=== PATIENT | female | born 1935 | race Caucasian/White ===

== ENCOUNTER 2016-06-30 15:13 | Emergency (ER) | payer MEDICARE, BC ==
[~2016-06-30 15:13] MED LIST: ACET650T PO; ASPI81TA7 PO; BACT400T PO; FISH1000 PO; FOSA70TA PO; HYDROXUREA PO; ICAPCAP PO; IRON18TA2 PO; JAKA10TA PO; KLOR CON PO; KLOR1TAB65 PO; LASI20TA PO; MECL25CH PO; PERCOCET PO; POTA-77 PO; SYNT100T PO
--- NOTE | 2016-06-30 16:26 | REP ---
Clinical: Right facial numbness. Findings: Age-related atrophy and microvascular ischemic changes are appreciated. The ventricles and sulci are symmetric. Ovalle-white differentiation is maintained. There is no evidence for acute intracranial hemorrhage, mass/mass effect, pathology or infarction. No extra-axial fluid collection. Calvarium is intact. Paranasal sinuses and mastoid air cells are clear. Stable chronic right frontal calcified meningioma. Impression: Age related atrophy and microvascular ischemic changes. No acute intracranial hemorrhage, infarction, or mass/mass effect. Signed by Kody Mcrae MD 06/30/2016 04:17 P
--- NOTE | 2016-06-30 16:41 | REP ---
AP portable upright chest radiograph 06/30/2016 Indication: Right facial numbness Comparison: AP portable chest 10/23/2013, CT abdomen and pelvis 02/21/2015 which includes lung bases in the field of view. Findings: The cardiac silhouette is of normal size. Mediastinal contour within normal limits. Small amount of bibasilar fibro atelectatic changes are noted. Small calcification is seen adjacent to the greater tuberosity within the right humeral head, consistent with calcific tendonitis. Impression: Normal cardiomediastinal silhouette. Small amount of bibasilar fibroatelectatic changes. Signed by Bailee Llanos MD 06/30/2016 04:32 P
[2016-06-30 17:16] LABS: INR 0.97
[2016-06-30 17:25] LABS: ANION GAP 8 MEQ/L (8-16); BLOOD UREA NITROGEN 33 MG/DL (7-18); CALCIUM LEVEL 8.8 MG/DL (8.8-10.2); CARBON DIOXIDE LEVEL 31 MEQ/L (21-32); CHLORIDE LEVEL 103 MEQ/L (98-107); GLOMERULAR FILTRATION RATE > 60.0 (>32); GLUCOSE, FASTING 100 MG/DL (83-110); POTASSIUM SERUM 3.9 MEQ/L (3.5-5.1); SODIUM LEVEL 142 MEQ/L (136-145)
[2016-06-30 17:26] LABS: BASO # 0.3 K/mm3 (0.0-0.2); BASO % 1.2 % (0.0-1.0); EOS # 0.1 K/mm3 (0.0-0.50); EOS % 0.5 % (0.0-3.0); LARGE UNSTAINED CELL # 0.3 K/mm3 (0.0-0.4); LARGE UNSTAINED CELL % 0.9 % (0.0-4.0); LYMPH % 2.5 % (24.0-44.0); MEAN CORPUSCULAR HEMOGLOBIN 16.5 pg (27.0-33.0); MEAN CORPUSCULAR HGB CONC 27.2 g/dl (32.0-36.5); MEAN CORPUSCULAR VOLUME 60.7 fl (80.0-96.0); MONO # 0.4 K/mm3 (0.0-0.8); MONO % 1.5 % (0.0-5.0); NEUTROPHILS # 26.6 K/mm3 (1.8-7.7); NEUTROPHILS % 93.4 % (36.0-66.0); PLATELET COUNT, AUTOMATED 304 k/mm3 (150-450); RED CELL DISTRIBUTION WIDTH 19.5 % (11.5-14.5); WHITE BLOOD COUNT 28.5 K/mm3 (4.0-10.0)
[2016-06-30 17:39] LABS: ANISOCYTOSIS 2+; HYPOCHROMASIA 3+; MICROCYTOSIS 3+
[2016-06-30 17:41] LABS: OVALOCYTES 2+; POLYCHROMASIA 1+
--- NOTE | 2016-06-30 18:14 | ECGEPIP ---
Stationary ECG Study [facility] - ED Test Date: 2016-06-30 Pat Name: SR JARA Department: Room: - Gender: F Conference Assistant: rupinder : 1935 Requested By: Lorrie Shukla Order Number: [id number] Reading MD: Carrie Sharif Measurements Intervals [place] Rate: 84 P: 54 DE: 138 QRS: 9 QRSD: 72 T: 16 QT: 339 QTc: 402 Interpretive Statements SINUS RHYTHM POSSIBLE LEFT ATRIAL ENLARGEMENT DELAYED R PROGRESSION DECREASED RATE 10/23/13 Electronically Signed On 06-30-2016 18:14:02 EST by Carrie Sharif
--- NOTE | 2016-06-30 18:49 | EDDOCDS ---
Nurse's Notes [facility] Name: Sr Martinez Age: 80 yrs Sex: Female : 1935 Arrival Date: 06/30/2016 Time: 15:13 Bed 7 Private MD: Amanda Lawson Abdul; Aura Napoles P. Diagnosis: Paresthesia of skin-intermittent, right facial;Other transient cerebral ischemic attacks and related syndromes-rule out;Polycythemia vera Presentation: 06/30 15:21 Presenting complaint: Patient states: Intermittent episodic right side facial numbness mlb1 began four weeks ago reports approximately 3-4 episode per day. Adult Sepsis Screening: The patient does not have new or worsening altered mentation. Patient's respiratory rate is less than 22. Systolic blood pressure is greater than 100. Patient has a qSOFA score of 0- Negative Sepsis Screen. Suicide/Homicide risk assessment- the patient denies having any suicidal and/or homicidal ideations and does not present with any other emotional, behavioral or mental health complaints. Status: Patient is not a service sprinkler helper or dependent. Transition of care: patient was not received from another setting of care. 15:21 Acuity: SANDRA Level 3 mlb1 15:21 Method Of Arrival: Walkin/Carried/Asstd mlb1 Triage Assessment: 15:24 General: Appears distressed, Behavior is anxious, crying. Pain: Denies pain. mlb1 Neurological: Level of Consciousness is awake, alert, Oriented to person, place, time, Speech is normal, Facial symmetry appears normal, Facial symmetry: tongue is midline. Historical: - Home Meds: 1. Synthroid 75 mcg Oral tab 1 tab once daily 2. alendronate 70 mg/75 mL oral soln 75 mL once wkly 3. Lasix 20 mg Oral tab 1 tab once daily 4. potassium chloride 15 mEq Oral TbTQ 1 tab 2 times per day 5. ared 1 tab twice a day 6. aspirin 81 mg Oral TbEC 1 tab once daily 7. Fish Oil Oral cap 1200 mg daily 8. Vitamin D Oral 2000 units daily 9. Jakafi 10 mg oral tab 1 tab 2 times per day - PMHx: polycythemia; - PSHx: stent placement right ureter; - Social history: Smoking status: Patient states was never smoker of tobacco. No barriers to communication noted, The patient speaks fluent Swedish, Speaks appropriately for age. - Family history: Not pertinent. - : The pt / caregiver states he / she is not on anticoagulants. Home medication list is obtained from the patient. - Exposure Risk Screening:: None identified. Screenin:45 Screening information is obtained from the patient. Fall risk: No risks identified. [facility] Assistance ADL's: requires no assistance with activities of daily living. Abuse/DV Screen: The patient / caregiver reports he/she is:. Nutritional screening: No deficits noted. home support is adequate. Assessment: 15:32 General: Appears in no apparent distress, skin warm and dry color satisfactory Moist [facility] pink oral mucosa. alert and oriented x 3. BOBBY brisk. without facial droop or drift. strength equal bilaterally. ambulates with satisfactory gait. without pain ./ speech is unimpaired. states " feeling" to left temporal region when present. seconds duration, and pain is not accompanied by other symptoms when present. 15:32 Neurological: No deficits noted. Level of Consciousness is awake, alert, Oriented to [facility] person, place, time, Automation Specialist are equal bilaterally Moves all extremities. Gait is steady, Speech is normal, Facial symmetry appears normal, Pupils are PERRLA. 17:00 General: Appears without symptoms.. jmk 17:49 General: Appears without complaints. neuro intact. k 17:51 General: ambulated to bathroom with steady gait. k 18:45 General: Appears without symptoms. [facility] Vital Signs: 15:16 BP 182 / 92 RA Sitting (auto/reg); Pulse 92; Resp 18; Temp 98.4(O); Pulse Ox 97% on rs6 R/A; Weight 52.16 kg (R); Height 5 ft. 4 in. (162.56 cm) (R); Pain 0/10; 17:49 BP 136 / 75 (auto/); k 17:49 Pulse 84 MON; Pulse Ox 95% ; jmk 18:45 BP 130 / 70; Pulse 80; Resp 16; Temp 97.3; k 15:16 Body Mass Index 19.74 (52.16 kg, 162.56 cm) [facility] Vitals: 15:16 Log In Time: June 30, 2016 at 15:16. [facility] 15:17 RN notified that patient meets Red Flag criteria. rs6 ED Course: 04:30 Inserted saline lock: 20 gauge in left antecubital area. jmk 15:16 Patient visited by Brea Mahajan PCA. rs6 15:16 Aura Napoles is Private Physician. rs6 15:16 Amanda Lawson is Private Physician. rs6 15:16 Patient moved to Waiting rs6 15:21 Patient visited by Azeem Saucedo, RN. mlb1 15:21 Patient visited by Brea Mahajan PCA. rs6 15:21 Patient moved to Pre RCE rs6 15:22 Triage Initiated mlb1 15:25 Patient visited by Azeem Saucedo, RN. mlb1 15:32 Patient moved to 7 [facility] 15:32 The patient / caregiver is instructed regarding the plan of care and ED course. jmk 15:37 Patient visited by Beck Brito RN. jmk 15:43 Lorrie Shukla MD is Attending Physician. ml 15:43 Patient visited by Lorrie Shukla MD. ml 16:19 Patient visited by Gilda Batres PCA. jlf 16:19 Patient visited by Gilda Batres PCA. jlf 16:19 EKG done. (by ED staff). Reviewed by Lorrie Shukla MD. jlf 16:31 Patient visited by Gilda Batres PCA. jlf 16:37 Basic Metabolic Profile Sent. jmk 16:37 CBC with Diff Sent. jmk 16:37 Partial Thromboplastin Time Sent. jmk 16:37 Prothrombin Time Profile\\E\\INR Sent. jmk 16:37 Type & Screen Sent. jmk 17:00 Fingerstick Blood Sugar Sent. jmk 17:01 Patient visited by Beck Brito,JINNY. jmk 17:11 CT Head Without Contrast Returned. EDMS 17:11 Chest, 1 View Returned. EDMS 17:51 Patient visited by Beck Brito RN. jmk 17:54 [facility] Payment Agreement was scanned into [employer] and attached to record. zo 18:11 Amanda Lawson is Referral Physician. ml 18:11 Aura Napoles is Referral Physician. ml 18:12 Stephany Irene MD is Referral Physician. ml 18:47 Discontinued lock intact, bleeding controlled, pressure dressing applied, No jmk redness/swelling at site. No procedures done that require assistance. Point of Care Testing: Blood Glucose: 16:42 Blood Glucose: 98 mg/dL; k Ranges: Order Results: Lab Order: Basic Metabolic Profile; SPEC'M 06/30/16 16:35 Test: GLUCOSE, FASTING; Value: 100; Range: 83-110; Units: MG/DL; Status: F Test: BLOOD UREA NITROGEN; Value: 33; Range: 7-18; Abnormal: Above high normal; Units: MG/DL; Status: F Test: CREATININE FOR GFR; Value: 0.90; Range: 0.55-1.02; Units: MG/DL; Status: F Test: GLOMERULAR FILTRATION RATE; Value: > 60.0; Range: >32; Status: F Test: SODIUM LEVEL; Value: 142; Range: 136-145; Units: MEQ/L; Status: F Test: POTASSIUM SERUM; Value: 3.9; Range: 3.5-5.1; Units: MEQ/L; Status: F Test: CHLORIDE LEVEL; Value: 103; Range: 98-107; Units: MEQ/L; Status: F Test: CARBON DIOXIDE LEVEL; Value: 31; Range: 21-32; Units: MEQ/L; Status: F Test: ANION GAP; Value: 8; Range: 8-16; Units: MEQ/L; Status: F Test: CALCIUM LEVEL; Value: 8.8; Range: 8.8-10.2; Units: MG/DL; Status: F Test Note: ; Units are mL/min/1.73 m2 Chronic Kidney Disease Staging per NKF: Stage I & II GFR >=60 Normal to Mildly Decreased Stage III GFR 30-59 Moderately Decreased Stage IV GFR 15-29 Severely Decreased Stage V GFR <15 Very Little GFR Left ESRD GFR <15 on SEMI CONDUCTOR ASSEMBLER Lab Order: CBC with Diff; SPEC'M 06/30/16 16:35 Test: WHITE BLOOD COUNT; Value: 28.5; Range: 4.0-10.0; Abnormal: Above high normal; Units: K/mm3; Status: F Test: RED BLOOD COUNT; Value: 7.87; Range: 4.00-5.40; Abnormal: Above high normal; Units: M/mm3; Status: F Test: HEMOGLOBIN; Value: 13.0; Range: 12.0-16.0; Units: g/dl; Status: F Test: HEMATOCRIT; Value: 47.7; Range: 36.0-47.0; Abnormal: Above high normal; Units: %; Status: F Test: MEAN CORPUSCULAR VOLUME; Value: 60.7; Range: 80.0-96.0; Abnormal: Below low normal; Units: fl; Status: F Test: MEAN CORPUSCULAR HEMOGLOBIN; Value: 16.5; Range: 27.0-33.0; Abnormal: Below low normal; Units: pg; Status: F Test: MEAN CORPUSCULAR HGB CONC; Value: 27.2; Range: 32.0-36.5; Abnormal: Below low normal; Units: g/dl; Status: F Test: RED CELL DISTRIBUTION WIDTH; Value: 19.5; Range: 11.5-14.5; Abnormal: Above high normal; Units: %; Status: F Test: PLATELET COUNT, AUTOMATED; Value: 304; Range: 150-450; Units: k/mm3; Status: F Test: NEUTROPHILS %; Value: 93.4; Range: 36.0-66.0; Abnormal: Above high normal; Units: %; Status: F Test: LYMPH %; Value: 2.5; Range: 24.0-44.0; Abnormal: Below low normal; Units: %; Status: F Test: MONO %; Value: 1.5; Range: 0.0-5.0; Units: %; Status: F Test: EOS %; Value: 0.5; Range: 0.0-3.0; Units: %; Status: F Test: BASO %; Value: 1.2; Range: 0.0-1.0; Abnormal: Above high normal; Units: %; Status: F Test: LARGE UNSTAINED CELL %; Value: 0.9; Range: 0.0-4.0; Units: %; Status: F Test: NEUTROPHILS #; Value: 26.6; Range: 1.8-7.7; Abnormal: Above high normal; Units: K/mm3; Status: F Test: LYMPH #; Value: 1.0; Range: 1.5-4.5; Abnormal: Below low normal; Units: K/mm3; Status: F Test: MONO #; Value: 0.4; Range: 0.0-0.8; Units: K/mm3; Status: F Test: EOS #; Value: 0.1; Range: 0.0-0.50; Units: K/mm3; Status: F Test: BASO #; Value: 0.3; Range: 0.0-0.2; Abnormal: Above high normal; Units: K/mm3; Status: F Test: LARGE UNSTAINED CELL #; Value: 0.3; Range: 0.0-0.4; Units: K/mm3; Status: F Lab Order: Partial Thromboplastin Time; [facility] 06/30/16 16:35 Test: PARTIAL THROMBOPLASTIN TIME; Value: 34.9; Range: 26.6-37.1; Units: SECONDS; Status: F Lab Order: Prothrombin Time Profile\\E\\INR; 06/30/16 16:35 Test: PROTHROMBIN TIME; Value: 13.0; Range: 12.3-14.5; Units: SECONDS; Status: F Test: INR; Value: 0.97; Status: F Test Note: ; THERAPUTIC HUMAN INR VALUES INDICATIONS NORMAL RANGES PROPHYLAXIS/TREATMENT OF: VENOUS THROMBOSIS 2.0-3.0 PULMONARY EMBOLISM 2.0-3.0 PREVENTION OF SYSTEMIC EMBOLISM FROM: TISSUE HEART VALVES 2.0-3.0 ACUTE MYOCARDIAL INFARCTION 2.0-3.0 VALVULAR HEART DISEASE 2.0-3.0 ATRIAL FIBRILLATION 2.0-3.0 MECHANICAL VALVES(HIGH RISK) 2.5-3.5 RECURRENT MYOCARDIAL INFARCTION 2.5-3.5 Lab Order: Type & Screen; 06/30/16 16:35 Test: BLOOD TYPE; Value: AB POS; Status: F Test: AB SCREEN (INDIRECT YUMIKO)GEL; Value: NEGATIVE; Status: F Lab Order: RBC MORPH PROF NO CHARGE; 06/30/16 16:35 Test: PLATELET ESTIMATE; Range: NORMAL; Status: I Test: POLYCHROMASIA; Value: 1+; Status: F Test: HYPOCHROMASIA; Value: 3+; Status: F Test: ANISOCYTOSIS; Value: 2+; Status: F Test: MICROCYTOSIS; Value: 3+; Status: F Test: OVALOCYTES; Value: 2+; Status: F Test: PLATELET ESTIMATE; Value: NORMAL; Range: NORMAL; Status: F Radiology Order: CT Head Without Contrast Test: CT Head Without Contrast REASON FOR EXAMINATION: intermittent right facial numbness; Clinical: Right facial numbness.; ; Findings:; Age-related atrophy and microvascular ischemic changes are appreciated. The; ventricles and sulci are symmetric. Ovalle-white differentiation is maintained.; There is no evidence for acute intracranial hemorrhage, mass/mass effect,; pathology or infarction. No extra-axial fluid collection. Calvarium is intact.; Paranasal sinuses and mastoid air cells are clear. Stable chronic right frontal; calcified meningioma.; ; Impression:; Age related atrophy and microvascular ischemic changes.; No acute intracranial hemorrhage, infarction, or mass/mass effect.; ; ; Signed by; Kody Mcrae MD 06/30/2016 04:17 P; Radiology Order: Chest, 1 View Test: Chest, 1 View REASON FOR EXAMINATION: right facial numbness; AP portable upright chest radiograph 06/30/2016; ; Indication: Right facial numbness; ; Comparison: AP portable chest 10/23/2013, CT abdomen and pelvis 02/21/2015 which; includes lung bases in the field of view.; ; Findings: The cardiac silhouette is of normal size. Mediastinal contour within; normal limits. Small amount of bibasilar fibro atelectatic changes are noted.; ; Small calcification is seen adjacent to the greater tuberosity within the right; humeral head, consistent with calcific tendonitis.; ; Impression:; ; Normal cardiomediastinal silhouette.; ; Small amount of bibasilar fibroatelectatic changes.; ; ; Signed by; Bailee Llanos MD 06/30/2016 04:32 P; Outcome: 18:12 Discharge ordered by Provider. 18:47 Discharge Assessment: Patient awake, alert and oriented x 3. No cognitive and/or k functional deficits noted. Patient verbalized understanding of disposition instructions. patient administered narcotics - no. The following High Risk Discharge criteria are identified: None. Discharged to home ambulatory. Condition: good. Discharge instructions given to patient. CT Study completed. Property :Personal belongings accompany Pt. 18:48 Patient left the ED. kaylen Signatures: Dispatcher [employer] EDMT Lorrie Shukla MD MD ml Knapp, JeanRN Oma Sevilla RN RN mcp Barney, Michael B RN RN mlb1 Bela Felder Jordain, LABORER [employer]YRUP MACHINE LABORER [employer]YRUP MACHINE jlf Brea Mahajan, LABORER [employer]YRUP MACHINE LABORER SYRUP MACHINE rs6 Corrections: (The following items were deleted from the chart) 15:52 15:24 Home Meds: none; karri abdullahi 15:54 15:24 Allergies: no known allergies; karri abdullahi MTDD
--- NOTE | 2016-06-30 18:49 | EDDOCDS ---
Physician Documentation Name: Sr Martinez Age: 80 yrs Sex: Female : 1935 Arrival Date: 06/30/2016 Time: 15:13 Bed 7 Private MD: Amanda Lawson Abdul; Aura Napoles P. Disposition: 06/30/16 18:12 Discharged to Home/Self Care. Impression: Paresthesia of skin - intermittent, right facial, Other transient cerebral ischemic attacks and related syndromes - rule out, Polycythemia vera. - Condition is Stable. - Discharge Instructions: Polycythemia Vera, Paresthesia, Transient Ischemic Attack. - Medication Reconciliation, Local Pharmacy Hours form. - Follow up: Amanda Lawson; When: 1 - 2 days. Follow up: Aura Napoles; When: 1 - 2 days. Follow up: Stephany Irene MD; When: 1 week. - Problem is new. - Symptoms have improved. - Notes: I spoke to Dr Irene who is happy to see you in follow up. He did not want me to add any other medication at this point in time. Should the symptoms recur and associated with motor weakness, right arm/right leg symptoms, visual issues, balance issues, inability to speak- immediately return to ED. Historical: - Home Meds: 1. Synthroid 75 mcg Oral tab 1 tab once daily 2. alendronate 70 mg/75 mL oral soln 75 mL once wkly 3. Lasix 20 mg Oral tab 1 tab once daily 4. potassium chloride 15 mEq Oral TbTQ 1 tab 2 times per day 5. ared 1 tab twice a day 6. aspirin 81 mg Oral TbEC 1 tab once daily 7. Fish Oil Oral cap 1200 mg daily 8. Vitamin D Oral 2000 units daily 9. Jakafi 10 mg oral tab 1 tab 2 times per day - PMHx: polycythemia; - PSHx: stent placement right ureter; - Social history: Smoking status: Patient states was never smoker of tobacco. No barriers to communication noted, The patient speaks fluent Colombian, Speaks appropriately for age. - Family history: Not pertinent. - : The pt / caregiver states he / she is not on anticoagulants. Home medication list is obtained from the patient. - Exposure Risk Screening:: None identified. Vital Signs: 06/30 15:16 BP 182 / 92 RA Sitting (auto/reg); Pulse 92; Resp 18; Temp 98.4(O); Pulse Ox 97% on rs6 R/A; Weight 52.16 kg / 114.99 lbs (R); Height 5 ft. 4 in. (162.56 cm) (R); Pain 0/10; 17:49 BP 136 / 75 (auto/); jmk 17:49 Pulse 84 MON; Pulse Ox 95% ; jmk 18:45 BP 130 / 70; Pulse 80; Resp 16; Temp 97.3; jmk 15:16 Body Mass Index 19.74 (52.16 kg, 162.56 cm) rs6 MDM: 15:55 Stallion Manager/Pulse Ox/q 15 min VS ordered. ml 15:55 Accucheck ordered. ml 15:55 IV Saline Lock ordered. ml 15:55 Neuro VS q 15 Minutes ordered. ml 15:55 Patient must be on CC stretcher and weighed via bed scale ordered. ml 15:55 Rhythm Strip to chart ordered. ml 15:55 Stroke assessment pack to bedside ordered. ml 15:56 Type & Screen Ordered. EDMS 15:57 Basic Metabolic Profile Ordered. EDMS 15:57 CBC with Diff Ordered. EDMS 15:57 Partial Thromboplastin Time Ordered. EDMS 15:57 Prothrombin Time Profile\E\INR Ordered. EDMS 15:57 Chest, 1 View Ordered. EDMS 15:57 CT Head Without Contrast Ordered. EDMS 15:57 ECG WITH READING ER PHYS+CARDIAG ordered. EDMS 16:45 Fingerstick Blood Sugar Ordered. EDMS 17:23 Partial Thromboplastin Time Reviewed. ml 17:23 Prothrombin Time Profile\E\INR Reviewed. ml 17:23 CT Head Without Contrast Reviewed. ml 17:23 Chest, 1 View Reviewed. ml 17:28 RBC MORPH PROF NO CHARGE Ordered. EDMS 17:28 Basic Metabolic Profile Reviewed. ml 17:28 CBC with Diff Reviewed. ml 17:30 CBC with Diff Reviewed. ml 17:40 Financial registration complete. zo 17:54 [facility] Payment Agreement was scanned into [employer] and attached to record. zo 18:07 CBC with Diff Reviewed. ml 18:07 Type & Screen Reviewed. ml 18:07 RBC MORPH PROF NO CHARGE Reviewed. Point of Care Testing: Blood Glucose: 16:42 Blood Glucose: 98 mg/dL; jmk Ranges: Signatures: Dispatcher [employer] Lorrie Corona MD MD ml Knapp, JeanRN RN Azeem Pulliam RN RN Bela Dacosta The chart was reviewed and I authenticate all verbal orders and agree with the evaluation and treatment provided.Corrections: (The following items were deleted from the chart) 15:52 15:24 Home Meds: none; karri abdullahi 15:54 15:24 Allergies: no known allergies; karri abdullahi Attachments: 17:54 [facility] Payment Agreement zo MTDD
--- NOTE | 2016-07-02 19:49 | EDDOCDS ---
Nurse's Notes [facility] Name: Sr Martinez Age: 80 yrs Sex: Female : 1935 Arrival Date: 06/30/2016 Time: 15:13 Bed 7 Private MD: Amanda Lawson Abdul; Aura Napoles P. Diagnosis: Paresthesia of skin-intermittent, right facial;Other transient cerebral ischemic attacks and related syndromes-rule out;Polycythemia vera Presentation: 06/30 15:21 Presenting complaint: Patient states: Intermittent episodic right side facial numbness mlb1 began four weeks ago reports approximately 3-4 episode per day. Adult Sepsis Screening: The patient does not have new or worsening altered mentation. Patient's respiratory rate is less than 22. Systolic blood pressure is greater than 100. Patient has a qSOFA score of 0- Negative Sepsis Screen. Suicide/Homicide risk assessment- the patient denies having any suicidal and/or homicidal ideations and does not present with any other emotional, behavioral or mental health complaints. Status: Patient is not a supervisor volunteer services or dependent. Transition of care: patient was not received from another setting of care. 15:21 Acuity: SANDRA Level 3 mlb1 15:21 Method Of Arrival: Walkin/Carried/Asstd mlb1 Triage Assessment: 15:24 General: Appears distressed, Behavior is anxious, crying. Pain: Denies pain. mlb1 Neurological: Level of Consciousness is awake, alert, Oriented to person, place, time, Speech is normal, Facial symmetry appears normal, Facial symmetry: tongue is midline. Historical: - Home Meds: 1. Synthroid 75 mcg Oral tab 1 tab once daily 2. alendronate 70 mg/75 mL oral soln 75 mL once wkly 3. Lasix 20 mg Oral tab 1 tab once daily 4. potassium chloride 15 mEq Oral TbTQ 1 tab 2 times per day 5. ared 1 tab twice a day 6. aspirin 81 mg Oral TbEC 1 tab once daily 7. Fish Oil Oral cap 1200 mg daily 8. Vitamin D Oral 2000 units daily 9. Jakafi 10 mg oral tab 1 tab 2 times per day - PMHx: polycythemia; - PSHx: stent placement right ureter; - Social history: Smoking status: Patient states was never smoker of tobacco. No barriers to communication noted, The patient speaks fluent Ukrainian, Speaks appropriately for age. - Family history: Not pertinent. - : The pt / caregiver states he / she is not on anticoagulants. Home medication list is obtained from the patient. - Exposure Risk Screening:: None identified. Screenin:45 Screening information is obtained from the patient. Fall risk: No risks identified. [facility] Assistance ADL's: requires no assistance with activities of daily living. Abuse/DV Screen: The patient / caregiver reports he/she is:. Nutritional screening: No deficits noted. home support is adequate. Assessment: 15:32 General: Appears in no apparent distress, skin warm and dry color satisfactory Moist [facility] pink oral mucosa. alert and oriented x 3. BOBBY brisk. without facial droop or drift. strength equal bilaterally. ambulates with satisfactory gait. without pain ./ speech is unimpaired. states " feeling" to left temporal region when present. seconds duration, and pain is not accompanied by other symptoms when present. 15:32 Neurological: No deficits noted. Level of Consciousness is awake, alert, Oriented to [facility] person, place, time, Boring Machine Operator Production are equal bilaterally Moves all extremities. Gait is steady, Speech is normal, Facial symmetry appears normal, Pupils are PERRLA. 17:00 General: Appears without symptoms.. jmk 17:49 General: Appears without complaints. neuro intact. k 17:51 General: ambulated to bathroom with steady gait. k 18:45 General: Appears without symptoms. [facility] Vital Signs: 15:16 BP 182 / 92 RA Sitting (auto/reg); Pulse 92; Resp 18; Temp 98.4(O); Pulse Ox 97% on rs6 R/A; Weight 52.16 kg (R); Height 5 ft. 4 in. (162.56 cm) (R); Pain 0/10; 17:49 BP 136 / 75 (auto/); k 17:49 Pulse 84 MON; Pulse Ox 95% ; jmk 18:45 BP 130 / 70; Pulse 80; Resp 16; Temp 97.3; k 15:16 Body Mass Index 19.74 (52.16 kg, 162.56 cm) [facility] Vitals: 15:16 Log In Time: June 30, 2016 at 15:16. [facility] 15:17 RN notified that patient meets Red Flag criteria. rs6 ED Course: 04:30 Inserted saline lock: 20 gauge in left antecubital area. jmk 15:16 Patient visited by Brea Mahajan PCA. rs6 15:16 Aura Napoles is Private Physician. rs6 15:16 Amanda Lawson is Private Physician. rs6 15:16 Patient moved to Waiting rs6 15:21 Patient visited by Azeem Sauecdo, RN. mlb1 15:21 Patient visited by Brea Mahajan PCA. rs6 15:21 Patient moved to Pre RCE rs6 15:22 Triage Initiated mlb1 15:25 Patient visited by Azeem Saucedo, RN. mlb1 15:32 Patient moved to 7 [facility] 15:32 The patient / caregiver is instructed regarding the plan of care and ED course. jmk 15:37 Patient visited by Beck Brito RN. jmk 15:43 Lorrie Shukla MD is Attending Physician. ml 15:43 Patient visited by Lorrie Shukla MD. ml 16:19 Patient visited by Gilda Batres PCA. jlf 16:19 Patient visited by Gilda Batres PCA. jlf 16:19 EKG done. (by ED staff). Reviewed by Lorrie Shukla MD. jlf 16:31 Patient visited by Gilda Batres PCA. jlf 16:37 Basic Metabolic Profile Sent. jmk 16:37 CBC with Diff Sent. jmk 16:37 Partial Thromboplastin Time Sent. jmk 16:37 Prothrombin Time Profile\\E\\INR Sent. jmk 16:37 Type & Screen Sent. jmk 17:00 Fingerstick Blood Sugar Sent. jmk 17:01 Patient visited by Beck Brito,JINNY. jmk 17:11 CT Head Without Contrast Returned. EDMS 17:11 Chest, 1 View Returned. EDMS 17:51 Patient visited by Beck Brito RN. jmk 17:54 [facility] Payment Agreement was scanned into [employer] and attached to record. zo 18:11 Amanda Lawson is Referral Physician. ml 18:11 Aura Napoles is Referral Physician. ml 18:12 Stephany Irene MD is Referral Physician. ml 18:47 Discontinued lock intact, bleeding controlled, pressure dressing applied, No jmk redness/swelling at site. No procedures done that require assistance. 19:13 ELECTROCARDIOGRAM ADULT Returned. [facility] 07/01 10:43 T-Sheet-- Draft Copy was scanned into [employer] and attached to record. 10:43 ECG/EKG was scanned into [employer] and attached to record. gb 10:44 Radiology Report was scanned into [employer] and attached to record. Point of Care Testing: Blood Glucose: 06/30 16:42 Blood Glucose: 98 mg/dL; jmk Ranges: Order Results: Lab Order: Basic Metabolic Profile; SPEC'M 06/30/16 16:35 Test: GLUCOSE, FASTING; Value: 100; Range: 83-110; Units: MG/DL; Status: F Test: BLOOD UREA NITROGEN; Value: 33; Range: 7-18; Abnormal: Above high normal; Units: MG/DL; Status: F Test: CREATININE FOR GFR; Value: 0.90; Range: 0.55-1.02; Units: MG/DL; Status: F Test: GLOMERULAR FILTRATION RATE; Value: > 60.0; Range: >32; Status: F Test: SODIUM LEVEL; Value: 142; Range: 136-145; Units: MEQ/L; Status: F Test: POTASSIUM SERUM; Value: 3.9; Range: 3.5-5.1; Units: MEQ/L; Status: F Test: CHLORIDE LEVEL; Value: 103; Range: 98-107; Units: MEQ/L; Status: F Test: CARBON DIOXIDE LEVEL; Value: 31; Range: 21-32; Units: MEQ/L; Status: F Test: ANION GAP; Value: 8; Range: 8-16; Units: MEQ/L; Status: F Test: CALCIUM LEVEL; Value: 8.8; Range: 8.8-10.2; Units: MG/DL; Status: F Test Note: ; Units are mL/min/1.73 m2 Chronic Kidney Disease Staging per NKF: Stage I & II GFR >=60 Normal to Mildly Decreased Stage III GFR 30-59 Moderately Decreased Stage IV GFR 15-29 Severely Decreased Stage V GFR <15 Very Little GFR Left ESRD GFR <15 on DESK CLERK Lab Order: CBC with Diff; SPEC'M 06/30/16 16:35 Test: WHITE BLOOD COUNT; Value: 28.5; Range: 4.0-10.0; Abnormal: Above high normal; Units: K/mm3; Status: F Test: RED BLOOD COUNT; Value: 7.87; Range: 4.00-5.40; Abnormal: Above high normal; Units: M/mm3; Status: F Test: HEMOGLOBIN; Value: 13.0; Range: 12.0-16.0; Units: g/dl; Status: F Test: HEMATOCRIT; Value: 47.7; Range: 36.0-47.0; Abnormal: Above high normal; Units: %; Status: F Test: MEAN CORPUSCULAR VOLUME; Value: 60.7; Range: 80.0-96.0; Abnormal: Below low normal; Units: fl; Status: F Test: MEAN CORPUSCULAR HEMOGLOBIN; Value: 16.5; Range: 27.0-33.0; Abnormal: Below low normal; Units: pg; Status: F Test: MEAN CORPUSCULAR HGB CONC; Value: 27.2; Range: 32.0-36.5; Abnormal: Below low normal; Units: g/dl; Status: F Test: RED CELL DISTRIBUTION WIDTH; Value: 19.5; Range: 11.5-14.5; Abnormal: Above high normal; Units: %; Status: F Test: PLATELET COUNT, AUTOMATED; Value: 304; Range: 150-450; Units: k/mm3; Status: F Test: NEUTROPHILS %; Value: 93.4; Range: 36.0-66.0; Abnormal: Above high normal; Units: %; Status: F Test: LYMPH %; Value: 2.5; Range: 24.0-44.0; Abnormal: Below low normal; Units: %; Status: F Test: MONO %; Value: 1.5; Range: 0.0-5.0; Units: %; Status: F Test: EOS %; Value: 0.5; Range: 0.0-3.0; Units: %; Status: F Test: BASO %; Value: 1.2; Range: 0.0-1.0; Abnormal: Above high normal; Units: %; Status: F Test: LARGE UNSTAINED CELL %; Value: 0.9; Range: 0.0-4.0; Units: %; Status: F Test: NEUTROPHILS #; Value: 26.6; Range: 1.8-7.7; Abnormal: Above high normal; Units: K/mm3; Status: F Test: LYMPH #; Value: 1.0; Range: 1.5-4.5; Abnormal: Below low normal; Units: K/mm3; Status: F Test: MONO #; Value: 0.4; Range: 0.0-0.8; Units: K/mm3; Status: F Test: EOS #; Value: 0.1; Range: 0.0-0.50; Units: K/mm3; Status: F Test: BASO #; Value: 0.3; Range: 0.0-0.2; Abnormal: Above high normal; Units: K/mm3; Status: F Test: LARGE UNSTAINED CELL #; Value: 0.3; Range: 0.0-0.4; Units: K/mm3; Status: F Lab Order: Partial Thromboplastin Time; [facility] 06/30/16 16:35 Test: PARTIAL THROMBOPLASTIN TIME; Value: 34.9; Range: 26.6-37.1; Units: SECONDS; Status: F Lab Order: Prothrombin Time Profile\\E\\INR; 06/30/16 16:35 Test: PROTHROMBIN TIME; Value: 13.0; Range: 12.3-14.5; Units: SECONDS; Status: F Test: INR; Value: 0.97; Status: F Test Note: ; THERAPUTIC HUMAN INR VALUES INDICATIONS NORMAL RANGES PROPHYLAXIS/TREATMENT OF: VENOUS THROMBOSIS 2.0-3.0 PULMONARY EMBOLISM 2.0-3.0 PREVENTION OF SYSTEMIC EMBOLISM FROM: TISSUE HEART VALVES 2.0-3.0 ACUTE MYOCARDIAL INFARCTION 2.0-3.0 VALVULAR HEART DISEASE 2.0-3.0 ATRIAL FIBRILLATION 2.0-3.0 MECHANICAL VALVES(HIGH RISK) 2.5-3.5 RECURRENT MYOCARDIAL INFARCTION 2.5-3.5 Lab Order: Type & Screen; 06/30/16 16:35 Test: BLOOD TYPE; Value: AB POS; Status: F Test: AB SCREEN (INDIRECT YUMIKO)GEL; Value: NEGATIVE; Status: F Lab Order: RBC MORPH PROF NO CHARGE; 06/30/16 16:35 Test: PLATELET ESTIMATE; Range: NORMAL; Status: I Test: POLYCHROMASIA; Value: 1+; Status: F Test: HYPOCHROMASIA; Value: 3+; Status: F Test: ANISOCYTOSIS; Value: 2+; Status: F Test: MICROCYTOSIS; Value: 3+; Status: F Test: OVALOCYTES; Value: 2+; Status: F Test: PLATELET ESTIMATE; Value: NORMAL; Range: NORMAL; Status: F Radiology Order: CT Head Without Contrast Test: CT Head Without Contrast REASON FOR EXAMINATION: intermittent right facial numbness; Clinical: Right facial numbness.; ; Findings:; Age-related atrophy and microvascular ischemic changes are appreciated. The; ventricles and sulci are symmetric. Ovalle-white differentiation is maintained.; There is no evidence for acute intracranial hemorrhage, mass/mass effect,; pathology or infarction. No extra-axial fluid collection. Calvarium is intact.; Paranasal sinuses and mastoid air cells are clear. Stable chronic right frontal; calcified meningioma.; ; Impression:; Age related atrophy and microvascular ischemic changes.; No acute intracranial hemorrhage, infarction, or mass/mass effect.; ; ; Signed by; Kody Mcrae MD 06/30/2016 04:17 P; Radiology Order: Chest, 1 View Test: Chest, 1 View REASON FOR EXAMINATION: right facial numbness; AP portable upright chest radiograph 06/30/2016; ; Indication: Right facial numbness; ; Comparison: AP portable chest 10/23/2013, CT abdomen and pelvis 02/21/2015 which; includes lung bases in the field of view.; ; Findings: The cardiac silhouette is of normal size. Mediastinal contour within; normal limits. Small amount of bibasilar fibro atelectatic changes are noted.; ; Small calcification is seen adjacent to the greater tuberosity within the right; humeral head, consistent with calcific tendonitis.; ; Impression:; ; Normal cardiomediastinal silhouette.; ; Small amount of bibasilar fibroatelectatic changes.; ; ; Signed by; Bailee Llanos MD 06/30/2016 04:32 P; Radiology Order: ELECTROCARDIOGRAM ADULT Test: ELECTROCARDIOGRAM ADULT REASON FOR EXAMINATION: right facial numbness; Stationary ECG Study; [facility] ED; ; Test Date: 2016-06-30; Pat Name: SR MARTINEZ Department:; Room: -; Gender: F 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 18:47 Discharge Assessment: Patient awake, alert and oriented x 3. No cognitive and/or k functional deficits noted. Patient verbalized understanding of disposition instructions. patient administered narcotics - no. The following High Risk Discharge criteria are identified: None. Discharged to home ambulatory. Condition: good. Discharge instructions given to patient. CT Study completed. Property :Personal belongings accompany Pt. 18:48 Patient left the ED. kaylen Signatures: Dispatcher [employer] EDMS Lorrie Shukla MD MD ml Knapp, Jean,RN RN Oma Moreno RN RN Ame Ocampo, Azeem Mccarthy RN RN Bela Dacosta Jordain, ENGINEERING SECRETARY ENGINEERING SECRETARY jlBrea Myers, ENGINEERING SECRETARY ENGINEERING SECRETARY rs6 Corrections: (The following items were deleted from the chart) 15:52 15:24 Home Meds: none; karri abdullahi 15:54 15:24 Allergies: no known allergies; karri abdullahi Chart Complete MTDD
--- NOTE | 2016-07-02 19:49 | EDDOCDS ---
Physician Documentation [facility] Name: Sr Martinez Age: 80 yrs Sex: Female : 1935 Arrival Date: 06/30/2016 Time: 15:13 Bed 7 Private MD: Amanda Lawson Abdul; Aura Napoles P. Disposition: 06/30/16 18:12 Discharged to Home/Self Care. Impression: Paresthesia of skin - intermittent, right facial, Other transient cerebral ischemic attacks and related syndromes - rule out, Polycythemia vera. - Condition is Stable. - Discharge Instructions: Polycythemia Vera, Paresthesia, Transient Ischemic Attack. - Medication Reconciliation, Local Pharmacy Hours form. - Follow up: Amanda Lawson; When: 1 - 2 days. Follow up: Aura Napoles; When: 1 - 2 days. Follow up: Stephany Irene MD; When: 1 week. - Problem is new. - Symptoms have improved. - Notes: I spoke to Dr Irene who is happy to see you in follow up. He did not want me to add any other medication at this point in time. Should the symptoms recur and associated with motor weakness, right arm/right leg symptoms, visual issues, balance issues, inability to speak- immediately return to ED. Historical: - Home Meds: 1. Synthroid 75 mcg Oral tab 1 tab once daily 2. alendronate 70 mg/75 mL oral soln 75 mL once wkly 3. Lasix 20 mg Oral tab 1 tab once daily 4. potassium chloride 15 mEq Oral TbTQ 1 tab 2 times per day 5. ared 1 tab twice a day 6. aspirin 81 mg Oral TbEC 1 tab once daily 7. Fish Oil Oral cap 1200 mg daily 8. Vitamin D Oral 2000 units daily 9. Jakafi 10 mg oral tab 1 tab 2 times per day - PMHx: polycythemia; - PSHx: stent placement right ureter; - Social history: Smoking status: Patient states was never smoker of tobacco. No barriers to communication noted, The patient speaks fluent Panamanian, Speaks appropriately for age. - Family history: Not pertinent. - : The pt / caregiver states he / she is not on anticoagulants. Home medication list is obtained from the patient. - Exposure Risk Screening:: None identified. Vital Signs: 06/30 15:16 BP 182 / 92 RA Sitting (auto/reg); Pulse 92; Resp 18; Temp 98.4(O); Pulse Ox 97% on rs6 R/A; Weight 52.16 kg / 114.99 lbs (R); Height 5 ft. 4 in. (162.56 cm) (R); Pain 0/10; 17:49 BP 136 / 75 (auto/); jmk 17:49 Pulse 84 MON; Pulse Ox 95% ; jmk 18:45 BP 130 / 70; Pulse 80; Resp 16; Temp 97.3; jmk 15:16 Body Mass Index 19.74 (52.16 kg, 162.56 cm) rs6 MDM: 15:55 Bank President/Pulse Ox/q 15 min VS ordered. ml 15:55 Accucheck ordered. ml 15:55 IV Saline Lock ordered. ml 15:55 Neuro VS q 15 Minutes ordered. ml 15:55 Patient must be on CC stretcher and weighed via bed scale ordered. ml 15:55 Rhythm Strip to chart ordered. ml 15:55 Stroke assessment pack to bedside ordered. ml 15:56 Type & Screen Ordered. EDMS 15:57 Basic Metabolic Profile Ordered. EDMS 15:57 CBC with Diff Ordered. EDMS 15:57 Partial Thromboplastin Time Ordered. EDMS 15:57 Prothrombin Time Profile\E\INR Ordered. EDMS 15:57 Chest, 1 View Ordered. EDMS 15:57 CT Head Without Contrast Ordered. EDMS 15:57 ECG WITH READING ER PHYS+CARDIAG ordered. EDMS 16:45 Fingerstick Blood Sugar Ordered. EDMS 17:23 Partial Thromboplastin Time Reviewed. ml 17:23 Prothrombin Time Profile\E\INR Reviewed. ml 17:23 CT Head Without Contrast Reviewed. ml 17:23 Chest, 1 View Reviewed. ml 17:28 RBC MORPH PROF NO CHARGE Ordered. EDMS 17:28 Basic Metabolic Profile Reviewed. ml 17:28 CBC with Diff Reviewed. ml 17:30 CBC with Diff Reviewed. ml 17:40 Financial registration complete. zo 17:54 [facility] Payment Agreement was scanned into [employer] and attached to record. zo 18:07 CBC with Diff Reviewed. ml 18:07 Type & Screen Reviewed. ml 18:07 RBC MORPH PROF NO CHARGE Reviewed. ml 07/01 10:43 T-Sheet-- Draft Copy was scanned into [employer] and attached to record. gb 10:43 ECG/EKG was scanned into [employer] and attached to record. gb 10:44 Radiology Report was scanned into [employer] and attached to record. gb Point of Care Testing: Blood Glucose: 06/30 16:42 Blood Glucose: 98 mg/dL; kyalen Ranges: Signatures: Dispatcher [employer] EDLorrie Thrasher MD MD ml Knapp, Jean,RN RN Ame Jeronimo, Juancarlos Reg Azeem Jimenez RN RN Bela Dacosta The chart was reviewed and I authenticate all verbal orders and agree with the evaluation and treatment provided.Corrections: (The following items were deleted from the chart) 15:52 15:24 Home Meds: none; karri abdullahi 15:54 15:24 Allergies: no known allergies; karri abdullahi Attachments: 17:54 [facility] [place] Agreement zo 07/01 10:43 T-Sheet-- Draft Copy gb 10:43 ECG/EKG gb Chart Complete MTDD
--- NOTE | 2016-07-02 19:49 | EDDOCDS ---
Physician Documentation [facility] Name: Sr Martinez Age: 80 yrs Sex: Female : 1935 Arrival Date: 06/30/2016 Time: 15:13 Bed 7 Private MD: Amanda Lawson Abdul; Aura Napoles P. Disposition: 06/30/16 18:12 Discharged to Home/Self Care. Impression: Paresthesia of skin - intermittent, right facial, Other transient cerebral ischemic attacks and related syndromes - rule out, Polycythemia vera. - Condition is Stable. - Discharge Instructions: Polycythemia Vera, Paresthesia, Transient Ischemic Attack. - Medication Reconciliation, Local Pharmacy Hours form. - Follow up: Amanda Lawson; When: 1 - 2 days. Follow up: Aura Napoles; When: 1 - 2 days. Follow up: Stephany Irene MD; When: 1 week. - Problem is new. - Symptoms have improved. - Notes: I spoke to Dr Irene who is happy to see you in follow up. He did not want me to add any other medication at this point in time. Should the symptoms recur and associated with motor weakness, right arm/right leg symptoms, visual issues, balance issues, inability to speak- immediately return to ED. Historical: - Home Meds: 1. Synthroid 75 mcg Oral tab 1 tab once daily 2. alendronate 70 mg/75 mL oral soln 75 mL once wkly 3. Lasix 20 mg Oral tab 1 tab once daily 4. potassium chloride 15 mEq Oral TbTQ 1 tab 2 times per day 5. ared 1 tab twice a day 6. aspirin 81 mg Oral TbEC 1 tab once daily 7. Fish Oil Oral cap 1200 mg daily 8. Vitamin D Oral 2000 units daily 9. Jakafi 10 mg oral tab 1 tab 2 times per day - PMHx: polycythemia; - PSHx: stent placement right ureter; - Social history: Smoking status: Patient states was never smoker of tobacco. No barriers to communication noted, The patient speaks fluent Bahamian, Speaks appropriately for age. - Family history: Not pertinent. - : The pt / caregiver states he / she is not on anticoagulants. Home medication list is obtained from the patient. - Exposure Risk Screening:: None identified. Vital Signs: 06/30 15:16 BP 182 / 92 RA Sitting (auto/reg); Pulse 92; Resp 18; Temp 98.4(O); Pulse Ox 97% on rs6 R/A; Weight 52.16 kg / 114.99 lbs (R); Height 5 ft. 4 in. (162.56 cm) (R); Pain 0/10; 17:49 BP 136 / 75 (auto/); jmk 17:49 Pulse 84 MON; Pulse Ox 95% ; jmk 18:45 BP 130 / 70; Pulse 80; Resp 16; Temp 97.3; jmk 15:16 Body Mass Index 19.74 (52.16 kg, 162.56 cm) rs6 MDM: 15:55 Campus Monitor/Pulse Ox/q 15 min VS ordered. ml 15:55 Accucheck ordered. ml 15:55 IV Saline Lock ordered. ml 15:55 Neuro VS q 15 Minutes ordered. ml 15:55 Patient must be on CC stretcher and weighed via bed scale ordered. ml 15:55 Rhythm Strip to chart ordered. ml 15:55 Stroke assessment pack to bedside ordered. ml 15:56 Type & Screen Ordered. EDMS 15:57 Basic Metabolic Profile Ordered. EDMS 15:57 CBC with Diff Ordered. EDMS 15:57 Partial Thromboplastin Time Ordered. EDMS 15:57 Prothrombin Time Profile\E\INR Ordered. EDMS 15:57 Chest, 1 View Ordered. EDMS 15:57 CT Head Without Contrast Ordered. EDMS 15:57 ECG WITH READING ER PHYS+CARDIAG ordered. EDMS 16:45 Fingerstick Blood Sugar Ordered. EDMS 17:23 Partial Thromboplastin Time Reviewed. ml 17:23 Prothrombin Time Profile\E\INR Reviewed. ml 17:23 CT Head Without Contrast Reviewed. ml 17:23 Chest, 1 View Reviewed. ml 17:28 RBC MORPH PROF NO CHARGE Ordered. EDMS 17:28 Basic Metabolic Profile Reviewed. ml 17:28 CBC with Diff Reviewed. ml 17:30 CBC with Diff Reviewed. ml 17:40 Financial registration complete. zo 17:54 [facility] Payment Agreement was scanned into [employer] and attached to record. zo 18:07 CBC with Diff Reviewed. ml 18:07 Type & Screen Reviewed. ml 18:07 RBC MORPH PROF NO CHARGE Reviewed. ml 07/01 10:43 T-Sheet-- Draft Copy was scanned into [employer] and attached to record. gb 10:43 ECG/EKG was scanned into [employer] and attached to record. gb 10:44 Radiology Report was scanned into [employer] and attached to record. gb Point of Care Testing: Blood Glucose: 06/30 16:42 Blood Glucose: 98 mg/dL; kaylen Ranges: Signatures: Dispatcher [employer] EDLorrie Thrasher MD MD ml Knapp, Jean,RN RN Ame Jeronimo, Juancarlos Reg Azeem Jimenez RN RN Bela Dacosta The chart was reviewed and I authenticate all verbal orders and agree with the evaluation and treatment provided.Corrections: (The following items were deleted from the chart) 15:52 15:24 Home Meds: none; karri abdullahi 15:54 15:24 Allergies: no known allergies; karri abdullahi Attachments: 17:54 [facility] Payment Agreement zo 07/01 10:43 T-Sheet-- Draft Copy gb 10:43 ECG/EKG gb Chart Complete MTDD
== END 2016-06-30 18:48 | disposition home or self-care (01) ==
LOC: M ED 15:13
DX: R20.2 Paresthesia of skin (principal); D75.1 Secondary polycythemia; Z96.0 Presence of urogenital implants; Z79.82 Long term (current) use of aspirin; Z79.899 Other long term (current) drug therapy

== ENCOUNTER → 2016-07-30 | Outpatient (REF) | payer MEDICARE, BC ==
[2016-07-30 13:55] LABS: FOLATE > 24.0 NG/ML; VITAMIN B12 LEVEL > 2000 PG/ML
[2016-07-30 13:58] LABS: FREE T4 1.26 NG/DL (0.76-1.46)
[2016-08-02 14:17] LABS: VITAMIN E LEVEL 18.8 mg/L (6.5-21.5)
== END | disposition home or self-care (01) ==
LOC: M LABNEURO 12:44
PROVIDERS: ATTEND Psychiatry & Neurology Neurology
DX: E03.9 Hypothyroidism, unspecified (principal); G62.9 Polyneuropathy, unspecified; E53.8 Deficiency of other specified B group vitamins; E51.9 Thiamine deficiency, unspecified

== ENCOUNTER → 2017-02-07 | Outpatient (CLI) | payer MEDICARE, BC ==
[~2017-02-07] MED LIST changes: +MECL1CHW2 PO; -MECL25CH PO
--- NOTE | 2017-02-07 16:48 | REP ---
Left tib-fib series: Two views: History: Pain. Lower leg injury. Findings: There is advanced diffuse large and small artery vascular calcification throughout the calf soft tissues. No bony destructive lesion is seen. No periosteal reaction or fracture is seen. No soft tissue gas is noted. No significant change from the comparison study 02/22/2005. Impression: No acute bony abnormality. Extensive vascular calcification. Signed by Jay Schwartz MD 02/07/2017 05:13 P
== END ==
LOC: M WUC 15:35
PROVIDERS: ATTEND Physician Assistant
DX: M79.662 Pain in left lower leg (principal); I70.212 Atherosclerosis of native arteries of extremities with intermittent claudication, left leg

== ENCOUNTER → 2017-02-08 | Outpatient (CLI) | payer MEDICARE, BC ==
--- NOTE | 2017-02-09 11:36 | REP ---
Left lower extremity Duplex Doppler venous ultrasound: Real time compression and duplex Doppler interrogation of the left lower extremity deep venous system is performed. The left common femoral, superficial femoral and popliteal veins are fully compressible with transducer pressure and demonstrate normal spontaneous and phasic flow, without evidence of deep venous thrombosis. Impression: No evidence of deep venous thrombosis of the left lower extremity femoral popliteal venous system. Signed by Castillo Ovalle MD 02/08/2017 02:01 P
== END ==
LOC: M RAD 13:24
PROVIDERS: ATTEND Physician Assistant
DX: M79.662 Pain in left lower leg (principal)

== ENCOUNTER → 2017-10-31 | Outpatient (CLI) | payer MEDICARE, BC | LOC: M WUC 16:24 | DX: R50.9 Fever, unspecified (principal) ==

== ENCOUNTER → 2017-10-31 | Outpatient (CLI) | payer MEDICARE, BC ==
[2017-10-31 19:26] LABS: HEMATOCRIT 47.7 % (36.0-47.0); HEMOGLOBIN 12.8 g/dl (12.0-15.5); MEAN CORPUSCULAR HEMOGLOBIN 17.6 pg (27.0-33.0); MEAN CORPUSCULAR HGB CONC 26.8 g/dl (32.0-36.5); MEAN CORPUSCULAR VOLUME 65.6 fl (80.0-96.0); PLATELET COUNT, AUTOMATED 306 10^3/uL (150-450); RED BLOOD COUNT 7.27 10^6/uL (4.00-5.40); RED CELL DISTRIBUTION WIDTH 22.6 % (11.5-14.5); WHITE BLOOD COUNT 24.5 10^3/uL (4.0-10.0)
[2017-10-31 19:38] LABS: ADD MANUAL DIFFER YES; DIFF SLIDE NUMBER 372; POS COUNT POS FLAG; POSITIVE MORPH POS FLAG
[2017-10-31 20:18] LABS: BANDS 18 % (< 11); BASOPHILS 1 % (0-4); EOSINOPHILS 1 % (0-5); LYMPHOCYTES 4 % (16-52); MONOCYTES 2 % (0-8); NEUTROPHILS 74 % (35-75)
[2017-10-31 20:19] LABS: ANISOCYTOSIS 2+; HYPOCHROMASIA 2+; MICROCYTOSIS 2+; POIKILOCYTOSIS 2+; POLYCHROMASIA 1+; SCHISTOCYTES 1+
[2017-10-31 20:20] LABS: OVALOCYTES 2+; PLATELET ESTIMATE NORMAL (NORMAL)
== END ==
LOC: M RAD 17:24
DX: R50.9 Fever, unspecified (principal); M79.662 Pain in left lower leg
CPT/HCPCS: 71046

== ENCOUNTER → 2017-12-27 | Outpatient (REF) | payer MEDICARE, BC ==
[2017-12-27 16:24] LABS: HEMATOCRIT 49.1 % (36.0-47.0); MEAN CORPUSCULAR HGB CONC 26.5 g/dl (32.0-36.5); MEAN CORPUSCULAR VOLUME 67.9 fl (80.0-96.0); PLATELET COUNT, AUTOMATED 287 10^3/uL (150-450); RED BLOOD COUNT 7.23 10^6/uL (4.00-5.40); RED CELL DISTRIBUTION WIDTH 23.8 % (11.5-14.5)
[2017-12-27 16:26] LABS: ADD MANUAL DIFFER YES; DIFF SLIDE NUMBER 326; POSITIVE MORPH POS FLAG
[2017-12-27 16:39] LABS: ESTIMATED AVERAGE GLUCOSE 94 MG/DL (60-110); HEMOGLOBIN A1c 4.9 %
[2017-12-27 16:45] LABS: ANION GAP 8 MEQ/L (8-16); BLOOD UREA NITROGEN 24 MG/DL (7-18); CALCIUM LEVEL 8.3 MG/DL (8.8-10.2); CARBON DIOXIDE LEVEL 30 MEQ/L (21-32); CHLORIDE LEVEL 105 MEQ/L (98-107); GLOMERULAR FILTRATION RATE > 60.0 (>32); GLUCOSE, FASTING 96 MG/DL (70-100); SODIUM LEVEL 143 MEQ/L (136-145)
[2017-12-27 16:46] LABS: ALBUMIN 3.5 GM/DL (3.2-5.2); ALBUMIN/GLOBULIN RATIO 1.25 (1.00-1.93); ALKALINE PHOSPHATASE 145 U/L (45-117); ALT/SGPT 32 U/L (12-78); AST/SGOT 22 U/L (7-37); BILIRUBIN,TOTAL 0.6 MG/DL (0.2-1.0); TOTAL PROTEIN 6.3 GM/DL (6.4-8.2)
[2017-12-27 17:22] LABS: BANDS 14 % (< 11); BASOPHILS 1 % (0-4); LYMPHOCYTES 4 % (16-52); MONOCYTES 2 % (0-8); NEUTROPHILS 79 % (35-75)
[2017-12-27 17:24] LABS: ANISOCYTOSIS 2+; HYPOCHROMASIA 3+; MICROCYTOSIS 3+; OVALOCYTES 2+; POIKILOCYTOSIS 1+; POLYCHROMASIA 1+
[2017-12-27 17:25] LABS: PLATELET ESTIMATE NORMAL (NORMAL)
[2017-12-27 17:31] LABS: POTASSIUM SERUM 5.2 MEQ/L (3.5-5.1)
== END ==
LOC: M LABNEURO 14:32
DX: D32.0 Benign neoplasm of cerebral meninges (principal); E11.9 Type 2 diabetes mellitus without complications
CPT/HCPCS: 80053

== ENCOUNTER → 2018-01-23 | Outpatient (REF) | payer MEDICARE, BC ==
[2018-01-23 19:01] LABS: APPEARANCE, URINE CLEAR (CLEAR); BACTERIA, URINE AUTO NEGATIVE (NEGATIVE); BILIRUBIN, URINE AUTO NEGATIVE (NEGATIVE); BLOOD, URINE BLOOD NEGATIVE (NEGATIVE); COLOR, URINE YELLOW (YELLOW); GLUCOSE, URINE (UA) AUTO NEGATIVE (NEGATIVE); KETONE, URINE AUTO NEGATIVE (NEGATIVE); LEUKOCYTE ESTERASE, URINE AUTO NEGATIVE (NEGATIVE); MUCUS, URINE SMALL (NEGATIVE); NITRITE, URINE AUTO NEGATIVE (NEGATIVE); PROTEIN, URINE AUTO NEGATIVE (NEGATIVE); RBC, URINE AUTO 1 /HPF (0-3); SPECIFIC GRAVITY URINE AUTO 1.015 (1.002-1.035); SQUAMOUS EPITHELIAL CELL UR AU 0 /HPF (0-6); UROBILINOGEN, URINE AUTO 0.2 mg/dL (0.0-2.0); WBC, URINE AUTO 0 /HPF (0-3)
== END ==
LOC: M SMT 16:59
DX: N20.0 Calculus of kidney (principal)
CPT/HCPCS: 81001

== ENCOUNTER → 2018-01-30 | Outpatient (CLI) | payer MEDICARE, BC | LOC: M RAD 06:48 | DX: N20.0 Calculus of kidney (principal); N28.1 Cyst of kidney, acquired; R16.1 Splenomegaly, not elsewhere classified | CPT/HCPCS: 76775 ==

== ENCOUNTER → 2018-04-06 | Outpatient (CLI) | payer MEDICARE, BC | LOC: M WUC 09:32 | DX: J84.9 Interstitial pulmonary disease, unspecified (principal); R07.9 Chest pain, unspecified | CPT/HCPCS: 71046 ==

== ENCOUNTER 2018-06-08 08:25 | Day surgery (SDC) | payer MEDICARE, BC ==
[2018-06-08] MEDS: TROPICAMIDE 1% OPHTH SOLN 2ML OD (07:00)
[2018-06-08] MEDS: PHENYLEPHRINE 2.5% OPHTH SOL 2ML OD (07:00)
[2018-06-08] MEDS: PROPARACAINE 0.5% OPHTH SOL 15ML OD (07:00)
[2018-06-08 09:17] LABS: BEDSIDE GLUCOSE 93 MG/DL (83-110)
[2018-06-08] MEDS ORDERED: MIDAZOLAM INJ 2 MG/2 ML VIAL (J2250) As Ordered (09:25)
[2018-06-08] MEDS ORDERED: fentaNYL 100 MCG/2 ML INJECTION (J3010) As Ordered (09:25)
[2018-06-08] MEDS: DUOVISC (0.50ML VISCOAT/0.55ML PROVISC) OPHTH KIT As Ordered (09:45)
[2018-06-08] MEDS: LIDOCAINE 0.75%/EPINEPHRINE 0.025% IN BSS 1ML SYR INTRACAMERAL (OR ONLY) As Ordered (09:45)
[2018-06-08] MEDS: BALANCED SALT IRRIGATION SOLUTION 500ML BAG (FOR OR EYE MACHINE) As Ordered (09:45)
[2018-06-08] MEDS: POVIDONE-IODINE 5% OPHTH PREP SOL 30ML As Ordered (09:50)
== END 2018-06-08 10:30 | disposition home or self-care (01) ==
LOC: M SDC 08:25
DX: H25.11 Age-related nuclear cataract, right eye (principal); E11.9 Type 2 diabetes mellitus without complications; E05.90 Thyrotoxicosis, unspecified without thyrotoxic crisis or storm; Z79.899 Other long term (current) drug therapy; Z88.0 Allergy status to penicillin; Z88.8 Allergy status to other drugs, medicaments and biological substances; Z79.82 Long term (current) use of aspirin
CPT/HCPCS: 66984

== ENCOUNTER 2018-08-10 08:57 | Day surgery (SDC) | payer MEDICARE, BC ==
[~2018-08-10] VITALS: Ht 160 cm; Wt 52.6 kg
[~2018-08-10 08:57] MED LIST changes: +ALEN70SO PO; +ASPI81CH32 PO; +BALANCED SALT IRRIGATION SOLUTION 500ML BAG (FOR OR EYE MACHINE) As Ordered ONE; +DUOVISC (0.50ML VISCOAT/0.55ML PROVISC) OPHTH KIT As Ordered ONE; +FISH1CAP37 PO; +FURO20TA2 PO; +ICAPCAP3 PO; +LEVO75TA34 PO; +LIDOCAINE 0.75%/EPINEPHRINE 0.025% IN BSS 1ML SYR INTRACAMERAL (OR ONLY) As Ordered ONE; +MIDAZOLAM INJ 2 MG/2 ML VIAL (J2250) As Ordered ONE; +NEUR100C PO; +PHENYLEPHRINE 2.5% OPHTH SOL 2ML OS ONE; +POTA4.25 PO; +POVIDONE-IODINE 5% OPHTH PREP SOL 30ML As Ordered ONE; +PROPARACAINE 0.5% OPHTH SOL 15ML OS ONE; +TROPICAMIDE 1% OPHTH SOLN 2ML OS ONE; +VITA200016 PO; +fentaNYL 100 MCG/2 ML INJECTION (J3010) As Ordered ONE
[2018-08-10 11:35] VITALS: BP 121/67
[2018-08-11] MEDS ORDERED: JAKA10TA PO (14:30)
--- NOTE | 2018-08-11 19:26 | RO ---
DATE OF PROCEDURE: 08/10/2018 PREOPERATIVE DIAGNOSIS: 1. Visually significant nuclear sclerotic cataract left eye. POSTOPERATIVE DIAGNOSIS: 1. Visually significant nuclear sclerotic cataract left eye. PROCEDURE: 1. Cataract extraction with use of phacoemulsification and placement of intraocular lens, AU00T0, 9.0 D, left eye. SURGEON: Miller Torres DO SUPERVISOR GROWER: None. ANESTHESIA: Local with monitored anesthesia care (MAC). COMPLICATIONS: None. POSTOPERATIVE CONDITION: Stable. INDICATIONS FOR SURGERY: 1. Blurred vision affecting patients activities of daily living. DESCRIPTION OF PROCEDURE: The patient was seen in the preoperative area and properly identified. The correct operative eye was identified and marked. The patient received topical anesthetic, antibiotics, and topical dilating drops. The patient was then transferred to the operating room. The correct side was re-identified, and a time-out was performed. The eye was prepped and draped in a sterile fashion. The eyelids were isolated with Tegaderm tape, and the lids were held open with an adjustable speculum. A 1.0 mm paracentesis incision was made. Intraocular preservative-free Shugarcaine was then injected into the anterior chamber. Viscoelastic was then injected into the anterior chamber through the paracentesis. Using a 2.4 mm sharp-tipped keratome, the anterior chamber was entered via a temporal clear cornea incision. A continuous curvilinear capsulorrhexis was created with Utrata forceps. Hydrodissection was performed with balanced salt solution (BSS) on a blunt cannula until the nucleus was able to rotate freely. The crystalline lens was phacoemulsified and aspirated. Irrigation/aspiration was used to remove the cortical material. Cohesive viscoelastic was placed into the capsular bag to deepen it. The implant was placed into the capsular bag and allowed to unfold. Placement was confirmed by visualizing the anterior capsulorrhexis. Irrigation/aspiration was used to remove the viscoelastic. The clear corneal incision was hydrated with BSS on a blunt cannula. The lens was well positioned. The incisions were then tested for leaks and found to be negative. The eye was then palpated for appropriate pressure and adjusted accordingly with BSS. The eyelid speculum was then carefully removed. A shield was placed over the eye. The patient tolerated the procedure well and was discharged to the recovery unit in a stable condition. CARLOS EDUARDO
== END 2018-08-10 12:06 | disposition home or self-care (01) ==
LOC: M SDC 08:57
PROVIDERS: ATTEND Ophthalmology
DX: H25.12 Age-related nuclear cataract, left eye (principal); E11.9 Type 2 diabetes mellitus without complications; E03.9 Hypothyroidism, unspecified; Z79.82 Long term (current) use of aspirin; Z79.899 Other long term (current) drug therapy; Z88.0 Allergy status to penicillin; Z88.8 Allergy status to other drugs, medicaments and biological substances
CPT/HCPCS: 66984; J2250; J3010; V2632

== ENCOUNTER 2019-01-19 12:11 | Emergency (ER) | payer MEDICARE, BC ==
[~2019-01-19] VITALS: Ht 162.6 cm; Wt 50.9 kg
[~2019-01-19 12:11] MED LIST changes: -ASPI81CH32 PO; +ASPI81CH33 PO; -BALANCED SALT IRRIGATION SOLUTION 500ML BAG (FOR OR EYE MACHINE) As Ordered ONE; -DUOVISC (0.50ML VISCOAT/0.55ML PROVISC) OPHTH KIT As Ordered ONE; -LIDOCAINE 0.75%/EPINEPHRINE 0.025% IN BSS 1ML SYR INTRACAMERAL (OR ONLY) As Ordered ONE; +MECL1CHW PO; -MECL1CHW2 PO; -MIDAZOLAM INJ 2 MG/2 ML VIAL (J2250) As Ordered ONE; +OXYC1TAB23 PO; -PERCOCET PO; -PHENYLEPHRINE 2.5% OPHTH SOL 2ML OS ONE; -POVIDONE-IODINE 5% OPHTH PREP SOL 30ML As Ordered ONE; -PROPARACAINE 0.5% OPHTH SOL 15ML OS ONE; -TROPICAMIDE 1% OPHTH SOLN 2ML OS ONE; -fentaNYL 100 MCG/2 ML INJECTION (J3010) As Ordered ONE
[2019-01-19] MEDS ORDERED: ALEN70TA74 (12:22)
[2019-01-19 13:15] LABS: BASO # 0.1 10^3/uL (0.0-0.2); BASO % 0.6 % (0.0-1.0); EOS % 0.1 % (0.0-3.0); HEMATOCRIT 51.9 % (36.0-47.0); HEMOGLOBIN 14.2 g/dl (12.0-15.5); LYMPH # 0.8 10^3/uL (1.5-4.5); MEAN CORPUSCULAR HEMOGLOBIN 19.8 pg (27.0-33.0); MEAN CORPUSCULAR HGB CONC 27.4 g/dl (32.0-36.5); MEAN CORPUSCULAR VOLUME 72.3 fl (80.0-96.0); MONO # 0.3 10^3/uL (0.0-0.8); MONO % 1.8 % (0.0-5.0); NEUTROPHILS # 16.8 10^3/uL (1.8-7.7); NEUTROPHILS % 89.4 % (36.0-66.0); PLATELET COUNT, AUTOMATED 281 10^3/uL (150-450); RED BLOOD COUNT 7.18 10^6/uL (4.00-5.40); WHITE BLOOD COUNT 18.8 10^3/uL (4.0-10.0)
[2019-01-19 13:26] LABS: INR 1.12; PROTHROMBIN TIME 14.1 SECONDS (11.8-14.0)
[2019-01-19 13:43] LABS: BLOOD UREA NITROGEN 19 MG/DL (7-18); CALCIUM LEVEL 8.7 MG/DL (8.8-10.2); CARBON DIOXIDE LEVEL 33 MEQ/L (21-32); CHLORIDE LEVEL 101 MEQ/L (98-107); CK-MB VALUE MASS 2.5 NG/ML (<3.6); CPK CREATINE PHOSPHOKINASE 52 U/L (26-192); CREATININE FOR GFR 0.78 MG/DL (0.55-1.30); GLOMERULAR FILTRATION RATE > 60.0 (>32); GLUCOSE, FASTING 91 MG/DL (70-100); MAGNESIUM LEVEL 2.4 MG/DL (1.8-2.4); MB/CK RELATIVE INDEX 4.81 (< OR =4); POTASSIUM SERUM 4.5 MEQ/L (3.5-5.1); SODIUM LEVEL 140 MEQ/L (136-145); TROPONIN I < 0.02 NG/ML (< 0.10)
--- NOTE | 2019-01-19 14:08 | REP ---
Clinical: Dizziness and chest pain . Comparison: 04/06/2018 . Technique: PA and lateral. Findings: The mediastinum and cardiac silhouette are normal. The lung daly demonstrate chronic stable changes without acute consolidation, effusion, or pneumothorax. The skeletal structures are intact and normal. Impression: 1. No acute cardiopulmonary process. Electronically Signed by Kody Mcrae MD 01/19/2019 01:59 P
--- NOTE | 2019-01-19 14:15 | REP ---
CT BRAIN WITHOUT CONTRAST: HISTORY: Dizziness. COMPARISON STUDY: June 30, 2016. FINDINGS: Preliminary digital maternal fetal physician radiograph is unremarkable. There is a densely calcified oval-shaped extra-axial 1.7 cm nodule in the right frontal lobe along the inner table of the skull. There is remodeling of the inner table of the skull and the finding is most compatible with a densely calcified meningioma. It is unchanged from the June 30, 2016 prior study. No other intracranial mass lesion is observed. There is no evidence of intracranial hemorrhage. No infarct, extra-axial fluid collection, or midline shift is seen. There is moderate generalized atrophy. Heavy vascular calcification is seen in the distal vertebral and distal carotid arteries. No paranasal sinus disease or intraorbital abnormality is appreciated. IMPRESSION: 17 mm right frontal meningioma unchanged. Diffuse atrophy and vascular calcification. No acute intracranial abnormality. Electronically Signed by Jay Schwartz MD 01/19/2019 03:49 P
[2019-01-19] MEDS ORDERED: MECLIZINE 25 MG TABLET PO ONE (15:15)
--- NOTE | 2019-01-19 18:20 | REPVR ---
EXAM: MR Head Without Contrast EXAM DATE/TIME: 01/19/2019 2:59 PM CLINICAL HISTORY: 83 years old, female; Dizziness; Additional info: CVA TECHNIQUE: Imaging protocol: MR of the head without contrast. COMPARISON: MRA BRAIN W/O CONTRAST 01/19/2019 5:08 PM FINDINGS: Brain: No acute infarct identified on the diffusion weighted imaging. No parenchymal hemorrhage. No evidence of brain parenchymal edema or intracranial mass effect. The brain demonstrates mild generalized volume loss, age commensurate. No significant white matter disease for the patient's age. Mild T2 hyperintense capping of the ventricles may be considered normal for age. 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 Calcified right frontal meningioma is again demonstrated. Ventricles: The ventricles appear enlarged in keeping with volume loss. Bones/joints: Small calvarial hemangiomas. Soft tissues: Unremarkable. Sinuses: Trace ethmoidal and maxillary mucosal thickening. No acute sinusitis. Mastoid air cells: Normal as visualized. No mastoid effusion. Orbits: Thinning of the lenses of the globes consistent with prior lens surgery. Suggestion of bilateral globe staphylomas. IMPRESSION: No evidence of acute infarct. Electronically signed by: Savanna Pandey On 01/19/2019 18:20:50 PM
--- NOTE | 2019-01-19 18:24 | REPVR ---
EXAM: MR Angiogram Head Without Contrast, Arteries EXAM DATE/TIME: 01/19/2019 2:59 PM CLINICAL HISTORY: 83 years old, female; Dizziness and giddiness; Additional info: CVA TECHNIQUE: Imaging protocol: MR angiogram head without contrast. Exam focused on the arteries. COMPARISON: MRI-Brain without Contrast 10/23/2013 9:57 AM FINDINGS: Right internal carotid artery: Unremarkable. Intracranial segment is patent with no significant stenosis. No aneurysm. Right anterior cerebral artery: Unremarkable. No occlusion or significant stenosis. No aneurysm. Right middle cerebral artery: Unremarkable. No occlusion or significant stenosis. No aneurysm. Right posterior cerebral artery: Unremarkable. No occlusion or significant stenosis. No aneurysm. Right vertebral artery: Unremarkable. No occlusion or significant stenosis. No aneurysm. Left internal carotid artery: Unremarkable. Intracranial segment is patent with no significant stenosis. No aneurysm. Left anterior cerebral artery: Unremarkable. No occlusion or significant stenosis. No aneurysm. Left middle cerebral artery: Unremarkable. No occlusion or significant stenosis. No aneurysm. Left posterior cerebral artery: Unremarkable. No occlusion or significant stenosis. No aneurysm. Left vertebral artery: Unremarkable. No occlusion or significant stenosis. No aneurysm. Basilar artery: Unremarkable. No occlusion or significant stenosis. No aneurysm. IMPRESSION: No major proximal vessel branch occlusion seen. Electronically signed by: Savanna Pandey On 01/19/2019 18:24:09 PM
[2019-01-19] MEDS ORDERED: MECL1TAB31 PO (18:43)
[2019-01-19 18:56] VITALS: BP 140/68
--- NOTE | 2019-01-19 22:30 | ECGEPIP ---
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
[2019-04-05] MEDS ORDERED: DOXY100C PO (15:32)
[2019-04-27] MEDS ORDERED: JAKA10TA PO (08:07)
[2019-05-24] MEDS ORDERED: JAKA10TA PO (08:21)
[2019-06-11] MEDS ORDERED: D-20TAB PO (10:40)
[2019-06-22] MEDS ORDERED: JAKA10TA PO (10:21)
[2019-06-28] MEDS ORDERED: JAKA10TA PO (14:03)
[2019-06-29] MEDS ORDERED: JAKA10TA PO ×2 (09:45→15:27)
== END 2019-01-19 18:57 | disposition home or self-care (01) ==
LOC: M ED 12:11
DX: R42 Dizziness and giddiness (principal); R26.0 Ataxic gait; E11.40 Type 2 diabetes mellitus with diabetic neuropathy, unspecified; H35.30 Unspecified macular degeneration; E07.9 Disorder of thyroid, unspecified; M81.0 Age-related osteoporosis without current pathological fracture; D45 Polycythemia vera; Z87.442 Personal history of urinary calculi; Z88.1 Allergy status to other antibiotic agents; Z88.0 Allergy status to penicillin; Z88.6 Allergy status to analgesic agent; Z79.899 Other long term (current) drug therapy; Z79.82 Long term (current) use of aspirin

== ENCOUNTER → 2019-01-29 | Outpatient (CLI) | payer MEDICARE, BC ==
[~2019-01-29] MED LIST changes: +ALEN70TA74; +MECL-68 PO
--- NOTE | 2019-01-29 11:33 | REP ---
CT BRAIN WITHOUT CONTRAST: HISTORY: Left parotid mass. Comparison brain CT study January 19, 2019. Comparison brain MRI study January 19, 2019. CT FINDINGS: Brain CT is performed as requested. The parotid gland region is not included in the field of view. There is a right frontal lobe meningioma again seen unchanged from the comparison MRI study January 19, 2019. There is moderate generalized atrophy. Vascular calcification is again noted. There is no evidence of acute infarction, hemorrhage, mass, extra-axial fluid or midline shift. Visualized paranasal sinuses are clear. No intraorbital abnormality is seen. IMPRESSION: Diffuse atrophy and vascular calcification again noted. No acute intracranial abnormality. The parotid glands are not included in the imaging field of view of a head CT. Electronically Signed by Jay Schwartz MD 01/29/2019 04:49 P
== END ==
LOC: M RAD 07:37
PROVIDERS: ATTEND Family Medicine
DX: K11.8 Other diseases of salivary glands (principal)

== ENCOUNTER → 2019-02-08 | Outpatient (CLI) | payer MEDICARE, BC ==
--- NOTE | 2019-02-08 14:03 | REP ---
REASON: Pain, no trauma. No priors. The bones are demineralized. There is no evidence of an acute fracture or destructive osseous lesion. Electronically Signed by Nomi Delarosa DO 02/08/2019 03:06 P
== END ==
LOC: M WUC 12:36
PROVIDERS: ATTEND Physician Assistant
DX: M79.661 Pain in right lower leg (principal)

== ENCOUNTER → 2019-02-15 | Outpatient (REF) | payer MEDICARE, BC ==
[2019-02-15 15:13] LABS: BASO # 0.1 10^3/uL (0.0-0.2); BASO % 0.4 % (0.0-1.0); EOS # 0.1 10^3/uL (0.0-0.50); EOS % 0.4 % (0.0-3.0); HEMATOCRIT 40.9 % (36.0-47.0); HEMOGLOBIN 11.7 g/dl (12.0-15.5); LYMPH % 5.1 % (24.0-44.0); MEAN CORPUSCULAR HGB CONC 28.6 g/dl (32.0-36.5); MEAN CORPUSCULAR VOLUME 73.4 fl (80.0-96.0); MONO # 0.4 10^3/uL (0.0-0.8); MONO % 2.2 % (0.0-5.0); NEUTROPHILS # 17.5 10^3/uL (1.8-7.7); NEUTROPHILS % 89.8 % (36.0-66.0); PLATELET COUNT, AUTOMATED 413 10^3/uL (150-450); RED BLOOD COUNT 5.57 10^6/uL (4.00-5.40); WHITE BLOOD COUNT 19.4 10^3/uL (4.0-10.0)
[2019-02-15 15:37] LABS: BLOOD UREA NITROGEN 16 MG/DL (7-18); CALCIUM LEVEL 8.6 MG/DL (8.8-10.2); CARBON DIOXIDE LEVEL 31 MEQ/L (21-32); CHLORIDE LEVEL 103 MEQ/L (98-107); CPK CREATINE PHOSPHOKINASE 35 U/L (26-192); CREATININE FOR GFR 0.78 MG/DL (0.55-1.30); GLOMERULAR FILTRATION RATE > 60.0 (>32); GLUCOSE, FASTING 93 MG/DL (70-100); NT-PRO BNP 833 PG/ML (<450); POTASSIUM SERUM 4.7 MEQ/L (3.5-5.1); SODIUM LEVEL 137 MEQ/L (136-145)
== END ==
LOC: M LAB REF 14:57
PROVIDERS: ATTEND Physician Assistant
DX: M79.661 Pain in right lower leg (principal)

== ENCOUNTER → 2019-02-20 | Outpatient (CLI) | payer MEDICARE, BC ==
--- NOTE | 2019-02-20 14:32 | REP ---
Clinical: Contusion. Technique: AP, lateral, bilateral oblique views of the right foot. Findings: Age-related osteopenia and generalized degenerative changes are appreciated along with evidence for peripheral vascular disease. No acute fracture or dislocation. No obvious healed injury identified. No subcutaneous emphysema. Impression: Age-related degenerative changes. Electronically Signed by Kody Mcrae MD 02/20/2019 02:24 P
== END ==
LOC: M WUC 13:27
PROVIDERS: ATTEND Physician Assistant
DX: S90.31XA Contusion of right foot, initial encounter (principal); M19.071 Primary osteoarthritis, right ankle and foot; M85.871 Other specified disorders of bone density and structure, right ankle and foot; X58.XXXA Exposure to other specified factors, initial encounter; Y92.9 Unspecified place or not applicable

== ENCOUNTER → 2019-02-28 | Outpatient (CLI) | payer MEDICARE, BC ==
--- NOTE | 2019-02-28 10:23 | REP ---
Right lower extremity Duplex Doppler venous ultrasound: Real time compression and duplex Doppler interrogation of the right lower extremity deep venous system is performed. The right common femoral, superficial femoral and popliteal veins are fully compressible with transducer pressure and demonstrate normal spontaneous and phasic flow, without evidence of deep venous thrombosis. Impression: No evidence of deep venous thrombosis of the right lower extremity femoral popliteal venous system. Electronically Signed by Castillo Ovalle MD 02/28/2019 10:15 A
== END ==
LOC: M RAD 09:23
PROVIDERS: ATTEND Family Medicine
DX: M79.604 Pain in right leg (principal)

== ENCOUNTER → 2019-03-27 | Outpatient (CLI) | payer MEDICARE, BC ==
[~2019-03-27] MED LIST changes: +DOXY100C PO
--- NOTE | 2019-03-27 15:24 | REP ---
RENAL ULTRASOUND: Real-time sonographic evaluation of the kidneys performed. The kidneys are normal in size and echotexture, right kidney measuring 9.9 x 4.1 x 3.9 cm and left kidney 10.6 x 4.6 x 3.8 cm. There is no hydronephrosis bilaterally. Multiple subcentimeter cysts are seen involving both kidneys. The largest on the right is 7 mm located in the mid aspect and on the left 4 mm in the mid aspect. No definite renal calculus is seen bilaterally. Urinary bladder is empty. IMPRESSION: Subcentimeter cyst in each kidney with no hydronephrosis or definite nephrolithiasis. Electronically Signed by Castillo Ovalle MD 03/28/2019 04:16 P
== END ==
LOC: M RAD 13:53
PROVIDERS: ATTEND Urology
DX: N28.1 Cyst of kidney, acquired (principal)

== ENCOUNTER → 2019-07-20 | Outpatient (REF) | payer MEDICARE, BC, MEDICAID ==
[~2019-07-20] MED LIST changes: +D-20TAB PO; -MECL-68 PO; +MECL1TAB31 PO; +[UNRECOGNIZED DRUG - CODE] PO
== END ==
LOC: M LAB REF 13:46
PROVIDERS: ATTEND Dermatology
DX: C44.629 Squamous cell carcinoma of skin of left upper limb, including shoulder (principal)
CPT/HCPCS: 11102; 88305; G0463

== ENCOUNTER → 2019-07-26 | Outpatient (REF) | payer MEDICARE, BC, MEDICAID ==
[2019-07-26 15:17] LABS: HEMATOCRIT 43.9 % (36.0-47.0); MEAN CORPUSCULAR HEMOGLOBIN 20.4 pg (27.0-33.0); MEAN CORPUSCULAR HGB CONC 27.3 g/dl (32.0-36.5); MEAN CORPUSCULAR VOLUME 74.7 fl (80.0-96.0); PLATELET COUNT, AUTOMATED 289 10^3/uL (150-450); RED BLOOD COUNT 5.88 10^6/uL (4.00-5.40); WHITE BLOOD COUNT 23.2 10^3/uL (4.0-10.0)
== END ==
LOC: M LAB REF 14:54
PROVIDERS: ATTEND Internal Medicine Medical Oncology
DX: D45 Polycythemia vera (principal)

== ENCOUNTER → 2019-08-02 | Outpatient (REF) | payer MEDICARE, BC, MEDICAID ==
[2019-08-02 19:48] LABS: HEMATOCRIT 41.4 % (36.0-47.0); MEAN CORPUSCULAR HEMOGLOBIN 21.9 pg (27.0-33.0); MEAN CORPUSCULAR VOLUME 75.7 fl (80.0-96.0); PLATELET COUNT, AUTOMATED 321 10^3/uL (150-450); RED BLOOD COUNT 5.47 10^6/uL (4.00-5.40); WHITE BLOOD COUNT 19.1 10^3/uL (4.0-10.0)
== END ==
LOC: M LAB REF 18:23
PROVIDERS: ATTEND Dermatology
DX: D23.62 Other benign neoplasm of skin of left upper limb, including shoulder (principal)

== ENCOUNTER → 2019-08-09 | Outpatient (REF) | payer MEDICARE, BC, MEDICAID ==
[2019-08-09 16:07] LABS: HEMATOCRIT 44.7 % (36.0-47.0); HEMOGLOBIN 12.3 g/dl (12.0-15.5); MEAN CORPUSCULAR HEMOGLOBIN 20.6 pg (27.0-33.0); MEAN CORPUSCULAR HGB CONC 27.5 g/dl (32.0-36.5); PLATELET COUNT, AUTOMATED 320 10^3/uL (150-450); RED BLOOD COUNT 5.96 10^6/uL (4.00-5.40); WHITE BLOOD COUNT 20.7 10^3/uL (4.0-10.0)
== END ==
LOC: M LAB REF 15:51
PROVIDERS: ATTEND Internal Medicine Medical Oncology
DX: Z51.81 Encounter for therapeutic drug level monitoring (principal)

== ENCOUNTER → 2019-09-11 | Outpatient (REF) | payer MEDICARE, BC ==
[2019-09-11 14:15] LABS: BASO # 0.1 10^3/uL (0.0-0.2); BASO % 0.4 % (0.0-1.0); EOS # 0.1 10^3/uL (0.0-0.5); EOS % 0.3 % (0.0-3.0); HEMATOCRIT 47.4 % (36.0-47.0); HEMOGLOBIN 13.1 g/dl (12.0-15.5); LYMPH # 1.4 10^3/uL (1.5-5.0); LYMPH % 6.1 % (24.0-44.0); MEAN CORPUSCULAR HEMOGLOBIN 20.6 pg (27.0-33.0); MEAN CORPUSCULAR HGB CONC 27.6 g/dl (32.0-36.5); MEAN CORPUSCULAR VOLUME 74.4 fl (80.0-96.0); MONO # 0.6 10^3/uL (0.0-0.8); MONO % 2.5 % (0.0-5.0); NEUTROPHILS # 19.6 10^3/uL (1.5-8.5); NEUTROPHILS % 86.5 % (36.0-66.0); PLATELET COUNT, AUTOMATED 277 10^3/uL (150-450); RED BLOOD COUNT 6.37 10^6/uL (4.00-5.40); WHITE BLOOD COUNT 22.6 10^3/uL (4.0-10.0)
[2019-09-11 14:42] LABS: ALBUMIN 3.7 GM/DL (3.2-5.2); ALT/SGPT 26 U/L (12-78); BILIRUBIN,TOTAL 0.6 MG/DL (0.2-1.0); BLOOD UREA NITROGEN 24 MG/DL (7-18); CALCIUM LEVEL 8.7 MG/DL (8.8-10.2); CARBON DIOXIDE LEVEL 33 MEQ/L (21-32); CHLORIDE LEVEL 104 MEQ/L (98-107); GLOMERULAR FILTRATION RATE > 60.0 (>32); GLUCOSE, FASTING 65 MG/DL (70-100); POTASSIUM SERUM 4.6 MEQ/L (3.5-5.1); SODIUM LEVEL 141 MEQ/L (136-145); TOTAL PROTEIN 6.8 GM/DL (6.4-8.2)
== END ==
LOC: M LAB REF 13:40
PROVIDERS: ATTEND Internal Medicine Medical Oncology
DX: D75.1 Secondary polycythemia (principal)

== ENCOUNTER → 2019-11-15 | Outpatient (REF) | payer MEDICARE, BC, MEDICAID ==
[2019-11-15 15:25] LABS: BASO # 0.1 10^3/uL (0.0-0.2); BASO % 0.4 % (0.0-1.0); EOS % 0.2 % (0.0-3.0); HEMATOCRIT 45.2 % (36.0-47.0); HEMOGLOBIN 12.8 g/dl (12.0-15.5); LYMPH # 1.2 10^3/uL (1.5-5.0); LYMPH % 6.6 % (24.0-44.0); MEAN CORPUSCULAR HEMOGLOBIN 21.7 pg (27.0-33.0); MEAN CORPUSCULAR HGB CONC 28.3 g/dl (32.0-36.5); MEAN CORPUSCULAR VOLUME 76.7 fl (80.0-96.0); MONO # 0.4 10^3/uL (0.0-0.8); MONO % 2.3 % (0.0-5.0); NEUTROPHILS # 15.8 10^3/uL (1.5-8.5); NEUTROPHILS % 86.1 % (36.0-66.0); PLATELET COUNT, AUTOMATED 279 10^3/uL (150-450); RED BLOOD COUNT 5.89 10^6/uL (4.00-5.40); WHITE BLOOD COUNT 18.4 10^3/uL (4.0-10.0)
== END ==
LOC: M LAB REF 14:47
PROVIDERS: ATTEND Internal Medicine Medical Oncology
DX: C44.311 Basal cell carcinoma of skin of nose (principal)
CPT/HCPCS: 17110; 85027; G0463

== ENCOUNTER → 2019-12-13 | Outpatient (REF) | payer MEDICARE, BC ==
[2019-12-13 21:01] LABS: BASO % 0.2 % (0.0-1.0); EOS # 0.1 10^3/uL (0.0-0.5); EOS % 0.3 % (0.0-3.0); HEMATOCRIT 43.8 % (36.0-47.0); HEMOGLOBIN 12.8 g/dl (12.0-15.5); LYMPH # 1.5 10^3/uL (1.5-5.0); LYMPH % 8.6 % (24.0-44.0); MEAN CORPUSCULAR HEMOGLOBIN 23.4 pg (27.0-33.0); MEAN CORPUSCULAR HGB CONC 29.2 g/dl (32.0-36.5); MEAN CORPUSCULAR VOLUME 79.9 fl (80.0-96.0); MONO # 0.5 10^3/uL (0.0-0.8); MONO % 2.7 % (0.0-5.0); NEUTROPHILS # 14.8 10^3/uL (1.5-8.5); NEUTROPHILS % 84.9 % (36.0-66.0); PLATELET COUNT, AUTOMATED 324 10^3/uL (150-450); RED BLOOD COUNT 5.48 10^6/uL (4.00-5.40); WHITE BLOOD COUNT 17.5 10^3/uL (4.0-10.0)
== END ==
LOC: M LAB REF 20:46
PROVIDERS: ATTEND Internal Medicine Medical Oncology
DX: D75.1 Secondary polycythemia (principal)

== ENCOUNTER 2020-02-07 15:18 | Emergency (ER) | payer MEDICARE, BC, MEDICAID ==
[~2020-02-07] VITALS: Ht 160 cm; Wt 52.3 kg
[2020-02-07] MEDS ORDERED: NS 1,000 ML IV SCH (15:42)
[2020-02-07 17:48] LABS: BASO % 0.2 % (0.0-1.0); EOS % 0.2 % (0.0-3.0); HEMATOCRIT 40.6 % (36.0-47.0); HEMOGLOBIN 12.1 g/dl (12.0-15.5); LYMPH # 1.2 10^3/uL (1.5-5.0); LYMPH % 6.5 % (24.0-44.0); MEAN CORPUSCULAR HGB CONC 29.8 g/dl (32.0-36.5); MEAN CORPUSCULAR VOLUME 77.2 fl (80.0-96.0); MONO # 0.5 10^3/uL (0.0-0.8); MONO % 2.7 % (0.0-5.0); NEUTROPHILS # 15.8 10^3/uL (1.5-8.5); NEUTROPHILS % 86.6 % (36.0-66.0); PLATELET COUNT, AUTOMATED 330 10^3/uL (150-450); RED BLOOD COUNT 5.26 10^6/uL (4.00-5.40); WHITE BLOOD COUNT 18.2 10^3/uL (4.0-10.0)
[2020-02-07 17:52] LABS: INR 0.99; PROTHROMBIN TIME 13.3 SECONDS (11.8-14.0)
[2020-02-07 17:53] LABS: ALBUMIN 3.4 GM/DL (3.2-5.2); ALT/SGPT 41 U/L (12-78); BILIRUBIN,DIRECT < 0.1 MG/DL (0.0-0.2); BILIRUBIN,TOTAL 0.5 MG/DL (0.2-1.0); BLOOD UREA NITROGEN 10 MG/DL (7-18); CALCIUM LEVEL 8.5 MG/DL (8.8-10.2); CARBON DIOXIDE LEVEL 28 MEQ/L (21-32); CHLORIDE LEVEL 96 MEQ/L (98-107); CK-MB VALUE MASS 2.2 NG/ML (<3.6); CPK CREATINE PHOSPHOKINASE 58 U/L (26-192); CREATININE FOR GFR 0.69 MG/DL (0.55-1.30); GLOMERULAR FILTRATION RATE > 60.0 (>32); GLUCOSE, FASTING 90 MG/DL (70-100); LIPASE 324 U/L (73-393); MB/CK RELATIVE INDEX 3.79 (< OR =4); POTASSIUM SERUM 4.3 MEQ/L (3.5-5.1); SODIUM LEVEL 129 MEQ/L (136-145); TOTAL PROTEIN 6.3 GM/DL (6.4-8.2); TROPONIN I < 0.02 NG/ML (< 0.10)
[2020-02-07] MEDS: GASTROGRAFIN SOLUTION 30ML PO SCH ×2 (18:46→19:33)
--- NOTE | 2020-02-07 18:53 | REPVR ---
PROCEDURE INFORMATION: Exam: XR Complete Acute Abdomen Series Exam date and time: 02/07/2020 5:40 PM Age: 84 years old Clinical indication: Abdominal pain TECHNIQUE: Imaging protocol: XR complete acute abdomen series, including 2 or more views of the abdomen and a single view chest. COMPARISON: CR Chest, 2 view PA, Lat 01/19/2019 1:48 PM FINDINGS: Lungs: The lung volumes are increased consistent with COPD. The lungs are clear. No pulmonary consolidation. Pleural space: No pleural effusion or pneumothorax. Heart/Mediastinum: The cardiomediastinal silhouette and pulmonary vasculature are within normal limits. Mitral valve calcification, unchanged. Gastrointestinal tract: Unremarkable. No bowel dilation. No radiographic evidence of obstruction. Intraperitoneal space: No free intraperitoneal air identified beneath either diaphragm. Bones/joints: No acute fracture. Soft tissues: Normal as visualized. IMPRESSION: No acute abnormality. Electronically signed by: Cristi Black On 02/07/2020 18:53:26 PM
[2020-02-07 19:02] VITALS: BP 165/83
[2020-02-07] MEDS ORDERED: ISOVUE-370 76% 100ML VIAL As Ordered ONE (19:21)
[2020-02-07] MEDS ORDERED: fentaNYL 100 MCG/2 ML INJECTION (J3010) IV ONE (21:00)
--- NOTE | 2020-02-07 21:35 | REPVR ---
PROCEDURE INFORMATION: Exam: CT Abdomen And Pelvis With Contrast Exam date and time: 02/07/2020 8:41 PM Age: 84 years old Clinical indication: Abdominal pain; Generalized TECHNIQUE: Imaging protocol: Computed tomography of the abdomen and pelvis with intravenous contrast. Radiation optimization: All CT scans at this facility use at least one of these dose optimization techniques: automated exposure control; mA and/or kV adjustment per patient size (includes targeted exams where dose is matched to clinical indication); or iterative reconstruction. Contrast material: ISOVUE 370; Contrast volume: 100 ml; Contrast route: INTRAVENOUS (IV); COMPARISON: CT ABD PELVIS W/O CONTRAST 02/21/2015 10:21 AM FINDINGS: Lungs: There are bibasilar atelectatic changes. Liver: Hepatomegaly measures 17 centimetres. There are several calcified granulomas involving the liver. Gallbladder and bile ducts: Gallbladder is distended. There is mild intrahepatic biliary dilatation. Proximal aspect of the common bile duct is dilated, measuring 1 cm. Pancreas: Atrophic pancreas. Spleen: Normal. No splenomegaly. Adrenals: Normal. No mass. Kidneys and ureters: There are small bilateral renal hypodensities which are too small to characterize. No hydronephrosis. Stomach and bowel: Moderate colonic fecal retention. Appendix: No evidence of appendicitis. Intraperitoneal space: Small volume of ascites. Vasculature: Vascular calcification. Multiple phleboliths within the pelvis. Lymph nodes: Unremarkable. No enlarged lymph nodes. Bladder: Unremarkable as visualized. Reproductive: Atrophic uterus. Bones/joints: There are mild degenerative changes involving the spine. Soft tissues: Unremarkable. IMPRESSION: 1. Distended gallbladder with mild intra and extrahepatic biliary dilatation. 2. Small volume of ascites. 3. Additional findings as above. COMMENTS: Consistent with the [employer]'s Incidental Findings Committee white paper (J Am Kamar Radiol 2018): Any incidental renal lesion less than 1.0 cm or classified as too small to characterize, or any incidental cystic renal lesion characterized as simple-appearing, is likely benign. No follow-up imaging is recommended for these lesions per consensus recommendations based on imaging criteria. Electronically signed by: Bo Caballero On 02/07/2020 21:35:24 PM
[2020-02-07] MEDS ORDERED: FLEET ENEMA PR ONE (22:30)
[2020-02-07] MEDS ORDERED: OMEPRAZOLE 20 MG CAP PO ONE (22:30)
[2020-02-07] MEDS ORDERED: MAGNESIUM CITRATE 300 ML BTL PO ONE (22:30)
[2020-02-22] MEDS ORDERED: oscal PO (13:22)
[2020-02-22] MEDS ORDERED: ACET1TAB55 PO (13:22)
[2020-02-22] MEDS ORDERED: FERR325T3 PO (18:07)
--- NOTE | 2020-03-04 11:40 | ECGEPIP ---
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
[2020-03-07] MEDS ORDERED: TRAM50TA2 (13:54)
[2020-03-07] MEDS ORDERED: METH1TAB40 PO (13:54)
[2020-03-07] MEDS ORDERED: DOK1CAP7 (13:54)
[2020-03-07] MEDS ORDERED: OMEP-221 (13:54)
[2020-04-07] MEDS ORDERED: ASPI81CH33 PO (15:34)
[2020-04-07] MEDS ORDERED: VOLT1GEL15 TD (15:34)
[2020-04-07] MEDS ORDERED: MIRA3350 PO (15:34)
[2020-04-07] MEDS ORDERED: META28.32 PO (15:34)
[2020-04-07] MEDS ORDERED: JAKA10TA (15:34)
[2020-04-07] MEDS ORDERED: VITA200048 PO (15:34)
[2020-04-07] MEDS ORDERED: AREDS (15:34)
== END 2020-02-08 01:06 | disposition home or self-care (01) ==
LOC: M ED 15:18
DX: K21.9 Gastro-esophageal reflux disease without esophagitis (principal); K59.00 Constipation, unspecified; Z79.899 Other long term (current) drug therapy; Z79.82 Long term (current) use of aspirin; Z88.0 Allergy status to penicillin; Z88.1 Allergy status to other antibiotic agents; Z88.8 Allergy status to other drugs, medicaments and biological substances
CPT/HCPCS: 74021; 74177; 80048; 80076; 82550; 82553; 83690; 84484; 85025; 85610; 87040; 93005; 93041; 96360; 96361; 99284; Q9963; Q9967

== ENCOUNTER → 2020-02-25 | Outpatient (CLI) | payer MEDICARE, BC ==
[~2020-02-25] MED LIST changes: +ACET1TAB55 PO; +AREDS; +CALC500T31 PO; +DOK1CAP7; +FERR325T3 PO; +JAKA10TA; +META28.32 PO; +METH1TAB40 PO; +MIRA3350 PO; +OMEP-221; +TRAM50TA2; +VITA200048 PO; +VOLT1GEL15 TD; +oscal PO
[2020-02-25 12:17] LABS: BLOOD UREA NITROGEN 12 MG/DL (7-18); CALCIUM LEVEL 8.8 MG/DL (8.8-10.2); CARBON DIOXIDE LEVEL 32 MEQ/L (21-32); CHLORIDE LEVEL 102 MEQ/L (98-107); GLOMERULAR FILTRATION RATE > 60.0 (>32); GLUCOSE, FASTING 95 MG/DL (70-100); HEMATOCRIT 40.4 % (36.0-47.0); HEMOGLOBIN 11.7 g/dl (12.0-15.5); MEAN CORPUSCULAR HEMOGLOBIN 23.2 pg (27.0-33.0); PLATELET COUNT, AUTOMATED 371 10^3/uL (150-450); POTASSIUM SERUM 4.8 MEQ/L (3.5-5.1); RED BLOOD COUNT 5.05 10^6/uL (4.00-5.40); SODIUM LEVEL 138 MEQ/L (136-145); WHITE BLOOD COUNT 16.2 10^3/uL (4.0-10.0)
[2020-02-25 13:32] LABS: LYMPHOCYTES 5 % (16-44); MONOCYTES 6 % (0-5); NEUTROPHILS 76 % (28-66)
[2020-02-25 13:33] LABS: POIKILOCYTOSIS 1+
[2020-02-25 13:34] LABS: ANISOCYTOSIS 1+; OVALOCYTES 1+; PLATELET ESTIMATE NORMAL (NORMAL)
--- NOTE | 2020-03-17 16:35 | REP ---
ABDOMINAL RADIOGRAPHS CLINICAL: Abdominal pain and constipation. TECHNIQUE: Two supine views of the abdomen and pelvis. FINDINGS: Bowel gas pattern is nonspecific, although mild fecal stasis and constipation cannot be excluded. No evidence for bowel obstruction or perforation. No significant organomegaly. Skeletal structures demonstrate degenerative changes. IMPRESSION: Mild fecal stasis and constipation cannot be excluded. No obstruction or perforation noted. MTDD
--- NOTE | 2020-03-17 16:36 | REP ---
CHEST X-RAY: 02/25/20 AT 10:12AM CLINICAL: Dyspnea on exertion. TEHCNIQUE: PA and lateral. COMPARISON: 02/07/20 FINDINGS: Mediastinum and cardiac silhouette are within normal limites and stable. The lung daly demonstrate chronic changes along with chronic blunting to the diaphragmatic surfaces and costophrenic angles similar to the prior examination. No focal consolidation. No pneumothorax. No definite acute effusion. Skeletal structures demonstrate osteopenia and degenerative changes along with compression deformities of the midthoracic vertebral bodies which was previously identified on MRI dated 02/05/20. IMPRESSION: Chronic appearing changes similar to prior examination. No obvious acute consolidation or acute effusion. MTDD
== END ==
LOC: M WUC 10:00
PROVIDERS: ATTEND Physician Assistant
DX: R10.9 Unspecified abdominal pain (principal); R07.1 Chest pain on breathing; K59.00 Constipation, unspecified

== ENCOUNTER 2020-02-26 11:39 | Emergency (ER) | payer MEDICARE, BC ==
[~2020-02-26] VITALS: Ht 160 cm; Wt 52.7 kg
[~2020-02-26 11:39] MED LIST changes: -AREDS; -CALC500T31 PO; -DOK1CAP7; -GASTROGRAFIN SOLUTION 30ML (Q9963) As Ordered ONE; -ISOVUE-370 76% 100ML VIAL As Ordered ONE; -JAKA10TA; -META28.32 PO; -METH1TAB40 PO; -MIRA3350 PO; -OMEP-221; -TRAM50TA2; -VITA200048 PO; -VOLT1GEL15 TD
[2020-02-26] MEDS ORDERED: CALC500T31 PO (12:08)
[2020-02-26 13:00] LABS: BASO % 0.2 % (0.0-1.0); EOS % 0.2 % (0.0-3.0); HEMATOCRIT 41.2 % (36.0-47.0); HEMOGLOBIN 11.8 g/dl (12.0-15.5); LYMPH # 0.5 10^3/uL (1.5-5.0); MEAN CORPUSCULAR HEMOGLOBIN 22.9 pg (27.0-33.0); MEAN CORPUSCULAR HGB CONC 28.6 g/dl (32.0-36.5); MEAN CORPUSCULAR VOLUME 79.8 fl (80.0-96.0); MONO # 0.4 10^3/uL (0.0-0.8); MONO % 2.2 % (0.0-5.0); NEUTROPHILS # 14.7 10^3/uL (1.5-8.5); NEUTROPHILS % 91.5 % (36.0-66.0); PLATELET COUNT, AUTOMATED 270 10^3/uL (150-450); RED BLOOD COUNT 5.16 10^6/uL (4.00-5.40); WHITE BLOOD COUNT 16.1 10^3/uL (4.0-10.0)
[2020-02-26 13:32] LABS: ALBUMIN 3.3 GM/DL (3.2-5.2); ALT/SGPT 21 U/L (12-78); BILIRUBIN,DIRECT 0.1 MG/DL (0.0-0.2); BILIRUBIN,TOTAL 0.4 MG/DL (0.2-1.0); BLOOD UREA NITROGEN 14 MG/DL (7-18); CALCIUM LEVEL 8.1 MG/DL (8.8-10.2); CARBON DIOXIDE LEVEL 32 MEQ/L (21-32); CHLORIDE LEVEL 103 MEQ/L (98-107); CREATININE FOR GFR 0.72 MG/DL (0.55-1.30); GLOMERULAR FILTRATION RATE > 60.0 (>32); GLUCOSE, FASTING 74 MG/DL (70-100); LIPASE 179 U/L (73-393); POTASSIUM SERUM 4.1 MEQ/L (3.5-5.1); SODIUM LEVEL 136 MEQ/L (136-145); TOTAL PROTEIN 6.2 GM/DL (6.4-8.2)
[2020-02-26 14:46] VITALS: BP 119/57
[2020-03-07] MEDS ORDERED: OMEP-221 (13:54)
[2020-03-07] MEDS ORDERED: TRAM50TA2 (13:54)
[2020-03-07] MEDS ORDERED: METH1TAB40 PO (13:54)
[2020-03-07] MEDS ORDERED: DOK1CAP7 (13:54)
[2020-04-07] MEDS ORDERED: MIRA3350 PO (15:34)
[2020-04-07] MEDS ORDERED: VITA200048 PO (15:34)
[2020-04-07] MEDS ORDERED: AREDS (15:34)
[2020-04-07] MEDS ORDERED: ASPI81CH33 PO (15:34)
[2020-04-07] MEDS ORDERED: JAKA10TA (15:34)
[2020-04-07] MEDS ORDERED: VOLT1GEL15 TD (15:34)
[2020-04-07] MEDS ORDERED: META28.32 PO (15:34)
== END 2020-02-26 15:00 | disposition home or self-care (01) ==
LOC: M ED 11:39
DX: D72.829 Elevated white blood cell count, unspecified (principal); R09.81 Nasal congestion; E07.9 Disorder of thyroid, unspecified; M81.0 Age-related osteoporosis without current pathological fracture; D45 Polycythemia vera; Z79.899 Other long term (current) drug therapy; Z79.82 Long term (current) use of aspirin; Z88.0 Allergy status to penicillin; Z88.1 Allergy status to other antibiotic agents; Z88.8 Allergy status to other drugs, medicaments and biological substances

== ENCOUNTER → 2020-02-26 | Outpatient (CLI) | payer MEDICARE, BC | LOC: M RAD 08:48 | PROVIDERS: ATTEND Physician Assistant | DX: R10.9 Unspecified abdominal pain (principal); K59.00 Constipation, unspecified ==

== ENCOUNTER → 2020-02-26 | Outpatient (CLI) | payer MEDICARE, BC ==
[~2020-02-26] MED LIST changes: +GASTROGRAFIN SOLUTION 30ML (Q9963) As Ordered ONE; +ISOVUE-370 76% 100ML VIAL As Ordered ONE
--- NOTE | 2020-02-26 11:42 | REPVR ---
PROCEDURE INFORMATION: Exam: CT Abdomen And Pelvis With Contrast Exam date and time: 02/26/2020 11:22 AM Age: 84 years old Clinical indication: Abdominal pain; Additional info: Abd pain, constipation TECHNIQUE: Imaging protocol: Computed tomography of the abdomen and pelvis with intravenous contrast. Radiation optimization: All CT scans at this facility use at least one of these dose optimization techniques: automated exposure control; mA and/or kV adjustment per patient size (includes targeted exams where dose is matched to clinical indication); or iterative reconstruction. Contrast material: ISO 370; Contrast volume: 100 ml; Contrast route: INTRAVENOUS (IV); COMPARISON: CT ABD/PEL W/IV ORAL CONTRAS 02/07/2020 8:36 PM FINDINGS: Lungs: Mild atelectasis in the lung bases. Pleural space: Trace pleural effusions. Heart: Prominent mitral annulus calcification. Liver: Calcified hepatic granulomas. Gallbladder and bile ducts: Normal. No calcified stones. No ductal dilation. Pancreas: Normal. No ductal dilation. Spleen: Splenomegaly, with the spleen measuring up to 15.1 cm in length, similar to prior exam. Adrenals: Normal. No mass. Kidneys and ureters: Bilateral renal cortical scarring. Subcentimeter bilateral renal cortical hypodensities are too small to definitively characterize, but most likely represent cysts. No hydronephrosis. Stomach and bowel: Slightly copious amount of retained colonic fecal material. No evidence of bowel obstruction. Appendix: No evidence of appendicitis. Intraperitoneal space: Unremarkable. No free air. No significant fluid collection. Vasculature: Aortic valve and coronary artery calcifications. Moderate atherosclerotic changes within the abdomen/pelvis. Lymph nodes: Unremarkable. No enlarged lymph nodes. Bladder: Unremarkable as visualized. Reproductive: Unremarkable as visualized. Bones/joints: Degenerative change of the spine. Bilateral hip joint DJD. Soft tissues: Unremarkable. IMPRESSION: 1. Slightly copious amount of retained colonic fecal material, compatible with the given history of constipation. 2. Chronic mild splenomegaly. 3. Trace bilateral pleural effusions. COMMENTS: Consistent with the [employer]'s Incidental Findings Committee white paper (J Am Kamar Radiol 2018): Any incidental renal lesion less than 1 cm or classified as too small to characterize, or any incidental cystic renal lesion characterized as simple-appearing, is likely benign. No follow-up imaging is recommended for these lesions per consensus recommendations based on imaging criteria. Electronically signed by: Annamarie Song On 02/26/2020 11:42:39 AM
== END ==
LOC: M RAD 09:03
PROVIDERS: ATTEND Physician Assistant
DX: K59.00 Constipation, unspecified (principal); R10.9 Unspecified abdominal pain
CPT/HCPCS: 74177; Q9963; Q9967

== ENCOUNTER → 2020-03-14 | Outpatient (CLI) | payer MEDICARE, BC ==
[~2020-03-14] MED LIST changes: +AREDS; +CALC500T31 PO; +DOK1CAP7; +JAKA10TA; +META28.32 PO; +METH1TAB40 PO; +MIRA3350 PO; +OMEP-221; +TRAM50TA2; +VITA200048 PO; +VOLT1GEL15 TD
--- NOTE | 2020-03-19 10:56 | REP ---
LIMITED PELVIC, BLADDER SONOGRAPHY HISTORY: Kidney stones. FINDINGS: Prevoid bladder imaging shows smooth bladder german. No intravesical mass lesion is seen. Prevoid bladder volume is calculated at 304 mL. Emptying ureteral jets are observed bilaterally from the distal ureters on color Doppler interrogation of the bladder lumen. No extravesical abnormality or lesion is seen. Only 19 mL, 6% postvoid residual is seen on postvoid imaging. IMPRESSION: No abnormality noted. MTDD
--- NOTE | 2020-03-19 10:57 | REP ---
RENAL SONOGRAPHY HISTORY: Kidney stones. FINDINGS: Renal cortical echogenicity pattern is increased consistent with chronic medical renal disease. No hydronephrosis is seen on either side. There is an 8-mm cyst in the right mid kidney and a 6-mm cyst in the lower pole of the left mid kidney. No renal mass is seen. There are multiple echogenic foci on the left, which may be vascular or nephroliths. There is a 7-mm cyst in the upper pole of the right kidney as well. Right renal dimensions are 9.7 x 4.7 x 4.2 cm. Left kidney measures 10.0 x 5.3 x 4.0 cm. IMPRESSION: No evidence of hydronephrosis. Increased renal cortical echogenicity pattern consistent with chronic medical renal disease. Possible intrarenal calculi on the left. Small bilateral renal cysts. MTDD
== END ==
LOC: M RAD 09:21
PROVIDERS: ATTEND Nurse Practitioner Family
DX: N20.0 Calculus of kidney (principal)

== ENCOUNTER → 2020-03-28 | Outpatient (REF) | payer MEDICARE, BC, MEDICAID ==
[2020-03-28 18:11] LABS: APPEARANCE, URINE HAZY (CLEAR); BACTERIA, URINE AUTO NEGATIVE (NEGATIVE); BILIRUBIN, URINE AUTO NEGATIVE (NEGATIVE); BLOOD, URINE BLOOD NEGATIVE (NEGATIVE); COLOR, URINE YELLOW (YELLOW); GLUCOSE, URINE (UA) AUTO NEGATIVE (NEGATIVE); KETONE, URINE AUTO NEGATIVE (NEGATIVE); LEUKOCYTE ESTERASE, URINE AUTO NEGATIVE (NEGATIVE); MUCUS, URINE SMALL (NEGATIVE); NITRITE, URINE AUTO NEGATIVE (NEGATIVE); PROTEIN, URINE AUTO 2+ mg/dL (NEGATIVE); RBC, URINE AUTO 2 /HPF (0-3); SQUAMOUS EPITHELIAL CELL UR AU 1 /HPF (0-6); UROBILINOGEN, URINE AUTO 0.2 mg/dL (0.0-2.0); WBC, URINE AUTO 2 /HPF (0-3)
== END ==
LOC: M SMT 16:52
PROVIDERS: ATTEND Nurse Practitioner Family
DX: N20.0 Calculus of kidney (principal)

== ENCOUNTER → 2020-04-02 | Outpatient (CLI) | payer MEDICARE, BC ==
--- NOTE | 2020-04-03 07:38 | REP ---
INDICATION: CALCULUS OF KIDNEY COMPARISON: 02/26/2020 TECHNIQUE: Axial noncontrast images from the lung bases to the pubic symphysis with coronal and sagittal reformations. FINDINGS: Lung bases are clear. Hepatic calcifications suggest prior granulomatous disease. Spleen, pancreas, gallbladder, bilateral adrenal glands and kidneys are normal for noncontrast evaluation. Specifically, no hydroureteronephrosis, perinephric stranding, intrarenal or obstructing ureteral calculi identified. The enteric system demonstrates mild fecal stasis without obstruction or acute inflammatory process. Scattered diverticula noted without acute diverticulitis. Pelvis demonstrates collapse bladder and age-appropriate uterus/adnexa. No pelvic fluid. No ascites. No free air. No adenopathy. Atherosclerotic changes to the aorta without aneurysm. Musculoskeletal structures demonstrate age-related changes without acute osseous abnormality. IMPRESSION: No acute abdominopelvic pathology appreciated. As above. No evidence for urinary tract calcifications. <Electronically signed by Kody Mcrae > 04/03/20 [id number]
== END ==
LOC: M RAD 16:48
PROVIDERS: ATTEND Nurse Practitioner Family
DX: N20.0 Calculus of kidney (principal)

== ENCOUNTER → 2020-04-09 | Outpatient (CLI) | payer MEDICARE, BC | LOC: M LABSMTC 11:51 | PROVIDERS: ATTEND Anesthesiology | DX: Z01.812 Encounter for preprocedural laboratory examination (principal); Z20.828 Contact with and (suspected) exposure to other viral communicable diseases | CPT/HCPCS: C9803; U0003 ==

== ENCOUNTER 2020-04-14 07:52 | Day surgery (SDC) | payer MEDICARE, BC ==
[~2020-04-14] VITALS: Ht 157.5 cm; Wt 47.2 kg
[~2020-04-14 07:52] MED LIST changes: +NS 1,000 ML IV ONE
[2020-04-14] MEDS ORDERED: LIDOCAINE 2% 100MG/5ML SDV (FOR ANES.) As Ordered ONE (08:28)
[2020-04-14] MEDS ORDERED: propofoL 200 MG/20 ML VIAL As Ordered ONE (08:28)
--- NOTE | 2020-04-14 09:21 | ROOR ---
Patient Name: Geoffrey Martinez Procedure Date: 04/14/2020 8:57 AM Date of : 1935 Age: 84 Room: [facility] Gender: Female Note Status: Finalized Procedure: Total Colonoscopy to Cecum Indications: Lower abdominal pain, Change in bowel habits, Chronic idiopathic constipation Providers: Pa Torres MD Referring MD: HU BLUM MD Requesting Provider: Medicines: Monitored Anesthesia Care Complications: No immediate complications. Procedure: Pre-Anesthesia Assessment: - The heart rate, respiratory rate, oxygen saturations, blood pressure, adequacy of pulmonary ventilation, and response to care were monitored throughout the procedure. The Colonoscope was introduced through the anus and advanced to the cecum, identified by appendiceal orifice and ileocecal valve. The colonoscopy was performed without difficulty. The patient tolerated the procedure well. The quality of the bowel preparation was excellent. Findings: The perianal and digital rectal examinations were normal. Non-bleeding internal hemorrhoids were found during retroflexion. The hemorrhoids were small and Grade I (internal hemorrhoids that do not prolapse). No other significant abnormalities were identified in a careful examination of the remainder of the colon. The exam was otherwise without abnormality on direct and retroflexion views. Impression: - Non-bleeding internal hemorrhoids. - The examination was otherwise normal on direct and retroflexion views. - No specimens collected. - The exam was otherwise normal to the cecum. Recommendation: - Patient has a contact number available for emergencies. The signs and symptoms of potential delayed complications were discussed with the patient. Return to normal activities tomorrow. Written discharge instructions were provided to the patient. - High fiber diet. - Discharge patient to home. - Continue present medications. - Repeat colonoscopy is not recommended due to current age (66 years or older) for screening purposes. - Return to referring physician. - The findings and recommendations were discussed with the patient. Pa Torres MD Pa Torres MD 04/14/2020 9:21:17 AM Electronically signed by Pa Torres MD Number of Addenda: 0 Note Initiated On: 04/14/2020 8:57 AM Estimated Blood Loss: Estimated blood loss: none.
[2020-04-14 09:45] VITALS: BP 125/72
== END 2020-04-14 09:59 | disposition home or self-care (01) ==
LOC: M OPP 07:52
PROVIDERS: ATTEND Internal Medicine Gastroenterology
DX: K64.0 First degree hemorrhoids (principal); K59.04 Chronic idiopathic constipation; R10.30 Lower abdominal pain, unspecified; E11.9 Type 2 diabetes mellitus without complications; E03.9 Hypothyroidism, unspecified; Z79.82 Long term (current) use of aspirin; Z79.899 Other long term (current) drug therapy; Z88.0 Allergy status to penicillin; Z88.8 Allergy status to other drugs, medicaments and biological substances

== ENCOUNTER → 2020-05-01 | Outpatient (REF) | payer MEDICARE, BC ==
[~2020-05-01] MED LIST changes: -NS 1,000 ML IV ONE
== END ==
LOC: M LAB REF 15:14
PROVIDERS: ATTEND Internal Medicine Medical Oncology
DX: D45 Polycythemia vera (principal); D75.81 Myelofibrosis; Z12.2 Encounter for screening for malignant neoplasm of respiratory organs

== ENCOUNTER → 2020-07-20 | Outpatient (CLI) | payer MEDICARE, BC ==
[~2020-07-20] MED LIST changes: -ALEN70TA74; +ALEN70TA82; +CLEO300C2 PO
== END ==
LOC: M LABSMTC 11:08
PROVIDERS: ATTEND Anesthesiology
DX: Z01.812 Encounter for preprocedural laboratory examination (principal); Z20.822 Contact with and (suspected) exposure to COVID-19

== ENCOUNTER → 2020-07-31 | Outpatient (CLI) | payer MEDICARE, BC ==
[~2020-07-31] MED LIST changes: +METH-1164 PO; -METH1TAB40 PO
== END ==
LOC: M LABSMTC 10:49
PROVIDERS: ATTEND Anesthesiology
DX: Z01.812 Encounter for preprocedural laboratory examination (principal); Z20.822 Contact with and (suspected) exposure to COVID-19

== ENCOUNTER 2020-08-05 10:01 | Day surgery (SDC) | payer MEDICARE, BC, MEDICAID ==
[~2020-08-05] VITALS: Ht 162.6 cm; Wt 49.4 kg
[~2020-08-05 10:01] MED LIST changes: +NS 1,000 ML IV ONE
--- OUTSIDE RECORDS SUMMARY | 2020-08-05 10:06 | CCD ---
Author Author Teja Hatfield MD [facility] Organization Teja Hatfield MD [facility] Address [address] [address] Phone Care Team Providers Care Fisher Hand Line Name Role Phone Liu DANIEL, FACS, Teja Lilly Unavailable [phone] Renny DANIEL, Libby PP [phone] Reason for Referral No Reason for Referral Recorded Problems Includes: Active, inactive, and resolved Problems All Visits Onset Date - Time Resolved Date - Time Provider Co ndition Status Macular Degen Nonexud R Eye Adv Atrophic W/o Subfoveal Involvement 01/30/2020 - 12:00AM Teja Hatfield MD, FACS Inactive Macular Degen Nonexud 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 Involvement 01/30/2020 - 12:00AM Teja Hatfield MD, FACS Active Posterior Capsule Opacification Eccentric Capsule Both Eyes 06/04/2019 - 12:00AM Miller Torres DO Active 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 09/14/2018 - 12:00AM Teja Hatfield MD, FACS Inactive Pseudophakia 07/25/2018 - 12:00AM Miller Torres DO Active Cataract Senile Cortical Right 05/23/2018 - 12:00AM Unknown - Un known Miller Torres DO Resolved Essential Hypertension 02/16/2018 - 12:00AM Teja Conde MD, FACS Active Type 2 Diabetes with Diabetic Cataract 09/22/2017 - 12:00AM Miller Torres DO Inactive Macular Degeneration Nonexudative Right Eye Intermedia te Dry Stage 01/13/2017 - 12:00AM Miller Torres DO Inactive 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 01/13/2017 - 12:00AM Teja Hatfield MD, FACS Inactive Cataract Senile Cortical Left 01/13/2017 - 12:00AM Unknown - Unk nown Miller Torres DO Resolved Cataract Senile Cortical Anterior 07/18/2014 - 12:00AM Unknown - Unknown Miller Torres DO Resolved Note: Unchanged - of the lef t eye Retinal Vein Occlusion Central 12/13/2013 - 12:00AM Teja Hatfield MD, FACS Active Note: Unchanged - of the rig ht eye, Old Macular Degeneration Exudative 12/13/2013 - 12:00AM Anila Torres DO Inactive Note: Unchanged - of the lef t eye Diabetes Mellitus Type 2 Without Complication 12/13/2013 - 12:00 AM Teja Hatfield MD, FACS Active Note: Unchanged Chorioretinal Scar Left Eye Macular 12/13/2013 - 12:00AM Teja Hatfield MD, FACS Active Note: Unchanged Diabetes Mellitus Type 2 - Uncomplicated, Controlled 05/31/2013 - 12:00AM Teja Hatfield MD, FACS Inactive Note: Unchanged Macular Degeneration Nonexudative Dry 05/31/2013 - 12:00AM Miller Torres DO Inactive Note: Unchanged - right eye Vitreous Floaters Both Eyes 05/31/2013 - 12:00AM Teja Hatfield MD, FACS Active Note: Unchanged Dermatochalasis Both Eyelids 11/16/2012 - 12:00AM Teja Hatfield MD, FACS Active Note: Unchanged Diabetes Mellitus Without Complication 11/16/2012 - 12:00AM Teja Veronica MD, FACS Inactive Note: Unchanged Corneal Dystrophy Endothelial Cornea Guttata 11/16/2012 - 12:00A M Teja Hatfield MD, FACS Active Note: Unchanged - of both co rneas Macular Degeneration Exudative Disciform 11/16/2012 - 12:00AM Teja Veronica MD, FACS Inactive Note: Unchanged - of the lef t eye Macular Degeneration Nonexudative 11/16/2012 - 12:00AM Teja Hatfield MD, FACS Inactive Note: Unchanged Macular Degeneration Right Eye 11/16/2012 - 12:00AM Anila Torres DO Inactive Note: Unchanged - Dry Cataract Senile Posterior Subcapsular Polar 11/16/2012 - 12: 00AM Unknown - Unknown Miller Torres DO Resolved Note: Unchanged - of both ey es Cataract Senile Nuclear 11/16/2012 - 12:00AM Unknown - Unknown Karson Torres DO Resolved Note: Unchanged - of both ey es Dry Eye Syndrome Both Eyes 11/16/2012 - 12:00AM Teja Hatfield MD, FACS Active Note: Unchanged Plan of Treatment Future Appointments Date Time Location Provider 11 Month Follow-Up 05/05/2021 1:00PM Teja Hatfield MD [facility] Millerjasmin Torres DO Assessments Includes: Assessments for all patient encounters Findings Encounter Date Central retinal vein occlusion 1 Year Follow-Up with Miller Melissa DO 06/06/2020 Dry eye syndrome of both eyes 1 Year Follow-Up with Miller Melissa DO 06/06/2020 Early dry stage nonexudative macular degeneration of r ight eye 1 Year Follow-Up with Miller Melissa DO 06/06/2020 Essential hypertension 1 Year Follow-Up with Millerjasmin Turner in DO 06/06/2020 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 1 Year Follow-Up with Miller Melissa DO 06/06/2020 Posterior capsule opacification of eccentric capsule i n both eyes 1 Year Follow- Up with Miller Melissa DO 06/06/2020 Pseudophakia 1 Year Follow-Up with Miller Melissa DO 06/06/2020 Type 2 diabetes mellitus without complication 1 Year F ollow-Up with Miller Melissa DO 06/06/2020 Advanced atrophic nonexudative macular d egeneration of both eyes without subfoveal involvement TRIAGE NON URGENT with Teja Hatfield MD, FACS 01/30/2020 Essential hypertension TRIAGE NON URGENT with Teja Funes MD, FACS 01/30/2020 Central retinal vein occlusion 9 Month Follow-Up with Chasity Torres DO 06/01/2019 Dry eye syndrome of both eyes 9 Month Follow-Up with Miller Melissa DO 06/01/2019 Early dry stage nonexudative macular degeneration of r ight eye 9 Month Follow-Up with Miller Melissa DO 06/01/2019 Essential hypertension 9 Month Follow-Up with Miller Weinst ein DO 06/01/2019 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 9 Month Follow-Up with Miller Melissa DO 06/01/2019 Posterior capsule opacification of eccentric capsule i n both eyes 9 Month Follow-Up with Miller Melissa DO 06/01/2019 Pseudophakia 9 Month Follow-Up with Miller Melissa DO 06/01/2019 Type 2 diabetes mellitus without complication 9 Month Follow-Up with Miller Melissa DO 06/01/2019 Early dry stage nonexudative macular degeneration of r ight eye 3-4 Week Post-op with Miller Torres DO 09/12/2018 Essential hypertension 3-4 Week Post-op with Miller Turner in DO 09/12/2018 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 3-4 Week Post-op with Miller Torres DO 09/12/2018 Pseudophakia 3-4 Week Post-op with Miller Torres DO 09/12/2018 Pseudophakia 1 Day Post OP with Miller Torres DO 08/11/2018 Right myopia 3 - 4 WK Post CAT SX with Miller Sim ein DO 07/24/2018 Pseudophakia 1 Day Post OP with Miller Torres DO 06/09/2018 Right cortical senile cataract 1 WK PREOP FOR SURGERY with Karson Torres DO 06/02/2018 Nuclear senile cataract Cataract Evaluation with Miller pretty DO 05/30/2018 Posterior subcapsular polar senile cataract Cataract E valuation with Miller Torres DO 05/30/2018 Nuclear senile cataract TRIAGE NON URGENT with Teja Goetz MD, FACS 05/23/2018 Right cortical senile cataract TRIAGE NON URGENT with Teja Hatfield MD, FACS 05/23/2018 Essential hypertension 4 Month Follow-Up with Teja Funes MD, FACS 02/16/2018 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 4 Month Follow-Up with Teja Hatfield MD, FACS 02/16/2018 Intermediate dry stage nonexudative macular degenerati on of right eye 4 Month Follow-Up with Teja Hatfield MD, FACS 02/16/2018 Left cortical senile cataract 4 Month Follow-Up with Angy Hatfield MD, FACS 02/16/2018 Nuclear senile cataract 4 Month Follow-Up with Teja Goetz MD, FACS 02/16/2018 Posterior subcapsular polar senile cataract 4 Month Fo llow-Up with Teja Hatfield MD, FACS 02/16/2018 Type 2 diabetes mellitus - uncomplicated, controlled 4 Month Follow-Up with Teja Hatfield MD, FACS 02/16/2018 Essential hypertension 8 Month Follow-Up with Teja Funes MD, FACS 09/22/2017 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 8 Month Follow-Up with Teja Hatfield MD, FACS 09/22/2017 Intermediate dry stage nonexudative macular degenerati on of right eye 8 Month Follow-Up with Teja Hatfield MD, FACS 09/22/2017 Left cortical senile cataract 8 Month Follow-Up with Angy Hatfield MD, FACS 09/22/2017 Nuclear senile cataract 8 Month Follow-Up with Teja Goetz MD, FACS 09/22/2017 Posterior subcapsular polar senile cataract 8 Month Fo llow-Up with Teja Hatfield MD, FACS 09/22/2017 Type 2 diabetes with diabetic cataract 8 Month Follow- Up with Teja Veronica MD, FACS 09/22/2017 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 6 Month Follow-Up with Teja Hatfield MD, FACS 01/13/2017 Intermediate dry stage nonexudative macular degenerati on of right eye 6 Month Follow-Up with Teja Hatfield MD, FACS 01/13/2017 Left cortical senile cataract 6 Month Follow-Up with Angy Hatfield MD, FACS 01/13/2017 Nuclear senile cataract 6 Month Follow-Up with Teja Goetz MD, FACS 01/13/2017 Posterior subcapsular polar senile cataract 6 Month Fo llow-Up with Teja Hatfield MD, FACS 01/13/2017 Type 2 diabetes mellitus - uncomplicated, controlled 6 Month Follow-Up with Teja Hatfield MD, FACS 01/13/2017 Early dry stage nonexudative macular degeneration of r ight eye 1 Year Follow-Up with eTja Hatfield MD, FACS 07/05/2016 Endothelial corneal dystrophy of both eyes 1 Year Fol low-Up with Teja Hatfield MD, FACS 07/05/2016 Essential hypertension 1 Year Follow-Up with Teja Veronica MD, FACS 07/05/2016 Exudative macular degeneration 1 Year Follow-Up with Angy Hatfield MD, FACS 07/05/2016 Type 2 diabetes mellitus without complication 1 Year F ollow-Up with Teja Hatfield MD, FACS 07/05/2016 Dry nonexudative macular degeneration right eye 8 Mon Follow-Up with Teja Hatfield MD, FACS 10/10/2015 Essential hypertension 8 Month Follow-Up with Teja Funes MD, FACS 10/10/2015 Exudative macular degeneration left eye 8 Month Follo w-Up with Teja Veronica MD, FACS 10/10/2015 Left cortical senile cataract 8 Month Follow-Up with Angy Hatfield MD, FACS 10/10/2015 Nuclear senile cataract 8 Month Follow-Up with Teja Goetz MD, FACS 10/10/2015 Posterior subcapsular polar senile cataract 8 Month Fo llow-Up with Teja Hatfield MD, FACS 10/10/2015 Type 2 diabetes with diabetic cataract 8 Month Follow- Up with Teja Veronica MD, FACS 10/10/2015 Anterior cortical senile cataract left eye 6 Month Fo llow-Up with Teja Hatfield MD, FACS 01/31/2015 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 6 Month Follow-Up with Teja Hatfield MD, FACS 01/31/2015 Central retinal vein occlusion right eye (old) 6 Nathan h Follow-Up with Teja Hatfield MD, FACS 01/31/2015 Dermatochalasis of both eyes 6 Month Follow-Up with Carrington Hatfield MD, FACS 01/31/2015 Dry eye syndrome of both eyes 6 Month Follow-Up with Angy Hatfield MD, FACS 01/31/2015 Dry nonexudative macular degeneration right eye 6 Mon th Follow-Up with Teja Hatfield MD, FACS 01/31/2015 Endothelial corneal dystrophy cornea guttata both eye s 6 Month Follow-Up with Teja Hatfield MD, FACS 01/31/2015 Exudative macular degeneration of left eye 6 Month Fol low-Up with Teja Hatfield MD, FACS 01/31/2015 No rubeosis iridis of both eyes 6 Month Follow-Up with Teja Hatfield MD, FACS 01/31/2015 Nuclear senile cataract both eyes 6 Month Follow-Up w ith Teja Hatfield MD, FACS 01/31/2015 Posterior subcapsular polar senile cataract both eyes 6 Month Follow-Up with Teja Hatfield MD, FACS 01/31/2015 Type 2 diabetes mellitus - uncomplicated, controlled 6 Month Follow-Up with Teja Hatfield MD, FACS 01/31/2015 Vitreous floaters in both eyes 6 Month Follow-Up with Teja Hatfield MD, FACS 01/31/2015 Anterior cortical senile cataract left eye 6 Month Fo llow-Up with Teja Hatfield MD, FACS 07/18/2014 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 6 Month Follow-Up with Teja Hatfield MD, FACS 07/18/2014 Central retinal vein occlusion right eye, old 6 Month Follow-Up with Teja Hatfield MD, FACS 07/18/2014 Dermatochalasis of both eyes 6 Month Follow-Up with Carrington Hatfield MD, FACS 07/18/2014 Dry eye syndrome of both eyes 6 Month Follow-Up with Angy Hatfield MD, FACS 07/18/2014 Dry nonexudative macular degeneration both eyes 6 Mon th Follow-Up with Teja Hatfield MD, FACS 07/18/2014 Endothelial corneal dystrophy cornea guttata both eye s 6 Month Follow-Up with Teja Hatfield MD, FACS 07/18/2014 No rubeosis iridis 6 Month Follow-Up with Teja dawkins MD, FACS 07/18/2014 Nuclear senile cataract both eyes 6 Month Follow-Up w juarez Teja Hatfield MD, FACS 07/18/2014 Posterior subcapsular polar senile cataract both eyes 6 Month Follow-Up with Teja Hatfield MD, FACS 07/18/2014 Type 2 diabetes mellitus - uncomplicated, controlled 6 Month Follow-Up with Teja Hatfield MD, FACS 07/18/2014 Vitreous floaters in both eyes 6 Month Follow-Up with Teja Hatfield MD, FACS 07/18/2014 Central retinal vein occlusion right eye - OLD 6 Nathan h Follow-Up with Teja Hatfield MD, FACS 12/13/2013 Dermatochalasis of both eyes upper and lower 6 Month Follow-Up with Teja Hatfield MD, FACS 12/13/2013 Dry eye syndrome of both eyes 6 Month Follow-Up with Angy Hatfield MD, FACS 12/13/2013 Dry nonexudative macular degeneration right eye 6 Mon th Follow-Up with Teja Hatfield MD, FACS 12/13/2013 Endothelial corneal dystrophy cornea guttata both eye s 6 Month Follow-Up with Teja Hatfield MD, FACS 12/13/2013 Exudative macular degeneration left eye 6 Month Follo w-Up with Teja Veronica MD, FACS 12/13/2013 No diabetic macular edema 6 Month Follow-Up with Teja Arriaza MD, FACS 12/13/2013 No diabetic retinopathy 6 Month Follow-Up with Teja Goetz MD, FACS 12/13/2013 No rubeosis iridis of both eyes 6 Month Follow-Up with Teja Hatfield MD, FACS 12/13/2013 Nuclear senile cataract both eyes 6 Month Follow-Up w ith Teja Hatfield MD, FACS 12/13/2013 Posterior subcapsular polar senile cataract both eyes 6 Month Follow-Up with Teja Hatfield MD, FACS 12/13/2013 Scarred macula left eye 6 Month Follow-Up with Teja Lugo MD, FACS 12/13/2013 Type 2 diabetes mellitus without complication 6 Month Follow-Up with Teja Hatfield MD, FACS 12/13/2013 Vitreous floaters in both eyes 6 Month Follow-Up with Teja Hatfield MD, FACS 12/13/2013 Dermatochalasis of both eyes 6 Month Follow-Up with OC T Retina with Teja Hatfield MD, FACS 05/31/2013 Disciform macular degeneration left eye 6 Month Follo w-Up with OCT Retina with Teja Hatfield MD, FACS 05/31/2013 Dry eye syndrome of both eyes 6 Month Follow-Up with O CT Retina with Teja Hatfield MD, FACS 05/31/2013 Dry nonexudative macular degeneration right eye 6 Mon th Follow-Up with OCT Retina with Teja Hatfield MD, FACS 05/31/2013 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 6 Month Follow-Up with OCT Retina with Teja Hatfield MD, FACS 05/31/2013 No rubeosis iridis of both eyes 6 Month Follow-Up with OCT Retina with Teja Hatfield MD, FACS 05/31/2013 Nuclear senile cataract both eyes 6 Month Follow-Up w ith OCT Retina with Teja Hatfield MD, FACS 05/31/2013 Posterior subcapsular polar senile cataract both eyes 6 Month Follow-Up with OCT Retina with eTja Hatfield MD, [facility] 05/31/2013 Type 2 diabetes mellitus - uncomplicated, controlled 6 Month Follow-Up with OCT Retina with Teja Hatfield MD, [facility] 05/31/2013 Vitreous floaters in both eyes 6 Month Follow-Up with OCT Retina with Teja Hatfield MD, [facility] 05/31/2013 Dermatochalasis of both eyes 4 Month Follow-Up with Carrington Hatfield MD, FACS 11/16/2012 Diabetes mellitus without complication 4 Month Follow- Up with Teja Veronica MD, FACS 11/16/2012 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 4 Nathan h Follow-Up with Teja Hatfield MD, [facility] 11/16/2012 Dry eye syndrome of both eyes 4 Month Follow-Up with Angy Hatfield MD, FACS 11/16/2012 Endothelial corneal dystrophy cornea guttata 4 Month F ollow-Up with Teja Hatfield MD, [facility] 11/16/2012 Macular degeneration in the right eye 4 Month Follow-U p with Teja Hatfield MD, [facility] 11/16/2012 No diabetic macular edema 4 Month Follow-Up with Teja Arriaza MD, [facility] 11/16/2012 No diabetic retinopathy 4 Month Follow-Up with Teja Goetz MD, [facility] 11/16/2012 No rubeosis iridis of both eyes 4 Month Follow-Up with Teja Hatfield MD, [facility] 11/16/2012 Nonexudative macular degeneration 4 Month Follow-Up wi th Teja Hatfield MD, [facility] 11/16/2012 Nuclear senile cataract 4 Month Follow-Up with Teja Goetz MD, FACS 11/16/2012 Posterior subcapsular polar senile cataract 4 Month Fo llow-Up with Teja Hatfield MD, [facility] 11/16/2012 Vitreous floaters in both eyes 4 Month Follow-Up with Teja Hatfield MD, [facility] 11/16/2012 Instructions Instructions not supported for this document typeNo Instructions Recorded Medical Equipment - Implanted Devices Includes: Current and historical DevicesNo Medical Equipment Recorded Medications Includes: Current and historical Medications Current Medications (continue as prescribed) Jakafi 5 MG OR TABS 11/16/2012 Provider: Diagnosis: Aspirin 81 MG OR TABS 11/16/2012 Provider: Diagnosis: ICaps AREDS Formula OR TABS 11/16/2012 Provider: Diagnosis: Klor-Con 8 MEQ OR TBCR 11/16/2012 Provider: Diagnosis: Every other day Furosemide 20 MG OR TABS 11/16/2012 Provider: Diagnosis: Synthroid 125 MCG OR TABS 11/16/2012 Provider: Diagnosis: Fosamax 70 MG OR TABS 11/16/2012 Provider: Diagnosis: Once a week Past Medications on file Pred Forte 1% Ophthalmic Suspension 07/25/2018 - 06/04/2019 Provider: Miller Torres DO Diagnosis: Cortical age-related cataract, left eye Day of surgery remove patch start one drop four times a day in the left eye BromSite 0.075% Ophthalmic Solution 07/25/2018 - 06/04/2019 Provider: Miller Torres DO Diagnosis: Cortical age-related cataract, left eye Three days prior to surgery start one dr op two times a day in the left eye. READ PHARMACY NOTES! Besivance 0.6% Ophthalmic Suspension 07/25/2018 - 06/04/2019 Provider: Miller Torres DO Diagnosis: Cortical age-related cataract, left eye Three days prior to surgery start one drop three times a day in the left eye Pred Forte 1% Ophthalmic Suspension 06/02/2018 - 07/25/2018 Provider: Miller Torres DO Diagnosis: Cortical age-related cataract, right eye Day of surgery remove patch start one drop four times a day in the right eye BromSite 0.075% Ophthalmic Solution 06/02/2018 - 07/25/2018 Provider: Miller Torres DO Diagnosis: Cortical age-related cataract, right eye Three days prior to surgery start one dr op two times a day in the right eye. READ PHARMACY NOTES! Besivance 0.6% Ophthalmic Suspension 06/02/2018 - 07/25/2018 Provider: Miller Torres DO Diagnosis: Cortical age-related cataract, right eye Three days prior to surgery start one drop three times a day in the right eye Medications Administered Includes: Administered Medications in patient's chartNo Administered Medications Recorded Vital Signs Includes: Vital Signs from 06/11/2019 through 06/11/2020No Vital Signs Recorded For Specified Dates Results Includes: Results from 06/11/2019 through 06/11/2020No Results Recorded For Specified Dates History of Present Illness History of Present Illness not supported for this document typeNo History of Present Illness Recorded Social History Description Last Updated No consumption of alcohol 06/06/2020 No tobacco use 06/06/2020 Not a current smoker 06/06/2020 Not using drugs 06/06/2020 Smoking status : Never smoker 06/06/2020 Procedures and Surgical History Includes: Procedures from 06/11/2019 through 06/11/2020 Procedures Code Diagnosis Performing Provider Service Location Service Date Intermediate Eye Exam Established Patient 297[address] Type 2 diabetes mellitus without complications, Nexdtve age-related mclr degn, right eye, early dry stage, Essential (primary) hypertension, Exdtve age-rel mclr degn, left eye, with inact chrdl neovas Miller Melissa DO 06/06/2020 [facility], with interpretation and re port (WAIVER OF LIABILITY ON FILE (ABN)) [id number] Nexdtve age-rel mclr degn, r eye, adv at c w/o sbfvl involv Teja Hatfield MD, FACS Teja Haftield MD [facility] 01/30/2020 Comprehensive eye exam established patient (Signi/Sep Eval. & Man.) [id number] Nexdtve age-rel mclr degn, r eye, adv atrpc w/o sbfvl involv, Essential (primary) hypertension Teja Hatfield MD, FACS Teja Hatfield MD [facility] 01/30/2020 Surgical History Last Updated History of extracapsular cataract extrac tion PCIOL OD by Dr. Torres 08/10/2018 ~PCIOL OS by Dr. Torres 06/08/2018 06/06/2020 History of cataract surgery of right eye 08/10/[address] Torres 06/04/2019 Surgical / procedural history 06/04/2019 History of cataract surgery of left eye 06/08/18 - Dr Kash Torres 06/01/2019 Medical History Includes: Medical History in patient's chart Description Last Updated History of the retina was abnormal 06/01/2019 06/11/20 20 History of type 2 diabetes mellitus Dx 2012, A1C: unknown with Dr. Davis FBS: Does not check 06/06/2020 History of fundoscopic exam through dilated pupils was performed 09/12/2018 06/04/2019 History of diabetes mellitus Dx 2013 approx. A1c unsu re, FBS does not check 06/01/2019 History of essential hypertension 06/01/2019 History of hypertension 07/18/2014 Reported medical history : Polycythemia Rubra Vera, Ri ght DVT 07/18/2014 No recent change in medical history 05/31/2013 Currently wearing eyeglasses 11/16/2012 History of hyperlipidemia 11/16/2012 Family History Includes: Family History in patient's chart Description Last Updated Fraternal history of family history of cancer 06/06/20 20 Maternal history of heart disease 06/06/2020 Maternal history of thyroid disorder 06/06/2020 Paternal history of family history of cancer 0 Sororal history of family history of cancer 06/06/2020 Sororal history of macular degeneration 06/06/2020 Review of Systems Review of Systems not supported for this document typeNo Review of Systems Recorded Mental Status Mental Status not supported for this document type Description Oriented to time, place, and person Functional Status Functional Status not supported for this document typeNo Functional Status Recorded Physical Exam Physical Exam not supported for this document typeNo Physical Exam Recorded Immunizations Includes: Immunizations in patient's chartNo Immunizations Recorded Allergies Includes: Active, inactive, and resolved Allergies Substance Type Reaction Onset Date - Time Resolved Date - Ti me Status Penicillin G Benzathine Allergy 11/16/2012 - 12:00AM Active Encounters Includes: Encounters from 06/11/2019 through 06/11/2020 Encounter Provider Location Date Check-In Time Check-Out Time D iagnosis 1 Year Follow-Up Miller Nina MD [facility] 05/20 9:17AM 10:43AM Essential Hypertension, Reti nal Vein Occlusion Central, Pseudophakia, Posterior Capsule Opacification Eccentric Capsule Both Eyes, Dry Eye Syndrome Both Eyes, Diabetes Mellitus Type 2 Without Complication, 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, 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 TRIAGE NON URGENT Teja Hatfield MD, FACS Teja Hatfield MD [facility] 01/30/2020 06/01/2019 8:50AM 9:43AM Essential Hypertensi on, Macular Degen Nonexud 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 Involvement Insurance Includes: Active Insurance Policies Plan Name Member ID Group # Subscriber Relationship Effective Da rosa 1 - Medicare Part B [facility] ([facility]) [id number] Geoffrey Martinez Self 2 - [facility] BC/BS [id number] Geoffrey Martinez Self Advance Directives Includes: Current Advance DirectivesNo Advance Directives Recorded Health Concerns Includes: Active Health ConcernsNo Active Health Concerns Recorded Goals Includes: Active GoalsNo Active Goals Recorded Interventions Includes: Interventions for active GoalsNo Interventions Recorded Evaluations & Outcomes Includes: Evaluations & Outcomes for active GoalsNo Outcomes Recorded
--- OUTSIDE RECORDS SUMMARY | 2020-08-05 10:06 | CCD | Continuity of Care Document ---
Author Author Geoffrey TORRES M.D. Organization Unknown Address [address] [place] [address] Phone [phone] Care Team Providers Care Hot Mill Tin Roller Name Role Phone Libby Lawson M.D. AUTM [phone] Problems Active Problems Provider Date Anemia Pa Torres M.D. Onset: 07/10/19 21 Constipation Pa Torres M.D. Onset: 02/09/20 17 Social History Type Date Description Comments Sex Unknown ETOH Use Denies alcohol use Tobacco Use Start: Unknown Patient has never smoked Allergies, Adverse Reactions, Alerts Description No Known Drug Allergies Medications Active Medications SIG Qnty Indications Ordering Provide r Date Prune Juice Unknown Miralax 17GM/Scoop Powder mix one capful (17gm) in 8 ounces of water and drink once daily Unknown [facility] Natural Fiber Supplement 58.6% Packet Unknown Voltaren 1% Gel Unknown Colace 100mg Capsules 1 cap by mouth twice a day Unknown Oscal 500/200 D-3 [id number] T ablets 1 by mouth every day sporatic Unknown Tylenol With Codeine #3 300-30mg T ablets Unknown Methocarbamol 500mg Tablets Unknown Tramadol HCL 50mg Tablets Unknown Omeprazole 40mg Capsules Libby Mckeon M.D. Potassium Citrate ER 15Meq (1620 mg) Tablets ER Take One Tablet By Mouth Every 12 Hours With A Meal Unknown Betamethasone Dipropionate 0.05% Cream Unknown Hydrocortisone 2.5% Cream Unknown Gabapentin 100mg Capsules Latasha Irene MD Levothyroxine Sodium 75mcg Tablets Take One Tablet By Mouth Every Day Unknown Vitamin D 2000Unit Tablets Unknown Fish Oil 1000mg Capsules 1 by mouth every day Unknown Aspirin 81mg Tablets DR Unknown Areds Unknown Jakafi 15mg Tablets Unknown Furosemide 20mg Tablets Unknown Alendronate Sodium 70mg Tablets Unknown History Medications Suprep Bowel Prep Kit 17.5-3.13-1.6GM/177ML Solution use as directed 354ml Pa Torres M.D. 03/26/2020 - 07/09/2020 Immunizations Description No Information Available Vital Signs Date Vital Result Comment 07/10/2020 2:22pm Height 64 inches 5'4" Weight 110.00 lb BP Systolic 133 mmHg BP Diastolic 82 mmHg Heart Rate 86 /min BMI (Body Mass Index) 18.9 kg/m2 Weight 49.896 kg Body Temperature 97.2 F 03/26/2020 4:11pm Height 64 inches 5'4" Weight 108.00 lb BP Systolic 135 mmHg BP Diastolic 83 mmHg Heart Rate 81 /min BMI (Body Mass Index) 18.5 kg/m2 Weight 48.989 kg Body Temperature 97.9 F Results Description No Information Available Procedures Date Code Description Status 04/14/2020 19109 Colonoscopy Flexible Diagnostic Completed Medical Devices Description No Information Available Encounters Type Date Location Provider Dx Diagnosis Office Visit 07/10/2020 2:00p Main Office Pa Torres M.D. D 64.9 Anemia, unspecified Office Visit 03/26/2020 3:30p Main Office Pa Torres M.D. K 58.1 Irritable bowel syndrome with constipation Assessments Date Code Description Provider 07/10/2020 D64.9 Anemia Pa villatoro M.D. 04/14/2020 K59.04 Chronic idiopathic constipation Pa Torres M.D. 04/14/2020 K64.0 First degree hemorrhoids Pa Torres M.D. 03/26/2020 K58.1 Irritable bowel syndrome with co nstipation Pa Torres M.D. Plan of Treatment Future Appointment(s):* 07/25/2020 9:30 am - Pa Torres M.D. at Main Office 07/10/2020 - Pa Torres M.D.* D64.9 Anemia* Comments:* 84 yo wf who presents for a h/o chronic constipation all her life. She only has 1 bm every 5 to 6 days. No c/o weight loss, change in bowel habits, or rectal bleeding. No family h/o colon cancer. Present for 15 years. Onset was gradual. Chronic. Patients bowel movements are variable. Pt is c/o more left sided abdominal pain. No rectal bleeding. Colonoscopy was normal. Pt now needs an egd for anemia evaluation. Plan:1. Egd + biopsies.2. Informed consent Functional Status Description No Information Available Mental Status Description No Information Available Referrals Description No Information Available
--- OUTSIDE RECORDS SUMMARY | 2020-08-05 10:06 | CCD ---
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 301755 005 Problem Porokeratosis Q82.8 Active 110193138 ALLERGIES Allergen (clinical drug ingredient) Drug/Non Drug Allergy do cumented on EMR Reaction Allergy Type Onset Date Status naproxen Naproxen(ND Code:[address]-17) Diarrhea Drug Allergy Active amoxicillin Amoxicillin(NDC Code:[address]-29) Hives Drug Aller gy Active Ciprofloxacin Hives Drug Allergy Active cephalexin Cephalexin(NDC Code:[address]-99) Yeast infection Drug Al lergy Active ENCOUNTERS from 1934 to 2020-07-18 Encounter Location Date Provider Diagnosis [facility] [address] [place] [address] Jun Nelson Maciel IMMUNIZATIONS Vaccine Route Administration Date Status Influenza (6mo & up) Fluzone Unknown September 11, 2014 Ref used Influenza (6mo & up) Fluzone Unknown August 23, 2014 Ref used SOCIAL HISTORY Sex Assigned At : Social History Observation Description Sex Assigned At Unknown REASON FOR REFERRAL No Information VITAL SIGNS No information MEDICATIONS Medication SIG (Take, Route, Frequency, Duration) Notes Start Da te End Date Status Omeprazole 40 MG 1 capsule 30 minutes before morning meal Orally Once a day for 30 day(s) Active Jakafi 15 MG 1 tablet Orally Twice a day Active MiraLax 17 GM/SCOOP as directed Orally Active Fosamax 70 MG 1 tablet Orally Once a week for 30 day(s) Active Synthroid 75 MCG 1 tablet on an empty stomach in the morn ing Orally Once a day Active AREDS OTC Active Furosemide 20 MG 1 tablet Orally Once a day for 30 day(s) Active Fish Oil 1000 MG 1 capsule Orally Once a day Active Klor-Con 8 MEQ 1 tablet Orally every other day for 30 day(s) Not-Taking Doxycycline Hyclate 100 MG 1 capsule Orally Once a day for 10 day(s) Not-Taking Potassium Citrate ER 15 MEQ (1620 MG) 1 tablet with me als Orally every 12 hours for 90 day(s) Aug, Active Oscal 500/200 D-3 500-200 MG-UNIT 1 tablet Orally Twice a day for 3 0 day(s) Active Aspirin 81 MG 1 tablet Orally Once a day Not-Taking Aspir-81 81 MG 1 tablet Orally Once a day for 30 day(s) Active Colace Adult Active Gabapentin 100 MG 1 capsule Orally Once a day for 30 day(s) Active Metamucil 48.57 % as directed Orally Active Vitamin D 2000 UNIT Orally Activ e Hydrocortisone Acetate 2.5 % 1 application to affected area Externally to arms and body Twice a day for 30 days Active Methocarbamol 500 MG 1.5 tablets Orally every 4 hrs for 30 day(s) Active PROCEDURES No Information RESULTS No Results REASON FOR VISIT gout MEDICAL (GENERAL) HISTORY Type Description Date Medical History diabetes mallitus Medical History Hypothyroidism Medical History Arthritis Medical History DVT Medical History KIDNEY STONES Medical History polycythemia 1997 Medical History catract Medical History back issues Medical History maculardegenration Surgical History Cystoscopy, right retrograde pyelogram and right ureteral stent insertion 05/2012 Surgical History stent and stone removed 08/03 Surgical History Wrist bone surgery 07/03 Surgical History cateract surgery rt. 2017jun 08 Surgical History lt. cateract/Dr. Daniel aug 01 Hospitalization History Blood clot- DVT R leg 14 yrs ago Goals Section No Information Health Concerns No Information MEDICAL EQUIPMENT No Information MENTAL STATUS No Information FUNCTIONAL STATUS No Information ASSESSMENTS No Information PLAN OF TREATMENT Medication Medication Name Sig Start Date Stop Date Potassium Citrate ER 15 MEQ (1620 MG) 1 tablet with me als Orally every 12 hours for 90 day(s) Aug, Next Appt Details Provider Name:Cali Mendosa, 09-18 04:15:00 PM, [address] [facility], [address] Floor, [place], [address], Provider Name:Nelson Faiza Maciel, 2021-04-03 01:30:00 PM, [address], [place], [address], Insurance Providers Payer Name Payer Address Payer Phone Insured Name Patient Relati onship to Insured Coverage Start Date Coverage End Date MEDICARE Part A and B [address] [facility] [id number] [phone] LUDA JARA [facility] [place] [facility] P[facility] [phone] [facility] [address] LUDA JARA MEDICAID [facility] [address] [facility] [id number] [phone] LUDA JARA
--- OUTSIDE RECORDS SUMMARY | 2020-08-05 10:06 | CCD ---
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 009237 005 Problem Porokeratosis Q82.8 Active 114568965 ALLERGIES Allergen (clinical drug ingredient) Drug/Non Drug Allergy do cumented on EMR Reaction Allergy Type Onset Date Status naproxen Naproxen(ND Code:[address]-07) Diarrhea Drug Allergy Active amoxicillin Amoxicillin(NDC Code:[address]-17) Hives Drug Aller gy Active Ciprofloxacin Hives Drug Allergy Active cephalexin Cephalexin(NDC Code:[address]-54) Yeast infection Drug Al lergy Active ENCOUNTERS from 1934 to 2020-05-20 Encounter Location Date Provider Diagnosis [facility] [address] [place] [address] Mar Nelson Maciel Uric acid nephrolithiasis N20.0 IMMUNIZATIONS Vaccine Route Administration Date Status Influenza (6mo & up) Fluzone Unknown September 11, 2014 Ref used Influenza (6mo & up) Fluzone Unknown August 23, 2014 Ref used SOCIAL HISTORY Sex Assigned At : Social History Observation Description Sex Assigned At Unknown REASON FOR REFERRAL No Information VITAL SIGNS Weight 113 lbs Mar, Height 5'4'' in Mar, BMI 19.39 kg/m2 Mar, Heart Rate 117 /min Mar, Respiratory Rate 16 /min Mar, Temperature 98.2 degrees Fahrenheit Mar, Oximetry 95%ra Mar, Blood pressure systolic 131 mm Hg Mar, Blood pressure diastolic 75 mm Hg Mar, MEDICATIONS Medication SIG (Take, Route, Frequency, Duration) [...] 30 day(s) Active PROCEDURES No Information RESULTS REASON FOR VISIT kidney stones MEDICAL (GENERAL) HISTORY Type Description Date Medical [...] cateract surgery rt. 2017jun 08 Surgical History . cayetano/Dr. Daniel aug 01 Hospitalization History Blood clot- DVT R leg 14 yrs ago Goals Section No Information Health Concerns No Information MEDICAL EQUIPMENT No Information MENTAL STATUS No Information FUNCTIONAL STATUS No Information ASSESSMENTS Encounter Date Diagnosis Assessment Notes Treatment Notes Treatm ent Clinical Notes Mar, Uric acid nephrolithiasis (ICD-10 - N20.0) Will check her urine pH and get a CT A/P to better evaluate stone burden. F/u in 2 weeks to go over the results. Refills of potassium citrate sent to her pharmacy. PLAN OF TREATMENT Medication Medication Name Sig Start Date Stop Date Potassium Citrate ER 15 MEQ (1620 MG) 1 tablet with me als Orally every 12 hours for 90 day(s) Aug, Treatment Notes Assessment Notes Clinical Notes Uric acid nephrolithiasis Will check her urine pH and get a CT A/P to better evaluate stone burden.F/u in 2 weeks to go over the results.Refills of potassium citrate sent to her pharmacy. Next Appt Details 2 Weeks Reason:CT results Provider Name:Cali Mendosa, 09-18 04:15:00 PM, [address] [facility], [address]st Floor, [place], [address], Provider Name:Nelson Maciel, 2021-04-03 01:30:00 PM, [address], [place], [address], Follow Up:2 WeeksCT results Insurance Providers Payer Name Payer Address Payer Phone Insured Name Patient Relati onship to Insured Coverage Start Date Coverage End Date MEDICARE Part A and B [address] [facility] [phone] LUDA JARA self BS [place] [employer] PPO [phone] [facility] Essential Testing [place] [address] LUDA JARA MEDICAID [employer] [address] [facility] [id number] LUDA JARA
--- OUTSIDE RECORDS SUMMARY | 2020-08-05 10:07 | CCD ---
Author Author [facility] Organization [facility] Address Unknown Phone Unavailable Care Team Providers Care Lien Searcher Name Role Phone Fred Torres MD Unavailable Unavailable Fred Torres MD Unavailable Unavailable Fred Torres MD Unavailable Unavailable Fred Torres MD Unavailable Unavailable Fred Torres MD Unavailable Unavailable Fred Torres MD Unavailable Unavailable MelissaFred tobias MD Unavailable Unavailable MelissaFred tobias MD Unavailable Unavailable MelissaFred tobias MD Unavailable Unavailable MelissaFred tobias MD Unavailable Unavailable MelissaFred tobias MD Unavailable Unavailable MelissaFred tobias MD Unavailable Unavailable MelissaFred tobias MD Unavailable Unavailable MelissaFred MD Unavailable Unavailable MelissaFred MD Unavailable Unavailable MelissaFred MD Unavailable Unavailable MelissarFed MD Unavailable Unavailable MelissaFred MD Unavailable Unavailable MelissaFred MD Unavailable Unavailable MelissaFred tobias MD Unavailable Unavailable MelissaFred MD Unavailable Unavailable MelissaFred tobias MD Unavailable Unavailable Fred Torres MD Unavailable Unavailable Fred Torres MD Unavailable Unavailable Fred Torres MD Unavailable Unavailable Fred Torres MD Unavailable Unavailable Fred Torres MD Unavailable Unavailable Fred Torres MD Unavailable Unavailable Fred Torres MD Unavailable Unavailable Fred Torres MD Unavailable Unavailable Fred Torres MD Unavailable Unavailable Fred Torres MD Unavailable Unavailable Fred Torres MD Unavailable Unavailable Fred Torres MD Unavailable Unavailable Fred Torres MD Unavailable Unavailable Fred Torres MD Unavailable Unavailable Fred Torres MD Unavailable Unavailable Fred Torres MD Unavailable Unavailable Fred Torres MD Unavailable Unavailable Fred Torres MD Unavailable Unavailable Fred Torres MD Unavailable Unavailable Fred Torres MD Unavailable Unavailable Fred Torres MD Unavailable Unavailable Fred Torres MD Unavailable Unavailable Fred Torres MD Unavailable Unavailable Fred Torres MD Unavailable Unavailable Fred Torres MD Unavailable Unavailable Fred Torres MD Unavailable Unavailable Fred Torres MD Unavailable Unavailable Fred Torres MD Unavailable Unavailable James Mcclure MD, FACS Unavailable Unavailable James Mcclure MD, FACS Unavailable Unavailable James Mcclure MD, FACS Unavailable Unavailable James Mcclure MD, FACS Unavailable Unavailable James Mcclure MD, FACS Unavailable Unavailable James Mcclure MD, FACS Unavailable Unavailable James Mcclure MD, FACS Unavailable Unavailable James Mcclure MD, FACS Unavailable Unavailable James Mcclure MD, FACS Unavailable Unavailable Mullins Veronica, James Leazma MD, FACS Unavailable Unavailable Mullins Veronica, James Lezama MD, FACS Unavailable Unavailable Mullins Veronica, James Lezama MD, FACS Unavailable Unavailable Mullins Veronica, James Lezama MD, FACS Unavailable Unavailable Mullins Veronica, James Lezama MD, FACS Unavailable Unavailable Mullins Veronica, James Lezama MD, FACS Unavailable Unavailable Mullins Veronica, James Lezama MD, FACS Unavailable Unavailable Mullins Veronica, James Lezama MD, FACS Unavailable Unavailable Mullins Veronica, James Lezama MD, FACS Unavailable Unavailable Mullins Veronica, James Lezama MD, FACS Unavailable Unavailable Mullins Veronica, James Lezama MD, FACS Unavailable Unavailable Mullins Veronica, James Lezama MD, FACS Unavailable Unavailable Mullins Veronica, James Lezama MD, FACS Unavailable Unavailable Mullins Veronica, James Lezama MD, FACS Unavailable Unavailable Mullins Veronica, James Lezama MD, FACS Unavailable Unavailable Mullins Veronica, James Lezama MD, FACS Unavailable Unavailable Mullins Veronica, James Lezama MD, FACS Unavailable Unavailable Mullins Veronica, James Lezama MD, FACS Unavailable Unavailable Mullins Veronica, James Lezama MD, FACS Unavailable Unavailable Mullins Veronica, James Lezama MD, FACS Unavailable Unavailable Mullins Veronica, James Lezama MD, FACS Unavailable Unavailable Mullins Veronica, James Lezama MD, FACS Unavailable Unavailable Mullins Veronica, James Lezama MD, FACS Unavailable Unavailable Mullins Veronica, James Lezama MD, FACS Unavailable Unavailable Mullins Veronica, James Lezama MD, FACS Unavailable Unavailable MILES, LUIS PA Unavailable Unavailable MILES, LUIS PA Unavailable Unavailable MILES, LUIS PA Unavailable Unavailable MILES, LUIS PA Unavailable Unavailable MILES, LUIS PA Unavailable Unavailable MILES, LUIS PA Unavailable Unavailable MILES, LUIS PA Unavailable Unavailable MILES, LUIS PA Unavailable Unavailable MILES, LUIS PA Unavailable Unavailable MILES, LUIS PA Unavailable Unavailable MILES, LUIS PA Unavailable Unavailable MILES, LUIS PA Unavailable Unavailable MILES, LUIS PA Unavailable Unavailable MILES, LUIS PA Unavailable Unavailable MILES, LUIS PA Unavailable Unavailable MILES, LUIS PA Unavailable Unavailable MILES, LUIS PA Unavailable Unavailable MILES, LUIS PA Unavailable Unavailable MILES, LUIS PA Unavailable Unavailable MILES, LUIS PA Unavailable Unavailable MILES, LUIS PA Unavailable Unavailable MILES, LUIS PA Unavailable Unavailable MILES, LUIS PA Unavailable Unavailable MILES, LUIS PA Unavailable Unavailable MILES, LUIS PA Unavailable Unavailable MILES, LUIS PA Unavailable Unavailable MILES, LUIS PA Unavailable Unavailable MILES, LUIS PA Unavailable Unavailable MILES, LUIS PA Unavailable Unavailable MILES, LUIS PA Unavailable Unavailable MILES, LUIS PA Unavailable Unavailable MILES, LUIS PA Unavailable Unavailable MILES, LUIS PA Unavailable Unavailable MILES, LUIS PA Unavailable Unavailable MILES, LUIS PA Unavailable Unavailable MILES, LUIS PA Unavailable Unavailable MILES, LUIS PA Unavailable Unavailable MILES, LUIS PA Unavailable Unavailable AliLatasha MD Unavailable Unavailable Ali, Latasha DANIEL Unavailable Unavailable Ali, Latasha DANIEL Unavailable Unavailable Ali, Latasha DANIEL Unavailable Unavailable Ali, Latasha DANIEL Unavailable Unavailable Ali, Latasha DANIEL Unavailable Unavailable Ali, Latasha DANIEL Unavailable Unavailable Ali, Latasha DANIEL Unavailable Unavailable Ali, Latasha DANIEL Unavailable Unavailable Ali, Latasha MD Unavailable Unavailable Ali, Latasha MD Unavailable Unavailable Ali, Latasha MD Unavailable Unavailable Ali, Latasha DANIEL Unavailable Unavailable Ali, Latasha DANIEL Unavailable Unavailable Ali, Latasha DANIEL Unavailable Unavailable Ali, Latasha DANIEL Unavailable Unavailable Ali, Latasha DANIEL Unavailable Unavailable Ali, Latasha DANIEL Unavailable Unavailable Ali, Latasha DANIEL Unavailable Unavailable Ali, Latasha DANIEL Unavailable Unavailable Ali, Latasha DANIEL Unavailable Unavailable Ali, Latasha DANIEL Unavailable Unavailable Ali, Latasha DANIEL Unavailable Unavailable Ali, Latasha DANIEL Unavailable Unavailable Ali, Latasha DANIEL Unavailable Unavailable Ali, Latasha DANIEL Unavailable Unavailable Ali, Latasha DANIEL Unavailable Unavailable Ali, Latasha DANIEL Unavailable Unavailable Ali, Latasha DANIEL Unavailable Unavailable Ali, Latasha DANIEL Unavailable Unavailable Ali, Latasha DANIEL Unavailable Unavailable Ali, Latasha DANIEL Unavailable Unavailable Ali, Latasha DANIEL Unavailable Unavailable Ali, Latasha DANIEL Unavailable Unavailable AliLatasha MD Unavailable Unavailable Ali, Latasha DANIEL Unavailable Unavailable Ali, Latasha DANIEL Unavailable Unavailable Ali, Latasha DANIEL Unavailable Unavailable Ali, Latasha DANIEL Unavailable Unavailable Ali, Latasha DANIEL Unavailable Unavailable Ali, Latasha DANIEL Unavailable Unavailable Ali, Latasha DANIEL Unavailable Unavailable Ali, Latasha DANIEL Unavailable Unavailable Ali, Latasha DANIEL Unavailable Unavailable AliLatasha MD Unavailable Unavailable Ali, Latasha DANIEL Unavailable Unavailable Ali, Latasha DANIEL Unavailable Unavailable Ali, Latasha DANIEL Unavailable Unavailable Ali, Latasha DANIEL Unavailable Unavailable Ali, Latasha DANIEL Unavailable Unavailable Ali, Latasha DANIEL Unavailable Unavailable AliLatasha MD Unavailable Unavailable Ali, Latasha DANIEL Unavailable Unavailable Ali, Latasha DANIEL Unavailable Unavailable AliLatasha MD Unavailable Unavailable Ali, Latasha DANIEL Unavailable Unavailable Ali, Latasha DANIEL Unavailable Unavailable Ali, Latasha DANIEL Unavailable Unavailable Ali, Latasha DANIEL Unavailable Unavailable Ali, Latasha DANIEL Unavailable Unavailable Ali, Latasha DANIEL Unavailable Unavailable Ali, Latasha MD Unavailable Unavailable Ali, Latasha DANIEL Unavailable Unavailable Ali, Latasha MD Unavailable Unavailable Ali, Latasha MD Unavailable Unavailable Ali, Latasha MD Unavailable Unavailable Ali, Latasha MD Unavailable Unavailable Ali, Latasha MD Unavailable Unavailable Ali, Latasha MD Unavailable Unavailable Ali, Latasha MD Unavailable Unavailable Ali, Latasha MD Unavailable Unavailable Ali, Latasha MD Unavailable Unavailable Ali, Latasha MD Unavailable Unavailable Ali, Latasha MD Unavailable Unavailable Ali, Latasha MD Unavailable Unavailable Ali, Latasha MD Unavailable Unavailable Ali, Latasha MD Unavailable Unavailable Ali, Latasha MD Unavailable Unavailable Ali, Latasha MD Unavailable Unavailable Ali, Latasha MD Unavailable Unavailable Ali, Latasha MD Unavailable Unavailable Ali, Latasha MD Unavailable Unavailable Ali, Latasha MD Unavailable Unavailable Ali, Latasha MD Unavailable Unavailable Ali, Latasha MD Unavailable Unavailable Ali, Latasha MD Unavailable Unavailable Ali, Latasha MD Unavailable Unavailable Ali, Latasha MD Unavailable Unavailable Ali, Latasha MD Unavailable Unavailable Ali, Latasha MD Unavailable Unavailable Ali, Latasha MD Unavailable Unavailable Ali, Latasha MD Unavailable Unavailable Ali, Latasha MD Unavailable Unavailable Ali, Latasha MD Unavailable Unavailable Ali, Latasha MD Unavailable Unavailable Ali, Latasha MD Unavailable Unavailable Ali, Latasha MD Unavailable Unavailable Ali, Latasha MD Unavailable Unavailable Vijaya TORRESEW DO Unavailable [phone] Vijaya TORRESEW DO Unavailable [phone] Vijaya TORRES GIN DO Unavailable [phone] Vijaya TORRES GIN DO Unavailable [phone] Vijaya TORRES GIN DO Unavailable [phone] Vijaya TORRES GIN DO Unavailable [phone] Vijaya TORRES GIN DO Unavailable [phone] Vijaya TORRES GIN DO Unavailable [phone] Vijaya TORRES GIN DO Unavailable [phone] Vijaya TORRES GIN DO Unavailable [phone] Vijaya TORRES GIN DO Unavailable [phone] Vijaya TORRES GIN DO Unavailable [phone] James TORRES. GIN DO Unavailable [phone] James TORRES. GIN DO Unavailable [phone] James TORRES. GIN DO Unavailable [phone] Vijaya TORRES GIN DO Unavailable [phone] Vijaya TORRES GIN DO Unavailable [phone] James TORRES. GIN DO Unavailable [phone] James TORRES. GIN DO Unavailable [phone] Vijaya TORRES GIN DO Unavailable [phone] James TORRSE. GIN DO Unavailable [phone] LETTIERE, A CA PA Unavailable Unavailable LETTIERE, A CA PA Unavailable Unavailable LETTIERE, A [place] PA Unavailable Unavailable LETTIERE, A [place] PA Unavailable Unavailable LETTIERE, A CA PA Unavailable Unavailable LETTIERE, A CA PA Unavailable Unavailable LETTIERE, A CA PA Unavailable Unavailable LETTIERE, A CA PA Unavailable Unavailable LETTIERE, A CA PA Unavailable Unavailable LETTIERE, A CA PA Unavailable Unavailable LETTIERE, A CA PA Unavailable Unavailable LETTIERE, A CA PA Unavailable Unavailable LETTIERE, A CA PA Unavailable Unavailable LETTIERE, A CA PA Unavailable Unavailable LETTIERE, A CA PA Unavailable Unavailable LETTIERE, A [place] PA Unavailable Unavailable LETTIERE, A CA PA Unavailable Unavailable LETTIERE, A CA PA Unavailable Unavailable LETTIERE, A CA PA Unavailable Unavailable LETTIERE, A [place] PA Unavailable Unavailable LETTIERE, A CA PA Unavailable Unavailable LETTIERE, A [place] PA Unavailable Unavailable LETTIERE, A [place] PA Unavailable Unavailable LETTIERE, A [place] PA Unavailable Unavailable LETTIERE, A [place] PA Unavailable Unavailable LETTIERE, A [place] PA Unavailable Unavailable LETTIERE, A [place] PA Unavailable Unavailable LETTIERE, A [place] PA Unavailable Unavailable LETTIERE, A [place] PA Unavailable Unavailable Re-disclosure Warning The records that you are about to access may contain information from federally-assisted alcohol or drug abuse programs. If such information is present, then the following federally mandated warning applies: This information has been disclosed to you from records protected by federal confidentiality rules (42 CFR part 2). The federal rules prohibit you from making any further disclosure of this information unless further disclosure is expressly permitted by the written consent of the person to whom it pertains or as otherwise permitted by 42 CFR part 2. A general authorization for the release of medical or other information is NOT sufficient for this purpose. The Federal rules restrict any use of the information to criminally investigate or prosecute any alcohol or drug abuse patient.The records that you are about to access may contain highly sensitive health information, the redisclosure of which is protected by Article 27-F of the [facility] Public Health law. If you continue you may have access to information: Regarding HIV / AIDS; Provided by facilities licensed or operated by the [facility] Office of Mental Health; or Provided by the [facility] Office for People With Developmental Disabilities. If such information is present, then the following [facility] mandated warning applies: This information has been disclosed to you from confidential records which are protected by state law. State law prohibits you from making any further disclosure of this information without the specific written consent of the person to whom it pertains, or as otherwise permitted by law. Any unauthorized further disclosure in violation of state law may result in a fine or mcc sentence or both. A general authorization for the release of medical or other information is NOT sufficient authorization for further disc losure. Allergies and Adverse Reactions Type Description Substance Reaction Status Data Source(s ) Drug allergy Cephalexin Cephalexin Yeast infection Active eCW1 ( [facility]) Drug allergy Amoxicillin Amoxicillin Hives Active eCW1 ([facility]) Drug allergy Naproxen Naproxen Diarrhea Active eCW1 ([facility]) Ciprofloxacin Ciprofloxacin Ciprofloxacin Hives Active eCW1 ([facility]) Ciprofloxacin Ciprofloxacin Ciprofloxacin 100 MG/ML Oral Suspension Hives Active eCW1 ([facility]) Family History Family Member Name Family Member Gender Family Member Status Date o f Status Description Data Source(s) Unknown Unknown Problem MEDENT ([facility]) father, brother, sister Unknown Male Problem MEDENT ([facility]) Encounters Encounter Providers Location Date Indications Data Source(s ) Outpatient Attender: Pa Torres MD Main Office 07/10/2020 01:00:00 PM EST [facility] ([facility]) Unknown [address] [facility] [address] 07/10/2020 12:00:00 AM EST eCW1 ([facility]) Outpatient<td ID="encounterTypeDescripti onID0">1 Year Follow-Up</td><td>Gin Torres DO</td><td>Teja Hatfield MD [facility]</td><td>06/06/2020</td><td>9:17AM</td><td>10:43AM</td><td><content ID="encounterDiagnosisID0-0">Essential Hypertension</content>, <content ID="encounterDiagnosisID0-1">Retinal Vein Occlusion Central</content>, <content ID="encounterDiagnosisID0-2">Pseudophakia</content>, <content ID="encounterDiagnosisID0-3">Posterior Capsule Opacification Eccentric Capsule Both Eyes</content>, <content ID="encounterDiagnosisID0-4">Dry Eye Syndrome Both Eyes</content>, <content ID="encounterDiagnosisID0-5">Diabetes Mellitus Type 2 Without Complication</content>, <content ID="encounterDiagnosisID0-6">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</content>, <content ID="encounterDiagnosisID0-7">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</content></td> Attender: GIN Nina MD [facility] 06/06/2020 09:17:00 AM EST - 06/06/2020 10:43:00 AM ES T 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Posterior Capsule Opacification Eccentric Capsule Both EyesPseudo phakiaEssential HypertensionDiabetes Mellitus Type 2 Without ComplicationRetinal Vein Occlusion CentralDry Eye Syndrome Both Eyes [place] (Teja Veronica MD [facility]) Macular Degen Exudative Left Eye with In active Choroidal Neovascularization 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 [place] [address] 03/28/2020 12:00:00 AM EDT eCW1 ([facility]) Outpatient Attender: Pa Torres MD Main Office 03/26/2020 03:30:00 PM EDT MEDENT ([facility]) Outpatient Attender: LUIS Rodartea ry 02/25/2020 09:15:00 AM EDT MED[facility] ([facility]) Outpatient Attender: Latasha Irene MD Main office - [facility] 02/15/2020 08:00:00 AM EDT MED[facility] ([facility]) Outpatient Attender: CA Champion Prim benjamin 01/25/2020 12:15:00 PM EDT MEDENT ([facility]) [place] [address] [facility] [address] 11/15/2019 12:00:00 AM EDT eCW1 ([facility]) Outpatient Referrer: Latasha Irene MD 09/27/2019 02:57:00 PM EDT [facility] [address] [place] [address] [place] [address] 08/09/2019 12:00:00 AM EST eCW1 ([facility]) [facility] [address] [place] [id number] 08/02/2019 12:00:00 AM EST eCW1 ([facility]) [facility] [address] [place] [phone] 07/20/2019 12:00:00 AM EST eCW1 ([facility]) Outpatient<td ID="encounterTypeDescripti onID1">TRIAGE NON URGENT</td><td>Teja Hatfield MD, 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</content></td> Attender: Teja Veronica MD, FACS Teja Hatfield MD [facility] 06/01/2019 08:50:00 AM EST - 01/30/2020 09:43:00 AM EDT Macular Degen Nonexud 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 InvolvementMacular Degen Nonexud 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 InvolvementEssential HypertensionEssential Hypertension [place] (Teja Veronica MD [facility]) 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 Involvement Essential Hypertension Essential Hypertension Medications Medication Brand Name Start Date Product Form Dose Route Admi nistrative Instructions Pharmacy Instructions Status Indications Reaction Description Data Source(s) 300 mg 07/14/2020 12:00:00 AM EST capsule 30 TAKE ONE CAPSULE BY MOUTH THREE TIMES A DAY TAKE ONE CAPSULE BY MOUTH THREE TIMES A DAY SOLD: 07/14/2020 [facility] 100 mg 05/24/2020 12:00:00 AM EST capsule 180 TAKE ONE CAPSULE BY MOUTH TWICE A DAY TAKE ONE CAPSULE BY MOUTH TWICE A DAY SOLD: 05/24/2020 [facility] 40 mg 05/16/2020 12:00:00 AM EST capsule,delayed release (DR/EC) 90 TAKE ONE CAPSULE BY MOUTH EVERY DAY TAKE ONE CAPSULE BY MOUTH EVERY DAY SOLD: 05/16/2020 [facility] 500 mg calcium (1,250 mg) 04/30/2020 12:00:00 AM EST tablet 180 TAKE ONE TABLET BY MOUTH TWICE A DAY TAKE ONE TABLET BY MOUTH TWICE A DAY SOLD: 04/30/2020 [facility] 75 mcg 04/29/2020 12:00:00 AM EST tablet 90 TAKE ONE TABLET BY MOUTH EVERY DAY TAKE ONE TABLET BY MOUTH EVERY DAY SOLD: 04/29/2020 [facility] 20 mg 04/29/2020 12:00:00 AM EST tablet 90 TAKE ONE TABLET BY MOUTH EVERY DAY TAKE ONE TABLET BY MOUTH EVERY DAY SOLD: 04/29/2020 [facility] 15 mEq 03/31/2020 12:00:00 AM EDT tablet extended release 180 TAKE ONE TABLET BY MOUTH EVERY 12 HOURS WITH A MEAL TAKE ONE TABLET BY MOUTH EVERY 12 HOURS WITH A MEAL SOLD: 07/26/2020 [facility] 15 mEq 03/31/2020 12:00:00 AM EDT tablet extended release 180 TAKE ONE TABLET BY MOUTH EVERY 12 HOURS WITH A MEAL TAKE ONE TABLET BY MOUTH EVERY 12 HOURS WITH A MEAL SOLD: 03/31/2020 [facility] 17.5-3.13-1.6 gram 03/27/2020 12:00:00 AM EDT recon soln 354 USE DIRECTED USE DIRECTED SOLD: 03/27/2020 [facility] 500 mg 03/26/2020 12:00:00 AM EDT tablet 90 TAKE ONE TABLET BY MOUTH THREE TIMES A DAY NEEDED FOR SPASM TAKE ONE TABLET BY MOUTH THREE TIMES A D AY NEEDED FOR SPASM SOLD: 03/26/2020 [facility] Suprep Bowel Prep Kit Suprep Bowel Prep Kit 03/26/2020 12:00:00 AM EDT completed MEDENT ([facility]) 100 mg 03/19/2020 12:00:00 AM EDT capsule 90 TAKE ONE CAPSULE BY MOUTH AT BEDTIME MAXIMUM DAILY DOSE = 1 TAKE ONE CAPSULE BY MOUTH AT BEDTIME MAX IMUM DAILY DOSE = 1 SOLD: 03/19/2020 [facility] 1 % 03/13/2020 12:00:00 AM EDT gel 300 APPLY 2 GRAMS TO AFFECTED AREA OF RIGHT UPPER BACK THREE TIMES A DAY APPLY 2 GRAMS TO AFFECTED AREA OF RIGHT UPPER BACK THREE TIMES A DAY SOLD: 05/01/2020 [facility] 1 % 03/13/2020 12:00:00 AM EDT gel 300 APPLY 2 GRAMS TO AFFECTED AREA OF RIGHT UPPER BACK THREE TIMES A DAY APPLY 2 GRAMS TO AFFECTED AREA OF RIGHT UPPER BACK THREE TIMES A DAY SOLD: 03/13/2020 [facility] Diclofenac Sodium 0.01 MG/MG Topical Gel Diclofenac Sodium 03/13/2020 12:00:00 AM EDT active [facility] ([facility]) 40 mg 03/11/2020 12:00:00 AM EDT capsule,delayed release (DR/EC) 90 TAKE ONE CAPSULE BY MOUTH EVERY DAY TAKE ONE CAPSULE BY MOUTH EVERY DAY SOLD: 03/11/2020 [facility] Methocarbamol 500 MG Oral Tablet Methocarbamol 03/04/2020 12:00:00 AM EDT ORAL active [facility] ([facility]) 500 mg 03/04/2020 12:00:00 AM EDT tablet 90 TAKE ONE TABLET BY MOUTH THREE TIMES A DAY NEEDED FOR SPASPMS TAKE ONE TABLET BY MOUTH THREE TIMES A D AY NEEDED FOR SPASPMS SOLD: 03/06/2020 [facility] 50 mg 02/27/2020 12:00:00 AM EDT tablet 30 TAKE 1 TABLET BY MOUTH EVERY 6 HOURS NEEDED FOR PAIN MAXIMUM DAILY DOSE = 4 TAKE 1 TABLET BY MOUTH EVERY 6 HOURS NEEDED FOR PAIN MAXIMUM DAILY DOSE = 4 SOLD: 02/27/2020 [facility] 100 mg 02/26/2020 12:00:00 AM EDT capsule 180 TAKE ONE CAPSULE BY MOUTH TWICE A DAY TAKE ONE CAPSULE BY MOUTH TWICE A DAY SOLD: 02/26/2020 [facility] 324 mg (65 mg iron) 02/25/2020 12:00:00 AM EDT tablet, delayed release (DR/EC) 30 TAKE ONE TABLET BY MOUTH 3 TIMES PER WEE K ON TUESDAY, TUESDAY AND TUESDAY TAKE ONE TABLET BY MOUTH 3 TIMES PER WEEK ON TUESDAY, TUESDAY AND TUESDAY SOLD: 02/25/2020 [facility] 75 mcg 02/19/2020 12:00:00 AM EDT tablet 90 TAKE ONE TABLET BY MOUTH EVERY DAY TAKE ONE TABLET BY MOUTH EVERY DAY SOLD: 02/19/2020 [facility] 70 mg 02/19/2020 12:00:00 AM EDT tablet 25 TAKE 1 TABLET BY MOUTH ONCE A WEEK TAKE 1 TABLET BY MOUTH ONCE A WEEK SOLD: 02/19/2020 [facility] 20 mg 02/19/2020 12:00:00 AM EDT tablet 90 TAKE ONE TABLET BY MOUTH EVERY DAY TAKE ONE TABLET BY MOUTH EVERY DAY SOLD: 02/19/2020 [facility] 50 mg 02/11/2020 12:00:00 AM EDT tablet 30 TAKE ONE TABLET BY MOUTH EVERY 6 HOURS NEEDED FOR PAIN MAXIMUM DAILY DOSE = 4 TABLETS TAKE ONE TABLET BY MOUTH EVERY 6 HOURS NEEDED FOR PAIN MAXIMUM DAILY DOSE = 4 TABLETS SOLD: 02/11/2020 [facility] tramadol hydrochloride 50 MG Oral Tablet Tramadol HCL 02/11/2020 12:00:00 AM EDT active [facility] ([facility] PC) 40 mg 02/08/2020 12:00:00 AM EDT capsule,delayed release (DR/EC) 30 TAKE ONE CAPSULE BY MOUTH EVERY DAY TAKE ONE CAPSULE BY MOUTH EVERY DAY SOLD: 02/08/2020 [facility] 500 mg calcium (1,250 mg) 02/06/2020 12:00:00 AM EDT tablet 180 TAKE ONE TABLET BY MOUTH TWICE A DAY TAKE ONE TABLET BY MOUTH TWICE A DAY SOLD: 02/06/2020 [facility] 300-30 mg 02/04/2020 12:00:00 AM EDT tablet 40 TAKE ONE TABLET BY MOUTH EVERY 6 HOURS MAXIMUM DAILY DOSE = FOUR TABLETS TAKE ONE TABLET BY MOUTH EVERY 6 HOURS MAXIMUM DAILY DOSE = FOUR TABLETS SOLD: 02/04/2020 [facility] 100 mg 02/04/2020 12:00:00 AM EDT capsule 60 TAKE ONE CAPSULE BY MOUTH TWICE A DAY TAKE ONE CAPSULE BY MOUTH TWICE A DAY SOLD: 02/04/2020 [facility] 70 mg 12/04/2019 12:00:00 AM EDT tablet 12 TAKE ONE TABLET BY MOUTH EVERY WEEK SWALLOWING THE WHOLE TABLET WITH 6-8 OUNCES OF WATER ON AN EMPTY STOMACH REMAIN UPRIGHT FOR AT LEAST 30 MINUTES AFTERWARDS TAKE ONE TABLET BY MOUTH EVERY WEEK SWALLOWING THE WHOLE TABLET WITH 6-8 OUNCES OF WATER ON AN EMPTY STOMACH REMAIN UPRIGHT FOR AT LEAST 30 MINUTES AFTERWARDS SOLD: 12/04/2019 [facility] 20 mg 12/04/2019 12:00:00 AM EDT tablet 90 TAKE ONE TABLET BY MOUTH EVERY DAY TAKE ONE TABLET BY MOUTH EVERY DAY SOLD: 12/04/2019 [facility] 20 mg 09/10/2019 12:00:00 AM EDT tablet 90 TAKE 1 TABLET BY MOUTH ONCE DAILY TAKE 1 TABLET BY MOUTH ONCE DAILY SOLD: 09/10/2019 [facility] 75 mcg 09/10/2019 12:00:00 AM EDT tablet 90 TAKE 1 TABLET BY MOUTH ONCE DAILY TAKE 1 TABLET BY MOUTH ONCE DAILY SOLD: 09/10/2019 [facility] 250 mg 06/22/2019 12:00:00 AM EST tablet 6 TAKE TWO TABLETS BY MOUTH AT ONCE ON THE FIRST DAY THEN TAKE ONE DAILY THEREAFTER TAKE TWO TABLETS BY MOUTH AT ONCE ON THE FIRST DAY THEN TAKE ONE DAILY THEREAFTER SOLD: 06/22/2019 [facility] 70 mg 06/14/2019 12:00:00 AM EST tablet 12 TAKE ONE TABLET BY MOUTH EVERY WEEK SWALLOWING THE WHOLE TABLET WITH 6-8 OUNCES OF WATER ON AN EMPTY STOMACH REMAIN UPRIGHT FOR AT LEAST 30 MINUTES AFTERWARDS TAKE ONE TABLET BY MOUTH EVERY WEEK SWALLOWING THE WHOLE TABLET WITH 6-8 OUNCES OF WATER ON AN EMPTY STOMACH REMAIN UPRIGHT FOR AT LEAST 30 MINUTES AFTERWARDS SOLD: 06/14/2019 [facility] 75 mcg 06/14/2019 12:00:00 AM EST tablet 90 TAKE ONE TABLET BY MOUTH EVERY DAY TAKE ONE TABLET BY MOUTH EVERY DAY SOLD: 06/14/2019 [facility] 70 mg 06/14/2019 12:00:00 AM EST tablet 12 TAKE ONE TABLET BY MOUTH EVERY WEEK SWALLOWING THE WHOLE TABLET WITH 6-8 OUNCES OF WATER ON AN EMPTY STOMACH REMAIN UPRIGHT FOR AT LEAST 30 MINUTES AFTERWARDS TAKE ONE TABLET BY MOUTH EVERY WEEK SWALLOWING THE WHOLE TABLET WITH 6-8 OUNCES OF WATER ON AN EMPTY STOMACH REMAIN UPRIGHT FOR AT LEAST 30 MINUTES AFTERWARDS SOLD: 09/07/2019 [facility] 20 mg 06/14/2019 12:00:00 AM EST tablet 90 TAKE ONE TABLET BY MOUTH EVERY DAY TAKE ONE TABLET BY MOUTH EVERY DAY SOLD: 06/14/2019 [facility] 100 mg 05/02/2019 12:00:00 AM EST capsule 90 TAKE ONE CAPSULE BY MOUTH AT BEDTIME TAKE ONE CAPSULE BY MOUTH AT BEDTIME SOLD: 01/12/2020 [facility] 100 mg 05/02/2019 12:00:00 AM EST capsule 90 TAKE ONE CAPSULE BY MOUTH AT BEDTIME TAKE ONE CAPSULE BY MOUTH AT BEDTIME SOLD: 09/04/2019 [facility] 15 mEq 03/15/2019 12:00:00 AM EDT tablet extended release 180 TAKE 1 TABLET BY MOUTH EVERY 12 HOURS WITH MEALS TAKE 1 TABLET BY MOUTH EVERY 12 HOURS WI TH MEALS SOLD: 09/24/2019 [facility] 15 mEq 03/15/2019 12:00:00 AM EDT tablet extended release 180 TAKE 1 TABLET BY MOUTH EVERY 12 HOURS WITH MEALS TAKE 1 TABLET BY MOUTH EVERY 12 HOURS WI TH MEALS SOLD: 06/25/2019 [facility] 15 mEq 03/15/2019 12:00:00 AM EDT tablet extended release 180 TAKE 1 TABLET BY MOUTH EVERY 12 HOURS WITH MEALS TAKE 1 TABLET BY MOUTH EVERY 12 HOURS WI TH MEALS SOLD: 01/14/2020 [facility] Insurance Providers Payer name Policy type / Coverage type Policy ID Covered democrat ID Covered democrat's relationship to wu Policy Wu Plan Information MARVIN GRAYSON PPO 302/307 [id number] SP [id number] EMEDNY [id number] SP [id number] MEDICARE [id number] SP [id number] [place] P[place]/307 [id number] SP [id number] BCBS of [facility] Other 0 Self 0 Medicare Part B of [facility] Other 0 Se lf 0 MEDICARE C [id number] S [id number] EXCELLUS BCBS B [id number] S [id number] [place] P[place] 302/307 [id number] SP [id number] BCBS of [facility] Other 0 Self 0 Medicare Part B of [facility] Other 0 Se lf 0 MEDICAID [id number] BCBS of [facility] Other 0 Self 0 Medicare Part B of [facility] Other 0 Se lf 0 [id number] MEDICARE COMPLETE [id number] SP [id number] MEDICARE [id number] SP [id number] [facility]IC[facility] COMPLETE G [id number] Self [id number] MEDICARE COMPLETE[facility] P [id number] S [id number] MEDICARE COMPLETE [id number] SP [id number] [facility] HORIZONS O [id number] S [id number] MEDICARE [id number] SP [id number] O [place]EN[place] O [id number] S [id number] [place] P[place] 302/307 [id number] SP [id number] Medicare [place] Gov't Servi Medicare Primary [id number] Self [id number] BCBS/Blue Card Medigap Part B [id number] Self [id number] [place] Primary [id number] Self [id number] [place] Of [place] Medigap Part B [id number] Self [id number] [place] Primary [id number] Self [id number] [place] Medigap Part B [id number] Self [id number] [place] Gov[place] Serv[place] Medicare Primary [id number] Self [id number] BCBS/Blue Card Medigap Part B [id number] Self [id number] Medicare [place] Gov[place] Servi Medicare Primary [id number] Self [id number] BCBS/Blue Card Medigap Part B [id number] Self [id number] MEDICARE [id number] S [id number] A [place] Primary [id number] Self [id number] BS [place] Medigap Part B [id number] Self [id number] [place] Medig[place] Part B [id number] Self [id number] [place] Medicare Primary [id number] Self [id number] BS [place] Medigap Part B [id number] Self [id number] [place]ig[place] Part B [id number] Self [id number] MEDICARE [id number] SP [id number] A [place] PPO 302/307 [id number] SP [id number] MEDICARE [id number] SP [id number] A Medicare [place] Gov[place] Medicare Primary [id number] Self [id number] BCBS/Blue Card Medigap Part B [id number] Self [id number] [place] P[place] 302/307 [id number] SP [id number] MEDICARE [id number] SP [id number] A MEDICARE [id number] SP [id number] [place] PPO 302/307 [id number] SP [id number] ANSI-Commercial [id number] ANSI-Medicare Part B [id number] ANSI-Medicare Part B [id number] ANSI-Commercial [id number] ANSI-Medicare Part B [id number] ANSI-Commercial [id number] Problems, Conditions, and Diagnoses Code Display Name Description Problem Type Effective Dates Data Source(s) 551382934 Anemia Anemia Problem 07/10/2020 12:00:00 AM ES T MEDENT ([facility]) [id number] 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 Involvement Problem 01/30/2020 12:00:00 AM EDT [facility] (Teja Veronica MD [facility]) [id number] 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 Nonexud R Eye Adv Atrophic W/o Subfoveal Involvement Problem 0 01/30/2020 12:00:00 AM EDT [facility] (Teja Veronica [facility]) [id number] 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 Involvement Problem 01/30/2020 12:00:00 AM EDT [facility] (Teja Veronica [facility]) [id number] 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 Nonexud R Eye Adv Atrophic W/o Subfoveal Involvement Problem 0 01/30/2020 12:00:00 AM EDT [facility] (Teja Veronica [facility]) C44.311 [id number] Basal cell carcinoma of nose Problem 11/15/2019 12:00:00 AM EDT eCW1 ([facility]) C44.629 [id number] 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 Torres 08/10/2018 ~PCIOL OS by Dr. Torres 06/08/2018 06/06/2020 12:00:00 AM EST [facility] (Baldomero Veronica MD [facility]) Intermediate Eye Exam Established Patient Intermediate Eye Exam Established Patient 06/06/2020 12:00:00 AM EST [facility] (Baldomero Veronica MD [facility]) COLONOSCOPY FLX DX W/WO COLLJ SPECIMENS 04/14/2020 12: 00:00 AM EDT [facility] ([facility]) MRI Brain W/O Contrast, Followed By Contrast 0 12:00:00 AM EDT MED[facility] ([facility]) MRI Brain W/O Contrast, Followed By Contrast 0 12:00:00 AM EDT [facility] ([facility] ) Physical Therapy Eval - Low Complexity 02/19/2020 12:0 0:00 AM EDT [facility] ([facility] ) Comprehensive eye exam established patient (Signi/Sep Eval. & Man.) Comprehensive eye exam established patient (Signi/Sep Eval. & Man.) 01/30/2020 12:00:00 AM EDT [facility] (Teja Veronica MD [facility]) Scodi Retina, with interpretation and re port (WAIVER OF LIABILITY ON FILE (ABN)) Scodi Retina, with interpretation and re port (WAIVER OF LIABILITY ON FILE (ABN)) 01/30/2020 12:00:00 AM EDT [facility] (Baldomero Veronica MD [facility]) Extracapsular extraction of lens (procedure) History o f extracapsular cataract extraction PCIOL OD by Dr. Torres 08/10/2018, PCIOL OS by Dr. Torres 06/08/2018 01/30/2020 12:00:00 AM EDT [facility] (Baldomero Veronica MD [facility]) X-Ray Spine Thoracolumbar Ap & Lateral 2 Views 020 12:00:00 AM EDT [facility] ([facility] ) EXC TR-EXT MAL+FAHAD 2.1-3 CM 08/02/2019 12:00:00 AM ES T eCW1 ([facility]) INTMD RPR S/TR/EXT 7.6-12.5 08/02/2019 12:00:00 AM EST eCW1 ([facility]) TANGNTL BX SKIN SINGLE LES 07/20/2019 12:00:00 AM EST eCW1 ([facility]) Results ID Date Data Source [id number] 07/31/2020 10:00:00 AM EST [facility] Name Value Range Interpretation Code Description Data Edna rce(s) Supporting Document(s) SARS coronavirus 2 RNA Not Detected [facility] [place] This lab was ordered by [facility] and reported by [facility]. ID Date Data Source [id number] 07/20/2020 10:45:00 AM EST [facility] Name Value Range Interpretation Code Description Data Edna rce(s) Supporting Document(s) SARS coronavirus 2 RNA Not Detected [facility] [place] This lab was ordered by [facility] and reported by [facility]. ID Date Data Source [id number] 04/09/2020 12:00:00 PM EDT [facility] Name Value Range Interpretation Code Description Data Edna rce(s) Supporting Document(s) SARS coronavirus 2 RNA [facility] This lab was ordered by [facility] and reported by [facility]. ID Date Data Source CT ABD & Pelvis w/o Contrast 04/02/2020 12:00:00 AM EDT eCW1 ([facility]) Name Value Range Interpretation Code Description Data Edna rce(s) Supporting Document(s) eCW1 ([facility]) ID Date Data Source UA URINALYSIS 03/28/2020 12:00:00 AM EDT eCW1 ([facility]) Name Value Range Interpretation Code Description Data Edna rce(s) Supporting Document(s) eCW1 ([facility]) ID Date Data Source [id number] 02/25/2020 10:04:00 AM EDT [facility] ([facility]) Name Value Range Interpretation Code Description Data Edna rce(s) Supporting Document(s) Platelets [#/volume] in Blood by Estimate Laboratory test result MEDENT ([facility]) See progress note ID Date Data Source [id number] 02/25/2020 10:04:00 AM EDT [facility] ([facility]) Name Value Range Interpretation Code Description Data Edna rce(s) Supporting Document(s) Neutrophils 76 % 28-66 [facility] ([facility]) See progress note Bands 13 % [facility] ([facility]) See progress note Lymphocytes 5 % 16-44 [facility] ([facility]) See progress note Monocytes 6 % 0-5 [facility] ([facility]) See progress note Poikilocytosis Laboratory test result MED[facility] ([facility]) See progress note Anisocytosis Laboratory test result MEDE NT ([facility]) See progress note Macrocytosis Laboratory test result MEDE NT ([facility]) See progress note Ovalocytes Laboratory test result [facility] ([facility]) See progress note ID Date Data Source [id number] 02/25/2020 10:04:00 AM EDT [facility] ([facility]) Name Value Range Interpretation Code Description Data Edna rce(s) Supporting Document(s) Glucose, Fasting 95 mg/dL 70-100 [facility] ([facility]) See progress note Creatinine For GFR 0.80 mg/dL 0.55-1.30 [facility] ([facility]) See progress note Glomerular Filtration Rate Laboratory test result MED[facility] ([facility]) See progress note Blood Urea Nitrogen 12 mg/dL 7-18 [facility] ([facility]) See progress note Sodium Level 138 meq/L 136-145 [facility] ([facility]) See progress note Potassium Serum 4.8 meq/L 3.5-5.1 MEDENT ([facility]) See progress note Chloride Level 102 meq/L 98-107 MEDENT ([facility]) See progress note Anion Gap 4 meq/L 8-16 MED[facility] ([facility], [facility]) See progress note Carbon Dioxide Level 32 meq/L 21-32 [facility] ( [facility]) See progress note Calcium Level 8.8 mg/dL 8.8-10.2 MEDENT ([facility], [facility]) See progress note ID Date Data Source [id number] 02/25/2020 10:04:00 AM EDT MED[facility] ([facility]) Name Value Range Interpretation Code Description Data Edna rce(s) Supporting Document(s) Hemoglobin 11.7 g/dL 12.0-15.5 [facility] ([facility]) See progress note White Blood Count 16.2 10 4.0-10.0 MED[facility] ([facility], [facility]) See progress note Red Blood Count 5.05 10 4.00-5.40 MEDENT ([facility], [facility]) See progress note Mean Corpuscular Hemoglobin 23.2 pg 27.0-33.0 MEDENT ([facility], [facility] See progress note Mean Corpuscular Volume 80.0 fl 80.0-96.0 M EDENT ([facility], [facility]) See progress note Hematocrit 40.4 % 36.0-47.0 [facility] See progress note Platelet Count, Automated 371 10 150-450 MEDENT ([facility], [facility]) See progress note Red Cell Distribution Width 19.9 % 11.5-14.5 MED[facility] ([facility], [facility]) See progress note Mean Corpuscular HGB Conc 29.0 g/dL 32.0-36.5 [facility] ([place] [facility], [facility]) See progress note Nucleated Red Blood Cell % 0.0 % 0-0 MED ENT ([facility]) See progress note ID Date Data Source [id number] 02/25/2020 09:57:00 AM EDT MEDENT ([facility]) Name Value Range Interpretation Code Description Data Edna rce(s) Supporting Document(s) Bacteria identified in Urine by Culture Laboratory test result YONI ([facility], [facility]. ID Date Data Source [id number] 02/05/2020 12:00:00 AM EDT [facility] Citlali Brand MD Patient Name: LUDA JARA [id number] [facility] Date of : [address] [address] Date of Exam: 02/05/2020#: Fax: [phone] EXAM: MRI THORACIC SPINE WITHOUT CONTRASTPROCEDURE INFORMATION:Exam: MR Thoracic Spine Without ContrastExam date and time: 02/05/2020 12:16 PM Age: 84 years oldClinical indication: Pain in thoracic spineTECHNIQUE: Imaging protocol: Multiplanar magnetic resonance images of thethoracic spine without contrast.COMPARISON: No relevant prior studies available.FINDINGS:Vertebrae: There is pronounced accentuation of the normal thoracickyphosis. There is a mild T3 ventral compression deformity without edema.There are moderate to severe T6 and severe T7 ventral compressiondeformities. There is minimal retropulsion of the posterior margin of T7.There is minimal edema, potentially reflecting subacute time course. Thereare scattered hemangiomas. There is diffuse marrow heterogeneity, raisingthe possibility of a marrow infiltrative process versus a ge-related marrowconversion.Spinal cord: The thoracic cord is of normal contour and signal properties.Discs/Spinal canal/Neural foramina: No significant disc disease. Nosignificant spinal canal stenosis. Soft tissues: Unremarkable.IMPRESSION:1. Moderate to severe T6 and severe T7 ventral compression deformities,potentially subacute.2. Diffuse marrow heterogeneity, potentially reflecting a diffuse marrowinfiltrative process versus is age related marrow conversion.Thank you for allowing us to participate in the care of your patient.Dictated and Authenticated by: Juliana Barnes MD 02/05/2020 2:40 PMEastern Time ([place] & [place])VradV/Neelak you for referring LUDA JARA to our office. Electronically Signed - [facility] 02/05/20 15:07 Name Value Range Interpretation Code Description Data Edna rce(s) Supporting Document(s) Procedure Social History Code Duration Value Status Description Data Source(s ) Smoking 06/11/2020 10:39:03 AM EST Never smoked tobacco (findi ng) completed Never smoked tobacco (finding) [facility] (Teja Veronica [facility]) Smoking 03/12/2020 03:29:16 PM EDT Never smoked tobacco (findi ng) completed Never smoked tobacco (finding) [facility] (Teja Veronica MD [facility]) Smoking 02/25/2020 12:00:00 AM EDT Patient has never smoked co mpleted Patient has never smoked MED[facility] ([place] [facility], [facility]) Vital Signs ID Date Data Source UNK Name Value Range Interpretation Code Description Data Source(s) Body temperature 97.2 [degF] 97.2 [degF] MEDENT ([facility]) Body weight 49.896 kg 49.896 kg [facility] ([facility]) Body mass index (BMI) [Ratio] 18.9 kg/m2 18.9 k g/m2 MED[facility] ([facility]) Heart rate 86 /min 86 /min [facility] ([facility]) Diastolic blood pressure 82 mm[Hg] 82 mm[Hg] MED[facility] ([facility]) Systolic blood pressure 133 mm[Hg] 133 mm[Hg] M EDENT ([facility]) Body weight 110.00 [lb_av] 110.00 [lb_av] MEDEN T ([facility]) Body height 64 [in_i] 64 [in_i] [facility] ([facility]) 5'4" Diastolic blood pressure 75 mm[Hg] 75 mm[Hg] eCW1 ([facility]) Systolic blood pressure 131 mm[Hg] 131 mm[Hg] e CW1 ([facility]) Body temperature 98.2 [degF] 98.2 [degF] eCW1 ( [facility]) Respiratory rate 16 /min 16 /min eCW1 ([facility]) Heart rate 117 /min 117 /min eCW1 ([facility]) Body mass index (BMI) [Ratio] 19.39 kg/m2 19.39 kg/m2 eCW1 ([facility]) Body height [in_i] eCW1 ([facility]) Body weight 113 [lb_av] 113 [lb_av] eCW1 ([facility]) Body temperature 97.9 [degF] 97.9 [degF] MEDENT ([facility]) Body weight 48.989 kg 48.989 kg [facility] ([facility]) Body mass index (BMI) [Ratio] 18.5 kg/m2 18.5 k g/m2 MED[facility] ([facility]) Heart rate 81 /min 81 /min [facility] ([facility]) Diastolic blood pressure 83 mm[Hg] 83 mm[Hg] MEDENT ([facility]) Systolic blood pressure 135 mm[Hg] 135 mm[Hg] M EDENT ([facility]) Body weight 108.00 [lb_av] 108.00 [lb_av] MEDEN T ([facility]) Body height 64 [in_i] 64 [in_i] [facility]ENT ([facility]) 5'4" Body mass index (BMI) [Ratio] 19.8 kg/m2 19.8 k g/m2 MEDENT ([facility], [facility]) Body height 63 [in_i] 63 [in_i] MEDENT ([facility], [facility]) 5'3" Body weight 112.00 [lb_av] 112.00 [lb_av] MEDEN T ([facility], [facility]) Body temperature 98.8 [degF] 98.8 [degF] MEDENT ([place] [facility], [facility]) Oxygen saturation in Arterial blood by Pulse oximetry 93 % 93 % MEDENT ([place] [facility], [facility]) Respiratory rate 28 /min 28 /min MEDENT ( [facility], [facility]) Heart rate 91 /min 91 /min MEDENT ([facility], [facility]) Diastolic blood pressure 78 mm[Hg] 78 mm[Hg] MEDENT ([facility], [facility]) Systolic blood pressure 135 mm[Hg] 135 mm[Hg] M EDENT ([facility], [facility]) Body mass index (BMI) [Ratio] 22.3 kg/m2 22.3 k g/m2 MEDENT ([facility] ) Body weight 118.00 [lb_av] 118.00 [lb_av] MEDEN T ([facility] ) Body height 61 [in_i] 61 [in_i] MEDENT ([facility] ) 5'1" Body temperature 97.3 [degF] 97.3 [degF] MEDENT ([facility] ) Body mass index (BMI) [Ratio] 21.3 kg/m2 21.3 k g/m2 MEDENT ([facility] ) Body weight 120.00 [lb_av] 120.00 [lb_av] MEDEN T ([facility] ) Body height 63 [in_i] 63 [in_i] MEDENT ([facility] ) 5'3" Body temperature 98.4 [degF] 98.4 [degF] MEDENT ([facility] ) Body mass index (BMI) [Ratio] 19.8 kg/m2 19.8 k g/m2 MEDENT ([facility], [facility]) Body height 63 [in_i] 63 [in_i] MEDENT ([facility], [facility]) 5'3" Body weight 112.00 [lb_av] 112.00 [lb_av] MEDEN T ([facility], [facility]) Body temperature 99.0 [degF] 99.0 [degF] MEDENT ([facility], [facility]) Oxygen saturation in Arterial blood by Pulse oximetry 98 % 98 % MEDENT ([facility], [facility]) Heart rate 82 /min 82 /min MEDENT ([facility], [facility]) Diastolic blood pressure 76 mm[Hg] 76 mm[Hg] MEDENT ([facility], [facility]) Systolic blood pressure 122 mm[Hg] 122 mm[Hg] M EDENT ([facility]) Diastolic blood pressure 78 mm[Hg] 78 mm[Hg] eCW1 ([facility]) Systolic blood pressure 134 mm[Hg] 134 mm[Hg] e CW1 ([facility]) Body mass index (BMI) [Ratio] 19.46 kg/m2 19.46 kg/m2 eCW1 ([facility]) Body height [in_i] eCW1 ([facility]) Body weight 113.4 [lb_av] 113.4 [lb_av] eCW1 ([facility]) Diastolic blood pressure 77 mm[Hg] 77 mm[Hg] eCW1 ([facility]) Systolic blood pressure 164 mm[Hg] 164 mm[Hg] e CW1 ([facility]) Body temperature 98.1 [degF] 98.1 [degF] eCW1 ( [facility]) Respiratory rate 18 /min 18 /min eCW1 ([facility]) Heart rate 84 /min 84 /min eCW1 ([facility]) Body mass index (BMI) [Ratio] 19.91 kg/m2 19.91 kg/m2 eCW1 ([facility]) Body height [in_us] eCW1 ([facility]) Body weight Measured 116 [lb_av] 116 [lb_av] eC W1 ([facility]) Diastolic blood pressure 72 mm[Hg] 72 mm[Hg] eCW1 ([facility]) Systolic blood pressure 160 mm[Hg] 160 mm[Hg] e CW1 ([facility]) Body temperature 97.9 [degF] 97.9 [degF] eCW1 ( [facility]) Respiratory rate 18 /min 18 /min eCW1 ([facility]) Heart rate 88 /min 88 /min eCW1 ([facility]) Body mass index (BMI) [Ratio] 19.91 kg/m2 19.91 kg/m2 eCW1 ([facility]) Body height [in_us] eCW1 ([facility]) Body weight Measured 116 [lb_av] 116 [lb_av] eC W1 ([facility])
[2020-08-05] MEDS ORDERED: LIDOCAINE 2% 100MG/5ML SDV (FOR ANES.) As Ordered ONE (11:33)
[2020-08-05] MEDS ORDERED: propofoL 200 MG/20 ML VIAL As Ordered ONE (11:33)
--- NOTE | 2020-08-05 12:29 | ROOR ---
Patient Name: Geoffrey Martinez Procedure Date: 08/05/2020 12:14 PM Date of : 1935 Age: 84 Room: [facility] Gender: Female Note Status: Finalized Procedure: Upper Endoscopy + Biopsies Indications: Unexplained iron deficiency anemia Providers: Pa Torres MD Referring MD: HU BLUM MD Requesting Provider: Medicines: Monitored Anesthesia Care Complications: No immediate complications. Procedure: Pre-Anesthesia Assessment: - The heart rate, respiratory rate, oxygen saturations, blood pressure, adequacy of pulmonary ventilation, and response to care were monitored throughout the procedure. The Endoscope was introduced through the mouth, and advanced to the second part of duodenum. The upper GI endoscopy was accomplished without difficulty. The patient tolerated the procedure well. Findings: The Z-line was regular and was found 40 cm from the incisors. Localized erythematous mucosa without bleeding was found in the gastric antrum. Biopsies were taken with a cold forceps for Helicobacter pylori testing. The exam of the duodenum was otherwise normal. Biopsies for histology were taken with a cold forceps in the first portion of the duodenum for evaluation of celiac disease. The exam was otherwise without abnormality. Impression: - Z-line regular, 40 cm from the incisors. - Erythematous mucosa in the antrum. Biopsied. - The examination was otherwise normal. - Biopsies were taken with a cold forceps for evaluation of celiac disease. - The examination was otherwise normal. Recommendation: - Patient has a contact number available for emergencies. The signs and symptoms of potential delayed complications were discussed with the patient. Return to normal activities tomorrow. Written discharge instructions were provided to the patient. - High fiber diet. - Discharge patient to home. - Follow an antireflux regimen. - Continue present medications. - Await pathology results. - Telephone GI clinic for pathology results in 1 week. - Return to referring physician. - The findings and recommendations were discussed with the patient. Procedure Code(s): --- Professional --- 78809, Esophagogastroduodenoscopy, flexible, transoral; with biopsy, single or multiple Diagnosis Code(s): --- Professional --- K31.89, Other diseases of stomach and duodenum D50.9, Iron deficiency anemia, unspecified CPT copyright 2019 [employer]. All rights reserved. The codes documented in this report are preliminary and upon senior teradata developer review may be revised to meet current compliance requirements. Pa Torres MD Pa Torres MD 08/05/2020 12:29:43 PM Electronically signed by Pa Torres MD Number of Addenda: 0 Note Initiated On: 08/05/2020 12:14 PM Estimated Blood Loss: Estimated blood loss: none.
[2020-08-05 12:55] VITALS: BP 135/75
== END 2020-08-05 13:55 | disposition home or self-care (01) ==
LOC: M OPP 10:01
PROVIDERS: ATTEND Internal Medicine Gastroenterology
DX: D50.9 Iron deficiency anemia, unspecified (principal); D13.1 Benign neoplasm of stomach; D13.39 Benign neoplasm of other parts of small intestine; K31.89 Other diseases of stomach and duodenum; R60.0 Localized edema; R73.03 Prediabetes; E03.9 Hypothyroidism, unspecified; R12 Heartburn; M19.90 Unspecified osteoarthritis, unspecified site; M81.0 Age-related osteoporosis without current pathological fracture; G62.9 Polyneuropathy, unspecified; Z86.718 Personal history of other venous thrombosis and embolism; Z88.0 Allergy status to penicillin; Z88.1 Allergy status to other antibiotic agents; Z88.6 Allergy status to analgesic agent; Z79.82 Long term (current) use of aspirin; Z79.899 Other long term (current) drug therapy

== ENCOUNTER 2020-08-11 10:16 | Emergency (ER) | payer MEDICARE, BC, MEDICAID ==
[~2020-08-11] VITALS: Ht 162.6 cm; Wt 49.1 kg
[~2020-08-11 10:16] MED LIST changes: -NS 1,000 ML IV ONE
--- OUTSIDE RECORDS SUMMARY | 2020-08-11 10:28 | CCD | Continuity of Care Document ---
Author Author Geoffrey TORRES M.D. Organization Unknown Address [address] [place] [id number] Phone [phone] Care Team Providers Care Engineering Surveyor Name Role Phone Libby Lawson M.D. AUTM [phone] Problems Active Problems Provider Date Anemia Pa [...] twice a day Unknown Oscal 500/200 D-3 [id number] T ablets 1 by mouth every day [...] 48.989 kg Body Temperature 97.9 F Results Test Acquired Date Facility Test Result H/L Range Note Laboratory test finding 08/05/2020 [facility] [address] [place] [id number] Pathology Request For Service (SEE NOTE) 1, 2 1 FINAL DIAGNOSIS A - Small bowel, biopsy: Small intestinal mucosa with intact villous architecture. No evidence for celiac disease. B - Stomach, biopsy: Gastric mucosa with no significant pathologic findings. No evidence for H. pylori-like organisms on H&E stain. 08/06/2020 - 1303 CLINICAL DIAGNOSIS Anemia 08/06/2020 - 0717 GROSS DIAGNOSIS A - Received in formalin labeled "biopsy small bowel" and consists of two fragments of lamb tissue 0.4 x 0.3 x 0.2 cm. in aggregate. All in one. B - Received in formalin labeled "biopsy antrum" and consists of two fragments of lamb tissue 0.3 x 0.3 x 0.3 cm. in aggregate. All in one. -SV 08/06/2020 - 0717 Signed ALEJANDRINA BASS MD 08/06/2020 1346 2 08/07/20 (Thr Aug 07) 09:12 PM PA TORRES negative biopsies for any path. Procedures Date Code Description Status 08/05/2020 53980 Endoscopy Upper GI Biopsy Comple reinier 04/14/2020 70507 Colonoscopy Flexible Diagnostic Completed Medical Devices Description No Information Available Encounters Type Date Location Provider Dx Diagnosis Office Visit 07/10/2020 2:00p Main Office Pa Torres M.D. D 64.9 Anemia, unspecified Office Visit 03/26/2020 3:30p Main Office Pa Torres M.D. K 58.1 Irritable bowel syndrome with constipation Assessments Date Code Description Provider 08/05/2020 D50.9 Iron deficiency anemia, unspecif ied Pa Torres M.D. 08/05/2020 K31.89 Other diseases of stomach and du odenum Pa Torres M.D. 08/05/2020 L53.9 Erythematous condition, unspecif ied Pa Torres M.D. 07/10/2020 D64.9 Anemia Pa villatoro M.D. 04/14/2020 K59.04 Chronic idiopathic constipation Pa Torres M.D. 04/14/2020 K64.0 First degree hemorrhoids Pa Torres M.D. 03/26/2020 K58.1 Irritable bowel syndrome with co nstipation Pa Torres M.D. Plan of Treatment 07/10/2020 - Pa Torres M.D.* D64.9 Anemia* [...]
--- OUTSIDE RECORDS SUMMARY | 2020-08-11 10:28 | CCD | Continuity of Care Document ---
Author Author Geoffrey TORRES M.D. Organization Unknown Address [address] [place] [id number] Phone [phone] Care Team Providers Care Water Filtration Technician Name Role Phone Libby Lawson M.D. AUTM [phone] Problems Active Problems Provider Date Anemia Pa [...] twice a day Unknown Oscal 500/200 D-3 [id number] T ablets 1 by mouth every day [...] H/L Range Note Laboratory test finding 08/05/2020 [facility] [address] [place] [id number] Pathology Request For Service (SEE NOTE) 1 1 FINAL DIAGNOSIS A - Small bowel, [...] 0717 Signed ALEJANDRINA BASS MD 08/06/2020 1346 Procedures Date Code Description Status 08/05/2020 74350 Endoscopy Upper GI Biopsy Comple reinier 04/14/2020 69138 Colonoscopy Flexible Diagnostic Completed Medical Devices Description [...]
--- OUTSIDE RECORDS SUMMARY | 2020-08-11 10:29 | CCD ---
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 Name Role Phone Fred Torres MD Unavailable Unavailable Fred Torres MD Unavailable Unavailable Fred Torres MD Unavailable Unavailable Fred Torres MD Unavailable Unavailable Fred Torres MD Unavailable Unavailable MelissaFred MD Unavailable Unavailable MelissaFred MD Unavailable Unavailable Melissa S Pa DANIEL Unavailable Unavailable Melissa S Pa DANIEL Unavailable Unavailable Melissa S Pa DANIEL Unavailable Unavailable MelissaFred MD Unavailable Unavailable MelissaFred MD Unavailable Unavailable MelissaFred MD Unavailable Unavailable Melissa S Pa DANIEL Unavailable Unavailable Melissa S Pa MD Unavailable Unavailable Melissa S aP DANIEL Unavailable Unavailable Melissa S Pa DANIEL Unavailable Unavailable MelissaFred MD Unavailable Unavailable MelissaFred MD Unavailable Unavailable Melissa S Pa DANIEL Unavailable Unavailable Melissa S Pa DANIEL Unavailable Unavailable Melissa S Pa DANIEL Unavailable Unavailable MelissaFred MD Unavailable Unavailable MelissaFred [...] Unavailable Unavailable Fred Torres MD Unavailable Unavailable Melissa S Pa DANIEL Unavailable Unavailable James Mcclure MD, FACS Unavailable [...] Veronica, James Lezama MD, FACS Unavailable Unavailable Mullisn Veroinca, James Lezama MD, FACS Unavailable Unavailable Mullins [...] Unavailable MILES, LUIS PA Unavailable Unavailable MILES, ULIS PA Unavailable Unavailable MILES, LUIS PA Unavailable [...] Ali, Latasha DANIEL Unavailable Unavailable Ali, Latasha Unavailable Unavailable Ali, Latasha Unavailable Unavailable Ali, Latasha MD Unavailable Unavailable [...] Unavailable Ali, Latasha MD Unavailable Unavailable Ali, Latahsa MD Unavailable Unavailable Ali, Latasha MD Unavailable [...] Unavailable Ali, Latasha MD Unavailable Unavailable Vijaya TORRES DO Unavailable [phone] Vijaya TORRESEW DO Unavailable [phone] Vijaya TORRES GIN DO Unavailable [phone] Vijaya TORRES GIN DO Unavailable [phone] Vijaya TORRES GIN DO Unavailable [phone] Vijaya TORRES GIN DO Unavailable +[phone] Vijaya TORRESEW DO Unavailable [phone] Vijaya TORRESEW DO Unavailable +[phone] Vijaya TORRES GIN DO Unavailable +[phone] Vijaya TORRES GIN DO Unavailable +[phone] Vijaya TORRES GIN DO Unavailable +[phone] MELISSA, A. GIN DO Unavailable [phone] Vijaya TORRES GIN DO Unavailable [phone] James TORRES. GIN DO Unavailable [phone] James TORRES. GIN DO Unavailable [phone] James TORRES. GIN DO Unavailable +[phone] Vijaya TORRES GIN DO Unavailable +[phone] James TORRES. GIN DO Unavailable +[phone] James TORRES. GIN DO Unavailable +[phone] Vijaya TORRES GIN DO Unavailable [phone] Vijaya TORRES GIN DO Unavailable +[phone] LETTIERE, A CA PA Unavailable Unavailable [...] is protected by Article 27-F of the [facility] Public Health law. If you continue you may have access to information: Regarding HIV / AIDS; Provided by facilities licensed or operated by the [facility] Office of Mental Health; or Provided by the [facility] Office for People With Developmental Disabilities. If such information is present, then the following [facility] mandated warning applies: This information has [...] law may result in a fine or fdc sentence or both. A general authorization for the release of medical or other information is NOT sufficient authorization for further disc losure. Allergies and Adverse Reactions Type Description Substance Reaction Status Data Source(s ) Drug allergy Cephalexin Cephalexin Yeast infection Active eCW1 ( [facility]) Drug allergy Amoxicillin Amoxicillin Hives Active eCW1 ([facility]) Drug allergy Naproxen Naproxen Diarrhea Active eCW1 ([facility]) Ciprofloxacin Ciprofloxacin Ciprofloxacin Hives Active eCW1 ([facility]) Ciprofloxacin Ciprofloxacin Ciprofloxacin 100 MG/ML Oral Suspension Hives Active eCW1 ([facility]) Family History Family Member Name Family Member Gender Family Member Status Date o f Status Description Data Source(s) Unknown Unknown Problem MEDENT ([facility]) father, brother, sister Unknown Male Problem MEDENT ([facility]) Encounters Encounter Providers Location Date Indications Data Source(s ) Outpatient Attender: Pa Torres MD Main Office 07/10/2020 01:00:00 PM EST [facility] ([facility]) Unknown [address] [facility] [address] 07/10/2020 12:00:00 AM EST eCW1 ([facility]) Outpatient<td ID="encounterTypeDescripti onID0">1 Year Follow-Up</td><td>Gin Torres DO</td><td>Teja Hatfield MD [facility]</td><td>06/06/2020</td><td>9:17AM</td><td>10:43AM</td><td><content ID="encounterDiagnosisID0-0">Essential Hypertension</content>, <content ID="encounterDiagnosisID0-1">Retinal Vein Occlusion Central</content>, <content ID="encounterDiagnosisID0-2">Pseudophakia</content>, <content ID="encounterDiagnosisID0-3">Posterior Capsule Opacification Eccentric Capsule Both Eyes</content>, <content ID="encounterDiagnosisID0-4">Dry Eye Syndrome Both Eyes</content>, <content ID="encounterDiagnosisID0-5">Diabetes Mellitus Type 2 Without Complication</content>, <content ID="encounterDiagnosisID0-6">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</content>, <content ID="encounterDiagnosisID0-7">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</content></td> Attender: GIN Nina MD [facility] 06/06/2020 09:17:00 AM EST - 06/06/2020 10:43:00 AM ES T 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Posterior Capsule Opacification Eccentric Capsule Both EyesPseudo phakiaEssential HypertensionDiabetes Mellitus Type 2 Without ComplicationRetinal Vein Occlusion CentralDry Eye Syndrome Both Eyes [facility] (Teja Veronica MD [facility]) Macular Degen Exudative Left Eye with In active Choroidal Neovascularization 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 Posterior Capsule Opacification Eccentri c Capsule Both Eyes Pseudophakia Essential Hypertension Diabetes Mellitus Type 2 Without Complic ation 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 Unknown [address] [facility] [address] 04/03/2020 12:00:00 AM EDT eCW1 ([facility]) Outpatient [address] [facility] [place] [address] 03/28/2020 12:00:00 AM EDT eCW1 ([facility]) Outpatient Attender: Pa Torres MD Main Office 03/26/2020 03:30:00 PM EDT MEDENT ([facility]) Outpatient Attender: LUIS Rodartea ry 02/25/2020 09:15:00 AM EDT MEDENT ([facility]) Outpatient Attender: Latasha Irene MD Main office - [place] 02/15/2020 08:00:00 AM EDT MEDENT ([facility]) Outpatient Attender: CA Champion Prim benjamin 01/25/2020 12:15:00 PM EDT MEDENT ([facility]) Outpatient [address] [facility] [address] 11/15/2019 12:00:00 AM EDT eCW1 ([facility]) Outpatient Referrer: Latasha Irene MD 09/27/2019 02:57:00 PM EDT [facility] [address] [place] [address] [place] [address] 08/09/2019 12:00:00 AM EST eCW1 ([facility]) [facility] [address] [place] [phone] 08/02/2019 12:00:00 AM EST eCW1 ([facility]) [facility] [address] [place] [phone] 07/20/2019 12:00:00 AM EST eCW1 ([facility]) Outpatient<td ID="encounterTypeDescripti onID1">TRIAGE NON URGENT</td><td>Teja Hatfield MD, FACS</td><td>Teja Hatfield MD PLL</td><td>01/30/2020</td><td>06/01/2019 8:50AM</td><td>9:43AM</td> <td><content ID="encounterDiagnosisID1-0">Essential Hypertension</content>, <content ID="encounterDiagnosisID1-1">Macular Degen Nonexud 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 Involvement</content></td> Attender: Teja Veronica MD, FACS Teja Hatfield MD [facility] 06/01/2019 08:50:00 AM EST - 01/30/2020 09:43:00 AM EDT Macular Degen Nonexud 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 InvolvementMacular Degen Nonexud 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 InvolvementEssential HypertensionEssential Hypertension [facility] (Teja Veronica MD [facility]) Macular Degen Nonexud Bilat Adv Atrophic W/o [...] 12 HOURS WITH A MEAL SOLD: 03/31/2020 [facility] 17.5-3.13-1.6 gram 03/27/2020 12:00:00 AM EDT recon soln 354 USE DIRECTED USE DIRECTED SOLD: 03/27/2020 [facility] 500 mg 03/26/2020 12:00:00 AM EDT tablet 90 TAKE ONE TABLET BY MOUTH THREE TIMES A DAY NEEDED FOR SPASM TAKE ONE TABLET BY MOUTH THREE TIMES A D AY NEEDED FOR SPASM SOLD: 03/26/2020 [facility] Suprep Bowel Prep Kit Suprep Bowel Prep Kit 03/26/2020 12:00:00 AM EDT completed MEDENT ([facility]) 100 mg 03/19/2020 12:00:00 AM EDT capsule 90 TAKE ONE CAPSULE BY MOUTH AT BEDTIME MAXIMUM DAILY DOSE = 1 TAKE ONE CAPSULE BY MOUTH AT BEDTIME MAX IMUM DAILY DOSE = 1 SOLD: 03/19/2020 [facility] 1 % 03/13/2020 12:00:00 AM EDT gel [...] 03/13/2020 12:00:00 AM EDT active [facility] ([facility]) 40 mg 03/11/2020 12:00:00 AM EDT capsule,delayed release (DR/EC) 90 TAKE ONE CAPSULE BY MOUTH EVERY DAY TAKE ONE CAPSULE BY MOUTH EVERY DAY SOLD: 03/11/2020 [facility] Methocarbamol 500 MG Oral Tablet Methocarbamol 03/04/2020 12:00:00 AM EDT ORAL active [facility] ([facility]) 500 mg 03/04/2020 12:00:00 [...] DAILY DOSE = 4 TABLETS SOLD: 02/11/2020 [facility] tramadol hydrochloride 50 MG Oral Tablet [...] type / Coverage type Policy ID Covered republican ID Covered republican's relationship to wu Policy Wu Plan Information EMEDNY [id number] SP [id number] MEDICARE [id number] SP [id number] [place]/307 [id number] SP [id number] [place]/307 [id number] SP [id number] BCBS of [facility] Other 0 Self 0 Medicare Part B of [facility] Other 0 Se lf 0 MEDICARE C [id number] S [id number] EXCELLUS BCBS B [id number] S [id number] [place]/307 [id number] SP [id number] BCBS of [facility] Other 0 Self 0 Medicare Part B of [facility] Other 0 Se lf 0 MEDICAID [id number] SP [id number] BCBS of [facility] Other 0 Self 0 Medicare Part B of [facility] Other 0 Se lf 0 [id number] MEDICARE COMPLETE [id number] SP [id number] MEDICARE [id number] SP [id number] A [facility] MEDICARE COMPLETE G [id number] Self [id number] MEDICARE COMPLETE-[facility] P [id number] S [id number] MEDICARE COMPLETE [id number] SP [id number] [employer] O [id number] S [id number] MEDICARE [id number] SP [id number] [facility] O [id number] S [id number] [place]/307 [id number] SP [id number] Medicare Natl Gov't Servi Medicare Primary [id number] Self [id number] BCBS/Blue Card Medigap Part B [id number] Self [id number] [place] [id number] Self [id number] [place] Of [place] Medigap Part B [id number] Self [id number] [place] Primary [id number] Self [id number] [place] Medigap Part B [id number] Self [id number] Medicare [place] Gov't Servi Medicare Primary [id number] Self [id number] BCBS/Blue Card Medigap Part B [id number] Self [id number] Medicare [place] Gov't Servi Medicare Primary [id number] Self [id number] BCBS/Blue Card Medigap Part B [id number] Self [id number] MEDICARE C [id number] S [id number] A [place] Primary [id number] Self [id number] BS [place] Medigap Part B [id number] Self [id number] [place]ig[place] [id number] Self [id number] [place] Primary [id number] Self [id number] BS [place] Medigap Part B [id number] Self [id number] [place] [id number] Self [id number] MEDICARE [id number] SP [id number] [place] P[place] 302/307 [id number] SP [id number] MEDICARE [id number] SP [id number] A Medicare [place]l Gov't Servi Medicare Primary [id number] Self [id number] BCBS/Blue Card Medigap Part B [id number] Self [id number] [place] 302/307 [id number] SP [id number] MEDICARE [id number] SP [id number] A MEDICARE [id number] SP [id number] [place]/307 [id number] SP [id number] ANSI-Commercial [id number] ANSI-Medicare Part B [id number] ANSI-Medicare Part B [id number] ANSI-Commercial [id number] ANSI-Medicare Part B [id number] ANSI-Commercial [id number] Problems, Conditions, and Diagnoses Code Display Name Description Problem Type Effective Dates Data Source(s) 118489485 Anemia Anemia Problem 07/10/2020 12:00:[address] 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 Nonexud R Eye Adv Atrophic W/o Subfoveal Involvement Problem 0 01/30/2020 12:00:00 AM EDT [facility] (Teja Veronica MD [facility]) [id number] 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 Involvement Problem 01/30/2020 12:00:00 AM EDT [facility] (Teja Veronica MD [facility]) [id number] 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 Nonexud R Eye Adv Atrophic W/o Subfoveal Involvement Problem 0 01/30/2020 12:00:00 AM EDT [facility] (Teja Veronica MD [facility]) C44.311 [id number] Basal cell carcinoma of nose Problem 11/15/2019 12:00:00 AM EDT eCW1 ([facility]) C44.629 [id number] 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 Torres 08/10/2018 ~PCIOL OS by Dr. Torres 06/08/2018 06/06/2020 12:00:00 AM EST [facility] (Baldomero Veronica MD [facility]) Intermediate Eye Exam Established Patient Intermediate Eye Exam Established Patient 06/06/2020 12:00:00 AM EST [facility] (Baldomero Veronica MD [facility]) COLONOSCOPY FLX DX W/WO COLLJ SPECIMENS 04/14/2020 12: 00:00 AM EDT MEDENT ([facility]) MRI Brain W/O Contrast, Followed By Contrast 0 12:00:00 AM EDT MEDENT ([facility]) MRI Brain W/O Contrast, Followed By Contrast 0 12:00:00 AM EDT MEDENT ([facility]) Physical Therapy Eval - Low Complexity 02/19/2020 12:0 0:00 AM EDT MEDENT ([facility]) Comprehensive eye exam established patient (Signi/Sep Eval. & Man.) Comprehensive eye exam established patient (Signi/Sep Eval. & Man.) 01/30/2020 12:00:00 AM EDT [facility] (Teja Veronica MD [facility]) Scodi Retina, with interpretation and re port (WAIVER OF LIABILITY ON FILE (ABN)) Scodi Retina, with interpretation and re port (WAIVER OF LIABILITY ON FILE (ABN)) 01/30/2020 12:00:00 AM EDT [facility] (Baldomero Veronica MD [facility]) Extracapsular extraction of lens (procedure) History o f extracapsular cataract extraction PCIOL OD by Dr. Torres 08/10/2018, PCIOL OS by Dr. Torres 06/08/2018 01/30/2020 12:00:00 AM EDT [facility] ([facility] Veronica [facility]) X-Ray Spine Thoracolumbar Ap & Lateral 2 Views 020 12:00:00 AM EDT MEDENT ([facility] ) EXC TR-EXT MAL+FAHAD 2.1-3 CM 08/02/2019 12:00:00 AM ES T eCW1 ([facility]) INTMD RPR S/TR/EXT 7.6-12.5 08/02/2019 12:00:00 AM EST eCW1 ([facility]) TANGNTL BX SKIN SINGLE LES 07/20/2019 12:00:00 AM EST eCW1 ([facility]) Results ID Date Data Source [id number] 08/05/2020 12:26:00 PM EST MEDENT ([facility]) Name Value Range Interpretation Code Description Data Edna rce(s) Supporting Document(s) Surgical pathology study Laboratory test result MEDENT ([facility]) <content>FINAL DIAGNOSIS</content>
< content></content>
<content>A - Small bowel, biopsy:</content>
<content>Small intestinal mucosa with intact villous architecture.</content>
<content>No evidence for celiac disease.</content>
<content></content>
<content>B - Stomach, biopsy:</content>
<content>Gastric mucosa with no significant pathologic findings.</content>
<content>No evidence for H. pylori-like organisms on H&E stain.</content>
<content>08/06/2020 - 1303</content>
<content></content>
<content>CLINICAL DIAGNOSIS</content>
<content></content>
<content>Anemia</content>
<content>08/06/2020 - 716</content>
<content></content>
<content>GROSS DIAGNOSIS</content>
<content></content>
<content>A - Received in formalin labeled "biopsy small bowel" and consists of</content>
<content>two fragments of lamb tissue 0.4 x 0.3 x 0.2 cm. in aggregate. All in</content>
<content>one.</content>
<content></content>
<content>B - Received in formalin labeled "biopsy antrum" and consists of two</content>
<content>fragments of lamb tissue 0.3 x 0.3 x 0.3 cm. in aggregate. All in one.</content>
<content>- SV</content>
<content>08/06/2020 - 0717</content>
<content></content>
<content>Signed ALJEANDRINA BASS MD 08/06/2020 1346</content>
<content></content> ID Date Data Source [id number] 07/31/2020 10:00:00 AM EST [facility] Name Value Range Interpretation Code Description Data Edna rce(s) Supporting Document(s) SARS coronavirus 2 RNA Not Detected [facility] This lab was ordered by [facility] and reported by [facility]. ID Date Data Source [id number] 07/20/2020 10:45:00 AM EST [facility] Name Value Range Interpretation Code Description Data Edna rce(s) Supporting Document(s) SARS coronavirus 2 RNA Not Detected [facility] [place] This lab was ordered by [facility] and reported by [facility]. ID Date Data Source [id number] 04/09/2020 12:00:00 PM EDT [facility] Name Value Range Interpretation Code Description Data Edna rce(s) Supporting Document(s) SARS coronavirus 2 RNA [facility] This lab was ordered by [facility] and reported by [facility]. ID Date Data Source CT ABD & Pelvis w/o Contrast 04/02/2020 12:00:00 AM EDT eCW1 ([facility]) Name Value Range Interpretation Code Description Data Edna rce(s) Supporting Document(s) eCW1 ([facility]) ID Date Data Source [id number] 03/28/2020 12:00:00 AM EDT eCW1 ([facility]) Name Value Range Interpretation Code Description Data Edna rce(s) Supporting Document(s) eCW1 ([facility]) ID Date Data Source [id number] 02/25/2020 10:04:00 AM EDT MEDENT ([facility]) Name Value Range Interpretation Code Description Data Edna rce(s) Supporting Document(s) Platelets [#/volume] in Blood by Estimate Laboratory test result MEDENT ([facility], [facility]) See progress note ID Date Data Source [id number] 02/25/2020 10:04:00 AM EDT MEDENT ([facility]) Name Value Range Interpretation Code Description Data Edna rce(s) Supporting Document(s) Neutrophils 76 % 28-66 MEDENT ([facility], [facility]) See progress note Bands 13 % MEDENT ([facility]) See progress note Lymphocytes 5 % 16-44 MEDENT ([facility], [facility]) See progress note Monocytes 6 % 0-5 MED[facility] ([facility], [facility]) See progress note Poikilocytosis Laboratory test result MEDENT ([facility], [facility]) See progress note Anisocytosis Laboratory test result MEDE NT ([facility], [facility]) See progress note Macrocytosis Laboratory test result MEDE NT ([facility], [facility]) See progress note Ovalocytes Laboratory test result MEDENT ([facility], [facility]) See progress note ID Date Data Source [id number] 02/25/2020 10:04:00 AM EDT MEDENT ([facility]) Name Value Range Interpretation Code Description Data Edna rce(s) Supporting Document(s) Glucose, Fasting 95 mg/dL 70-100 MEDENT ([facility], [facility]) See progress note Creatinine For GFR 0.80 mg/dL 0.55-1.30 MEDENT ([facility], [facility]) See progress note Glomerular Filtration Rate Laboratory test result MEDENT ([facility]) See progress note Blood Urea Nitrogen 12 mg/dL 7-18 MEDENT ([facility], [facility]) See progress note Sodium Level 138 meq/L 136-145 MEDENT ([facility], [facility]) See progress note Potassium Serum 4.8 meq/L 3.5-5.1 MEDENT ([facility], [facility]) See progress note Chloride Level 102 meq/L 98-107 MEDENT ([facility], [facility]) See progress note Anion Gap 4 meq/L 8-16 MEDENT ([facility]) See progress note Carbon Dioxide Level 32 meq/L 21-32 [facility]) See progress note Calcium Level 8.8 mg/dL 8.8-10.2 MEDENT ([facility]) See progress note ID Date Data Source [id number] 02/25/2020 10:04:00 AM EDT MEDENT ([facility]) Name Value Range Interpretation Code Description Data Edna rce(s) Supporting Document(s) Hemoglobin 11.7 g/dL 12.0-15.5 MED[facility] ([facility]) See progress note White Blood Count 16.2 10 4.0-10.0 MEDENT ([facility], [facility]) See progress note Red Blood Count 5.05 10 4.00-5.40 MEDENT ([facility], [facility]) See progress note Mean Corpuscular Hemoglobin 23.2 pg 27.0-33.0 MEDENT ([facility]) See progress note Mean Corpuscular Volume 80.0 fl 80.0-96.0 M EDENT ([facility]) See progress note Hematocrit 40.4 % 36.0-47.0 MED[facility] ([facility]) See progress note Platelet Count, Automated 371 10 150-450 MEDENT ([facility]) See progress note Red Cell Distribution Width 19.9 % 11.5-14.5 MED[facility] ([facility] [facility]) See progress note Mean Corpuscular HGB Conc 29.0 g/dL 32.0-36.5 MEDENT ([facility], [facility]) See progress note Nucleated Red Blood Cell % 0.0 % 0-0 MED ENT ([facility], [facility]) See progress note ID Date Data Source [id number] 02/25/2020 09:57:00 AM EDT MEDENT ([facility], [facility]) Name Value Range Interpretation Code Description Data Edna rce(s) Supporting Document(s) Bacteria identified in Urine by Culture Laboratory test result MEDENT ([facility], [facility]) [facility] for further evaluation. ID Date Data Source [id number] 02/05/2020 12:00:00 AM EDT [facility] Citlali Brand MD Patient Name: LUDA JARA [address] [facility] Date of : 1935[place] [address] Date of Exam: 02/05/2020#: Fax: [phone] EXAM: [...] MD 02/05/2020 2:40 PMEastern Time ([place] & [place])VradV/zoilacTpallavik you for referring LUDA JARA to our office. Electronically Signed - [facility] 02/05/20 15:07 Name Value Range Interpretation Code Description Data Edna rce(s) Supporting Document(s) Procedure Social History Code Duration Value Status Description Data Source(s ) Smoking 06/11/2020 10:39:03 AM EST Never smoked tobacco (findi ng) completed Never smoked tobacco (finding) MILDRED (Teja Veronica [facility]) Smoking 03/12/2020 03:29:16 PM EDT Never smoked tobacco (findi ng) completed Never smoked tobacco (finding) MILDRED (Teja Veronica [facility]) Smoking 02/25/2020 12:00:00 AM EDT Patient has never smoked co mpleted Patient has never smoked MEDENT ([facility], [facility]) Vital Signs ID Date Data Source UNK [...] Body height 64 [in_i] 64 [in_i] [facility]" Diastolic blood pressure 75 mm[Hg] 75 mm[Hg] eCW1 ([facility]) Systolic blood pressure 131 mm[Hg] 131 mm[Hg] e CW1 ([facility]) Body temperature 98.2 [degF] 98.2 [degF] eCW1 ( [facility]) Respiratory rate 16 /min 16 /min eCW1 ([facility]) Heart rate 117 /min 117 /min eCW1 ([facility]) Body mass index (BMI) [Ratio] 19.39 kg/m2 19.39 kg/m2 eCW1 ([facility]) Body height [in_i] eCW1 ([facility]) Body weight 113 [lb_av] 113 [lb_av] eCW1 ([facility]) Body temperature 97.9 [degF] 97.9 [degF] MEDENT [...] 64 [in_i] [facility] ([facility]) 5'4" Body mass index (BMI) [Ratio] 19.8 kg/m2 19.8 k g/m2 MEDENT ([facility], [facility]) Body height 63 [in_i] 63 [in_i] MEDENT ([facility], [facility]) 5'3" Body weight 112.00 [lb_av] 112.00 [lb_av] MEDEN T ([facility], [facility]) Body temperature 98.8 [degF] 98.8 [degF] MEDENT ([facility], [facility]) Oxygen saturation in Arterial blood by Pulse oximetry 93 % 93 % MEDENT ([facility], [facility]) Respiratory rate 28 /min 28 /min MEDENT ( [facility], [facility]) Heart rate 91 /min 91 /min MEDENT ([facility], [facility]) Diastolic blood pressure 78 mm[Hg] 78 mm[Hg] MEDENT ([facility], [facility]) Systolic blood pressure 135 mm[Hg] 135 mm[Hg] M EDENT ([facility], [facility]) Body mass index (BMI) [Ratio] 22.3 kg/m2 22.3 k g/m2 MEDENT ([facility] ) Body weight 118.00 [lb_av] 118.00 [lb_av] MEDEN T ([facility] ) Body height 61 [in_i] 61 [in_i] MEDENT ([facility] ) 5'1" Body temperature 97.3 [degF] 97.3 [degF] MEDENT ([facility] ) Body mass index (BMI) [Ratio] 21.3 kg/m2 21.3 k g/m2 MEDENT ([facility] ) Body weight 120.00 [lb_av] 120.00 [lb_av] MEDEN T ([facility] ) Body height 63 [in_i] 63 [in_i] MEDENT ([facility] ) 5'3" Body temperature 98.4 [degF] 98.4 [degF] MEDENT ([facility] ) Body mass index (BMI) [Ratio] 19.8 kg/m2 19.8 k g/m2 MEDENT ([facility], [facility]) Body height 63 [in_i] 63 [in_i] MEDENT ([facility], [facility]) 5'3" Body weight 112.00 [lb_av] 112.00 [lb_av] MEDEN T ([facility], [facility]) Body temperature 99.0 [degF] 99.0 [degF] MEDENT ([facility], [facility]) Oxygen saturation in Arterial blood by Pulse oximetry 98 % 98 % MEDENT ([facility], [facility]) Heart rate 82 /min 82 /min MEDENT ([facility], [facility]) Diastolic blood pressure 76 mm[Hg] 76 mm[Hg] MEDENT ([facility], [facility]) Systolic blood pressure 122 mm[Hg] 122 mm[Hg] M EDENT ([facility], [facility]) Diastolic blood pressure 78 mm[Hg] 78 mm[Hg] eCW1 ([facility]) Systolic blood pressure 134 mm[Hg] 134 mm[Hg] e CW1 ([facility]) Body mass index (BMI) [Ratio] 19.46 kg/m2 19.46 kg/m2 W1 ([facility]) Body height [in_i] eCW1 ([facility]) Body weight 113.4 [lb_av] 113.4 [lb_av] eCW1 ([facility]) Diastolic blood pressure 77 mm[Hg] 77 mm[Hg] eCW1 ([facility]) Systolic blood pressure 164 mm[Hg] 164 mm[Hg] e CW1 ([facility]) Body temperature 98.1 [degF] 98.1 [degF] eCW1 ( [facility]) Respiratory rate 18 /min 18 /min eCW1 ([facility]) Heart rate 84 /min 84 /min eCW1 ([facility]) Body mass index (BMI) [Ratio] 19.91 kg/m2 19.91 kg/m2 eCW1 ([facility]) Body height [in_us] eCW1 ([facility]) Body weight Measured 116 [lb_av] 116 [lb_av] eC W1 ([facility]) Diastolic blood pressure 72 mm[Hg] 72 mm[Hg] eCW1 ([facility]) Systolic blood pressure 160 mm[Hg] 160 mm[Hg] e CW1 ([facility]) Body temperature 97.9 [degF] 97.9 [degF] eCW1 ( [facility]) Respiratory rate 18 /min 18 /min eCW1 ([facility]) Heart rate 88 /min 88 /min eCW1 ([facility]) Body mass index (BMI) [Ratio] 19.91 kg/m2 19.91 kg/m2 eCW1 ([facility]) Body height [in_us] eCW1 ([facility]) Body weight Measured 116 [lb_av] 116 [lb_av] eC W1 ([facility])
[2020-08-11 11:51] LABS: HEMATOCRIT 39.5 % (36.0-47.0); HEMOGLOBIN 11.2 g/dl (12.0-15.5); MEAN CORPUSCULAR HEMOGLOBIN 22.7 pg (27.0-33.0); MEAN CORPUSCULAR HGB CONC 28.4 g/dl (32.0-36.5); MEAN CORPUSCULAR VOLUME 80.1 fl (80.0-96.0); PLATELET COUNT, AUTOMATED 220 10^3/uL (150-450); RED BLOOD COUNT 4.93 10^6/uL (4.00-5.40); WHITE BLOOD COUNT 14.9 10^3/uL (4.0-10.0)
[2020-08-11] MEDS ORDERED: NS 1,000 ML IV ONE (12:00)
[2020-08-11 12:19] LABS: ANISOCYTOSIS 2+; HYPOCHROMASIA 1+; LYMPHOCYTES 3 % (16-44); MONOCYTES 4 % (0-5); NEUTROPHILS 91 % (28-66); OVALOCYTES 2+; PLATELET ESTIMATE NORMAL (NORMAL)
[2020-08-11 13:02] LABS: ALBUMIN 3.3 GM/DL (3.2-5.2); ALT/SGPT 34 U/L (12-78); BILIRUBIN,DIRECT < 0.1 MG/DL (0.0-0.2); BILIRUBIN,TOTAL 0.5 MG/DL (0.2-1.0); BLOOD UREA NITROGEN 22 MG/DL (7-18); CALCIUM LEVEL 8.8 MG/DL (8.8-10.2); CARBON DIOXIDE LEVEL 31 MEQ/L (21-32); CHLORIDE LEVEL 105 MEQ/L (98-107); CREATININE FOR GFR 0.73 MG/DL (0.55-1.30); GLOMERULAR FILTRATION RATE > 60.0 (>32); GLUCOSE, FASTING 73 MG/DL (70-100); POTASSIUM SERUM 5.5 MEQ/L (3.5-5.1); SODIUM LEVEL 141 MEQ/L (136-145); TOTAL PROTEIN 6.4 GM/DL (6.4-8.2)
--- OUTSIDE RECORDS SUMMARY | 2020-08-11 13:02 | CCD ---
Author Author [facility] Organization [facility] Address Unknown Phone Unavailable Care Team Providers Care Billing Checker Name Role Phone Fred Torres MD Unavailable Unavailable Fred Torres MD Unavailable Unavailable Fred Torres MD Unavailable Unavailable Fred Torres MD Unavailable Unavailable Fred Torres MD Unavailable Unavailable MelissaFred MD Unavailable Unavailable MelissaFred MD Unavailable Unavailable Melissa S Pa DANIEL Unavailable Unavailable MelissaFred MD Unavailable Unavailable Melissa S Pa DANIEL Unavailable Unavailable MelissaFred MD Unavailable Unavailable MelissaFred MD Unavailable Unavailable Melissa S Pa DANIEL Unavailable Unavailable MelissaFred MD Unavailable Unavailable Melissa S Pa DANIEL Unavailable Unavailable Melissa S Pa DANIEL Unavailable Unavailable Melissa S Pa DANIEL Unavailable Unavailable Melissa S Pa DANIEL Unavailable Unavailable Melissa S Pa DANIEL Unavailable Unavailable Melissa S Pa DANIEL Unavailable Unavailable MelissaFred MD Unavailable Unavailable Melissa [...] Unavailable Unavailable MILES, LUIS PA Unavailable Unavailable MLIES, LUIS PA Unavailable Unavailable MILES, LUIS PA [...] Ali, Latasha MD Unavailable Unavailable Ali, Latasha Unavailable Unavailable Ali, Latasha DANIEL Unavailable Unavailable Ali, Latasha DANIEL Unavailable Unavailable Ali, Latasha DANIEL Unavailable Unavailable Ali, Latasha DANIEL Unavailable Unavailable Ali, Latasha DANIEL Unavailable Unavailable Ali, Latasha DANIEL Unavailable Unavailable Ali, Latasha DANIEL Unavailable Unavailable Ali, Latasha DANIEL Unavailable Unavailable Ali, Latasha DANIEL Unavailable Unavailable Ali, Latasha DANEIL Unavailable Unavailable Ali, Latasha DANIEL Unavailable Unavailable [...] Vijaya TORRES GIN DO Unavailable [phone] MELISSA AKash GIN DO Unavailable [phone] Vijaya TORRES GIN DO Unavailable [phone] Vijaya TORRES GIN DO Unavailable [phone] Vijaya TORRESEW DO Unavailable [phone] Vijaya TORRES GIN DO Unavailable [phone] Vijaya TORRES GIN DO Unavailable [phone] MELISSA, A. GIN DO Unavailable [phone] James TORRES. GIN DO Unavailable [phone] James TORRES. GIN DO Unavailable [phone] MELISSA, James. GIN DO Unavailable [phone] James TORRES. GIN DO Unavailable [phone] MELISSA, James. GIN DO Unavailable [phone] James TORRES. GIN DO Unavailable [phone] MELISSA, James. GIN DO Unavailable [phone] Vijaya TORRES GIN DO Unavailable [phone] Vijaya TORRES GIN DO Unavailable [phone] LETTIERE, A CA PA Unavailable Unavailable [...] A CA PA Unavailable Unavailable LETTIERE, A AC PA Unavailable Unavailable LETTIERE, A CA PA [...] is protected by Article 27-F of the [facility] Public Health law. If you continue you may have access to information: Regarding HIV / AIDS; Provided by facilities licensed or operated by the [facility] Office of Mental Health; or Provided by the [facility] Office for People With Developmental Disabilities. If such information is present, then the following [facility] mandated warning applies: This information has [...] law may result in a fine or halfway sentence or both. A general authorization for the release of medical or other information is NOT sufficient authorization for further disc losure. Allergies and Adverse Reactions Type Description Substance Reaction Status Data Source(s ) Drug allergy Cephalexin Cephalexin Yeast infection Active eCW1 ( [facility]) Drug allergy Amoxicillin Amoxicillin Hives Active eCW1 ([facility]) Drug allergy Naproxen Naproxen Diarrhea Active eCW1 ([facility]) Ciprofloxacin Ciprofloxacin Ciprofloxacin Hives Active eCW1 ([facility]) Ciprofloxacin Ciprofloxacin Ciprofloxacin 100 MG/ML Oral Suspension Hives Active eCW1 ([facility]) Family History Family Member Name Family Member Gender Family Member Status Date o f Status Description Data Source(s) Unknown Unknown Problem MEDENT ([facility]) father, brother, sister Unknown Male Problem MEDENT ([facility]) Encounters Encounter Providers Location Date Indications Data Source(s ) Outpatient Attender: Pa Torres MD Main Office 07/10/2020 01:00:00 PM EST MEDENT ([facility]) Unknown [address] [facility] [address] 07/10/2020 12:00:00 AM EST eCW1 ([facility]) Outpatient<td ID="encounterTypeDescripti onID0">1 Year Follow-Up</td><td>Gin Torres DO</td><td>Teja Hatfield MD [facility]</td><td>06/06/2020</td><td>9:17AM</td><td>10:43AM</td><td><content ID="encounterDiagnosisID0-0">Essential Hypertension</content>, <content ID="encounterDiagnosisID0-1">Retinal Vein Occlusion Central</content>, <content ID="encounterDiagnosisID0-2">Pseudophakia</content>, <content ID="encounterDiagnosisID0-3">Posterior Capsule Opacification Eccentric Capsule Both Eyes</content>, <content ID="encounterDiagnosisID0-4">Dry Eye Syndrome Both Eyes</content>, <content ID="encounterDiagnosisID0-5">Diabetes Mellitus Type 2 Without Complication</content>, <content ID="encounterDiagnosisID0-6">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</content>, <content ID="encounterDiagnosisID0-7">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</content></td> Attender: GIN Nina MD [facility] 06/06/2020 09:17:00 AM EST - 06/06/2020 10:43:00 AM ES T 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Posterior Capsule Opacification Eccentric Capsule Both EyesPseudo phakiaEssential HypertensionDiabetes Mellitus Type 2 Without ComplicationRetinal Vein Occlusion CentralDry Eye Syndrome Both Eyes [place] (Teja Veronica MD [facility]) Macular Degen Exudative Left Eye with In active Choroidal Neovascularization 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 Posterior Capsule Opacification Eccentri c Capsule Both Eyes Pseudophakia Essential Hypertension Diabetes Mellitus Type 2 Without Complic ation 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 Unknown [address] [facility] [address] 04/03/2020 12:00:00 AM EDT eCW1 ([facility]) Outpatient [address] [facility] [place] [address] 03/28/2020 12:00:00 AM EDT eCW1 ([facility]) Outpatient Attender: Pa Torres MD Main Office 03/26/2020 03:30:00 PM EDT MEDENT ([facility]) Outpatient Attender: LUIS Rodartea ry 02/25/2020 09:15:00 AM EDT MEDENT ([facility]) Outpatient Attender: Latasha Irene MD Main office - [place] 02/15/2020 08:00:00 AM EDT MEDENT ([facility]) Outpatient Attender: CA Champion Prim benjamin 01/25/2020 12:15:00 PM EDT MEDENT ([facility]) Outpatient [address] [facility] [address] 11/15/2019 12:00:00 AM EDT eCW1 ([facility]) Outpatient Referrer: Latasha Irene MD 09/27/2019 02:57:00 PM EDT [facility] [address] [place] [phone] 08/09/2019 12:00:00 AM EST eCW1 ([facility]) [facility] [address] [place] [address] 08/02/2019 12:00:00 AM EST eCW1 ([facility]) [facility] [address] [place] [phone] 07/20/2019 12:00:00 AM EST eCW1 ([facility]) Outpatient<td ID="encounterTypeDescripti onID1">TRIAGE NON URGENT</td><td>Teja Hatfield MD, FACS</td><td>[facility]</td><td>01/30/2020</td><td>06/01/2019 8:50AM</td><td>9:43AM</td> <td><content ID="encounterDiagnosisID1-0">Essential Hypertension</content>, <content ID="encounterDiagnosisID1-1">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.] 03/13/2020 12:00:00 AM EDT active [facility] ([facility]) 40 mg 03/11/2020 12:00:00 [...] ON TUESDAY, TUESDAY AND TUESDAY SOLD: 02/25/2020 [facility] 75 mcg 02/19/2020 12:00:00 AM EDT [...] TABLET BY MOUTH EVERY 12 HOURS [place] MEALS SOLD: 01/14/2020 [facility] Insurance Providers Payer name Policy type / Coverage type Policy ID Covered alliance party ID Covered alliance party's relationship to wu Policy Wu Plan Information DIMITRIS [id number] SP [id number] MEDICARE [id number] SP [id number] [place]/307 [id number] SP [id number] [place]/307 [id number] SP [id number] BCBS of [facility] Other 0 Self 0 Medicare Part B of [facility] Other 0 Se lf 0 MEDICARE C [id number] S [id number] EXCELLUS BCBS B [id number] S [id number] [place]/307 [id number] SP [id number] BCBS of [facility] Other 0 Self 0 Medicare Part B of [facility] Other 0 Se lf 0 MEDICAID [id number] SP [id number] BCBS of [facility] Other 0 Self 0 Medicare Part B of [facility] Other 0 Se lf 0 [id number] MEDICARE COMPLETE [id number] SP [id number] MEDICARE [id number] SP [id number] [facility] MEDICARE COMPLETE G [id number] Self [id number] MEDICARE COMPLETE-[facility] P [id number] S [id number] MEDICARE COMPLETE [id number] SP [id number] [employer] O [id number] S [id number] MEDICARE [id number] SP [id number] [facility] O [id number] S [id number] [place]/307 [id number] SP [id number] Medicare Natl Gov't Servi Medicare Primary [id number] Self [id number] BCBS/Blue Card Medigap Part B [id number] Self [id number] [place] Primary [id number] Self [id number] [place] Medigap Part B [id number] Self [id number] [place] Primary [id number] Self [id number] [place] Medigap Part B [id number] Self [id number] Medicare [place] Gov't Servi Medicare Primary [id number] Self [id number] BCBS/Blue Card Medigap Part B [id number] Self [id number] Medicare [place] Gov't Servi Medicare Primary [id number] Self [id number] BCBS/Blue Card Medigap Part B [id number] Self [id number] MEDICARE [id number] S [id number] A [place] Medicare Primary [id number] Self [id number] [place] Medigap Part B [id number] Self [id number] Medicaid [place] Medig[place] Part B [id number] Self [id number] [place] Primary [id number] Self [id number] [place] Medigap Part B [id number] Self [id number] [place] Medig[place] Part B [id number] Self [id number] MEDICARE [id number] SP [id number] [place] P[place] 302/307 [id number] SP [id number] MEDICARE [id number] SP [id number] A Medicare [place] Gov't Servi Medicare Primary [id number] Self [id number] BCBS/Blue Card Medigap Part B [id number] Self [id number] [place]/307 [id number] SP [id number] MEDICARE [id number] SP [id number] A MEDICARE [id number] SP [id number] [place]/307 [id number] SP [id number] ANSI-Commercial [id number] ANSI-Medicare Part B [id number] ANSI-Medicare Part B [id number] ANSI-Commercial [id number] ANSI-Medicare Part B [id number] ANSI-Commercial [id number] Problems, Conditions, and Diagnoses Code Display Name Description Problem Type Effective Dates Data Source(s) 705985816 Anemia Anemia Problem 07/10/2020 12:00:00 AM Per VALLEJO ([facility]) 42486210 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 Involvement Problem 01/30/2020 12:00:00 AM EDT [place] (Teja Veronica MD [facility]) [id number] 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 Nonexud R Eye Adv Atrophic W/o Subfoveal Involvement Problem 0 01/30/2020 12:00:00 AM EDT [place] (Teja Veronica MD [facility]) [id number] 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 Involvement Problem 01/30/2020 12:00:00 AM EDT [place] (Teja Veronica MD [facility]) [id number] 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 Nonexud R Eye Adv Atrophic W/o Subfoveal Involvement Problem 0 01/30/2020 12:00:00 AM EDT [place] (Teja Veronica MD [facility]) C44.311 [id number] Basal cell carcinoma of nose Problem 11/15/2019 12:00:00 AM EDT eCW1 ([facility]) C44.629 805379060 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 Torres 08/10/2018 ~PCIOL OS by Dr. Torres 06/08/2018 06/06/2020 12:00:00 AM EST [place] (Baldomero Veronica MD [facility]) Intermediate Eye Exam Established Patient Intermediate Eye Exam Established Patient 06/06/2020 12:00:00 AM EST [place] (Baldomero Veronica MD [facility]) COLONOSCOPY FLX DX W/WO COLLJ SPECIMENS 04/14/2020 12: 00:00 AM EDT MEDENT ([facility]) MRI Brain W/O Contrast, Followed By Contrast 0 12:00:00 AM EDT MEDENT ([facility] ) MRI Brain W/O Contrast, Followed By Contrast 0 12:00:00 AM EDT MEDENT ([facility]) Physical Therapy Eval - Low Complexity 02/19/2020 12:0 0:00 AM EDT MEDENT ([facility] ) Comprehensive eye exam established patient (Signi/Sep Eval. & Man.) Comprehensive eye exam established patient (Signi/Sep Eval. & Man.) 01/30/2020 12:00:00 AM EDT [place] (Teja Veronica MD [facility]) Scodi Retina, with interpretation and re port (WAIVER OF LIABILITY ON FILE (ABN)) Scodi Retina, with interpretation and re port (WAIVER OF LIABILITY ON FILE (ABN)) 01/30/2020 12:00:00 AM EDT [place] (Baldomero Veronica MD [facility]) Extracapsular extraction of lens (procedure) History o f extracapsular cataract extraction PCIOL OD by Dr. Torres 08/10/2018, PCIOL OS by Dr. Torres 06/08/2018 01/30/2020 12:00:00 AM EDT [place]ED (Baldomero id James Veronica MD [facility]) X-Ray Spine Thoracolumbar Ap & Lateral 2 Views 020 12:00:00 AM EDT MEDENT ([facility] ) EXC TR-EXT MAL+FAHAD 2.1-3 CM 08/02/2019 12:00:00 AM ES T eCW1 ([facility]) INTMD RPR S/TR/EXT 7.6-12.5 08/02/2019 12:00:00 AM EST eCW1 ([facility]) TANGNTL BX SKIN SINGLE LES 07/20/2019 12:00:00 AM EST eCW1 ([facility]) Results ID Date Data Source [id number] 08/05/2020 12:26:00 PM EST MEDENT ([facility]) Name Value Range Interpretation Code Description Data Edna rce(s) Supporting Document(s) Surgical pathology study Laboratory test result MEDENT ([facility]) <content>FINAL DIAGNOSIS</content>
< content></content>
<content>A - Small [...]
<content>- SV</content>
<content>08/06/2020 - 0717</content>
<content></content>
<content>Signed ALEJANDRINA BASS MD 08/06/2020 1346</content>
<content></content> ID Date Data Source [id number] 07/31/2020 10:00:00 AM EST [facility] Name Value Range Interpretation Code Description Data Edna rce(s) Supporting Document(s) SARS coronavirus 2 RNA Not Detected [facility] [place] This lab was ordered by [facility] and reported by [facility]. ID Date Data Source [id number] 07/20/2020 10:45:00 AM EST [facility] Name Value Range Interpretation Code Description Data Edna rce(s) Supporting Document(s) SARS coronavirus 2 RNA Not Detected [facility] [place] This lab was ordered by [facility] and reported by [facility]. ID Date Data Source [id number] 04/09/2020 12:00:00 PM EDT [facility] Name Value Range Interpretation Code Description Data Edna rce(s) Supporting Document(s) SARS coronavirus 2 RNA [facility] This lab was ordered by [facility] and reported by [facility]. ID Date Data Source CT ABD & Pelvis w/o Contrast 04/02/2020 12:00:00 AM EDT eCW1 ([facility]) Name Value Range Interpretation Code Description Data Edna rce(s) Supporting Document(s) eCW1 ([facility]) ID Date Data Source [id number] 03/28/2020 12:00:00 AM EDT eCW1 ([facility]) Name Value Range Interpretation Code Description Data Edna rce(s) Supporting Document(s) eCW1 ([facility]) ID Date Data Source [id number] 02/25/2020 10:04:00 AM EDT MEDENT ([facility], [facility]) Name Value Range Interpretation Code Description Data Edna rce(s) Supporting Document(s) Platelets [#/volume] in Blood by Estimate Laboratory test result MEDENT ([facility], [facility]) See progress note ID Date Data Source [id number] 02/25/2020 10:04:00 AM EDT MEDENT ([facility], [facility]) Name Value Range Interpretation Code Description Data Edna rce(s) Supporting Document(s) Neutrophils 76 % 28-66 MEDENT ([facility], [facility]) See progress note Bands 13 % MEDENT ([facility], [facility]) See progress note Lymphocytes 5 % 16-44 MEDENT ([facility], [facility]) See progress note Monocytes 6 % 0-5 MEDENT ([facility], [facility]) See progress note Poikilocytosis Laboratory test result MEDENT ([facility], [facility]) See progress note Anisocytosis Laboratory test result MEDE NT ([facility], [facility]) See progress note Macrocytosis Laboratory test result MEDE NT ([facility], [facility]) See progress note Ovalocytes Laboratory test result MEDENT ([facility], [facility]) See progress note ID Date Data Source [id number] 02/25/2020 10:04:00 AM EDT MEDENT ([facility], [facility]) Name Value Range Interpretation Code Description Data Edna rce(s) Supporting Document(s) Glucose, Fasting 95 mg/dL 70-100 MEDENT ([facility], [facility]) See progress note Creatinine For GFR 0.80 mg/dL 0.55-1.30 MEDENT ([facility], [facility]) See progress note Glomerular Filtration Rate Laboratory test result MEDENT ([facility], [facility]) See progress note Blood Urea Nitrogen 12 mg/dL 7-18 [facility] ([facility]) See progress note Sodium Level 138 meq/L 136-145 MEDENT ([facility], [facility]) See progress note Potassium Serum 4.8 meq/L 3.5-5.1 MEDENT ([facility], [facility]) See progress note Chloride Level 102 meq/L 98-107 MEDENT ([facility], [facility]) See progress note Anion Gap 4 meq/L 8-16 MEDENT ([facility], [facility]) See progress note Carbon Dioxide Level 32 meq/L 21-32 [facility] ( [facility]) See progress note Calcium Level 8.8 mg/dL 8.8-10.2 MEDENT ([facility], [facility]) See progress note ID Date Data Source [id number] 02/25/2020 10:04:00 AM EDT MEDENT ([facility], [facility]) Name Value Range Interpretation Code Description Data Edna rce(s) Supporting Document(s) Hemoglobin 11.7 g/dL 12.0-15.5 MEDENT ([facility], [facility]) See progress note White Blood Count 16.2 10 4.0-10.0 MEDENT ([facility], [facility]) See progress note Red Blood Count 5.05 10 4.00-5.40 MEDENT ([facility], [facility]) See progress note Mean Corpuscular Hemoglobin 23.2 pg 27.0-33.0 MEDENT ([facility], [facility]) See progress note Mean Corpuscular Volume 80.0 fl 80.0-96.0 M EDENT ([facility], [facility]) See progress note Hematocrit 40.4 % 36.0-47.0 MEDENT ([facility], [facility]) See progress note Platelet Count, Automated 371 10 150-450 MEDENT ([facility]) See progress note Red Cell Distribution Width 19.9 % 11.5-14.5 MEDENT ([place] [facility]) See progress note Mean Corpuscular HGB Conc 29.0 g/dL 32.0-36.5 MEDENT ([facility], [facility]) See progress note Nucleated Red Blood Cell % 0.0 % 0-0 MED ENT ([facility], [facility]) See progress note ID Date Data Source [id number] 02/25/2020 09:57:00 AM EDT MEDENT ([facility], [facility]) Name Value Range Interpretation Code Description Data Edna rce(s) Supporting Document(s) Bacteria identified in Urine by Culture Laboratory test result MEDENT ([facility], [facility]) [facility]. ID Date Data Source [id number] 02/05/2020 12:00:00 AM EDT [facility] Citlali Brand MD Patient Name: ULDA JARA [id number] [facility] Date of : 1935[place] [address] Date of Exam: 02/05/2020PH#: Fax: [phone] EXAM: MRI THORACIC SPINE WITHOUT [...] JARA to our office. Electronically Signed - VRBITA 02/05/20 15:07 Name Value Range Interpretation Code Description Data Dena rce(s) Supporting Document(s) Procedure Social History Code Duration Value Status Description Data Source(s ) Smoking 06/11/2020 10:39:03 AM EST Never smoked tobacco (findi ng) completed Never smoked tobacco (finding) [place] (Teja Veronica MD [facility]) Smoking 03/12/2020 03:29:16 PM EDT Never smoked tobacco (findi ng) completed Never smoked tobacco (finding) [place] ([facility] [place]) Smoking 02/25/2020 12:00:00 AM EDT Patient has never smoked co mpleted Patient has never smoked MEDENT ([facility], [facility]) Vital Signs ID Date Data Source UNK [...] Body height 64 [in_i] 64 [in_i] MEDENT ([facility]) 5'4" Diastolic blood pressure 75 mm[Hg] 75 mm[Hg] eCW1 ([facility]) Systolic blood pressure 131 mm[Hg] 131 mm[Hg] e CW1 ([facility]) Body temperature 98.2 [degF] 98.2 [degF] eCW1 ( [facility]) Respiratory rate 16 /min 16 /min eCW1 ([facility]) Heart rate 117 /min 117 /min eCW1 ([facility]) Body mass index (BMI) [Ratio] 19.39 kg/m2 19.39 kg/m2 eCW1 ([facility]) Body height [in_i] eCW1 ([facility]) Body weight 113 [lb_av] 113 [lb_av] eCW1 ([facility]) Body temperature 97.9 [degF] 97.9 [degF] MEDENT [...] Body height 64 [in_i] 64 [in_i] MEDENT ([facility]) 5'4" Body mass index (BMI) [Ratio] 19.8 kg/m2 19.8 k g/m2 MEDENT ([facility], [facility]) Body height 63 [in_i] 63 [in_i] MEDENT ([facility], [facility]) 5'3" Body weight 112.00 [lb_av] 112.00 [lb_av] MEDEN T ([facility], [facility]) Body temperature 98.8 [degF] 98.8 [degF] MEDENT ([facility], [facility]) Oxygen saturation in Arterial blood by Pulse oximetry 93 % 93 % MEDENT ([facility], [facility]) Respiratory rate 28 /min 28 /min MEDENT ( [facility], [facility]) Heart rate 91 /min 91 /min MEDENT ([facility], [facility]) Diastolic blood pressure 78 mm[Hg] 78 mm[Hg] MEDENT ([facility], [facility]) Systolic blood pressure 135 mm[Hg] 135 mm[Hg] M EDENT ([facility], [facility]) Body mass index (BMI) [Ratio] 22.3 kg/m2 22.3 k g/m2 MEDENT ([facility] ) Body weight 118.00 [lb_av] 118.00 [lb_av] MEDEN T ([facility] ) Body height 61 [in_i] 61 [in_i] MEDENT ([facility] ) 5'1" Body temperature 97.3 [degF] 97.3 [degF] MEDENT ([facility] ) Body mass index (BMI) [Ratio] 21.3 kg/m2 21.3 k g/m2 MEDENT ([facility] ) Body weight 120.00 [lb_av] 120.00 [lb_av] MEDEN T ([facility] ) Body height 63 [in_i] 63 [in_i] MEDENT ([facility] ) 5'3" Body temperature 98.4 [degF] 98.4 [degF] MEDENT ([facility] ) Body mass index (BMI) [Ratio] 19.8 kg/m2 19.8 k g/m2 MEDENT ([facility], [facility]) Body height 63 [in_i] 63 [in_i] MEDENT ([facility], [facility]) 5'3" Body weight 112.00 [lb_av] 112.00 [lb_av] MEDEN T ([facility], [facility]) Body temperature 99.0 [degF] 99.0 [degF] MEDENT ([facility], [facility]) Oxygen saturation in Arterial blood by Pulse oximetry 98 % 98 % MEDENT ([facility], [facility]) Heart rate 82 /min 82 /min MEDENT ([facility], [facility]) Diastolic blood pressure 76 mm[Hg] 76 mm[Hg] MEDENT ([facility], [facility]) Systolic blood pressure 122 mm[Hg] 122 mm[Hg] M EDENT ([facility], [facility]) Diastolic blood pressure 78 mm[Hg] 78 mm[Hg] eCW1 ([facility]) Systolic blood pressure 134 mm[Hg] 134 mm[Hg] e CW1 ([facility]) Body mass index (BMI) [Ratio] 19.46 kg/m2 19.46 kg/m2 W1 ([facility]) Body height [in_i] eCW1 ([facility]) Body weight 113.4 [lb_av] 113.4 [lb_av] eCW1 ([facility]) Diastolic blood pressure 77 mm[Hg] 77 mm[Hg] eCW1 ([facility]) Systolic blood pressure 164 mm[Hg] 164 mm[Hg] e CW1 ([facility]) Body temperature 98.1 [degF] 98.1 [degF] eCW1 ( [facility]) Respiratory rate 18 /min 18 /min eCW1 ([facility]) Heart rate 84 /min 84 /min eCW1 ([facility]) Body mass index (BMI) [Ratio] 19.91 kg/m2 19.91 kg/m2 eCW1 ([facility]) Body height [in_us] eCW1 ([facility]) Body weight Measured 116 [lb_av] 116 [lb_av] eC W1 ([facility]) Diastolic blood pressure 72 mm[Hg] 72 mm[Hg] eCW1 ([facility]) Systolic blood pressure 160 mm[Hg] 160 mm[Hg] e CW1 ([facility]) Body temperature 97.9 [degF] 97.9 [degF] eCW1 ( [facility]) Respiratory rate 18 /min 18 /min eCW1 ([facility]) Heart rate 88 /min 88 /min eCW1 ([facility]) Body mass index (BMI) [Ratio] 19.91 kg/m2 19.91 kg/m2 eCW1 ([facility]) Body height [in_us] eCW1 ([facility]) Body weight Measured 116 [lb_av] 116 [lb_av] eC W1 ([facility])
[2020-08-11 13:22] LABS: INR 0.96
[2020-08-11 13:23] LABS: PARTIAL THROMBOPLASTIN TIME 35.2 SECONDS (24.2-38.5)
[2020-08-11 14:24] VITALS: BP_SYST 164
[2020-08-11] MEDS ORDERED: DOXY100C37 PO (16:17)
== END 2020-08-11 14:42 | disposition home or self-care (01) ==
LOC: M ED 10:16
DX: R04.0 Epistaxis (principal); E11.9 Type 2 diabetes mellitus without complications; E03.9 Hypothyroidism, unspecified; M81.0 Age-related osteoporosis without current pathological fracture; K21.9 Gastro-esophageal reflux disease without esophagitis; H35.30 Unspecified macular degeneration; Z79.899 Other long term (current) drug therapy; Z79.890 Hormone replacement therapy; Z79.82 Long term (current) use of aspirin; Z88.0 Allergy status to penicillin; Z88.1 Allergy status to other antibiotic agents; Z88.8 Allergy status to other drugs, medicaments and biological substances

== ENCOUNTER → 2020-08-14 | Outpatient (CLI) | payer MEDICARE, BC, MEDICAID ==
[~2020-08-14] MED LIST changes: +DOXY100C37 PO
[2020-08-14 16:13] LABS: HEMATOCRIT 39.1 % (36.0-47.0); HEMOGLOBIN 11.1 g/dl (12.0-15.5); MEAN CORPUSCULAR HEMOGLOBIN 23.1 pg (27.0-33.0); MEAN CORPUSCULAR HGB CONC 28.4 g/dl (32.0-36.5); MEAN CORPUSCULAR VOLUME 81.5 fl (80.0-96.0); PLATELET COUNT, AUTOMATED 301 10^3/uL (150-450); WHITE BLOOD COUNT 15.9 10^3/uL (4.0-10.0)
[2020-08-14 16:48] LABS: ALBUMIN 3.6 GM/DL (3.2-5.2); ALT/SGPT 28 U/L (12-78); BILIRUBIN,TOTAL 0.4 MG/DL (0.2-1.0); BLOOD UREA NITROGEN 22 MG/DL (7-18); CALCIUM LEVEL 8.9 MG/DL (8.8-10.2); CARBON DIOXIDE LEVEL 31 MEQ/L (21-32); CHLORIDE LEVEL 105 MEQ/L (98-107); CREATININE FOR GFR 0.92 MG/DL (0.55-1.30); GLOMERULAR FILTRATION RATE > 60.0 (>32); GLUCOSE, FASTING 87 MG/DL (70-100); IRON (FE) 30 UG/DL (50-170); PERCENT SATURATION 7.1 % (13.2-45.0); POTASSIUM SERUM 4.4 MEQ/L (3.5-5.1); SODIUM LEVEL 141 MEQ/L (136-145); TOTAL IRON BINDING CAPACITY 420 UG/DL (250-450); TOTAL PROTEIN 6.4 GM/DL (6.4-8.2)
== END ==
LOC: M LAB 14:39
PROVIDERS: ATTEND Family Medicine
DX: D64.9 Anemia, unspecified (principal); R53.83 Other fatigue; E03.9 Hypothyroidism, unspecified

== ENCOUNTER → 2020-11-14 | Outpatient (REF) | payer MEDICARE, BC, MEDICAID ==
[~2020-11-14] MED LIST changes: -ALEN70TA82; +ALEN70TA82 PO; +COVI100V IM; -DOK1CAP7; +DOK1CAP7 PO; -DOXY100C37 PO; +DOXY1CAP62 PO; +PRESCAP PO; +SENN1TAB41 PO
== END ==
LOC: M LAB REF 17:05
PROVIDERS: ATTEND Dermatology
DX: C44.629 Squamous cell carcinoma of skin of left upper limb, including shoulder (principal); C44.622 Squamous cell carcinoma of skin of right upper limb, including shoulder
CPT/HCPCS: 11102; 11103; 17110; 88305; G0463

== ENCOUNTER → 2020-12-05 | Outpatient (REF) | payer MEDICARE, BC, MEDICAID | LOC: M LAB REF 18:01 | PROVIDERS: ATTEND Dermatology | DX: C44.629 Squamous cell carcinoma of skin of left upper limb, including shoulder (principal); L90.5 Scar conditions and fibrosis of skin ==

== ENCOUNTER → 2020-12-12 | Outpatient (REF) | payer MEDICARE, BC, MEDICAID ==
[2020-12-12 17:38] LABS: BASO % 0.2 % (0.0-1.0); EOS % 0.1 % (0.0-3.0); HEMATOCRIT 41.3 % (36.0-47.0); LYMPH # 1.2 10^3/uL (1.5-5.0); LYMPH % 8.6 % (24.0-44.0); MEAN CORPUSCULAR HEMOGLOBIN 24.2 pg (27.0-33.0); MEAN CORPUSCULAR HGB CONC 29.1 g/dl (32.0-36.5); MEAN CORPUSCULAR VOLUME 83.4 fl (80.0-96.0); MONO # 0.3 10^3/uL (0.0-0.8); MONO % 2.2 % (2.0-8.0); NEUTROPHILS # 12.5 10^3/uL (1.5-8.5); NEUTROPHILS % 86.2 % (36.0-66.0); PLATELET COUNT, AUTOMATED 280 10^3/uL (150-450); RED BLOOD COUNT 4.95 10^6/uL (4.00-5.40); WHITE BLOOD COUNT 14.5 10^3/uL (4.0-10.0)
[2020-12-12 18:10] LABS: ALBUMIN 3.4 GM/DL (3.2-5.2); BILIRUBIN,TOTAL 0.3 MG/DL (0.2-1.0); CALCIUM LEVEL 8.8 MG/DL (8.8-10.2); CREATININE FOR GFR 1.04 MG/DL (0.55-1.30); GLOMERULAR FILTRATION RATE 53.5 (>32); PERCENT SATURATION 6.7 % (13.2-45.0); POTASSIUM SERUM 5.1 MEQ/L (3.5-5.1); TOTAL PROTEIN 6.3 GM/DL (6.4-8.2)
== END ==
LOC: M LAB REF 11:32
PROVIDERS: ATTEND Internal Medicine Medical Oncology
DX: D45 Polycythemia vera (principal)

== ENCOUNTER 2020-12-26 15:21 | Emergency (ER) | payer MEDICARE, BC, MEDICAID ==
[~2020-12-26] VITALS: Ht 162.6 cm; Wt 49.1 kg
--- NOTE | 2020-12-26 19:30 | REP ---
INDICATION: lightheadedness, fall COMPARISON: 02/25/2020 TECHNIQUE: Portable AP view of the chest FINDINGS: Mediastinum and cardiac silhouette stable. Lung daly demonstrate stable chronic changes without acute consolidation, effusion, or pneumothorax. Skeletal structures demonstrate bilateral healed rib fractures. IMPRESSION: No acute cardiopulmonary process appreciated. <Electronically signed by Kody Mcrae > 12/26/20 [id number]
--- NOTE | 2020-12-26 19:52 | REPVR ---
PROCEDURE INFORMATION: Exam: CT Head Without Contrast Exam date and time: 12/26/2020 7:08 PM Age: 85 years old Clinical indication: Injury or trauma; Fall; Blunt trauma (contusions or hematomas); Consciousness not specified; Additional info: Fall, hit head TECHNIQUE: Imaging protocol: Computed tomography of the head without contrast. Radiation optimization: All CT scans at this facility use at least one of these dose optimization techniques: automated exposure control; mA and/or kV adjustment per patient size (includes targeted exams where dose is matched to clinical indication); or iterative reconstruction. COMPARISON: CT Head without contrast 01/29/2019 7:50 AM FINDINGS: Brain: There is moderate diffuse cerebellar atrophy. There is moderate age related parenchymal volume loss. White matter changes are demonstrated in the subcortical, centrum semiovale and periventricular white matter consistent with chronic age related small vessel ischemic changes. Right frontal extra-axial calcification may represent a densely calcified meningioma. No significant mass effect. Findings are unchanged. Bilateral basal ganglia calcifications. Cerebral ventricles: The degree of ventricular dilatation is normal for age and/or degree of atrophy present. Paranasal sinuses: Visualized sinuses are unremarkable. No fluid levels. Mastoid air cells: Visualized mastoid air cells are well aerated. Bones/joints: Unremarkable. No acute fracture. Soft tissues: Unremarkable. IMPRESSION: 1. There is moderate diffuse cerebellar atrophy. 2. There is moderate age related parenchymal volume loss. White matter changes are demonstrated in the subcortical, centrum semiovale and periventricular white matter consistent with chronic age related small vessel ischemic changes. 3. The degree of ventricular dilatation is normal for age and/or degree of atrophy present. 4. Right frontal extra-axial calcification may represent a densely calcified meningioma. No significant mass effect. Findings are unchanged. 5. No acute intracranial findings. Electronically signed by: Madhu Cuba On 12/26/2020 19:51:59 PM
[2020-12-26 19:56] LABS: BASO % 0.2 % (0.0-1.0); EOS % 0.1 % (0.0-3.0); HEMATOCRIT 42.4 % (36.0-47.0); HEMOGLOBIN 12.4 g/dl (12.0-15.5); LYMPH % 6.7 % (24.0-44.0); MEAN CORPUSCULAR HEMOGLOBIN 23.7 pg (27.0-33.0); MEAN CORPUSCULAR HGB CONC 29.2 g/dl (32.0-36.5); MEAN CORPUSCULAR VOLUME 81.1 fl (80.0-96.0); MONO # 0.4 10^3/uL (0.0-0.8); MONO % 2.8 % (2.0-8.0); NEUTROPHILS # 13.2 10^3/uL (1.5-8.5); NEUTROPHILS % 85.8 % (36.0-66.0); PLATELET COUNT, AUTOMATED 233 10^3/uL (150-450); RED BLOOD COUNT 5.23 10^6/uL (4.00-5.40); WHITE BLOOD COUNT 15.4 10^3/uL (4.0-10.0)
--- NOTE | 2020-12-26 19:57 | REPVR ---
PROCEDURE INFORMATION: Exam: CT Lumbar Spine Without Contrast Exam date and time: 12/26/2020 7:08 PM Age: 85 years old Clinical indication: Injury or trauma; Fall; Blunt trauma (contusions or hematomas); Additional info: Fall, hit head TECHNIQUE: Imaging protocol: Computed tomography images of the lumbar spine without contrast. Radiation optimization: All CT scans at this facility use at least one of these dose optimization techniques: automated exposure control; mA and/or kV adjustment per patient size (includes targeted exams where dose is matched to clinical indication); or iterative reconstruction. COMPARISON: No relevant prior studies available. FINDINGS: Vertebrae: No acute traumatic segmental lumbar vertebral malalignment. Mild degenerative spondylolisthesis L4-L5 measures 3 mm with hypertrophic facet change; Vertebral body height and morphology is maintained. No acute fracture or destructive process. Discs/Spinal canal/Neural foramina: Intervertebral disc height is maintained for age. Lower lumbar spine degenerative facet arthropathy is present, most significant L4-L5 Vasculature: No dilatation of the imaged distal abdominal aorta. Soft tissues: No significant soft tissue abnormality of the imaged retroperitoneum. IMPRESSION: No fracture or other acute abnormality involving the lumbar spine. Electronically signed by: Donnell Monreal On 12/26/2020 19:57:18 PM
--- NOTE | 2020-12-26 19:58 | REPVR ---
PROCEDURE INFORMATION: Exam: CT Cervical Spine Without Contrast Exam date and time: 12/26/2020 7:08 PM Age: 85 years old Clinical indication: Injury or trauma; Fall; Blunt trauma; Additional info: Fall, hit head TECHNIQUE: Imaging protocol: Computed tomography images of the cervical spine without contrast. Radiation optimization: All CT scans at this facility use at least one of these dose optimization techniques: automated exposure control; mA and/or kV adjustment per patient size (includes targeted exams where dose is matched to clinical indication); or iterative reconstruction. COMPARISON: CT Head without contrast 01/29/2019 7:50 AM FINDINGS: Bones/joints: Osteoporosis. Degenerative changes both temporomandibular joints. Discs/Spinal canal/Neural foramina: There are degenerative changes demonstrated in the atlantoaxial joint at C1-C2 with osteophytes and joint space narrowing. The transverse ligament is unremarkable. Disc space narrowing at C5-C6 and C6-C7 with uncovertebral osteophytes. Moderate bilateral foraminal stenosis at C5, moderate to severe bilateral foraminal stenosis at C6, findings secondary to osteophytic encroachment. Auditory system: Retained secretions right external auditory canal. Lungs: Lung apices are normal. Soft tissues: See "Discs/Spinal canal/Neural foramina" finding. IMPRESSION: Degenerative spondylosis. No acute findings. Electronically signed by: Madhu Cuba On 12/26/2020 19:58:30 PM
[2020-12-26 20:14] LABS: INR 0.88; PROTHROMBIN TIME 12.1 SECONDS (12.5-14.3)
[2020-12-26 20:15] LABS: PARTIAL THROMBOPLASTIN TIME 35.7 SECONDS (24.2-38.5)
[2020-12-26 20:21] LABS: CK-MB VALUE MASS 2.6 NG/ML (<3.6); CPK CREATINE PHOSPHOKINASE 82 U/L (26-192); FREE THYROXINE INDEX 3.7 % (1.3-4.8); MB/CK RELATIVE INDEX 3.17 (< OR =4); T UPTAKE 30 % (30-39); THYROXINE (T4) 12.2 UG/DL (4.5-12.0); TROPONIN I < 0.02 NG/ML (< 0.10)
[2020-12-26 22:17] VITALS: BP 123/70
--- NOTE | 2020-12-27 17:43 | ECGEPIP ---
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
== END 2020-12-26 22:26 | disposition home or self-care (01) ==
LOC: M ED 15:21
DX: S30.0XXA Contusion of lower back and pelvis, initial encounter (principal); W01.198A Fall on same level from slipping, tripping and stumbling with subsequent striking against other object, initial encounter; Y92.89 Other specified places as the place of occurrence of the external cause; Y93.89 Activity, other specified; Y99.8 Other external cause status; R42 Dizziness and giddiness; E11.9 Type 2 diabetes mellitus without complications; Z79.890 Hormone replacement therapy; Z79.899 Other long term (current) drug therapy; Z88.1 Allergy status to other antibiotic agents; Z88.0 Allergy status to penicillin; Z88.8 Allergy status to other drugs, medicaments and biological substances

== ENCOUNTER 2021-01-04 13:42 | Inpatient (IN) | payer MEDICARE, BC, MEDICAID ==
[~2021-01-04] VITALS: Ht 162.6 cm; Wt 48.6 kg
--- NOTE | 2021-01-04 15:04 | REP ---
INDICATION: right-sided rib pain. COMPARISON: AP chest 12/26/2020 TECHNIQUE: AP supine chest, 4 right rib images FINDINGS: AP chest: Heart is left ventricular configuration and there is prominent mitral annular calcification. Left atrial enlargement also noted. A tortuous calcified aorta noted unchanged airway intact. No widening of mediastinum. Lungs well inflated. There are bilateral sclerotic ribs with the healing fractures or healed fractures on the left in the posterior 6th through 9th ribs and posterolateral 10th ununited rib fracture. On the right posterior and posterolateral 5th through 8th rib fractures with the sclerosis and healing. Bones are demineralized. There are degenerative changes in the spine and shoulders. No free air. Right ribs the right posterior and posterolateral 5th through 8th ribs show sclerosis and healing of slightly displaced fractures. There is a posterolateral 10th rib fracture with sclerotic margins which appears ununited. There is sclerosis in the body of the scapula as an old healed fracture. Sclerosis over the glenoid is also seen uncertain significance. Clavicle remainder of the scapula and humerus intact. Bones demineralized with old wedge compression deformities midthoracic spine as seen on previous lateral chest. There is also a healing posterior lateral 11th rib fracture on this right side. Oblique view shows a left 11th rib healing fracture which is not united. IMPRESSION: 1. Lungs well inflated without infiltrate effusion atelectasis or mass. There are multiple bilateral rib fractures with sclerosis representing healing or healed fractures as well as bilateral 11th and left 10th rib ununited fractures. I do not see definite new or acute fracture compared to the 12/26/2020 prior portable chest. 2. Cardiomegaly with left atrial and ventricular enlargement but no pulmonary edema. 3. Bones demineralized with compression deformities midthoracic spine which were better seen on a lateral chest 02/25/2020. <Electronically signed by Charbel Staton > 01/04/21 1500
--- NOTE | 2021-01-04 15:40 | REP ---
INDICATION: pain after fall 12/26/20. COMPARISON: CT AP 04/02/2020 TECHNIQUE: Three views FINDINGS: LVAD view shows the pelvic ring intact. SI joints are symmetric. I do not see evidence of a fracture line through the right or left sacral ala there foramina appear symmetric and grossly intact. The bones are demineralized which reduces the sensitivity of the examination somewhat. Hip joint spaces are preserved. Pubic rami and symphysis pubis were unremarkable. The lower lumbar spine at L4 and L5 shows some facet arthropathy without compression deformity there is no visible displaced fracture of the sacrum on the lateral view. IMPRESSION: 1. Sacrum without visible displaced fracture and no compression deformities L4 and L5 vertebral bodies on the lateral view. 2. Pelvic ring, SI joints, visualized iliac wings, acetabulae and ischia also without visible or displaced fracture. Demineralization may limit sensitivity of the plain radiographic examination. <Electronically signed by Charbel Staton > 01/04/21 [id number]
[2021-01-04] MEDS ORDERED: FLEET ENEMA PR STA (18:13)
[2021-01-04] MEDS ORDERED: LIDOCAINE 4% CREAM 5GM (LMX4) TOP ONE (18:15)
[2021-01-04] MEDS ORDERED: traMADol 50 MG TAB PO ONE (18:15)
[2021-01-04] MEDS ORDERED: MED REC COMMENT (20:19)
[2021-01-04] MEDS ORDERED: CALC500T31 PO (20:19)
--- NOTE | 2021-01-04 21:03 | REPVR ---
PROCEDURE INFORMATION: Exam: XR Pelvis Exam date and time: 01/04/2021 8:17 PM Age: 85 years old Clinical indication: Hip pain and pelvic pain; Left hip; Additional info: Fall 9 days ago, still severe pain TECHNIQUE: Imaging protocol: XR pelvis. Views: 3 or more views. COMPARISON: CT ABD PELVIS W/O CONTRAST 04/02/2020 5:04 PM FINDINGS: Bones/joints: Minimal calcification is noted along the superior margins of the superior pubic rami, right greater than left which are similar to the prior study of 04/02/2020. No acute fracture. Soft tissues: Unremarkable. IMPRESSION: Negative pelvis. Electronically signed by: Faustino Suh On 01/04/2021 21:02:18 PM
--- NOTE | 2021-01-04 21:03 | REPVR ---
PROCEDURE INFORMATION: Exam: XR Left Femur Exam date and time: 01/04/2021 8:17 PM Age: 85 years old Clinical indication: Pain; Hip and thigh; Left; Additional info: Fall, still severe pain TECHNIQUE: Imaging protocol: XR Left femur. Views: 2 views. COMPARISON: CR Sacrum, Coccyx 01/04/2021 2:38 PM FINDINGS: Bones/joints: Unremarkable. No acute fracture. Soft tissues: Unremarkable. IMPRESSION: Negative left femur. Electronically signed by: Faustino Suh On 01/04/2021 21:03:26 PM
[2021-01-04 21:21] LABS: RSV AMPLIFICATION NEGATIVE (NEGATIVE)
[2021-01-04] MEDS ORDERED: NORCO, ANEXSIA 5/325MG TABLET (HYDROcodone/ACETAMINOPHEN) PO ONE (21:50)
[2021-01-04 22:15] LABS: BASO # 0.1 10^3/uL (0.0-0.2); BASO % 0.3 % (0.0-1.0); EOS % 0.1 % (0.0-3.0); HEMATOCRIT 40.8 % (36.0-47.0); HEMOGLOBIN 12.4 g/dl (12.0-15.5); LYMPH # 0.6 10^3/uL (1.5-5.0); LYMPH % 3.5 % (24.0-44.0); MEAN CORPUSCULAR HEMOGLOBIN 24.4 pg (27.0-33.0); MEAN CORPUSCULAR HGB CONC 30.4 g/dl (32.0-36.5); MEAN CORPUSCULAR VOLUME 80.2 fl (80.0-96.0); MONO # 0.4 10^3/uL (0.0-0.8); MONO % 2.3 % (2.0-8.0); NEUTROPHILS # 14.3 10^3/uL (1.5-8.5); NEUTROPHILS % 89.4 % (36.0-66.0); PLATELET COUNT, AUTOMATED 256 10^3/uL (150-450); RED BLOOD COUNT 5.09 10^6/uL (4.00-5.40)
[2021-01-04 22:44] LABS: ALBUMIN 3.1 GM/DL (3.2-5.2); ALT/SGPT 26 U/L (12-78); BILIRUBIN,TOTAL 0.5 MG/DL (0.2-1.0); BLOOD UREA NITROGEN 16 MG/DL (7-18); CALCIUM LEVEL 8.2 MG/DL (8.8-10.2); CARBON DIOXIDE LEVEL 27 MEQ/L (21-32); CHLORIDE LEVEL 107 MEQ/L (98-107); CPK CREATINE PHOSPHOKINASE 126 U/L (26-192); CREATININE FOR GFR 0.56 MG/DL (0.55-1.30); GLOMERULAR FILTRATION RATE > 60.0 (>32); GLUCOSE, FASTING 92 MG/DL (70-100); PHOSPHORUS LEVEL 3.3 MG/DL (2.5-4.9); POTASSIUM SERUM 3.8 MEQ/L (3.5-5.1); SODIUM LEVEL 140 MEQ/L (136-145)
[2021-01-04] MEDS ORDERED: diphenhydrAMINE 50MG/ML VIAL (J1200) IV PRN (23:25)
[2021-01-04] MEDS ORDERED: MAALOX 30 ML SUSP *UDC PO PRN (23:25)
[2021-01-04] MEDS ORDERED: EPIDURAL/PCA KEYS XX PRN (23:25)
[2021-01-04] MEDS ORDERED: MOM 30ML SUSPENSION UDC PO PRN (23:25)
[2021-01-04] MEDS ORDERED: NALOXONE INJ 0.4MG/1ML VIAL (J2310 PER 1MG) IV PRN (23:25)
[2021-01-04] MEDS ORDERED: ACETAMINOPHEN TAB 650MG DOSE (2X325MG) PO PRN (23:25)
--- NOTE | 2021-01-04 23:28 | HPEPDOC ---
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 She fell backwards and hit her head; there is a lapse in her memory regarding all of the events surrounding the fall but she thinks she lost consciousness; when she was brought to the ER for evaluations she was c/o dizziness and bilateral hip pain. CT of the head, neck and LS spine were unremarkable. She was sent home with instructions to take acetaminophen for the pain. Over the next few days she was able to walk but her pain got much worse to the paint that she cant stand without assistance and cant go to the bathroom on her own. The pain, which she describes as unbearable is located at her left bottom and is worse when she moves. She is normally active and walks at least 1 mile a day; over the last few days she hasnt been able to do so. She has also been more constipated despite taking stool softeners. 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 Her brother and sister both had cancers (she couldnt recall the type). ALLERGIES: Please see below. HOME MEDICATIONS: Please see below. PHYSICAL EXAMINATION: Vital Signs Date Time Temp Pulse Resp B/P (MAP) Pulse Ox O2 Delivery O2 Flow Rate FiO2 01/04/21 13:43 97.7 88 18 130/75 (93) 96 Room Air GENERAL APPEARANCE: slim build / NAD HEENT: EOMI / MMM&P CARDIOVASCULAR: RRR/NMRG / no LE edema LUNGS: CTAB on RA ABDOMEN: contour distended / soft & NT w palpation MUSCULOSKELETAL: NCAT / she is able to move both arms and the right leg/ passive movement of the left hip is limited by pain INTEGUMENT: not flushed or diaphoretic NEUROLOGICAL: CN 2-12 intact / speech not dysarthric PSYCHIATRIC: A&O x3 / able to understand and follow all commands LABORATORY DATA: IMAGING: Xray ribs IMPRESSION: 1. Lungs well inflated without infiltrate effusion atelectasis or mass. There are multiple bilateral rib fractures with sclerosis representing healing or healed fractures as well as bilateral 11th and left 10th rib ununited fractures. I do not see definite new or acute fracture compared to the 12/26/2020 prior portable chest.2. Cardiomegaly with left atrial and ventric ular enlargement but no pulmonary edema. 3. Bones demineralized with compression deformities midthoracic spine which were better seen on a lateral chest 02/25/2020. Xray sacrum / coccyx IMPRESSION: 1. Sacrum without visible displaced fracture and no compression deformities L4 and L5 vertebral bodies on the lateral view.2. Pelvic ring, SI joints, visualized iliac wings, acetabulae and ischia also without visible or displaced fracture. Demineralization may limit sensitivity of the plain radiographic examination. Xray pelvis IMPRESSION: Negative pelvis. Xray femur IMPRESSION: Negative left femur. 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 pain. PLAN: 1 Left posterior gluteal? 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 Plan: Ruxolitinib 7 Macular degeneration Plan: Ocuvite DVT PROPHYLAXIS: Lovenox (Talya score is 6, pharmacological px is indicated) DISPOSITION: home vs ARU after at least 2 midnight's stay Home Medications Scheduled Alendronate Sodium (Alendronate Sodium) 70 Mg Tablet, 70 MG PO QWEEK TUESDAY Aspirin (Aspirin) 81 Mg Tab.chew, 81 MG PO DAILY Calcium Carbonate (Oyster Shell Calcium) 500 Mg Tablet, 500 MG PO BID Docusate Sodium (Dok) 100 Mg Capsule, 100 MG PO BID Furosemide (Furosemide) 20 Mg Tab, 20 MG PO DAILY Gabapentin (Neurontin) 100 Mg Cap, 100 MG PO QHS Levothyroxine Sodium (Levoxyl) 75 Mcg Tab, 75 MCG PO 6XWK NOT ON TUESDAY [place]-3 Fatty Acids/Fish Oil (Fish Oil 1,000 mg Capsule) 1 Each Capsule, 1,000 MG PO DAILY Omeprazole (Omeprazole) 40 Mg Capsule.dr, 40 MG DAILY Potassium Citrate (Potassium Citrate ER) 15 Meq Tab, 15 MG PO BID Ruxolitinib Phosphate (Jakafi) 15 Mg Tablet, 1 TAB PO BID Vit A/Vit C/Vit E/Zinc/Copper (Preservision Areds Softgel) 1 Each Capsule, 1 CAP PO BID Scheduled PRN Acetaminophen (Acetaminophen) 325 Mg Tablet, 325 MG PO Q4H PRN for PAIN Oxycodone/Acetaminophen (Oxycodone-Acetaminophen 5-325) 1 Each Tablet, 1 TAB PO Q4HP PRN for MODERATE PAIN (PS 5-7) Polyethylene Glycol 3350 (Miralax) 119 Gm Powder, 17 GM PO DAILY PRN for CONSTIPATION dilute in 8 ounces of water or juice Psyllium Husk (with Sugar) (Metamucil Powder) 575 Gm Powder, 1 PKT PO DAILY PRN for CONSTIPATION Miscellaneous Medications [Med Rec Comment] PT DRINKS V8 JUICE AND PUTS PRUNE JUICE ON CEREAL EVERY MORNING Allergies Coded Allergies: Penicillins (Verified Allergy, Severe, HIVES, 08/11/20) Cephalosporins (Verified Allergy, Unknown, 08/11/20) ciprofloxacin (Verified Allergy, Unknown, 08/11/20) naproxen (Verified Allergy, Unknown, 08/11/20) A-FIB/CHADSVASC A-FIB History Current/History of A-Fib/PAF?: No Current PO Anticoag Therapy: No IVANIA MCGUIRE MD Jan 04, 2021 23:28
[2021-01-05] VITALS (7 sets, daily range): BP systolic 118–159; BP diastolic 62–84
[2021-01-05] MEDS ORDERED: MORPHINE 2 MG/ML 1ML VIAL (J2270) IV ONE (00:05)
[2021-01-05] MEDS ORDERED: SENNA 8.6 MG TAB (SENOKOT) PO PRN (01:10)
[2021-01-05] MEDS: NS 1,000 ML IV SCH ×2 (01:24→23:25)
[2021-01-05] MEDS: MORPHINE 1MG/ML IN 0.9% NACL 100ML IV BAG IV PRN (02:44)
[2021-01-05] MEDS: MIRALAX *UNIT DOSE* 17GM PACKET PO SCH ×3 (02:49→20:32)
[2021-01-05] MEDS: DOCUSATE SODIUM 100MG CAPSULE PO SCH ×3 (02:49→20:32)
[2021-01-05] MEDS: GABAPENTIN 100 MG CAP PO SCH ×2 (02:49→20:32)
[2021-01-05] MEDS: OCUVITE 1 TAB PO SCH ×3 (02:50→20:32)
[2021-01-05] MEDS: ONDANSETRON 4MG/2ML VIAL IV PRN ×2 (03:50→10:18)
--- NOTE | 2021-01-05 03:58 | REPVR ---
PROCEDURE INFORMATION: Exam: US Duplex Left Lower Extremity Veins, Limited Exam date and time: 01/05/2021 3:44 AM Age: 85 years old Clinical indication: Pain; Other: Lt hip; Additional info: Left hip pain /hx of dvt / pls include ankle to groin area TECHNIQUE: Imaging protocol: Real-time Duplex ultrasound of the Left Lower Extremity with 2-D eason scale, color Doppler flow and spectral waveform analysis with image documentation. Limited exam focused on the left lower extremity veins. COMPARISON: US Duplex, Ext,LOWER veins,unilat 02/28/2019 9:58 AM FINDINGS: Left deep veins: Unremarkable. The common femoral, femoral, proximal profunda femoral and popliteal veins are patent without thrombus. Normal Doppler waveforms. Normal compressibility and/or augmentation response. Left superficial veins: Unremarkable. Saphenofemoral junction is patent without thrombus. Soft tissues: Unremarkable. IMPRESSION: Negative left lower extremity venous duplex exam without evidence of deep venous thrombosis. Electronically signed by: Faustino Suh On 01/05/2021 03:58:21 AM
[2021-01-05] MEDS: LEVOTHYROXINE 75MCG TABLET (0.075MG) PO SCH (05:31)
[2021-01-05 06:12] LABS: HEMATOCRIT 41.2 % (36.0-47.0); HEMOGLOBIN 12.3 g/dl (12.0-15.5); MEAN CORPUSCULAR HEMOGLOBIN 24.2 pg (27.0-33.0); MEAN CORPUSCULAR HGB CONC 29.9 g/dl (32.0-36.5); MEAN CORPUSCULAR VOLUME 80.9 fl (80.0-96.0); PLATELET COUNT, AUTOMATED 230 10^3/uL (150-450); RED BLOOD COUNT 5.09 10^6/uL (4.00-5.40); WHITE BLOOD COUNT 17.2 10^3/uL (4.0-10.0)
[2021-01-05 06:29] LABS: BLOOD UREA NITROGEN 16 MG/DL (7-18); CALCIUM LEVEL 8.4 MG/DL (8.8-10.2); CARBON DIOXIDE LEVEL 27 MEQ/L (21-32); CHLORIDE LEVEL 105 MEQ/L (98-107); CREATININE FOR GFR 0.51 MG/DL (0.55-1.30); GLOMERULAR FILTRATION RATE > 60.0 (>32); GLUCOSE, FASTING 110 MG/DL (70-100); POTASSIUM SERUM 3.5 MEQ/L (3.5-5.1); SODIUM LEVEL 139 MEQ/L (136-145)
[2021-01-05] MEDS: ASPIRIN 81 MG CHEW TABLET PO SCH (10:10)
[2021-01-05] MEDS: FUROSEMIDE 20 MG TAB PO SCH (10:10)
[2021-01-05] MEDS: ENOXAPARIN 40MG/0.4ML SYRINGE (J1650 PER 10MG) SC SCH (10:11)
--- NOTE | 2021-01-05 14:29 | IPNPDOC ---
Text Note Date of Service The patient was seen on 01/05/21. NOTE SUBJECTIVE: Thin older female, lying in bed supine, resting quietly. She reports no current pain at rest, however minimal movement beyond dragging foot towards buttocks on left will cause pain. She was able to ambulate while holding onto objects as recently as 4 days prior to representation however since that time her pain levels have been too great. She denies fevers/chills. PHYSICAL EXAMINATION: VITAL SIGNS: see below GENERAL APPEARANCE: Quietly resting but wakens to soft voice, NAD HEENT: Atraumatic, normocephalic. Eyes are anicteric. Mucous membranes are pink and moist CARDIOVASCULAR: NSR, regular rhythm, no noted murmurs LUNGS: CTAB ABDOMEN: Normoactive sounds, soft, nondistended. No rebound tenderness or guarding. EXTREMITIES: No lower extremity edema, no apparent rashes/petechiae. Active hip flexion/extension intact bilaterally, limited active and passive internal and external rotation of hip joint on left 2/2 pain. 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 pain. PLAN: #Left posterior gluteal v left hip pain: Patient has minimal pain now at rest however does have pain with active and passive ROM of left hip joint. There is marked TTP superficially over gluteal musculature on the left and RADHA/FADDIR was compromised 2/[address] scan is pending and will contact Ortho if non displaced occult fracture is appreciated. Otherwise will have patient work with Physical Therapy and titrate medications for pain. Meds: Tylenol PRN mild pain Morphine IV PRN severe pain CT scan pending If no occult fracture will transition to NSAID medications and work with physical therapy Contact Ortho if occult fracture is appreciated #Constipation Stable with small BM this morning. Meds: Docusate BID Miralax BID Mag oxide PRN Senna 2 tab q12 PRN # HTN Patient has improved blood pressures this morning and is currently on Lasix. 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
--- NOTE | 2021-01-05 14:36 | REP ---
INDICATION: CT hip/pelvis: L posterior hip/gluteal pain - fall 12/26/20.. COMPARISON: X-rays 01/04/2021 CT TECHNIQUE: Noncontrast images through the pelvis with soft tissue and bone window axial images in bone window reconstructions in coronal and sagittal planes FINDINGS: The bone windows show at the inferior aspect of the right SI joint a cortical disruption of the 1st sacral segment anteriorly as seen on axial image 55 and coronal image 70 with arrows pointing to it. There are a few other areas with some linear lucency suggesting vascular grooves. I cannot see other definite cortical step-off in the iliac bones and remainder of the SI joint on both sides. The acetabulae, ischia and hips are without fracture or focal lesion. There are some soft tissue calcifications about the greater trochanter laterally on the right and superiorly on the left. Lumbar spine shows a few mm of anterolisthesis of L4 on L5 felt related to facet arthropathy. There is no spondylolysis. Some vascular calcifications of the aorta without aneurysm. No compression deformities. Small bowel loops and colon in the abdomen and pelvis portion of this exam were unremarkable. The aorta is calcifications but no aneurysm. Visible kidneys show no stone hydronephrosis hydroureter, ureteral stone or mass the bladder is well distended without wall thickening, mass or stone. There is no visible pelvic mass. Trace amount of the free fluid in the deep pelvis. No ventral or inguinal hernia nor pathologic sized inguinal adenopathy. Portions of the liver, spleen, pancreas and adrenal gland seen were unremarkable. The gallbladder is distended but without calcified stone. IMPRESSION: 1. Cortical disruption of the anterior inferior aspect of the right S1 sacral segment at the inferior aspect of the SI joint as described. This is not visible radiographically and is exceedingly difficult to see by high definition CT. There are a few other lucent lines in the sacrum without the cortical disruption and these may be vascular channels although other nondisplaced fractures could certainly be present. 2. Degenerative changes of the spine and hips without acute finding. 3. Small bowel loops, colon, urinary tract all grossly unremarkable. 4. The gallbladder distended without calcified stone or mass. <Electronically signed by Charbel Staton > 01/05/21 [id number]
[2021-01-06 02:00] VITALS: BP 114/61
[2021-01-06] MEDS: MORPHINE 1MG/ML IN 0.9% NACL 100ML IV BAG IV PRN (03:09)
[2021-01-06 06:00] VITALS: BP 115/68
[2021-01-06] MEDS: LEVOTHYROXINE 75MCG TABLET (0.075MG) PO SCH (06:01)
[2021-01-06] MEDS: ENOXAPARIN 40MG/0.4ML SYRINGE (J1650 PER 10MG) SC SCH (08:34)
[2021-01-06] MEDS: ONDANSETRON 4MG/2ML VIAL IV PRN (08:34)
[2021-01-06] MEDS: ASPIRIN 81 MG CHEW TABLET PO SCH (08:34)
[2021-01-06] MEDS: DOCUSATE SODIUM 100MG CAPSULE PO SCH ×2 (08:35→21:00)
[2021-01-06] MEDS: OCUVITE 1 TAB PO SCH ×2 (08:35→21:00)
[2021-01-06] MEDS: MIRALAX *UNIT DOSE* 17GM PACKET PO SCH ×2 (08:35→21:38)
[2021-01-06] MEDS: FUROSEMIDE 20 MG TAB PO SCH (08:35)
[2021-01-06 10:00] VITALS: BP 113/62
[2021-01-06 14:00] VITALS: BP 116/63
[2021-01-06 18:00] VITALS: BP 142/84
--- NOTE | 2021-01-06 18:35 | IPNPDOC ---
Date Seen The patient was seen on 01/06/21. Progress Note SUBJECTIVE: Patient complains of sacral/buttock pain and constipation. Appears uncomfortable, reportedly primarily due to constipation. Has been on a good amount of stool regimen without relief, started on suppository today. No other acute complaints reported. OBJECTIVE PHYSICAL EXAMINATION: VITAL SIGNS: Please see below. General: Alert, mild discomfort Eyes: Normal sclera, EOMI HENT: Atraumatic Cardiovascular: Normal rate, normal rhythm. Pulmonary: Clear to auscultation b/l, no wheezing GI: Soft, nontender, nondistended Skin: Warm and dry Neuro: CN grossly intact. No focal deficits. Strengths equal b/l. Psych: oriented x 3 LABORATORY DATA, IMAGING STUDIES, MICROBIOLOGY: Please see below. ASSESSMENT AND PLAN: 1. L. hip and gluteal pain - fell about 10 days prior with now severe pain, on [employer] pump started in ED but patient very worried about using. - Will transition patient to low dose IV morphine PRN for now. - CT scan shows cortical disruption of S1 sacral segment. Few lucent line sin sacrum that may represent vascular channels, cannot rule out potential nondisplaced fractures. - Ortho at [facility], will review CT that is pushed through. - PT and OT. 2. Constipation - On Mylanta, miralax and colace. - Milk of magnesia and senna PRN was not effective and discontinued. - Glycerin suppository ordered. Will move next to enema if also unsuccessful. 3. HTN - lasix daily? 4. Hypothyroidism - levothyroxine 75 mcg daily. 5. JAK2+/EXON 12 PCV progressed to MDS - c/w Ruxolitinib DVT ppx: Lovenox Code status: Full code Discharge: likely back to assisted living vs. short term Rehab pending on progress DISPOSITION: Pending PT recommendation. VS, I&O, 24H, Fishbone Vital Signs/I&O Vital Signs Date Time Temp Pulse Resp B/P (MAP) Pulse Ox O2 Delivery O2 Flow Rate FiO2 01/06/21 18:00 98.4 83 16 142/84 (103) 91 Room Air I&O- Last 24 Hours up to 6 AM 01/06/21 06:00 Intake Total 270 ml Output Total 0 ml Balance 270 ml MARI DAVIS MD Jan 06, 2021 18:35
[2021-01-06] MEDS: GABAPENTIN 100 MG CAP PO SCH (21:00)
[2021-01-06] MEDS: MORPHINE 2 MG/ML 1ML VIAL (J2270) IV PRN (21:37)
[2021-01-06 22:00] VITALS: BP 150/74
[2021-01-06] MEDS: PERCOCET 5MG/325MG TAB PO PRN (22:36)
[2021-01-07] MEDS: LEVOTHYROXINE 75MCG TABLET (0.075MG) PO SCH (05:55)
[2021-01-07 06:00] VITALS: BP 135/68
[2021-01-07] MEDS: FUROSEMIDE 20 MG TAB PO SCH (08:49)
[2021-01-07] MEDS: ENOXAPARIN 40MG/0.4ML SYRINGE (J1650 PER 10MG) SC SCH (08:51)
[2021-01-07] MEDS: DOCUSATE SODIUM 100MG CAPSULE PO SCH ×2 (08:51→20:00)
[2021-01-07] MEDS: OCUVITE 1 TAB PO SCH ×2 (08:51→20:00)
[2021-01-07] MEDS: ASPIRIN 81 MG CHEW TABLET PO SCH (08:51)
[2021-01-07] MEDS: PERCOCET 5MG/325MG TAB PO PRN ×3 (08:51→20:01)
[2021-01-07] MEDS: MIRALAX *UNIT DOSE* 17GM PACKET PO SCH ×2 (08:51→20:01)
[2021-01-07 09:17] LABS: HEMATOCRIT 40.3 % (36.0-47.0); HEMOGLOBIN 12.2 g/dl (12.0-15.5); MEAN CORPUSCULAR HEMOGLOBIN 24.5 pg (27.0-33.0); MEAN CORPUSCULAR HGB CONC 30.3 g/dl (32.0-36.5); MEAN CORPUSCULAR VOLUME 80.9 fl (80.0-96.0); PLATELET COUNT, AUTOMATED 244 10^3/uL (150-450); RED BLOOD COUNT 4.98 10^6/uL (4.00-5.40); WHITE BLOOD COUNT 18.4 10^3/uL (4.0-10.0)
[2021-01-07 09:38] LABS: BLOOD UREA NITROGEN 20 MG/DL (7-18); CALCIUM LEVEL 8.1 MG/DL (8.8-10.2); CARBON DIOXIDE LEVEL 29 MEQ/L (21-32); CHLORIDE LEVEL 100 MEQ/L (98-107); CREATININE FOR GFR 0.71 MG/DL (0.55-1.30); GLOMERULAR FILTRATION RATE > 60.0 (>32); GLUCOSE, FASTING 137 MG/DL (70-100); POTASSIUM SERUM 3.9 MEQ/L (3.5-5.1); SODIUM LEVEL 136 MEQ/L (136-145)
[2021-01-07] MEDS: GLYCERIN ADULT SUPP PR PRN (13:26)
[2021-01-07 14:00] VITALS: BP 131/72
--- NOTE | 2021-01-07 18:54 | IPNPDOC ---
Date Seen The patient was seen on 01/07/21. Progress Note SUBJECTIVE: Patient complains of persistent sacral pain although talks mostlly about constipation. Patient has yet to try the glycerin suppository yet but will try today. Pain medications adjusted. ARU evaluation took place and accepted but unable to transfer today. OBJECTIVE PHYSICAL EXAMINATION: VITAL SIGNS: Please see below. General: Alert, mild discomfort Eyes: Normal sclera, EOMI HENT: Atraumatic Cardiovascular: Normal rate, normal rhythm. Pulmonary: Clear to auscultation b/l, no wheezing GI: Soft, nontender, nondistended Skin: Warm and dry Neuro: CN grossly intact. No focal deficits. Strengths equal b/l. Psych: oriented x 3 LABORATORY DATA, IMAGING STUDIES, MICROBIOLOGY: Please see below. ASSESSMENT AND PLAN: 1. L. hip and gluteal pain - fell about 10 days prior with now severe pain. Started on oxycodone and morphine PRN. - CT scan shows cortical disruption of S1 sacral segment. Few lucent line sin sacrum that may represent vascular channels, cannot rule out potential nondisplaced fractures. - Ortho at [facility] consulted and CT reviewed with Dr. Acharya. Do not recommend any surgical interventions at this time. LSO brace ordered for comfort. c/w PT and OT. - Plan for rehab in ARU. 2. Constipation - On Mylanta, miralax and colace. - Milk of magnesia and senna PRN was not effective and discontinued. - Glycerin suppository ordered. Will move next to enema if also unsuccessful. 3. HTN - lasix daily? 4. Hypothyroidism - levothyroxine 75 mcg daily. 5. JAK2+/EXON 12 PCV progressed to MDS - c/w Ruxolitinib DVT ppx: Lovenox Code status: Full code Disposition: ARU likely tomorrow. VS, I&O, 24H, Fishbone Vital Signs/I&O Vital Signs Date Time Temp Pulse Resp B/P (MAP) Pulse Ox O2 Delivery O2 Flow Rate FiO2 01/07/21 14:00 98.2 94 16 131/72 (91) 90 Room Air I&O- Last 24 Hours up to 6 AM 01/07/21 06:00 Intake Total 510 ml Output Total 60 ml Balance 450 ml Laboratory Data 24H LABS Laboratory Tests 2 01/07/21 08:52: Nucleated Red Blood Cells % (auto) 0.1H, Anion Gap 7L, Glomerular Filtration Rate > 60.0, Calcium Level 8.1L CBC/BMP Laboratory Tests 01/07/21 08:52 MARI DAVIS MD Jan 07, 2021 18:54
[2021-01-07] MEDS: GABAPENTIN 100 MG CAP PO SCH (20:00)
[2021-01-07 20:03] VITALS: BP 147/95
[2021-01-08] MEDS: PERCOCET 5MG/325MG TAB PO PRN ×2 (03:59→14:03)
[2021-01-08 06:00] VITALS: BP 112/66
[2021-01-08] MEDS: LEVOTHYROXINE 75MCG TABLET (0.075MG) PO SCH (06:14)
[2021-01-08] MEDS: MORPHINE 2 MG/ML 1ML VIAL (J2270) IV PRN (06:51)
[2021-01-08] MEDS: ASPIRIN 81 MG CHEW TABLET PO SCH (09:17)
[2021-01-08] MEDS: DOCUSATE SODIUM 100MG CAPSULE PO SCH (09:17)
[2021-01-08] MEDS: FUROSEMIDE 20 MG TAB PO SCH (09:17)
[2021-01-08] MEDS: MIRALAX *UNIT DOSE* 17GM PACKET PO SCH (09:18)
[2021-01-08] MEDS: ENOXAPARIN 40MG/0.4ML SYRINGE (J1650 PER 10MG) SC SCH (09:18)
[2021-01-08] MEDS: OCUVITE 1 TAB PO SCH (09:18)
[2021-01-08] MEDS: GLYCERIN ADULT SUPP PR PRN (13:31)
[2021-01-08] MEDS ORDERED: PERCOCET PO (13:42)
[2021-01-08 14:00] VITALS: BP 138/78
--- NOTE | 2021-01-08 14:05 | DS.PDOC ---
Discharge Summary General Date of Admission Jan 04, 2021 at 23:25 Date of Discharge 01/08/2021 Attending Physician: DONALD MELARA MD MPH Discharge Summary PROCEDURES PERFORMED DURING STAY: [None]. ADMITTING DIAGNOSES: Left hip pain s/p fall HTN Myeloproliferative disorder DISCHARGE DIAGNOSES: Left hip pain s/p fall S1 cortical irregularity without evidence of fracture HTN Myeloproliferative disorder COMPLICATIONS/CHIEF COMPLAINT: Unable To Ambulate. 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 She fell backwards and hit her head; there is a lapse in her memory regarding all of the events surrounding the fall but she thinks she lost consciousness; when she was brought to the ER for evaluations she was c/o dizziness and bilateral hip pain. CT of the head, neck and LS spine were unremarkable. She was sent home with instructions to take acetaminophen for the pain. Over the next few days she was able to walk but her pain got much worse to the paint that she cant stand without assistance and cant go to the bathroom on her own. The pain, which she describes as unbearable is located at her left bottom and is worse when she moves. She is normally active and walks at least 1 mile a day; over the last few days she hasnt been able to do so. She has also been more constipated despite taking stool softeners. HOSPITAL COURSE: Sister Michelle was managed with oral pain medications and CT scan of her hips/pelvis showed a cortical irregularity along the S1 joint that was indeterminate for non displaced fracture. [facility] was consulted regarding this finding and determined that there was no surgical intervention and no amendments to weight bearing status. Thus Sister Michelle was evaluated by physical therapy and determined to benefit from ARU stay. On day of discharge she was afebrile and with good pain control on tylenol and percocet and was transferred to ARU for additional management. DISCHARGE MEDICATIONS: Please see below. ALLERGIES: Please see below. PHYSICAL EXAMINATION ON DISCHARGE: VITAL SIGNS: see below GENERAL APPEARANCE: Awake, lying flat in bed, NAD HEENT: Atraumatic, normocephalic. Eyes are anicteric. Mucous membranes are pink and moist CARDIOVASCULAR: NSR, regular rhythm, no noted murmurs LUNGS: CTAB ABDOMEN: Normoactive sounds, soft, nondistended. No rebound tenderness or gu arding. EXTREMITIES: No lower extremity edema, no apparent rashes/petechiae. No obvious deformities, able to flex and extend hip, limited internal and external rotation of left hip 2/2 pain NEUROLOGICAL: Awake, speech is clear, AOx3 LABORATORY DATA: Please see below. IMAGING: XR Ribs: IMPRESSION: 1. Lungs well inflated without infiltrate effusion atelectasis or mass. There are multiple bilateral rib fractures with sclerosis representing healing or healed fractures as well as bilateral 11th and left 10th rib ununited fractures. I do not see definite new or acute fracture compared to the 12/26/2020 prior portable chest. 2. Cardiomegaly with left atrial and ventricular enlargement but no pulmonary edema. 3. Bones demineralized with compression deformities midthoracic spine which were better seen on a lateral chest 02/25/2020. XR Sacrum: IMPRESSION: 1. Sacrum without visible displaced fracture and no compression deformities L4 and L5 vertebral bodies on the lateral view. 2. Pelvic ring, SI joints, visualized iliac wings, acetabulae and ischia also without visible or displaced fracture. Demineralization may limit sensitivity of the plain radiographic examination. XR Pelvis: IMPRESSION: Negative pelvis. XR Femur L: IMPRESSION: Negative left femur. LLE Duplex: IMPRESSION: Negative left lower extremity venous duplex exam without evidence of deep venous thrombosis. CT hip/pelvis L: IMPRESSION: 1. Cortical disruption of the anterior inferior aspect of the right S1 sacral segment at the inferior aspect of the SI joint as described. This is not visible radiographically and is exceedingly difficult to see by high definition CT. There are a few other lucent lines in the sacrum without the cortical disruption and these may be vascular channels although other nondisplaced fractures could certainly be present. 2. Degenerative changes of the spine and hips without acute finding. 3. Small bowel loops, colon, urinary tract all grossly unremarkable. 4. The gallbladder distended without calcified stone or mass. PROGNOSIS: Good ACTIVITY: [As tolerated]. DIET: Regular DISCHARGE PLAN: Continue to work with ARU to improve mobility and pain and follow up with your PCM with 1 week of discharge from hospital DISPOSITION: . ITEMS TO FOLLOWUP ON ON OUTPATIENT: Physical therapy requirements DISCHARGE CONDITION: [Stable]. TIME SPENT ON DISCHARGE: 33 minutes. Vital Signs/I&Os Vital Signs Date Time Temp Pulse Resp B/P (MAP) Pulse Ox O2 Delivery O2 Flow Rate FiO2 01/08/21 07:01 17 93 Room Air 01/08/21 06:00 98.4 84 112/66 (81) I&O- Last 24 Hours up to 6 AM 01/08/21 06:00 Intake Total 668 ml Output Total 100 ml Balance 568 ml Discharge Medications Scheduled Alendronate Sodium (Alendronate Sodium) 70 Mg Tablet, 70 MG PO QWEEK, (Reported) TUESDAY Aspirin (Aspirin) 81 Mg Tab.chew, 81 MG PO DAILY, (Reported) Calcium Carbonate (Oyster Shell Calcium) 500 Mg Tablet, 500 MG PO BID, (Reported) Docusate Sodium (Dok) 100 Mg Capsule, 100 MG PO BID, (Reported) Furosemide (Furosemide) 20 Mg Tab, 20 MG PO DAILY, (Reported) Gabapentin (Neurontin) 100 Mg Cap, 100 MG PO QHS, (Reported) Levothyroxine Sodium (Levoxyl) 75 Mcg Tab, 75 MCG PO 6XWK, (Reported) NOT ON TUESDAY Norris-3 Fatty Acids/Fish Oil (Fish Oil 1,000 mg Capsule) 1 Each Capsule, 1,000 MG PO DAILY, (Reported) Omeprazole (Omeprazole) 40 Mg Capsule.dr, 40 MG DAILY, (Reported) Potassium Citrate (Potassium Citrate ER) 15 Meq Tab, 15 MG PO BID, (Reported) Ruxolitinib Phosphate (Jakafi) 15 Mg Tablet, 1 TAB PO BID Vit A/Vit C/Vit E/Zinc/Copper (Preservision Areds Softgel) 1 Each Capsule, 1 CAP PO BID, (Reported) Scheduled PRN Acetaminophen (Acetaminophen) 325 Mg Tablet, 325 MG PO Q4H PRN for PAIN, (Reported) Oxycodone/Acetaminophen (Oxycodone-Acetaminophen 5-325) 1 Each Tablet, 1 TAB PO Q4HP PRN for MODERATE PAIN (PS 5-7) Polyethylene Glycol 3350 (Miralax) 119 Gm Powder, 17 GM PO DAILY PRN for CONSTIPATION, (Reported) dilute in 8 ounces of water or juice Psyllium Husk (with Sugar) (Metamucil Powder) 575 Gm Powder, 1 PKT PO DAILY PRN for CONSTIPATION, (Reported) Miscellaneous Medications [Med Rec Comment] , (Reported) PT DRINKS V8 JUICE AND PUTS PRUNE JUICE ON CEREAL EVERY MORNING Allergies Coded Allergies: Penicillins (Verified Allergy, Severe, HIVES, 2/22/21) Cephalosporins (Verified Allergy, Unknown, 08/11/20) ciprofloxacin (Verified Allergy, Unknown, 08/11/20) naproxen (Verified Allergy, Unknown, 08/11/20) DONALD MELARA MD MPH Jan 08, 2021 14:05
== END 2021-01-08 14:32 | DRG 552 ==
LOC: M ED 13:42 → M ED INP 23:25 → ENRESERV 01-05 00:13 → M MSPAV 01-05 01:45
PROVIDERS: ADMIT Internal Medicine; ATTEND General Practice
DX: M53.3 Sacrococcygeal disorders, not elsewhere classified (principal); S22.43XD Multiple fractures of ribs, bilateral, subsequent encounter for fracture with routine healing; K59.00 Constipation, unspecified; E11.40 Type 2 diabetes mellitus with diabetic neuropathy, unspecified; D46.9 Myelodysplastic syndrome, unspecified; Z79.899 Other long term (current) drug therapy; Z79.82 Long term (current) use of aspirin; Z88.0 Allergy status to penicillin; Z88.8 Allergy status to other drugs, medicaments and biological substances; E03.9 Hypothyroidism, unspecified; M81.0 Age-related osteoporosis without current pathological fracture; H35.30 Unspecified macular degeneration; W18.30XD Fall on same level, unspecified, subsequent encounter; Y92.009 Unspecified place in unspecified non-institutional (private) residence as the place of occurrence of the external cause

== ENCOUNTER 2021-01-07 12:54 | Inpatient (IN) | payer MEDICARE, BC, MEDICAID ==
[~2021-01-07] VITALS: Ht 160 cm; Wt 50.8 kg
[~2021-01-07 12:54] MED LIST changes: +MED REC COMMENT
[2021-01-08] MEDS ORDERED: ONDANSETRON 4 MG ORAL DISINTEGRATING TAB PO PRN (10:55)
[2021-01-08] MEDS ORDERED: BISACODYL 10 MG SUPP PR PRN (10:55)
--- NOTE | 2021-01-08 11:06 | HPEPDOC ---
Complaint Evaluation Supervisor Note DATE OF ADMISSION: 01-08-21 DATE OF SERVICE: 01-09-21 TIME OF ADMISSION: Please refer to physician's admission order. 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 X-ray of sacrum was negative, however given high suspicion of occult fracture CT Pelvis was ordered showing, Cortical disruption of the anterior inferior aspect of the right S1 sacral segment at the inferior aspect of the SI joint as describedThere are a few other lucent lines in the sacrum without the cortical disruption and these may be vascular channels although other nondisplaced fractures could certainly be present. Imaging was reviewed with HERNÁN hurtado who did not recommend surgical intervention and her pain from her acute her sacral fracture was treated with both oral and IV pain medications. She had constipation, worsening of her baseline leukocytosis, tachycardia, and significant mobility/ADL impairments for which she was deemed medically appropriate for discharge to ARU on 01-08-21. REVIEW OF SYSTEMS: The following is a completed review of systems and has been reviewed. Review of systems otherwise unremarkable. PAIN: Patient self reports sacral pain EYES: [No recent vision changes EARS, NOSE, & THROAT: No throat pain, or dysphagia, or rhinorrhea CARDIOVASCULAR: Denies chest pain or palpitations PULMONARY: Denies shortness of breath GASTROINTESTINAL:+ constipation GENITOURINARY: denies dysuria MUSCULOSKELETAL: +sacral pain NEUROLOGICAL: +peripheral polyneuropathy HEMATOLOGICAL: denies easy bruising SKIN: denies rash PSYCHIATRIC: Unremarkable All other review of systems found to be negative. PAST MEDICAL HISTORY: as per HPI PAST SURGICAL HISTORY: As per HPI, left wrist surgery, cataract surgery ALLERGIES: Please see below. MEDICATIONS: Please see below. FAMILY HISTORY: Cancer SOCIAL HISTORY: no etoh/illicit drugs/smoking DIET: low sodium PHYSICAL EXAMINATION: VITAL SIGNS: Please see below. GENERAL: Pleasant and cooperative. No acute distress. HEENT: PERRL. Extraocular movements intact. Clear conjunctiva CARDIOVASCULAR: Regular rate and rhythm. No murmurs, rubs, or gallops LUNGS: Clear to auscultation bilaterally. No wheezes. No rhonchi ABDOMEN: Soft, nontender, nondistended. Positive bowel sounds. Normal active bowel sounds NEUROLOGICAL: Alert and oriented times three. Cranial nerves II through XII grossly intact. Sensation diminished to light touch in stocking pattern EXTREMITIES: 5\5 strength bilateral upper extremities. 4\5 strength right lower extremity. 4/5 strength in left lower extremity. LABORATORY DATA: Please see below. IMAGING: Imaging documentation personally reviewed by record FUNCTIONAL STATUS: Premorbid: Independent with all activities of daily life as well as mobility On Admission: Mod-assist for bed mobility, functional transfers, ambulation, dressing, toileting GOALS: Mod-I for bed mobility, functional transfers, ambulation, dressing, toileting ASSESSMENT:85 F-year-old with past medical history of osteoporosis who presents status post fall with sacral fracture PLAN: 1. Rehab- PT.OT advance mobility and ADLs, strengthen/stretch/maintain ROM all 4limbs 2. Ortho- hx of osteoporosis s/p fall with Sacral fracture with pain significantly limiting her mobility, will start intranasal calcitonin to help with bone pain, c/u lidoderm patching, tylenol, oxycodone prn (patient hoping to avoid using this), tizanidine prn, will increase gabapentin dosing to 200mg TID -f/u ortho on d/c 3. CArdiac- hx of diastolic CHF per last ECHO report, daily weights, fluid restrict, c/u lasix - on ASA 81 mg daily 4. Resp- monitor for infection 5. Endo- hx of hypothryoidism c/u synthriod -diabetic peripheral polyneuropathy, diet controlled 6. DVT ppx- c/u lovenox, teds, recent doppler negative for left sided DVT 7. GI ppx- protonix 8. Heme- myelodysplastic syndrome with leukocytosis, monitor 9. Dispo- tbd POST ADMISSION PHYSICIAN EVALUATION: Medical and functional status: Description of medical status, medical assessment: As above. Rehabilitation diagnosis and current and prior cold morbid medical conditions as above. Risk of complications and plans to mitigate them as above. Description of functional status current status is as above. Prior status as above. Status compared to preadmission: There are no clinically significant differences between the patient's current status and the information described on the preadmission screening document. Treatment plan anticipated: Treatment plan is as described above. Required disciplines including physical therapy, occupational therapy, others as noted above Intensity of services: 3 hours a day, 6 days a week. Special considerations: There are no specific special or safety considerations that would likely preclude immediate implementation of an intensive rehabilitation program or subsequently influence the plan of care ATTESTATION: Considering all the information above, it is my best judgment that this patient requires intensive rehabilitation therapy as described above and an inpatient hospital environment due to the complexity of nursing, medical, and rehabilitation needs required by the patient. Furthermore, this patient can reasonably be expected to participate in an benefit from an inpatient rehabilitation stay with an interdisciplinary team approach to the delivery of rehabilitation care under the direction and supervision of rehabilitation physician PROGNOSIS: Excellent ESTIMATED LENGTH OF STAY:10-14 days. PROJECTED DISCHARGE DESTINATION: Home with family support and any durable medical equipment required to increase functional safety and mobility. TIME SPENT COUNSELING AND COORDINATING INITIAL CARE: Greater than 70 minutes. Vital Signs Vital Signs Date Time Temp Pulse Resp B/P (MAP) Pulse Ox O2 Delivery O2 Flow Rate FiO2 01/08/21 14:51 98.0 86 20 148/73 (98) 93 Room Air Home Medications Scheduled Alendronate Sodium (Alendronate Sodium) 70 Mg Tablet, 70 MG PO QWEEK, (Reported) TUESDAY Aspirin (Aspirin) 81 Mg Tab.chew, 81 MG PO DAILY, (Reported) Calcium Carbonate (Oyster Shell Calcium) 500 Mg Tablet, 500 MG PO BID, (Reported) Docusate Sodium (Dok) 100 Mg Capsule, 100 MG PO BID, (Reported) Furosemide (Furosemide) 20 Mg Tab, 20 MG PO DAILY, (Reported) Gabapentin (Neurontin) 100 Mg Cap, 100 MG PO QHS, (Reported) Levothyroxine Sodium (Levoxyl) 75 Mcg Tab, 75 MCG PO 6XWK, (Reported) NOT ON TUESDAY [place]-3 Fatty Acids/Fish Oil (Fish Oil 1,000 mg Capsule) 1 Each Capsule, 1,000 MG PO DAILY, (Reported) Omeprazole (Omeprazole) 40 Mg Capsule.dr, 40 MG DAILY, (Reported) Potassium Citrate (Potassium Citrate ER) 15 Meq Tab, 15 MG PO BID, (Reported) Ruxolitinib Phosphate (Jakafi) 15 Mg Tablet, 1 TAB PO BID Vit A/Vit C/Vit E/Zinc/Copper (Preservision Areds Softgel) 1 Each Capsule, 1 CAP PO BID, (Reported) Scheduled PRN Acetaminophen (Acetaminophen) 325 Mg Tablet, 325 MG PO Q4H PRN for PAIN, (Reported) Oxycodone/Acetaminophen (Oxycodone-Acetaminophen 5-325) 1 Each Tablet, 1 TAB PO Q4HP PRN for MODERATE PAIN (PS 5-7) Polyethylene Glycol 3350 (Miralax) 119 Gm Powder, 17 GM PO DAILY PRN for CONSTIPATION, (Reported) dilute in 8 ounces of water or juice Psyllium Husk (with Sugar) (Metamucil Powder) 575 Gm Powder, 1 PKT PO DAILY PRN for CONSTIPATION, (Reported) Allergies Coded Allergies: Penicillins (Verified Allergy, Severe, HIVES, 08/11/20) Cephalosporins (Verified Allergy, Unknown, 08/11/20) ciprofloxacin (Verified Allergy, Unknown, 08/11/20) naproxen (Verified Allergy, Unknown, 08/11/20) A-FIB/CHADSVASC A-FIB History Current/History of A-Fib/PAF?: No Current PO Anticoag Therapy: No VINH CALLEJAS MD Jan 08, 2021 11:06
[2021-01-08] MEDS ORDERED: PERCOCET PO (13:42)
[2021-01-08 14:51] VITALS: BP 148/73
[2021-01-08] MEDS: DOCUSATE SODIUM 100MG CAPSULE PO SCH ×2 (15:07→21:02)
[2021-01-08] MEDS: ACETAMINOPHEN 500 MG TAB PO SCH ×2 (15:08→21:02)
[2021-01-08] MEDS ORDERED: FLEET ENEMA PR ONE (16:00)
[2021-01-08] MEDS: REMEDY PHYTOPLEX Z-GUARD PASTE 113GM TUBE (FROM STOREROOM PRODUCT) TOP SCH ×2 (17:00→21:00)
[2021-01-08] MEDS: LIDOCAINE 5% (LIDODERM) PATCH TD SCH (17:54)
[2021-01-08 20:00] VITALS: BP 138/80
[2021-01-08] MEDS ORDERED: GABAPENTIN 100 MG CAP PO SCH (21:00)
[2021-01-08] MEDS: SENNA 8.6 MG TAB (SENOKOT) PO SCH (21:02)
[2021-01-08] MEDS: tiZANidine 4 MG TAB PO PRN (21:02)
[2021-01-08] MEDS: **NOTE PATIENT COMMENT** MISC XX SCH (21:04)
[2021-01-09] MEDS: LEVOTHYROXINE 75MCG TABLET (0.075MG) PO SCH (05:29)
[2021-01-09 06:00] VITALS: BP 123/59
[2021-01-09 07:43] LABS: HEMATOCRIT 37.4 % (36.0-47.0); HEMOGLOBIN 11.6 g/dl (12.0-15.5); MEAN CORPUSCULAR HEMOGLOBIN 24.7 pg (27.0-33.0); MEAN CORPUSCULAR VOLUME 79.6 fl (80.0-96.0); PLATELET COUNT, AUTOMATED 222 10^3/uL (150-450); WHITE BLOOD COUNT 10.8 10^3/uL (4.0-10.0)
[2021-01-09 08:08] LABS: LYMPHOCYTES 1 % (16-44); MONOCYTES 1 % (0-5); NEUTROPHILS 80 % (28-66); PLATELET ESTIMATE NORMAL (NORMAL)
[2021-01-09] MEDS: DOCUSATE SODIUM 100MG CAPSULE PO SCH ×3 (08:46→20:37)
[2021-01-09] MEDS: OCUVITE 1 TAB PO SCH (08:46)
[2021-01-09] MEDS: FUROSEMIDE 20 MG TAB PO SCH (08:46)
[2021-01-09] MEDS: ASPIRIN 81MG ENTERIC TABLET PO SCH (08:46)
[2021-01-09] MEDS: ACETAMINOPHEN 500 MG TAB PO SCH ×3 (08:47→20:37)
[2021-01-09] MEDS: MIRALAX *UNIT DOSE* 17GM PACKET PO SCH (08:47)
[2021-01-09] MEDS: ENOXAPARIN 40MG/0.4ML SYRINGE (J1650 PER 10MG) SC SCH (08:47)
[2021-01-09] MEDS: PANTOPRAZOLE 40MG TAB (PROTONIX) PO SCH (08:47)
[2021-01-09] MEDS: REMEDY PHYTOPLEX Z-GUARD PASTE 113GM TUBE (FROM STOREROOM PRODUCT) TOP SCH ×4 (08:48→20:39)
[2021-01-09] MEDS: LIDOCAINE 5% (LIDODERM) PATCH TD SCH (08:48)
[2021-01-09] MEDS ORDERED: CALCITONIN NASAL SPRAY 3.7 ML BTL SCH (11:15)
[2021-01-09] MEDS: oxyCODONE 5MG TAB PO PRN (12:49)
[2021-01-09] MEDS: tiZANidine 4 MG TAB PO PRN ×2 (12:54→20:38)
[2021-01-09 14:00] VITALS: BP 128/65
[2021-01-09] MEDS ORDERED: FLEET ENEMA PR ONE (15:00)
--- NOTE | 2021-01-09 16:52 | IPNPDOC ---
Text Note Date of Service The patient was seen on 01/09/21. NOTE Subjective: No any acute events overnight. Patient denied fever, chills, sammi sea, secondary to surgery VITAL SIGNS: Please see below. GENERAL: Pleasant and cooperative. No acute distress. HEENT: PERRL. Extraocular movements intact. Clear conjunctiva CARDIOVASCULAR: Regular rate and rhythm. No murmurs, rubs, or gallops LUNGS: Clear to auscultation bilaterally. No wheezes. No rhonchi ABDOMEN: Soft, nontender, nondistended. Positive bowel sounds. Normal active bowel sounds NEUROLOGICAL: Alert and oriented times three. Cranial nerves II through XII grossly intact. EXTREMITIES: 5\5 strength bilateral upper extremities. 4\5 strength right lower extremity. 4/5 strength in left lower extremity. Assessment and plan Patient is 85 years old female with past medical history of myelodysplastic syndrome, history of DVT was transferred to ARU for continuation of physical the rapy Status post sacral fracture/osteoporosis Alendronate Vitamin D/calcium PT/OT Diastolic CHF Not in acute exacerbation Continue home meds I's and O's Hypothyroidism Continue Synthroid Constipation On Mylanta, miralax and colace. Hypertension Blood pressure under control Continue to monitor VS,Fishbone, I+O VS, Fishbone, I+O Laboratory Tests 01/09/21 07:17 Vital Signs Date Time Temp Pulse Resp B/P (MAP) Pulse Ox O2 Delivery O2 Flow Rate FiO2 01/09/21 16:23 18 01/09/21 14:00 98.6 80 128/65 (86) 94 Room Air l I&O- Last 24 Hours up to 6 AM 01/09/21 06:00 Intake Total 180 ml Output Total 400 ml Balance -220 ml CAROL GUERRERO DO Jan 09, 2021 16:52
[2021-01-09] MEDS: GABAPENTIN 100 MG CAP PO SCH ×2 (17:54→20:38)
[2021-01-09 20:00] VITALS: BP 111/58
[2021-01-09] MEDS: SENNA 8.6 MG TAB (SENOKOT) PO SCH (20:37)
[2021-01-09] MEDS: **NOTE PATIENT COMMENT** MISC XX SCH (20:39)
[2021-01-10 06:00] VITALS: BP 142/65
[2021-01-10] MEDS: LEVOTHYROXINE 75MCG TABLET (0.075MG) PO SCH (06:26)
[2021-01-10] MEDS ORDERED: ALENDRONATE 35MG TABLET PO SCH (07:00)
[2021-01-10 07:30] LABS: BLOOD UREA NITROGEN 18 MG/DL (7-18); CALCIUM LEVEL 7.8 MG/DL (8.8-10.2); CARBON DIOXIDE LEVEL 29 MEQ/L (21-32); CHLORIDE LEVEL 101 MEQ/L (98-107); CREATININE FOR GFR 0.51 MG/DL (0.55-1.30); GLOMERULAR FILTRATION RATE > 60.0 (>32); GLUCOSE, FASTING 88 MG/DL (70-100); POTASSIUM SERUM 3.1 MEQ/L (3.5-5.1); SODIUM LEVEL 139 MEQ/L (136-145)
[2021-01-10] MEDS: ASPIRIN 81MG ENTERIC TABLET PO SCH (08:50)
[2021-01-10] MEDS: DOCUSATE SODIUM 100MG CAPSULE PO SCH ×3 (08:50→20:50)
[2021-01-10] MEDS: CALCIUM/VITAMIN D 500 MG TAB PO SCH (08:51)
[2021-01-10] MEDS: FUROSEMIDE 20 MG TAB PO SCH (08:51)
[2021-01-10] MEDS: PANTOPRAZOLE 40MG TAB (PROTONIX) PO SCH (08:51)
[2021-01-10] MEDS: GABAPENTIN 100 MG CAP PO SCH ×3 (08:51→20:50)
[2021-01-10] MEDS: OCUVITE 1 TAB PO SCH (08:51)
[2021-01-10] MEDS: oxyCODONE 5MG TAB PO PRN (08:52)
[2021-01-10] MEDS: ENOXAPARIN 40MG/0.4ML SYRINGE (J1650 PER 10MG) SC SCH (08:52)
[2021-01-10] MEDS: LIDOCAINE 5% (LIDODERM) PATCH TD SCH (08:52)
[2021-01-10] MEDS: ACETAMINOPHEN 500 MG TAB PO SCH ×3 (08:52→20:51)
[2021-01-10] MEDS: REMEDY PHYTOPLEX Z-GUARD PASTE 113GM TUBE (FROM STOREROOM PRODUCT) TOP SCH ×4 (08:55→20:51)
[2021-01-10] MEDS: MIRALAX *UNIT DOSE* 17GM PACKET PO SCH (08:55)
[2021-01-10] MEDS: tiZANidine 4 MG TAB PO PRN (08:59)
[2021-01-10] MEDS ORDERED: POTASSIUM CHLORIDE 10 MEQ SR TABLET PO ONE ×2 (09:30→12:00)
[2021-01-10 14:00] VITALS: BP 111/56
[2021-01-10 20:00] VITALS: BP 113/67
[2021-01-10] MEDS: **NOTE PATIENT COMMENT** MISC XX SCH (20:51)
[2021-01-10] MEDS: SENNA 8.6 MG TAB (SENOKOT) PO SCH (20:51)
[2021-01-11] MEDS: LEVOTHYROXINE 75MCG TABLET (0.075MG) PO SCH (05:43)
[2021-01-11 06:27] VITALS: BP 132/58
[2021-01-11 07:00] LABS: BLOOD UREA NITROGEN 19 MG/DL (7-18); CALCIUM LEVEL 7.7 MG/DL (8.8-10.2); CARBON DIOXIDE LEVEL 28 MEQ/L (21-32); CHLORIDE LEVEL 105 MEQ/L (98-107); CREATININE FOR GFR 0.49 MG/DL (0.55-1.30); GLOMERULAR FILTRATION RATE > 60.0 (>32); GLUCOSE, FASTING 97 MG/DL (70-100); POTASSIUM SERUM 4.1 MEQ/L (3.5-5.1); SODIUM LEVEL 140 MEQ/L (136-145)
[2021-01-11] MEDS: ACETAMINOPHEN 500 MG TAB PO SCH ×3 (07:57→20:06)
[2021-01-11] MEDS: OCUVITE 1 TAB PO SCH (07:57)
[2021-01-11] MEDS: DOCUSATE SODIUM 100MG CAPSULE PO SCH ×3 (07:57→20:06)
[2021-01-11] MEDS: CALCIUM/VITAMIN D 500 MG TAB PO SCH (07:57)
[2021-01-11] MEDS: PANTOPRAZOLE 40MG TAB (PROTONIX) PO SCH (07:57)
[2021-01-11] MEDS: FUROSEMIDE 20 MG TAB PO SCH (07:58)
[2021-01-11] MEDS: ENOXAPARIN 40MG/0.4ML SYRINGE (J1650 PER 10MG) SC SCH (07:58)
[2021-01-11] MEDS: GABAPENTIN 100 MG CAP PO SCH ×3 (07:58→20:05)
[2021-01-11] MEDS: LIDOCAINE 5% (LIDODERM) PATCH TD SCH (07:58)
[2021-01-11] MEDS: ASPIRIN 81MG ENTERIC TABLET PO SCH (07:58)
[2021-01-11] MEDS: MIRALAX *UNIT DOSE* 17GM PACKET PO SCH (07:59)
[2021-01-11] MEDS: REMEDY PHYTOPLEX Z-GUARD PASTE 113GM TUBE (FROM STOREROOM PRODUCT) TOP SCH ×4 (07:59→20:07)
[2021-01-11] MEDS: oxyCODONE 5MG TAB PO PRN (08:00)
[2021-01-11 14:00] VITALS: BP 134/60
[2021-01-11 20:00] VITALS: BP 149/72
[2021-01-11] MEDS: SENNA 8.6 MG TAB (SENOKOT) PO SCH (20:06)
[2021-01-11] MEDS: **NOTE PATIENT COMMENT** MISC XX SCH (20:07)
[2021-01-12] VITALS (7 sets, daily range): BP systolic 88–130; BP diastolic 42–72
[2021-01-12] MEDS: LEVOTHYROXINE 75MCG TABLET (0.075MG) PO SCH (05:21)
[2021-01-12] MEDS: oxyCODONE 5MG TAB PO PRN (05:22)
[2021-01-12 07:46] LABS: HEMATOCRIT 40.2 % (36.0-47.0); HEMOGLOBIN 12.1 g/dl (12.0-15.5); MEAN CORPUSCULAR HEMOGLOBIN 24.2 pg (27.0-33.0); MEAN CORPUSCULAR HGB CONC 30.1 g/dl (32.0-36.5); MEAN CORPUSCULAR VOLUME 80.6 fl (80.0-96.0); PLATELET COUNT, AUTOMATED 178 10^3/uL (150-450); RED BLOOD COUNT 4.99 10^6/uL (4.00-5.40); WHITE BLOOD COUNT 10.7 10^3/uL (4.0-10.0)
[2021-01-12 08:20] LABS: BLOOD UREA NITROGEN 21 MG/DL (7-18); CALCIUM LEVEL 7.4 MG/DL (8.8-10.2); CARBON DIOXIDE LEVEL 29 MEQ/L (21-32); CHLORIDE LEVEL 102 MEQ/L (98-107); CREATININE FOR GFR 0.46 MG/DL (0.55-1.30); GLOMERULAR FILTRATION RATE > 60.0 (>32); GLUCOSE, FASTING 111 MG/DL (70-100); POTASSIUM SERUM 3.8 MEQ/L (3.5-5.1); SODIUM LEVEL 137 MEQ/L (136-145)
[2021-01-12] MEDS: LIDOCAINE 5% (LIDODERM) PATCH TD SCH (08:45)
[2021-01-12] MEDS: MIRALAX *UNIT DOSE* 17GM PACKET PO SCH (08:46)
[2021-01-12] MEDS: OCUVITE 1 TAB PO SCH (08:46)
[2021-01-12] MEDS: ASPIRIN 81MG ENTERIC TABLET PO SCH (08:46)
[2021-01-12] MEDS: GABAPENTIN 100 MG CAP PO SCH ×3 (08:46→20:13)
[2021-01-12] MEDS: ENOXAPARIN 40MG/0.4ML SYRINGE (J1650 PER 10MG) SC SCH (08:46)
[2021-01-12] MEDS: CALCIUM/VITAMIN D 500 MG TAB PO SCH (08:47)
[2021-01-12] MEDS: DOCUSATE SODIUM 100MG CAPSULE PO SCH ×2 (08:47→20:10)
[2021-01-12] MEDS: tiZANidine 4 MG TAB PO PRN (08:47)
[2021-01-12] MEDS: FUROSEMIDE 20 MG TAB PO SCH (08:47)
[2021-01-12] MEDS: PANTOPRAZOLE 40MG TAB (PROTONIX) PO SCH (08:47)
[2021-01-12] MEDS: ACETAMINOPHEN 500 MG TAB PO SCH ×3 (08:48→20:14)
[2021-01-12] MEDS: REMEDY PHYTOPLEX Z-GUARD PASTE 113GM TUBE (FROM STOREROOM PRODUCT) TOP SCH ×4 (08:48→20:14)
[2021-01-12 09:05] LABS: LYMPHOCYTES 3 % (16-44); METAMYELOCYTES 1 % (0-0); MONOCYTES 3 % (0-5); NEUTROPHILS 79 % (28-66); PLATELET ESTIMATE NORMAL (NORMAL)
[2021-01-12 09:06] LABS: ANISOCYTOSIS 1+; OVALOCYTES 1+; POIKILOCYTOSIS 1+
[2021-01-12] MEDS ORDERED: NS 1,000 ML IV ONE (11:50)
[2021-01-12] MEDS: **NOTE PATIENT COMMENT** MISC XX SCH (20:13)
[2021-01-13] MEDS: LEVOTHYROXINE 75MCG TABLET (0.075MG) PO SCH (05:20)
[2021-01-13 06:00] VITALS: BP 117/62
[2021-01-13] MEDS: oxyCODONE 5MG TAB PO PRN ×2 (07:04→17:44)
[2021-01-13] MEDS: GABAPENTIN 100 MG CAP PO SCH ×3 (08:26→20:15)
[2021-01-13] MEDS: OCUVITE 1 TAB PO SCH (08:26)
[2021-01-13] MEDS: PANTOPRAZOLE 40MG TAB (PROTONIX) PO SCH (08:26)
[2021-01-13] MEDS: ASPIRIN 81MG ENTERIC TABLET PO SCH (08:27)
[2021-01-13] MEDS: ACETAMINOPHEN 500 MG TAB PO SCH ×3 (08:27→20:14)
[2021-01-13] MEDS: DOCUSATE SODIUM 100MG CAPSULE PO SCH ×2 (08:27→20:15)
[2021-01-13] MEDS: FUROSEMIDE 20 MG TAB PO SCH (08:27)
[2021-01-13] MEDS: CALCIUM/VITAMIN D 500 MG TAB PO SCH (08:27)
[2021-01-13] MEDS: ENOXAPARIN 40MG/0.4ML SYRINGE (J1650 PER 10MG) SC SCH (08:27)
[2021-01-13] MEDS: LIDOCAINE 5% (LIDODERM) PATCH TD SCH (08:28)
[2021-01-13] MEDS: REMEDY PHYTOPLEX Z-GUARD PASTE 113GM TUBE (FROM STOREROOM PRODUCT) TOP SCH ×4 (08:28→20:15)
[2021-01-13] MEDS: MIRALAX *UNIT DOSE* 17GM PACKET PO PRN (13:18)
[2021-01-13 14:00] VITALS: BP 130/65
[2021-01-13 20:00] VITALS: BP 130/65
[2021-01-13] MEDS: **NOTE PATIENT COMMENT** MISC XX SCH (20:15)
[2021-01-14] MEDS: LEVOTHYROXINE 75MCG TABLET (0.075MG) PO SCH (05:18)
[2021-01-14 06:00] VITALS: BP 127/65
[2021-01-14] MEDS: oxyCODONE 5MG TAB PO PRN ×2 (08:18→16:23)
[2021-01-14] MEDS: FUROSEMIDE 20 MG TAB PO SCH (08:49)
[2021-01-14] MEDS: DOCUSATE SODIUM 100MG CAPSULE PO SCH ×2 (08:49→21:04)
[2021-01-14] MEDS: PANTOPRAZOLE 40MG TAB (PROTONIX) PO SCH (08:49)
[2021-01-14] MEDS: ASPIRIN 81MG ENTERIC TABLET PO SCH (08:49)
[2021-01-14] MEDS: OCUVITE 1 TAB PO SCH (08:49)
[2021-01-14] MEDS: GABAPENTIN 100 MG CAP PO SCH ×3 (08:49→21:04)
[2021-01-14] MEDS: CALCIUM/VITAMIN D 500 MG TAB PO SCH (08:49)
[2021-01-14] MEDS: ENOXAPARIN 40MG/0.4ML SYRINGE (J1650 PER 10MG) SC SCH (08:50)
[2021-01-14] MEDS: REMEDY PHYTOPLEX Z-GUARD PASTE 113GM TUBE (FROM STOREROOM PRODUCT) TOP SCH ×4 (08:50→21:00)
[2021-01-14] MEDS: LIDOCAINE 5% (LIDODERM) PATCH TD SCH (08:50)
[2021-01-14] MEDS: ACETAMINOPHEN 500 MG TAB PO SCH ×3 (08:50→21:04)
--- NOTE | 2021-01-14 13:18 | IPNPDOC ---
PM&R Progress Note DATE OF SERVICE: Jan 12, 2021 Supervisor Order Takers Progress Note Subjective: Patient seen following her morning therapy session in which she was able to participate fully, called to bedside for sBP in the 80s, patient clammy and lethargic, she was placed in Trendelenburg and encouraged to stay awake while nurse placed IV. She was able to converse and her mentation and color improved after a few minutes. Nurse instructed to give fluid and recheck BPs frequently. Patient seen again sitting up in bed eating a tuna fish sandwich stating she felt much better and was able to participate in therapy. REVIEW OF SYSTEMS: The following is a completed review of systems and has been reviewed. Review of systems otherwise unremarkable. PAIN: Patient self reports sacral pain EYES: No recent vision changes EARS, NOSE, & THROAT: No throat pain, or dysphagia, or rhinorrhea CARDIOVASCULAR: Denies chest pain or palpitations PULMONARY: Denies shortness of breath GASTROINTESTINAL:+ constipation (resolved) GENITOURINARY: denies dysuria MUSCULOSKELETAL: +sacral pain NEUROLOGICAL: +peripheral polyneuropathy HEMATOLOGICAL: denies easy bruising SKIN: denies rash PSYCHIATRIC: Unremarkable All other review of systems found to be negative. PHYSICAL EXAMINATION: VITAL SIGNS: Please see below. GENERAL: Pleasant and cooperative. No acute distress. HEENT: PERRL. Extraocular movements intact. Clear conjunctiva CARDIOVASCULAR: Regular rate and rhythm. No murmurs, rubs, or gallops LUNGS: Clear to auscultation bilaterally. No wheezes. No rhonchi ABDOMEN: Soft, nontender, nondistended. Positive bowel sounds. Normal active bowel sounds NEUROLOGICAL: Alert and oriented times three. Cranial nerves II through XII grossly intact. Sensation diminished to light touch in stocking pattern EXTREMITIES: 5\5 strength bilateral upper extremities. 4\5 strength right lower extremity. 4/5 strength in left lower extremity. ASSESSMENT:85 F-year-old with past medical history of osteoporosis who presents status post fall with sacral fracture PLAN: 1. Rehab- PT.OT advance mobility and ADLs, strengthen/stretch/maintain ROM all 4limbs, ambulating with RW 2. Ortho- hx of osteoporosis s/p fall with Sacral fracture with pain significantly limiting her mobility, lidoderm patching, tylenol, oxycodone prn (patient hoping to avoid using this)- will stop tizanidine as patient had episode of hypotension today and will lower dose of gabapentin -f/u ortho on d/c 3. CArdiac- hx of diastolic CHF per last ECHO report, daily weights, fluid restrict, c/u lasix - on ASA 81 mg daily 4. Resp- monitor for infection -patient with hypotension today following session on therapy, palced in Trendelenburg and given IVf with improvements in mentation and BPs, suspect it was medication related so stopped tizanidine and decreased gabapentin dosing 5. Endo- hx of hypothyroidism c/u Synthroid -diabetic peripheral polyneuropathy, diet controlled 6. DVT ppx- c/u lovenox, teds, recent doppler negative for left sided DVT 7. GI ppx- protonix 8. Heme- myelodysplastic syndrome with leukocytosis, monitor 9. Dispo- tbd Allergies Coded Allergies: Penicillins (Verified Allergy, Severe, HIVES, 08/11/20) Cephalosporins (Verified Allergy, Unknown, 08/11/20) ciprofloxacin (Verified Allergy, Unknown, 08/11/20) naproxen (Verified Allergy, Unknown, 08/11/20) Vital Signs Vital Signs Date Time Temp Pulse Resp B/P (MAP) Pulse Ox O2 Delivery O2 Flow Rate FiO2 01/14/21 09:00 18 01/14/21 06:00 98.3 85 127/65 (85) 96 Room Air Current Medications Current Medications Current Medications Medications (Trade) Dose Ordered Sig/Bran Route PRN Reason Start Time Stop Time Status Last Admin Dose Admin Acetaminophen (Tylenol Tab) 1,000 mg TID PO 01/08/21 16:00 01/14/21 08:50 Alendronate Sodium (Fosamax) 35 mg Sa@07 PO 01/10/21 07:00 01/10/21 06:26 Aspirin (Ecotrin) 81 mg DAILY PO 01/09/21 09:00 01/14/21 08:49 Bisacodyl (Dulcolax Suppository) 10 mg DAILYPRN PRN DE CONSTIPATION 01/08/21 10:55 Calcitonin Jarales (Miacalcin (Fortical)) 1 sprays DAILY NA 01/09/21 11:15 01/09/21 16:34 DC Calcium/Vitamin D (Oscal D) 1,000 mg DAILY PO 01/10/21 09:00 01/14/21 08:49 Docusate Sodium (Colace) 100 mg BID PO 01/12/21 21:00 01/14/21 08:49 Docusate Sodium (Colace) 100 mg TID PO 01/08/21 16:00 01/12/21 09:20 DC 01/12/21 08:47 Enoxaparin Sodium (Lovenox) 40 mg DAILY SC 01/09/21 09:00 01/14/21 08:50 Furosemide (Lasix) 20 mg DAILY PO 01/09/21 09:00 01/14/21 08:49 Gabapentin (Neurontin) 100 mg QHS PO 01/08/21 21:00 01/09/21 14:40 DC 01/08/21 21:02 Gabapentin (Neurontin) 100 mg TID PO 01/12/21 16:00 01/14/21 08:49 Gabapentin (Neurontin) 200 mg TID PO 01/09/21 16:00 01/12/21 11:49 DC 01/12/21 08:46 Levothyroxine Sodium (Synthroid) 75 mcg DAILY@06 PO 01/09/21 06:00 01/14/21 05:18 Lidocaine (Lidoderm Patch) 2 patch DAILY TD 01/08/21 09:00 01/14/21 08:50 Multivitamins (Ocuvite(I-Christy)) 1 tab DAILY PO 01/09/21 09:00 01/14/21 08:49 Non-Formulary Medication ( See Comment Field Below ) REMOVE LIDODERM PATCH DAILY@21 XX 01/08/21 21:00 01/13/21 20:15 Ondansetron HCl (Zofran Odt) 4 mg Q6HP PRN PO NAUSEA OR VOMITING 01/08/21 10:55 01/13/21 17:44 Oxycodone HCl (Roxicodone, Oxyir) 5 mg Q4HP PRN PO MODERATE PAIN (PS 5-7) 01/09/21 11:20 01/14/21 08:18 Pantoprazole Sodium (Protonix) 40 mg DAILY PO 01/09/21 09:00 01/14/21 08:49 Polyethylene Glycol (Miralax) 1 pkt DAILY PO 01/09/21 09:00 01/12/21 09:20 DC 01/12/21 08:46 Polyethylene Glycol (Miralax) 1 pkt DAILY PRN PO constipation 01/12/21 09:20 01/13/21 13:18 Senna (Senokot) 1 tab QHS PRN PO constipation 01/12/21 21:00 Senna (Senokot) 2 tab QHS PO 01/08/21 21:00 01/12/21 09:18 DC 01/10/21 20:51 Tizanidine HCl (Zanaflex) 2 mg Q6HP PRN PO SPASMS/back pain 01/08/21 10:55 01/12/21 11:49 DC 01/12/21 08:47 VINH CALLEJAS MD Jan 14, 2021 13:18
--- NOTE | 2021-01-14 13:19 | IPNPDOC ---
PM&R Progress Note DATE OF SERVICE: Jan 13, 2021 Sagger Filler Progress Note Subjective: Patient seen in OT having considerable pain with standing, stating she only feels comfortable when she is lying in bed. She is hoping to go the [facility] on Tuesday. REVIEW OF SYSTEMS: The following is a completed review of systems and has been reviewed. Review of systems otherwise unremarkable. PAIN: Patient self reports sacral pain EYES: No recent vision changes EARS, NOSE, & THROAT: No throat pain, or dysphagia, or rhinorrhea CARDIOVASCULAR: Denies chest pain or palpitations PULMONARY: Denies shortness of breath GASTROINTESTINAL:+ constipation (resolved) GENITOURINARY: denies dysuria MUSCULOSKELETAL: +sacral pain NEUROLOGICAL: +peripheral polyneuropathy HEMATOLOGICAL: denies easy bruising SKIN: denies rash PSYCHIATRIC: Unremarkable All other review of systems found to be negative. PHYSICAL EXAMINATION: VITAL SIGNS: Please see below. GENERAL: Pleasant and cooperative. No acute distress. HEENT: PERRL. Extraocular movements intact. Clear conjunctiva CARDIOVASCULAR: Regular rate and rhythm. No murmurs, rubs, or gallops LUNGS: Clear to auscultation bilaterally. No wheezes. No rhonchi ABDOMEN: Soft, nontender, nondistended. Positive bowel sounds. Normal active bowel sounds NEUROLOGICAL: Alert and oriented times three. Cranial nerves II through XII grossly intact. Sensation diminished to light touch in stocking pattern EXTREMITIES: 5\5 strength bilateral upper extremities. 4\5 strength right lower extremity. 4/5 strength in left lower extremity. ASSESSMENT:85 F-year-old with past medical history of osteoporosis who presents status post fall with sacral fracture PLAN: 1. Rehab- PT.OT advance mobility and ADLs, strengthen/stretch/maintain ROM all 4limbs, ambulating with RW 2. Ortho- hx of osteoporosis s/p fall with Sacral fracture with pain significantly limiting her mobility, lidoderm patching, tylenol, oxycodone prn (patient hoping to avoid using this)- will stop tizanidine as patient had episode of hypotension today and will lower dose of gabapentin -f/u ortho on d/c 3. CArdiac- hx of diastolic CHF per last ECHO report, daily weights, fluid restrict, c/u lasix - on ASA 81 mg daily 4. Resp- monitor for infection -patient with hypotension 01-12-21 following session on therapy, placed in Trendelenburg and given IVf with improvements in mentation and BPs, suspect it was medication related so stopped tizanidine and decreased gabapentin dosing 5. Endo- hx of hypothyroidism c/u Synthroid -diabetic peripheral polyneuropathy, diet controlled 6. DVT ppx- c/u lovenox, teds, recent doppler negative for left sided DVT 7. GI ppx- protonix 8. Heme- myelodysplastic syndrome with leukocytosis, monitor 9. [facility] progressing towards [facility] Allergies Coded Allergies: Penicillins (Verified Allergy, Severe, HIVES, 08/11/20) Cephalosporins (Verified Allergy, Unknown, 08/11/20) ciprofloxacin (Verified Allergy, Unknown, 08/11/20) naproxen (Verified Allergy, Unknown, 08/11/20) Vital Signs Vital Signs Date Time Temp Pulse Resp B/P (MAP) Pulse Ox O2 Delivery O2 Flow Rate FiO2 01/14/21 09:00 18 01/14/21 06:00 98.3 85 127/65 (85) 96 Room Air Current Medications Current Medications Current Medications Medications (Trade) Dose Ordered Sig/Bran Route PRN Reason Start Time Stop Time Status Last Admin Dose Admin Acetaminophen (Tylenol Tab) 1,000 mg TID PO 01/08/21 16:00 01/14/21 08:50 Alendronate Sodium (Fosamax) 35 mg Sa@07 PO 01/10/21 07:00 01/10/21 06:26 Aspirin (Ecotrin) 81 mg DAILY PO 01/09/21 09:00 01/14/21 08:49 Bisacodyl (Dulcolax Suppository) 10 mg DAILYPRN PRN [place] CONSTIPATION 01/08/21 10:55 Calcitonin [place] (Miacalcin (Fortical)) 1 sprays DAILY NA 01/09/21 11:15 01/09/21 16:34 DC Calcium/Vitamin D (Oscal D) 1,000 mg DAILY PO 01/10/21 09:00 01/14/21 08:49 Docusate Sodium (Colace) 100 mg BID PO 01/12/21 21:00 01/14/21 08:49 Docusate Sodium (Colace) 100 mg TID PO 01/08/21 16:00 01/12/21 09:20 DC 01/12/21 08:47 Enoxaparin Sodium (Lovenox) 40 mg DAILY SC 01/09/21 09:00 01/14/21 08:50 Furosemide (Lasix) 20 mg DAILY PO 01/09/21 09:00 01/14/21 08:49 Gabapentin (Neurontin) 100 mg QHS PO 01/08/21 21:00 01/09/21 14:40 DC 01/08/21 21:02 Gabapentin (Neurontin) 100 mg TID PO 01/12/21 16:00 01/14/21 08:49 Gabapentin (Neurontin) 200 mg TID PO 01/09/21 16:00 01/12/21 11:49 DC 01/12/21 08:46 Levothyroxine Sodium (Synthroid) 75 mcg DAILY@06 PO 01/09/21 06:00 01/14/21 05:18 Lidocaine (Lidoderm Patch) 2 patch DAILY TD 01/08/21 09:00 01/14/21 08:50 Multivitamins (Ocuvite(I-Christy)) 1 tab DAILY PO 01/09/21 09:00 01/14/21 08:49 Non-Formulary Medication ( See Comment Field Below ) REMOVE LIDODERM PATCH DAILY@21 XX 01/08/21 21:00 01/13/21 20:15 Ondansetron HCl (Zofran Odt) 4 mg Q6HP PRN PO NAUSEA OR VOMITING 01/08/21 10:55 01/13/21 17:44 Oxycodone HCl (Roxicodone, Oxyir) 5 mg Q4HP PRN PO MODERATE PAIN (PS 5-7) 01/09/21 11:20 01/14/21 08:18 Pantoprazole Sodium (Protonix) 40 mg DAILY PO 01/09/21 09:00 01/14/21 08:49 Polyethylene Glycol (Miralax) 1 pkt DAILY PO 01/09/21 09:00 01/12/21 09:20 DC 01/12/21 08:46 Polyethylene Glycol (Miralax) 1 pkt DAILY PRN PO constipation 01/12/21 09:20 01/13/21 13:18 Senna (Senokot) 1 tab QHS PRN PO constipation 01/12/21 21:00 Senna (Senokot) 2 tab QHS PO 01/08/21 21:00 01/12/21 09:18 DC 01/10/21 20:51 Tizanidine HCl (Zanaflex) 2 mg Q6HP PRN PO SPASMS/back pain 01/08/21 10:55 01/12/21 11:49 DC 01/12/21 08:47 VINH CALLEJAS MD Jan 14, 2021 13:19
--- NOTE | 2021-01-14 13:20 | IPNPDOC ---
PM&R Progress Note DATE OF SERVICE: Jan 14, 2021 [employer] Progress Note Subjective: REVIEW OF SYSTEMS: The following is a completed review of systems and has been reviewed. Review of systems otherwise unremarkable. PAIN: Patient self reports sacral pain EYES: No recent vision changes EARS, NOSE, & THROAT: No throat pain, or dysphagia, or rhinorrhea CARDIOVASCULAR: Denies chest pain or palpitations PULMONARY: Denies shortness of breath GASTROINTESTINAL:+ constipation (resolved) GENITOURINARY: denies dysuria MUSCULOSKELETAL: +sacral pain NEUROLOGICAL: +peripheral polyneuropathy HEMATOLOGICAL: denies easy bruising SKIN: denies rash PSYCHIATRIC: Unremarkable All other review of systems found to be negative. PHYSICAL EXAMINATION: VITAL SIGNS: Please see below. GENERAL: Pleasant and cooperative. No acute distress. HEENT: PERRL. Extraocular movements intact. Clear conjunctiva CARDIOVASCULAR: Regular rate and rhythm. No murmurs, rubs, or gallops LUNGS: Clear to auscultation bilaterally. No wheezes. No rhonchi ABDOMEN: Soft, nontender, nondistended. Positive bowel sounds. Normal active bowel sounds NEUROLOGICAL: Alert and oriented times three. Cranial nerves II through XII andrew sly intact. Sensation diminished to light touch in stocking pattern EXTREMITIES: 5\5 strength bilateral upper extremities. 4\5 strength right lower extremity. 4/5 strength in left lower extremity. ASSESSMENT:85 F-year-old with past medical history of osteoporosis who presents status post fall with sacral fracture PLAN: 1. Rehab- PT.OT advance mobility and ADLs, strengthen/stretch/maintain ROM all 4limbs, ambulating with RW 2. Ortho- hx of osteoporosis s/p fall with Sacral fracture with pain significantly limiting her mobility, lidoderm patching, tylenol, oxycodone prn (patient hoping to avoid using this)- will stop tizanidine as patient had episode of hypotension today and will lower dose of gabapentin -f/u ortho on d/c 3. CArdiac- hx of diastolic CHF per last ECHO report, daily weights, fluid restrict, c/u lasix - on ASA 81 mg daily 4. Resp- monitor for infection -patient with hypotension 01-12-21 following session on therapy, placed in Trendelenburg and given IVf with improvements in mentation and BPs, suspect it was medication related so stopped tizanidine and decreased gabapentin dosing 5. Endo- hx of hypothyroidism c/u Synthroid -diabetic peripheral polyneuropathy, diet controlled 6. DVT ppx- c/u lovenox, teds, recent doppler negative for left sided DVT 7. GI ppx- protonix 8. Heme- myelodysplastic syndrome with leukocytosis, monitor 9. [facility] progressing towards [facility] Allergies Coded Allergies: Penicillins (Verified Allergy, Severe, HIVES, 08/11/20) Cephalosporins (Verified Allergy, Unknown, 08/11/20) ciprofloxacin (Verified Allergy, Unknown, 08/11/20) naproxen (Verified Allergy, Unknown, 08/11/20) Vital Signs Vital Signs Date Time Temp Pulse Resp B/P (MAP) Pulse Ox O2 Delivery O2 Flow Rate FiO2 01/14/21 09:00 18 01/14/21 06:00 98.3 85 127/65 (85) 96 Room Air Current Medications Current Medications Current Medications Medications (Trade) Dose Ordered Sig/Bran Route PRN Reason Start Time Stop Time Status Last Admin Dose Admin Acetaminophen (Tylenol Tab) 1,000 mg TID PO 01/08/21 16:00 01/14/21 08:50 Alendronate Sodium (Fosamax) 35 mg Sa@07 PO 01/10/21 07:00 01/10/21 06:26 Aspirin (Ecotrin) 81 mg DAILY PO 01/09/21 09:00 01/14/21 08:49 Bisacodyl (Dulcolax Suppository) 10 mg DAILYPRN PRN MS CONSTIPATION 01/08/21 10:55 Calcitonin Freedom (Miacalcin (Fortical)) 1 sprays DAILY NA 01/09/21 11:15 01/09/21 16:34 DC Calcium/Vitamin D (Oscal D) 1,000 mg DAILY PO 01/10/21 09:00 01/14/21 08:49 Docusate Sodium (Colace) 100 mg BID PO 01/12/21 21:00 01/14/21 08:49 Docusate Sodium (Colace) 100 mg TID PO 01/08/21 16:00 01/12/21 09:20 DC 01/12/21 08:47 Enoxaparin Sodium (Lovenox) 40 mg DAILY SC 01/09/21 09:00 01/14/21 08:50 Furosemide (Lasix) 20 mg DAILY PO 01/09/21 09:00 01/14/21 08:49 Gabapentin (Neurontin) 100 mg QHS PO 01/08/21 21:00 01/09/21 14:40 DC 01/08/21 21:02 Gabapentin (Neurontin) 100 mg TID PO 01/12/21 16:00 01/14/21 08:49 Gabapentin (Neurontin) 200 mg TID PO 01/09/21 16:00 01/12/21 11:49 DC 01/12/21 08:46 Levothyroxine Sodium (Synthroid) 75 mcg DAILY@06 PO 01/09/21 06:00 01/14/21 05:18 Lidocaine (Lidoderm Patch) 2 patch DAILY TD 01/08/21 09:00 01/14/21 08:50 Multivitamins (Ocuvite(I-Christy)) 1 tab DAILY PO 01/09/21 09:00 01/14/21 08:49 Non-Formulary Medication ( See Comment Field Below ) REMOVE LIDODERM PATCH DAILY@ XX 01/08/21 21:00 01/13/21 20:15 Ondansetron HCl (Zofran Odt) 4 mg Q6HP PRN PO NAUSEA OR VOMITING 01/08/21 10:55 01/13/21 17:44 Oxycodone HCl (Roxicodone, Oxyir) 5 mg Q4HP PRN PO MODERATE PAIN (PS 5-7) 01/09/21 11:20 01/14/21 08:18 Pantoprazole Sodium (Protonix) 40 mg DAILY PO 01/09/21 09:00 01/14/21 08:49 Polyethylene Glycol (Miralax) 1 pkt DAILY PO 01/09/21 09:00 01/12/21 09:20 DC 01/12/21 08:46 Polyethylene Glycol (Miralax) 1 pkt DAILY PRN PO constipation 01/12/21 09:20 01/13/21 13:18 Senna (Senokot) 1 tab QHS PRN PO constipation 01/12/21 21:00 Senna (Senokot) 2 tab QHS PO 01/08/21 21:00 01/12/21 09:18 DC 01/10/21 20:51 Tizanidine HCl (Zanaflex) 2 mg Q6HP PRN PO SPASMS/back pain 01/08/21 10:55 01/12/21 11:49 DC 01/12/21 08:47 VINH CALLEJAS MD Jan 14, 2021 13:20
[2021-01-14 14:00] VITALS: BP 119/60
[2021-01-14 14:00] LABS: HEMATOCRIT 38.6 % (36.0-47.0); HEMOGLOBIN 11.5 g/dl (12.0-15.5); MEAN CORPUSCULAR HEMOGLOBIN 24.2 pg (27.0-33.0); MEAN CORPUSCULAR HGB CONC 29.8 g/dl (32.0-36.5); MEAN CORPUSCULAR VOLUME 81.1 fl (80.0-96.0); PLATELET COUNT, AUTOMATED 129 10^3/uL (150-450); RED BLOOD COUNT 4.76 10^6/uL (4.00-5.40); WHITE BLOOD COUNT 8.7 10^3/uL (4.0-10.0)
[2021-01-14 14:25] LABS: BLOOD UREA NITROGEN 18 MG/DL (7-18); CALCIUM LEVEL 8.4 MG/DL (8.8-10.2); CARBON DIOXIDE LEVEL 30 MEQ/L (21-32); CHLORIDE LEVEL 103 MEQ/L (98-107); CREATININE FOR GFR 0.64 MG/DL (0.55-1.30); GLOMERULAR FILTRATION RATE > 60.0 (>32); GLUCOSE, FASTING 135 MG/DL (70-100); POTASSIUM SERUM 4.1 MEQ/L (3.5-5.1); SODIUM LEVEL 139 MEQ/L (136-145)
[2021-01-14 14:39] LABS: ANISOCYTOSIS 2+; EOSINOPHILS 1 % (0-3); HYPOCHROMASIA 1+; LYMPHOCYTES 3 % (16-44); MONOCYTES 4 % (0-5); NEUTROPHILS 74 % (28-66)
[2021-01-14 14:41] LABS: OVALOCYTES 1+; PLATELET ESTIMATE NORMAL (NORMAL); POLYCHROMASIA 1+
--- NOTE | 2021-01-14 15:52 | IPNPDOC ---
Text Note Date of Service The patient was seen on 01/14/21. NOTE No any acute events overnight. Participating in therapy. Exam GENERAL: Pleasant and cooperative. No acute distress. HEENT: PERRL. Extraocular movements intact. Clear conjunctiva CARDIOVASCULAR: Regular rate and rhythm. No murmurs, rubs, or gallops LUNGS: Clear to auscultation bilaterally. No wheezes. No rhonchi ABDOMEN: Soft, nontender, nondistended. Positive bowel sounds. Normal active bowel sounds NEUROLOGICAL: Alert and oriented times three. Cranial nerves II through XII grossly intact. EXTREMITIES: 5\5 strength bilateral upper extremities. 4\5 strength right lower extremity. 4/5 strength in left lower extremity. Assessment and plan Patient is 85 years old female with past medical history of myelodysplastic syndrome, history of DVT was transferred to ARU for continuation of physical therapy 1) Status post sacral fracture/osteoporosis: Conservative managemnt at this time. Alendronate, Vitamin D/calcium. PT/OT 2) Diastolic CHF. Not in acute exacerbation, Continue home meds, I's and O's 3) Hypothyroidism Continue Synthroid 4) Constipation. On Mylanta, miralax and colace. 5) Hypertension. Blood pressure under control. Continue to monitor Disposition as per primary VSHoney, I+O VSHoney, I+O Laboratory Tests 01/14/21 13:33 Vital Signs Date Time Temp Pulse Resp B/P (MAP) Pulse Ox O2 Delivery O2 Flow Rate FiO2 01/14/21 14:00 98.6 88 16 119/60 (79) 95 Room Air I&O- Last 24 Hours up to 6 AM 01/14/21 06:00 Intake Total 900 ml Balance 900 ml KIRAN GANT MD Jan 14, 2021 15:52
[2021-01-14 20:00] VITALS: BP 139/73
[2021-01-14] MEDS: **NOTE PATIENT COMMENT** MISC XX SCH (21:04)
[2021-01-15] MEDS: SENNA 8.6 MG TAB (SENOKOT) PO PRN ×2 (01:35→20:53)
[2021-01-15] MEDS: LEVOTHYROXINE 75MCG TABLET (0.075MG) PO SCH (05:47)
[2021-01-15 06:00] VITALS: BP 127/61
[2021-01-15] MEDS: ASPIRIN 81MG ENTERIC TABLET PO SCH (08:57)
[2021-01-15] MEDS: LIDOCAINE 5% (LIDODERM) PATCH TD SCH (08:57)
[2021-01-15] MEDS: ENOXAPARIN 40MG/0.4ML SYRINGE (J1650 PER 10MG) SC SCH (08:57)
[2021-01-15] MEDS: FUROSEMIDE 20 MG TAB PO SCH (08:57)
[2021-01-15] MEDS: ACETAMINOPHEN 500 MG TAB PO SCH ×3 (08:58→20:54)
[2021-01-15] MEDS: CALCIUM/VITAMIN D 500 MG TAB PO SCH (08:58)
[2021-01-15] MEDS: GABAPENTIN 100 MG CAP PO SCH ×3 (08:58→20:53)
[2021-01-15] MEDS: OCUVITE 1 TAB PO SCH (08:58)
[2021-01-15] MEDS: PANTOPRAZOLE 40MG TAB (PROTONIX) PO SCH (08:58)
[2021-01-15] MEDS: DOCUSATE SODIUM 100MG CAPSULE PO SCH ×2 (08:59→20:53)
[2021-01-15] MEDS: REMEDY PHYTOPLEX Z-GUARD PASTE 113GM TUBE (FROM STOREROOM PRODUCT) TOP SCH ×4 (09:00→20:54)
[2021-01-15] MEDS: oxyCODONE 5MG TAB PO PRN (09:05)
[2021-01-15] MEDS ORDERED: ACET-683 PO (12:02)
[2021-01-15] MEDS ORDERED: FURO20TA2 PO (12:02)
[2021-01-15] MEDS ORDERED: PANT40TA29 PO (12:02)
[2021-01-15] MEDS ORDERED: LIDO5TD TD (12:02)
[2021-01-15] MEDS ORDERED: OXYC-517 PO (12:02)
[2021-01-15] MEDS ORDERED: GABA-1171 PO (12:02)
[2021-01-15] MEDS ORDERED: ASPI-551 PO (12:02)
[2021-01-15] MEDS ORDERED: CALCD50TA PO (12:02)
[2021-01-15] MEDS ORDERED: LEVO75TA4 PO (12:02)
[2021-01-15] MEDS: MIRALAX *UNIT DOSE* 17GM PACKET PO PRN (13:56)
--- NOTE | 2021-01-15 16:19 | IPNPDOC ---
Text Note Date of Service The patient was seen on 01/15/21. NOTE No any acute events overnight. Participating in therapy. Exam GENERAL: Pleasant and cooperative. No acute distress. HEENT: PERRL. Extraocular movements intact. Clear conjunctiva CARDIOVASCULAR: Regular rate and rhythm. No murmurs, rubs, or gallops LUNGS: Clear to auscultation bilaterally. No wheezes. No rhonchi ABDOMEN: Soft, nontender, nondistended. Positive bowel sounds. Normal active bowel sounds NEUROLOGICAL: Alert and oriented times three. Cranial nerves II through XII grossly intact. EXTREMITIES: 5\5 strength bilateral upper extremities. 4\5 strength right lower extremity. 4/5 strength in left lower extremity. Assessment and plan Patient is 85 years old female with past medical history of myelodysplastic syndrome, history of DVT was transferred to ARU for continuation of physical therapy 1) Status post sacral fracture/osteoporosis: Conservative managemnt at this time. Alendronate, Vitamin D/calcium. PT/OT 2) Diastolic CHF. Not in acute exacerbation, Continue home meds, I's and O's 3) Hypothyroidism Continue Synthroid 4) Constipation. On Mylanta, miralax and colace. 5) Hypertension. Blood pressure under control. Continue to monitor Disposition as per primary VS,Carlose, I+O VS, Carlose, I+O Vital Signs Date Time Temp Pulse Resp B/P (MAP) Pulse Ox O2 Delivery O2 Flow Rate FiO2 01/15/21 14:00 98.1 93 18 96 Room Air 01/15/21 06:00 127/61 (83) I&O- Last 24 Hours up to 6 AM 01/15/21 06:00 Intake Total 1450 ml Balance 1450 ml KIRAN GANT MD Jan 15, 2021 16:18
[2021-01-15 20:00] VITALS: BP 126/59
[2021-01-15] MEDS: **NOTE PATIENT COMMENT** MISC XX SCH (20:57)
[2021-01-16] MEDS: LEVOTHYROXINE 75MCG TABLET (0.075MG) PO SCH (05:42)
[2021-01-16 06:00] VITALS: BP 122/65
[2021-01-16 06:56] LABS: HEMATOCRIT 35.7 % (36.0-47.0); HEMOGLOBIN 10.7 g/dl (12.0-15.5); MEAN CORPUSCULAR HEMOGLOBIN 24.1 pg (27.0-33.0); MEAN CORPUSCULAR VOLUME 80.4 fl (80.0-96.0); PLATELET COUNT, AUTOMATED 111 10^3/uL (150-450); RED BLOOD COUNT 4.44 10^6/uL (4.00-5.40); WHITE BLOOD COUNT 6.9 10^3/uL (4.0-10.0)
[2021-01-16 07:26] LABS: BLOOD UREA NITROGEN 17 MG/DL (7-18); CALCIUM LEVEL 7.8 MG/DL (8.8-10.2); CARBON DIOXIDE LEVEL 29 MEQ/L (21-32); CHLORIDE LEVEL 104 MEQ/L (98-107); CREATININE FOR GFR 0.45 MG/DL (0.55-1.30); GLOMERULAR FILTRATION RATE > 60.0 (>32); GLUCOSE, FASTING 103 MG/DL (70-100); POTASSIUM SERUM 4.4 MEQ/L (3.5-5.1); SODIUM LEVEL 139 MEQ/L (136-145)
[2021-01-16 07:36] LABS: LYMPHOCYTES 2 % (16-44); MONOCYTES 3 % (0-5); NEUTROPHILS 92 % (28-66); PLATELET ESTIMATE NORMAL (NORMAL)
[2021-01-16] MEDS: ENOXAPARIN 40MG/0.4ML SYRINGE (J1650 PER 10MG) SC SCH (08:23)
[2021-01-16] MEDS: CALCIUM/VITAMIN D 500 MG TAB PO SCH (08:23)
[2021-01-16] MEDS: OCUVITE 1 TAB PO SCH (08:23)
[2021-01-16] MEDS: ASPIRIN 81MG ENTERIC TABLET PO SCH (08:24)
[2021-01-16] MEDS: DOCUSATE SODIUM 100MG CAPSULE PO SCH (08:24)
[2021-01-16] MEDS: FUROSEMIDE 20 MG TAB PO SCH (08:24)
[2021-01-16] MEDS: ACETAMINOPHEN 500 MG TAB PO SCH (08:24)
[2021-01-16] MEDS: PANTOPRAZOLE 40MG TAB (PROTONIX) PO SCH (08:24)
[2021-01-16] MEDS: GABAPENTIN 100 MG CAP PO SCH (08:25)
[2021-01-16] MEDS: REMEDY PHYTOPLEX Z-GUARD PASTE 113GM TUBE (FROM STOREROOM PRODUCT) TOP SCH ×2 (08:25→13:00)
[2021-01-16] MEDS: LIDOCAINE 5% (LIDODERM) PATCH TD SCH (08:25)
[2021-01-16] MEDS: oxyCODONE 5MG TAB PO PRN (13:52)
[2021-01-16 14:00] VITALS: BP 110/60
== END 2021-01-16 14:20 | disposition home health service (06) | DRG 560 ==
LOC: M PM&R 01-08 14:40
PROVIDERS: ADMIT Physical Medicine & Rehabilitation; ATTEND Physical Medicine & Rehabilitation
DX: S32.10XD Unspecified fracture of sacrum, subsequent encounter for fracture with routine healing (principal); I50.32 Chronic diastolic (congestive) heart failure; H35.30 Unspecified macular degeneration; E03.9 Hypothyroidism, unspecified; M81.0 Age-related osteoporosis without current pathological fracture; D46.9 Myelodysplastic syndrome, unspecified; E11.42 Type 2 diabetes mellitus with diabetic polyneuropathy; H54.62 Unqualified visual loss, left eye, normal vision right eye; K59.00 Constipation, unspecified; Z96.0 Presence of urogenital implants; Z74.09 Other reduced mobility; Z74.1 Need for assistance with personal care; W18.09XD Striking against other object with subsequent fall, subsequent encounter; Y92.9 Unspecified place or not applicable; Z79.82 Long term (current) use of aspirin; Z79.899 Other long term (current) drug therapy; Z88.0 Allergy status to penicillin; Z88.1 Allergy status to other antibiotic agents; Z88.6 Allergy status to analgesic agent

== ENCOUNTER → 2021-01-26 | Outpatient (REF) | payer MEDICARE, BC, MEDICAID ==
[~2021-01-26] MED LIST changes: +ACET-683 PO; -ALEN70SO PO; +ALEN70SO2 PO; +ASPI-551 PO; +CALCD50TA PO; +DOK1CAP4 PO; -DOK1CAP7 PO; +DOXY-443 PO; -DOXY100C PO; +DOXY100C3 PO; -DOXY1CAP62 PO; +GABA-1171 PO; +LEVO75TA4 PO; +LIDO5TD TD; -OMEP-221; +OMEP40CA5; +OXYC-517 PO; +PANT40TA29 PO; +PERCOCET PO
[2021-01-26 20:38] LABS: BASO % 0.5 % (0.0-1.0); EOS # 0.1 10^3/uL (0.0-0.5); EOS % 0.6 % (0.0-3.0); HEMATOCRIT 40.2 % (36.0-47.0); HEMOGLOBIN 11.6 g/dl (12.0-15.5); LYMPH # 1.1 10^3/uL (1.5-5.0); LYMPH % 13.6 % (24.0-44.0); MEAN CORPUSCULAR HEMOGLOBIN 24.7 pg (27.0-33.0); MEAN CORPUSCULAR HGB CONC 28.9 g/dl (32.0-36.5); MEAN CORPUSCULAR VOLUME 85.7 fl (80.0-96.0); MONO # 0.2 10^3/uL (0.0-0.8); MONO % 2.5 % (2.0-8.0); NEUTROPHILS # 6.6 10^3/uL (1.5-8.5); NEUTROPHILS % 80.3 % (36.0-66.0); PLATELET COUNT, AUTOMATED 300 10^3/uL (150-450); RED BLOOD COUNT 4.69 10^6/uL (4.00-5.40); WHITE BLOOD COUNT 8.3 10^3/uL (4.0-10.0)
[2021-01-26 21:12] LABS: ALBUMIN 3.3 GM/DL (3.2-5.2); ALT/SGPT 23 U/L (12-78); BILIRUBIN,TOTAL 0.3 MG/DL (0.2-1.0); BLOOD UREA NITROGEN 20 MG/DL (7-18); CALCIUM LEVEL 8.2 MG/DL (8.8-10.2); CARBON DIOXIDE LEVEL 30 MEQ/L (21-32); CHLORIDE LEVEL 105 MEQ/L (98-107); CREATININE FOR GFR 0.57 MG/DL (0.55-1.30); FERRITIN 48 NG/ML (8-252); GLOMERULAR FILTRATION RATE > 60.0 (>32); GLUCOSE, FASTING 129 MG/DL (70-100); IRON (FE) 98 UG/DL (50-170); PERCENT SATURATION 25.9 % (13.2-45.0); POTASSIUM SERUM 4.6 MEQ/L (3.5-5.1); SODIUM LEVEL 138 MEQ/L (136-145); TOTAL IRON BINDING CAPACITY 378 UG/DL (250-450)
== END ==
LOC: M LAB REF 20:12
PROVIDERS: ATTEND Internal Medicine Medical Oncology
DX: D45 Polycythemia vera (principal)

== ENCOUNTER → 2021-01-27 | Outpatient (REF) | payer MEDICARE, BC, MEDICAID ==
[~2021-01-27] MED LIST changes: +ALEN70SO PO; -ALEN70SO2 PO; -DOXY-443 PO; +DOXY1CAP62 PO; +OMEP-221; -OMEP40CA5
== END ==
LOC: M LAB REF 11:41
PROVIDERS: ATTEND Internal Medicine Medical Oncology
DX: D45 Polycythemia vera (principal)

== ENCOUNTER → 2021-03-04 | Outpatient (REF) | payer MEDICAID | LOC: M LAB REF 14:21 | PROVIDERS: ATTEND Dermatology | DX: L90.5 Scar conditions and fibrosis of skin (principal); C44.622 Squamous cell carcinoma of skin of right upper limb, including shoulder ==

== ENCOUNTER → 2021-04-01 | Outpatient (CLI) | payer MEDICARE ==
--- NOTE | 2021-04-01 16:36 | REP ---
INDICATION: KIDNEY STONES COMPARISON: 03/14/2020 TECHNIQUE: Real time eason scale ultrasound examination using curved array transducer. FINDINGS: Right kidney measures 9.4 x 4.9 x 3.8 cm and demonstrates increased echotexture with increased central sinus fat and multiple primarily subcentimeter cysts. No nephrolithiasis or hydronephrosis. Left kidney measures 9.2 x 4.1 x 4.2 cm and demonstrates increased echotexture with increased central sinus fat and multiple primarily subcentimeter cysts. No nephrolithiasis or hydronephrosis. Bladder is collapsed. IMPRESSION: 1. Age-related renal changes and bilateral subcentimeter cysts. 2. No hydronephrosis or obvious nephrolithiasis. <Electronically signed by Kody Mcrae > 04/01/21 [id number]
== END ==
LOC: M RAD 14:02
PROVIDERS: ATTEND Nurse Practitioner Family
DX: N28.1 Cyst of kidney, acquired (principal)

== ENCOUNTER → 2021-06-10 | Outpatient (CLI) | payer MEDICARE, MEDICAID ==
[~2021-06-10] MED LIST changes: +DOXY-443 PO; -DOXY1CAP62 PO
--- NOTE | 2021-06-10 09:25 | REP ---
INDICATION: MYLOPROLIFERATIVE DISORDER COMPARISON: CT dated 04/02/2020 TECHNIQUE: Real time B-mode eason scale ultrasound examination using curved array transducer. FINDINGS: Liver demonstrates coarsened echotexture with innumerable small hyperechoic foci possibly representing calcifications related to prior granulomatous disease. Spleen measures 14.5 x 4.0 x 11.7 cm (splenic index 680). No focal splenic lesions are identified. Gallbladder demonstrates 2 mm and 3 mm benign appearing polyps. No biliary ductal dilatation is appreciated and the common bile duct measures 6.0 mm in diameter. Right kidney measures 8.9 x 4.1 x 3.7 cm. Left kidney measures 10.9 x 5.0 x 3.8 cm. Both kidneys demonstrate small scattered hypoechoic lesions suggesting cysts as well as small scattered hyperechoic foci suggesting nonobstructing nephroliths. No hydronephrosis. Abdominal aorta is incompletely evaluated due to interposed bowel gas but atherosclerotic changes are noted. No ascites. IMPRESSION: 1. Splenomegaly without focal splenic lesion. 2. Hepatic changes which may represent small parenchymal calcifications. 3. Nonacute renal findings as noted above including suspected benign cysts and nonobstructing nephroliths. 4. Benign appearing gallbladder polyps up to 3 mm. <Electronically signed by Kody Mcrae > 06/10/21 0921
== END ==
LOC: M RAD 08:11
PROVIDERS: ATTEND Internal Medicine Medical Oncology
DX: D47.1 Chronic myeloproliferative disease (principal); R16.1 Splenomegaly, not elsewhere classified; K82.8 Other specified diseases of gallbladder

== ENCOUNTER → 2021-09-29 | Outpatient (CLI) | payer MEDICARE, MEDICAID ==
[~2021-09-29] MED LIST changes: -ALEN70SO PO; +ALEN70SO2 PO; +E-Z-PAQUE 96% w/w SUSP 176GM BTL As Ordered ONE; -OMEP-221; +OMEP40CA5
== END ==
LOC: M RAD 08:23
PROVIDERS: ATTEND Internal Medicine Gastroenterology
DX: D50.9 Iron deficiency anemia, unspecified (principal); R14.0 Abdominal distension (gaseous)

== ENCOUNTER → 2022-02-18 | Outpatient (REF) | payer MEDICARE, MEDICAID ==
[~2022-02-18] MED LIST changes: +DOCU100C16 PO; -E-Z-PAQUE 96% w/w SUSP 176GM BTL As Ordered ONE; +MIRA1POW3 PO; +POTA1TAB21 PO
[2022-02-18 15:15] LABS: BASO # 0.1 10^3/uL (0.0-0.2); BASO % 0.5 % (0.0-1.0); EOS % 0.2 % (0.0-3.0); LYMPH # 0.8 10^3/uL (1.5-5.0); LYMPH % 6.6 % (24.0-44.0); MEAN CORPUSCULAR HEMOGLOBIN 28.6 pg (27.0-33.0); MEAN CORPUSCULAR HGB CONC 30.4 g/dl (32.0-36.5); MEAN CORPUSCULAR VOLUME 94.1 fl (80.0-96.0); MONO # 0.4 10^3/uL (0.0-0.8); MONO % 2.9 % (2.0-8.0); NEUTROPHILS # 10.8 10^3/uL (1.5-8.5); NEUTROPHILS % 87.7 % (36.0-66.0); PLATELET COUNT, AUTOMATED 225 10^3/uL (150-450); RED BLOOD COUNT 4.89 10^6/uL (4.00-5.40); WHITE BLOOD COUNT 12.4 10^3/uL (4.0-10.0)
[2022-02-18 15:51] LABS: ALBUMIN 3.6 GM/DL (3.2-5.2); ALT/SGPT 20 U/L (12-78); BILIRUBIN,TOTAL 0.4 MG/DL (0.2-1.0); BLOOD UREA NITROGEN 15 MG/DL (7-18); CALCIUM LEVEL 9.1 MG/DL (8.8-10.2); CARBON DIOXIDE LEVEL 29 MEQ/L (21-32); CHLORIDE LEVEL 103 MEQ/L (98-107); CREATININE FOR GFR 0.82 MG/DL (0.55-1.30); GLOMERULAR FILTRATION RATE > 60.0 (>32); GLUCOSE, FASTING 80 MG/DL (70-100); POTASSIUM SERUM 5.2 MEQ/L (3.5-5.1); SODIUM LEVEL 138 MEQ/L (136-145); TOTAL PROTEIN 6.7 GM/DL (6.4-8.2)
== END ==
LOC: M LAB REF 14:55
PROVIDERS: ATTEND Psychiatry & Neurology Neurology
DX: R20.2 Paresthesia of skin (principal)

== ENCOUNTER → 2022-03-15 | Outpatient (REF) | payer MEDICARE, MEDICAID ==
[2022-03-15 10:40] LABS: HEMATOCRIT 37.9 % (36.0-47.0); HEMOGLOBIN 11.5 g/dl (12.0-15.5); MEAN CORPUSCULAR HEMOGLOBIN 28.5 pg (27.0-33.0); MEAN CORPUSCULAR HGB CONC 30.3 g/dl (32.0-36.5); PLATELET COUNT, AUTOMATED 195 10^3/uL (150-450); RED BLOOD COUNT 4.03 10^6/uL (4.00-5.40); WHITE BLOOD COUNT 12.1 10^3/uL (4.0-10.0)
[2022-03-15 11:00] LABS: HEMOGLOBIN A1c 5.3 %
[2022-03-15 11:41] LABS: ALBUMIN 3.3 GM/DL (3.2-5.2); ALT/SGPT 23 U/L (12-78); BILIRUBIN,TOTAL 0.4 MG/DL (0.2-1.0); BLOOD UREA NITROGEN 22 MG/DL (7-18); CALCIUM LEVEL 8.4 MG/DL (8.8-10.2); CARBON DIOXIDE LEVEL 30 MEQ/L (21-32); CHLORIDE LEVEL 106 MEQ/L (98-107); CHOLESTEROL LEVEL 176 MG/DL (<200); CHOLESTEROL RISK RATIO 4.292 (<5); CREATININE FOR GFR 0.67 MG/DL (0.55-1.30); GLOMERULAR FILTRATION RATE > 60.0 (>32); GLUCOSE, FASTING 64 MG/DL (70-100); HDL CHOLESTEROL 41 MG/DL (>40); LDL CHOLESTEROL 102 MG/DL (<100); NON-HDL-C 135 MG/DL; POTASSIUM SERUM 4.6 MEQ/L (3.5-5.1); SODIUM LEVEL 140 MEQ/L (136-145); TOTAL PROTEIN 6.1 GM/DL (6.4-8.2); TRIGLYCERIDES LEVEL 164 MG/DL (<150)
[2022-03-15 12:26] LABS: TOTAL 25(OH) VITAMIN D 30.1 NG/ML (30.0-100.0)
== END ==
LOC: M LAB REF 10:11
PROVIDERS: ATTEND Family Medicine
DX: I10 Essential (primary) hypertension (principal); R53.81 Other malaise; E03.9 Hypothyroidism, unspecified; Z79.899 Other long term (current) drug therapy

== ENCOUNTER → 2022-03-29 | Outpatient (REF) | payer MEDICARE, MEDICAID | LOC: M SFHCDERM 17:19 | PROVIDERS: ATTEND Physician Assistant | DX: C44.311 Basal cell carcinoma of skin of nose (principal) ==

== ENCOUNTER → 2022-04-01 | Outpatient (CLI) | payer MEDICARE, MEDICAID | LOC: M WHC 14:31 | PROVIDERS: ATTEND Urology | DX: Q61.02 Congenital multiple renal cysts (principal); R16.1 Splenomegaly, not elsewhere classified; N20.0 Calculus of kidney ==

== ENCOUNTER → 2022-04-26 | Outpatient (CLI) | payer MEDICARE, MEDICAID | LOC: M RAD 14:23 | PROVIDERS: ATTEND Family Medicine | DX: I51.7 Cardiomegaly (principal); J18.9 Pneumonia, unspecified organism; I50.9 Heart failure, unspecified ==

== ENCOUNTER → 2022-08-18 | Outpatient (REF) | payer MEDICARE, MEDICAID | LOC: M SFHCDERM 17:14 | PROVIDERS: ATTEND Dermatology | DX: L57.0 Actinic keratosis (principal); C44.311 Basal cell carcinoma of skin of nose; L82.0 Inflamed seborrheic keratosis; R20.9 Unspecified disturbances of skin sensation; L91.0 Hypertrophic scar | CPT/HCPCS: 11900; 15260; 17000; 17003; 17110; 17311; 88305; G0463 ==

== ENCOUNTER → 2022-08-25 | Outpatient (REF) | payer MEDICARE, MEDICAID | LOC: M SFHCDERM 17:56 | PROVIDERS: ATTEND Dermatology | DX: Z51.89 Encounter for other specified aftercare (principal) ==

== ENCOUNTER → 2022-09-07 | Outpatient (REF) | payer MEDICARE, MEDICAID ==
[2022-09-07 12:39] LABS: HEMOGLOBIN 12.3 g/dl (12.0-15.5); MEAN CORPUSCULAR HEMOGLOBIN 25.9 pg (27.0-33.0); MEAN CORPUSCULAR VOLUME 86.5 fl (80.0-96.0); PLATELET COUNT, AUTOMATED 178 10^3/uL (150-450); RED BLOOD COUNT 4.74 10^6/uL (4.00-5.40); WHITE BLOOD COUNT 10.8 10^3/uL (4.0-10.0)
[2022-09-07 13:10] LABS: ALBUMIN 3.6 G/DL (3.2-5.2); ALKALINE PHOSPHATASE 117 U/L (46-116); ALT/SGPT 21 U/L (7.0-40); AST/SGOT 26 U/L (<34); BILIRUBIN,TOTAL 0.4 MG/DL (0.3-1.2); BLOOD UREA NITROGEN 23 MG/DL (9-23); CALCIUM LEVEL 8.7 MG/DL (8.3-10.6); CARBON DIOXIDE LEVEL 27 MMOL/L (20-31); CHLORIDE LEVEL 103 MMOL/L (98-107); CHOLESTEROL LEVEL 170 MG/DL (<200); CHOLESTEROL RISK RATIO 4.72 (<5); CREATININE FOR GFR 0.88 MG/DL (0.55-1.30); GLOMERULAR FILTRATION RATE > 60.0 (>32); GLUCOSE, FASTING 64 MG/DL (74-106); IRON (FE) 38 UG/DL (50-170); LDL CHOLESTEROL 96.2 MG/DL (<100); PERCENT SATURATION 9.9 % (13.2-45.0); POTASSIUM SERUM 5.1 MMOL/L (3.5-5.1); SODIUM LEVEL 139 MMOL/L (136-145); THYROID STIMULATING HORMONE 1.627 uIU/ML (0.55-4.78); TOTAL 25(OH) VITAMIN D 35.6 NG/ML (20.0-100.0); TOTAL IRON BINDING CAPACITY 382 UG/DL (250-425); TOTAL PROTEIN 6.1 G/DL (5.7-8.2); TRIGLYCERIDES LEVEL 189 MG/DL (<150)
[2022-09-07 13:11] LABS: HEMOGLOBIN A1c 5.1 % (4.0-6.0)
== END ==
LOC: M LAB REF 11:52
PROVIDERS: ATTEND Family Medicine
DX: D64.9 Anemia, unspecified (principal); R53.83 Other fatigue; E03.9 Hypothyroidism, unspecified

== ENCOUNTER → 2022-09-30 | Outpatient (CLI) | payer MEDICARE, MEDICAID | LOC: M WHC 06:56 | PROVIDERS: ATTEND Family Medicine | DX: R16.0 Hepatomegaly, not elsewhere classified (principal); R16.1 Splenomegaly, not elsewhere classified; N28.1 Cyst of kidney, acquired ==

== ENCOUNTER → 2023-02-08 | Outpatient (REF) | payer MEDICARE, MEDICAID ==
[~2023-02-08] MED LIST changes: +ACET-897 PO; +ARIC1TAB PO; +ASPI-161 PO; +AZEL1SPR3 NARES; +DICL20GE TOP; +EQL0.65S NARES; +FERR1TAB8 PO; +FISH10002 PO; +FLON1SPR NARES; +LORA-1041 PO; +MECL-136 PO; +MECL-209 PO; -MECL1TAB31 PO; +OCUVTAB4 PO; -OMEP40CA5; +OMEP40CA5 PO; +OYST500T92 PO; +PROP15DR12 OU; +SIME80CH5 PO; +VASEGEL6 NARES; +VASEGEL6 TOP
[2023-02-08 16:29] LABS: BASO % 0.3 % (0.0-1.0); EOS % 0.1 % (0.0-3.0); HEMATOCRIT 40.5 % (36.0-47.0); HEMOGLOBIN 12.8 g/dl (12.0-15.5); LYMPH # 0.8 10^3/uL (1.5-5.0); MEAN CORPUSCULAR HEMOGLOBIN 31.2 pg (27.0-33.0); MEAN CORPUSCULAR HGB CONC 31.6 g/dl (32.0-36.5); MEAN CORPUSCULAR VOLUME 98.8 fl (80.0-96.0); MONO # 0.3 10^3/uL (0.0-0.8); MONO % 2.4 % (2.0-8.0); NEUTROPHILS # 9.6 10^3/uL (1.5-8.5); NEUTROPHILS % 88.1 % (36.0-66.0); PLATELET COUNT, AUTOMATED 232 10^3/uL (150-450); WHITE BLOOD COUNT 10.9 10^3/uL (4.0-10.0)
[2023-02-08 16:54] LABS: ALBUMIN 3.8 G/DL (3.2-5.2); ALKALINE PHOSPHATASE 104 U/L (46-116); ALT/SGPT 23 U/L (7.0-40); AST/SGOT 20 U/L (<34); BILIRUBIN,TOTAL 0.4 MG/DL (0.3-1.2); BLOOD UREA NITROGEN 29 MG/DL (9-23); CALCIUM LEVEL 8.8 MG/DL (8.3-10.6); CARBON DIOXIDE LEVEL 30 MMOL/L (20-31); CHLORIDE LEVEL 102 MMOL/L (98-107); CREATININE FOR GFR 0.91 MG/DL (0.55-1.30); GLOMERULAR FILTRATION RATE > 60.0 (>32); GLUCOSE, FASTING 78 MG/DL (74-106); POTASSIUM SERUM 4.7 MMOL/L (3.5-5.1); SODIUM LEVEL 140 MMOL/L (136-145); TOTAL PROTEIN 6.4 G/DL (5.7-8.2)
== END ==
LOC: M LAB REF 15:37
PROVIDERS: ATTEND Student in an Organized Health Care Education/Training Program
DX: D45 Polycythemia vera (principal); D32.9 Benign neoplasm of meninges, unspecified

== ENCOUNTER 2023-02-22 14:38 | Inpatient (IN) | payer MEDICARE, MEDICAID ==
[~2023-02-22] VITALS: Ht 154.9 cm; Wt 47.7 kg
[~2023-02-22 14:38] MED LIST changes: -ACET-897 PO; -ARIC1TAB PO; -ASPI-161 PO; -AZEL1SPR3 NARES; -DICL20GE TOP; -EQL0.65S NARES; -FERR1TAB8 PO; -FISH10002 PO; -FLON1SPR NARES; -LORA-1041 PO; -MECL-136 PO; -OCUVTAB4 PO; -OYST500T92 PO; -PROP15DR12 OU; -SIME80CH5 PO; -VASEGEL6 NARES; -VASEGEL6 TOP
[2023-02-22 16:20] LABS: HEMATOCRIT 37.9 % (36.0-47.0); HEMOGLOBIN 12.3 g/dl (12.0-15.5); MEAN CORPUSCULAR HGB CONC 32.5 g/dl (32.0-36.5); MEAN CORPUSCULAR VOLUME 98.7 fl (80.0-96.0); PLATELET COUNT, AUTOMATED 195 10^3/uL (150-450); RED BLOOD COUNT 3.84 10^6/uL (4.00-5.40); WHITE BLOOD COUNT 10.4 10^3/uL (4.0-10.0)
[2023-02-22 16:48] LABS: BLOOD UREA NITROGEN 29 MG/DL (9-23); CALCIUM LEVEL 8.2 MG/DL (8.3-10.6); CARBON DIOXIDE LEVEL 28 MMOL/L (20-31); CHLORIDE LEVEL 105 MMOL/L (98-107); CREATININE FOR GFR 0.92 MG/DL (0.55-1.30); GLOMERULAR FILTRATION RATE > 60.0 (>32); GLUCOSE, FASTING 102 MG/DL (74-106); POTASSIUM SERUM 5.8 MMOL/L (3.5-5.1); SODIUM LEVEL 137 MMOL/L (136-145)
[2023-02-22 16:50] LABS: LYMPHOCYTES 5 % (16-44); MONOCYTES 3 % (0-5); NEUTROPHILS 86 % (28-66); PLATELET ESTIMATE NORMAL (NORMAL)
[2023-02-22] MEDS ORDERED: ACETAMINOPHEN *IV* 500 MG in IV 1 EA IV ONE (17:15)
[2023-02-22 17:59] LABS: FREE THYROXINE INDEX 3.8 % (1.3-4.8); T UPTAKE 28.7 % (22.5-37.0); THYROXINE (T4) 13.2 UG/DL (4.5-10.9)
[2023-02-22 18:00] LABS: CPK CREATINE PHOSPHOKINASE 150 U/L (34-145); MB/CK RELATIVE INDEX 0.66 (< OR =4)
[2023-02-22 19:37] LABS: RSV AMPLIFICATION NEGATIVE (NEGATIVE)
[2023-02-22] MEDS ORDERED: SOD POLYSTYRENE SULFONATE SUSP 15GM 60ML UD PO ONE (20:15)
[2023-02-22] MEDS ORDERED: MAALOX 30 ML SUSP *UDC PO PRN (23:10)
[2023-02-22] MEDS ORDERED: MOM 30ML SUSPENSION UDC PO PRN (23:10)
[2023-02-22] MEDS ORDERED: ACETAMINOPHEN TAB 650MG DOSE (2X325MG) PO PRN (23:10)
[2023-02-22] MEDS ORDERED: ASPI-161 PO (23:44)
[2023-02-22] MEDS ORDERED: ACET-897 PO (23:44)
[2023-02-22] MEDS ORDERED: FLON1SPR NARES (23:44)
[2023-02-22] MEDS ORDERED: FISH10002 PO (23:44)
[2023-02-22] MEDS ORDERED: ARIC1TAB PO (23:44)
[2023-02-22] MEDS ORDERED: OCUVTAB4 PO (23:44)
[2023-02-22] MEDS ORDERED: SIME80CH5 PO (23:44)
[2023-02-22] MEDS ORDERED: DOCU100C16 PO (23:44)
[2023-02-22] MEDS ORDERED: AZEL1SPR3 NARES (23:44)
[2023-02-22] MEDS ORDERED: OYST500T92 PO (23:44)
[2023-02-22] MEDS ORDERED: MECL-136 PO (23:44)
[2023-02-22] MEDS ORDERED: FERR1TAB8 PO (23:44)
[2023-02-22] MEDS ORDERED: DICL20GE TOP (23:44)
[2023-02-22] MEDS ORDERED: PROP15DR12 OU (23:48)
[2023-02-22] MEDS ORDERED: VASEGEL6 NARES (23:48)
[2023-02-22] MEDS ORDERED: EQL0.65S NARES (23:48)
[2023-02-22] MEDS ORDERED: VASEGEL6 TOP (23:48)
[2023-02-22] MEDS ORDERED: LORA-1041 PO (23:48)
[2023-02-22] MEDS ORDERED: HOME MED LIST COMPLETE! XX SCH (23:50)
[2023-02-23] MEDS ORDERED: HOME MED LIST COMPLETE! XX SCH (00:25)
[2023-02-23] MEDS ORDERED: MIRALAX *UNIT DOSE* 17GM PACKET PO PRN (00:25)
[2023-02-23] MEDS ORDERED: GLUCAGON INJ 1MG VIAL SC PRN (00:30)
[2023-02-23] MEDS ORDERED: DEXTROSE 50% 50ML SYRINGE IV PRN (00:30)
[2023-02-23] MEDS ORDERED: GLUCOSE 4GM CHEW TABLET PO PRN (00:30)
[2023-02-23] MEDS ORDERED: LEVOTHYROXINE 75MCG TABLET (0.075MG) PO SCH (06:00)
[2023-02-23 06:41] LABS: HEMATOCRIT 35.7 % (36.0-47.0); HEMOGLOBIN 11.3 g/dl (12.0-15.5); MEAN CORPUSCULAR HEMOGLOBIN 31.5 pg (27.0-33.0); MEAN CORPUSCULAR HGB CONC 31.7 g/dl (32.0-36.5); MEAN CORPUSCULAR VOLUME 99.4 fl (80.0-96.0); PLATELET COUNT, AUTOMATED 134 10^3/uL (150-450); RED BLOOD COUNT 3.59 10^6/uL (4.00-5.40); WHITE BLOOD COUNT 10.9 10^3/uL (4.0-10.0)
[2023-02-23 07:08] LABS: BLOOD UREA NITROGEN 24 MG/DL (9-23); CALCIUM LEVEL 8.1 MG/DL (8.3-10.6); CARBON DIOXIDE LEVEL 30 MMOL/L (20-31); CHLORIDE LEVEL 107 MMOL/L (98-107); CREATININE FOR GFR 0.69 MG/DL (0.55-1.30); GLOMERULAR FILTRATION RATE > 60.0 (>32); GLUCOSE, FASTING 84 MG/DL (74-106); POTASSIUM SERUM 4.4 MMOL/L (3.5-5.1); SODIUM LEVEL 143 MMOL/L (136-145)
[2023-02-23 07:15] LABS: ANISOCYTOSIS 1+; LYMPHOCYTES 6 % (16-44); MONOCYTES 2 % (0-5); NEUTROPHILS 85 % (28-66); PLATELET ESTIMATE DECREASED (NORMAL); POIKILOCYTOSIS 1+; POLYCHROMASIA 1+
[2023-02-23] MEDS ORDERED: ASPIRIN 81MG ENTERIC TABLET PO SCH (09:00)
[2023-02-23] MEDS ORDERED: DOCUSATE SODIUM 100MG CAPSULE PO SCH (09:00)
[2023-02-23] MEDS ORDERED: FERROUS SULFATE 325MG TAB PO SCH (09:00)
[2023-02-23] MEDS ORDERED: OMEPRAZOLE 20MG CAP PO SCH (09:00)
[2023-02-23] MEDS ORDERED: SODIUM CHLORIDE NASAL 0.65% SPRAY BTL (OCEAN) SCH (09:00)
[2023-02-23] MEDS ORDERED: DONEPEZIL 5 MG TAB PO SCH (09:00)
[2023-02-23] MEDS ORDERED: LORATADINE 10 MG TAB PO SCH (09:00)
[2023-02-23] MEDS ORDERED: MECLIZINE 12.5 MG TAB PO SCH (09:00)
[2023-02-23] MEDS ORDERED: FLUTICASONE PROP 0.05% NASAL SPRAY 16 GM (FLONASE) NARES SCH (09:00)
[2023-02-23] MEDS ORDERED: SIMETHICONE 80MG CHEW TAB PO SCH (09:00)
[2023-02-23] MEDS ORDERED: FUROSEMIDE 20 MG TAB PO SCH (09:00)
[2023-02-23] MEDS ORDERED: ENOXAPARIN 40MG/0.4ML SYRINGE (J1650 PER 10MG) SC SCH (09:00)
[2023-02-23 17:49] VITALS: BP 166/92; TEMP 99.4; O2SAT 94
[2023-02-23] MEDS ORDERED: GABAPENTIN 100 MG CAP PO SCH (21:00)
== END 2023-02-23 18:11 | disposition home or self-care (01) | DRG 312 ==
LOC: M ED 14:38 → M ED INP 22:04
PROVIDERS: ADMIT Family Medicine; ATTEND Internal Medicine
DX: R55 Syncope and collapse (principal); D75.81 Myelofibrosis; F02.80 Dementia in other diseases classified elsewhere, unspecified severity, without behavioral disturbance, psychotic disturbance, mood disturbance, and anxiety; G30.9 Alzheimer's disease, unspecified; K59.00 Constipation, unspecified; M54.9 Dorsalgia, unspecified; E11.42 Type 2 diabetes mellitus with diabetic polyneuropathy; E87.5 Hyperkalemia; D45 Polycythemia vera; E03.9 Hypothyroidism, unspecified; D32.9 Benign neoplasm of meninges, unspecified; D72.829 Elevated white blood cell count, unspecified; D50.9 Iron deficiency anemia, unspecified; Z88.0 Allergy status to penicillin; Z88.8 Allergy status to other drugs, medicaments and biological substances; Z79.82 Long term (current) use of aspirin; Z79.899 Other long term (current) drug therapy; H35.30 Unspecified macular degeneration; M81.0 Age-related osteoporosis without current pathological fracture; Z98.41 Cataract extraction status, right eye; Z98.42 Cataract extraction status, left eye; Z87.442 Personal history of urinary calculi

== ENCOUNTER → 2023-03-30 | Outpatient (CLI) | payer MEDICARE, MEDICAID ==
[~2023-03-30] MED LIST changes: +ACET-897 PO; +ARIC1TAB PO; +ASPI-161 PO; +AZEL1SPR3 NARES; +DICL20GE TOP; +EQL0.65S NARES; +FERR1TAB8 PO; +FISH10002 PO; +FLON1SPR NARES; +LORA-1041 PO; +MECL-136 PO; +OCUVTAB4 PO; +OYST500T92 PO; +PROP15DR12 OU; +SIME80CH5 PO; +VASEGEL6 NARES; +VASEGEL6 TOP
[2023-03-30 15:17] LABS: HEMATOCRIT 37.2 % (36.0-47.0); HEMOGLOBIN 11.6 g/dl (12.0-15.5); MEAN CORPUSCULAR HEMOGLOBIN 31.4 pg (27.0-33.0); MEAN CORPUSCULAR HGB CONC 31.2 g/dl (32.0-36.5); MEAN CORPUSCULAR VOLUME 100.5 fl (80.0-96.0); PLATELET COUNT, AUTOMATED 195 10^3/uL (150-450); WHITE BLOOD COUNT 10.3 10^3/uL (4.0-10.0)
[2023-03-30 15:34] LABS: ALBUMIN 3.6 G/DL (3.2-5.2); ALKALINE PHOSPHATASE 113 U/L (46-116); ALT/SGPT 23 U/L (7.0-40); AST/SGOT 24 U/L (<34); BILIRUBIN,TOTAL 0.5 MG/DL (0.3-1.2); BLOOD UREA NITROGEN 21 MG/DL (9-23); CALCIUM LEVEL 8.7 MG/DL (8.3-10.6); CARBON DIOXIDE LEVEL 32 MMOL/L (20-31); CHLORIDE LEVEL 105 MMOL/L (98-107); CREATININE FOR GFR 0.69 MG/DL (0.55-1.30); GLOMERULAR FILTRATION RATE > 60.0 (>32); GLUCOSE, FASTING 92 MG/DL (74-106); HEMOGLOBIN A1c 4.8 % (4.0-6.0); POTASSIUM SERUM 4.7 MMOL/L (3.5-5.1); SODIUM LEVEL 139 MMOL/L (136-145); TOTAL PROTEIN 6.3 G/DL (5.7-8.2)
[2023-03-30 15:36] LABS: THYROID STIMULATING HORMONE 1.191 uIU/ML (0.55-4.78)
[2023-03-30 15:37] LABS: TOTAL 25(OH) VITAMIN D 31.6 NG/ML (20.0-100.0)
== END ==
LOC: M LAB 14:31
PROVIDERS: ATTEND Family Medicine
DX: I10 Essential (primary) hypertension (principal); R53.83 Other fatigue; E03.9 Hypothyroidism, unspecified; Z79.890 Hormone replacement therapy; Z79.899 Other long term (current) drug therapy

== ENCOUNTER → 2023-03-31 | Outpatient (CLI) | payer MEDICARE, MEDICAID | LOC: M RAD 14:46 | PROVIDERS: ATTEND Family Medicine | DX: S20.309A Unspecified superficial injuries of unspecified front wall of thorax, initial encounter (principal); Z87.81 Personal history of (healed) traumatic fracture; M41.84 Other forms of scoliosis, thoracic region; X58.XXXA Exposure to other specified factors, initial encounter; Y92.9 Unspecified place or not applicable; Y93.9 Activity, unspecified; Y99.9 Unspecified external cause status ==

== ENCOUNTER 2023-05-29 12:09 | Observation (INO) | payer MEDICARE, MEDICAID ==
[~2023-05-29] VITALS: Ht 157.5 cm; Wt 45.3 kg
[2023-05-29] MEDS ORDERED: ACETAMINOPHEN TAB 650MG DOSE (2X325MG) PO ONE (12:40)
[2023-05-29 13:04] LABS: BASO % 0.1 % (0.0-1.0); HEMATOCRIT 29.1 % (36.0-47.0); HEMOGLOBIN 9.2 g/dl (12.0-15.5); LYMPH # 0.4 10^3/uL (1.5-5.0); LYMPH % 3.1 % (24.0-44.0); MEAN CORPUSCULAR HEMOGLOBIN 30.9 pg (27.0-33.0); MEAN CORPUSCULAR HGB CONC 31.6 g/dl (32.0-36.5); MEAN CORPUSCULAR VOLUME 97.7 fl (80.0-96.0); MONO # 0.3 10^3/uL (0.0-0.8); MONO % 2.6 % (2.0-8.0); NEUTROPHILS # 10.8 10^3/uL (1.5-8.5); NEUTROPHILS % 90.9 % (36.0-66.0); PLATELET COUNT, AUTOMATED 190 10^3/uL (150-450); RED BLOOD COUNT 2.98 10^6/uL (4.00-5.40); WHITE BLOOD COUNT 11.9 10^3/uL (4.0-10.0)
[2023-05-29 13:15] LABS: INR 1.29; PROTHROMBIN TIME 15.7 SECONDS (12.5-14.5)
[2023-05-29 13:17] LABS: PARTIAL THROMBOPLASTIN TIME 42.2 SECONDS (24.8-34.2)
[2023-05-29 13:21] LABS: ERYTHROCYTE SEDIMENTATION RATE 83 mm/hr (0-30)
[2023-05-29 13:37] LABS: ALBUMIN 2.9 G/DL (3.2-5.2); ALKALINE PHOSPHATASE 118 U/L (46-116); ALT/SGPT 17 U/L (7.0-40); AST/SGOT 17 U/L (<34); BILIRUBIN,DIRECT 0.2 MG/DL (<0.4); BILIRUBIN,TOTAL 0.7 MG/DL (0.3-1.2); BLOOD UREA NITROGEN 28 MG/DL (9-23); CALCIUM LEVEL 7.9 MG/DL (8.3-10.6); CARBON DIOXIDE LEVEL 28 MMOL/L (20-31); CHLORIDE LEVEL 102 MMOL/L (98-107); CREATININE FOR GFR 0.63 MG/DL (0.55-1.30); GLOMERULAR FILTRATION RATE > 60.0 (>32); GLUCOSE, FASTING 119 MG/DL (74-106); POTASSIUM SERUM 3.9 MMOL/L (3.5-5.1); SODIUM LEVEL 136 MMOL/L (136-145); TOTAL PROTEIN 5.8 G/DL (5.7-8.2)
[2023-05-29 13:38] LABS: RSV AMPLIFICATION NEGATIVE (NEGATIVE)
[2023-05-29] MEDS ORDERED: VANCOMYCIN HCL 1,000 MG, VIAL MATE ADAPTER 1 EACH in NS 250 ML IV ONE (14:15)
[2023-05-29] MEDS ORDERED: MED REC IN PROGRESS XX SCH (15:10)
[2023-05-29 15:59] LABS: PROCALCITONIN 1.36 ng/ml
[2023-05-29] MEDS ORDERED: ISOVUE-370 76% 100ML VIAL As Ordered ONE (16:16)
[2023-05-29] MEDS ORDERED: [UNRECOGNIZED DRUG - CODE] PO (16:46)
[2023-05-29] MEDS ORDERED: HOME MED LIST COMPLETE! XX SCH (16:50)
[2023-05-29 17:17] VITALS: BP 88/32; TEMP 96.8; O2SAT 93
[2023-05-29] MEDS ORDERED: SODIUM CHLORIDE 0.9% 1000ML IV STA (17:33)
[2023-05-29] MEDS: ASPIRIN 81MG ENTERIC TABLET PO SCH (17:57)
[2023-05-29] MEDS: LEVOTHYROXINE 75MCG TABLET (0.075MG) PO SCH (17:57)
[2023-05-29] MEDS: OMEPRAZOLE 20MG CAP PO SCH (17:57)
[2023-05-29] MEDS: DONEPEZIL 5 MG TAB PO SCH (17:57)
[2023-05-29] MEDS: LORATADINE 10 MG TAB PO SCH (17:57)
[2023-05-29] MEDS: UNRESOLVED PATIENT OWN MED ORDER XX SCH (18:05)
[2023-05-29 18:45] VITALS: BP 92/48
[2023-05-29] MEDS ORDERED: NS 1,000 ML IV SCH (18:55)
[2023-05-29] MEDS ORDERED: MIDODRINE 5 MG TAB PO ONE (19:00)
[2023-05-29] MEDS: NS 1,000 ML IV SCH (19:18)
[2023-05-29 19:36] LABS: COLLAGEN EPINEPHRINE 61 SECONDS (74-162)
[2023-05-29 20:32] VITALS: BP 114/61; TEMP 97.9; O2SAT 97
[2023-05-29 20:56] LABS: BASO % 0.2 % (0.0-1.0); HEMATOCRIT 27.5 % (36.0-47.0); HEMOGLOBIN 8.5 g/dl (12.0-15.5); LYMPH # 0.5 10^3/uL (1.5-5.0); LYMPH % 3.9 % (24.0-44.0); MEAN CORPUSCULAR HEMOGLOBIN 30.8 pg (27.0-33.0); MEAN CORPUSCULAR HGB CONC 30.9 g/dl (32.0-36.5); MEAN CORPUSCULAR VOLUME 99.6 fl (80.0-96.0); MONO # 0.4 10^3/uL (0.0-0.8); MONO % 3.1 % (2.0-8.0); NEUTROPHILS # 11.1 10^3/uL (1.5-8.5); NEUTROPHILS % 89.9 % (36.0-66.0); PLATELET COUNT, AUTOMATED 159 10^3/uL (150-450); RED BLOOD COUNT 2.76 10^6/uL (4.00-5.40); WHITE BLOOD COUNT 12.3 10^3/uL (4.0-10.0)
[2023-05-29] MEDS: MECLIZINE 12.5 MG TAB PO SCH (21:45)
[2023-05-29] MEDS: SODIUM CHLORIDE NASAL 0.65% SPRAY BTL (OCEAN) SCH (21:45)
[2023-05-29] MEDS: SIMETHICONE 80MG CHEW TAB PO SCH (21:45)
[2023-05-29] MEDS: DOCUSATE SODIUM 100MG CAPSULE PO SCH (21:45)
[2023-05-29] MEDS: GABAPENTIN 100 MG CAP PO SCH (21:45)
[2023-05-29 22:00] LABS: ABG BASE EXCESS -1.8 (-2.0-2.0); ABG HCO3 22.4 MMOL/L (22.0-26.0); ABG O2 SATURATION 96.2 % (95.0-99.0); ABG PARTIAL PRESSURE CO2 35.6 mmHg (35.0-45.0); ABG PARTIAL PRESSURE O2 90.6 mmHg (75.0-100.0); ABG TOTAL CO2 23.5 MMOL/L (23.0-31.0); ABG pH (ARTERIAL) 7.417 UNITS (7.350-7.450)
[2023-05-29] MEDS: VANCOMYCIN HCL 500 MG in D5W MINI-BAG PLUS 100 ML IV SCH (22:21)
[2023-05-30] MEDS: UNRESOLVED PATIENT OWN MED ORDER XX SCH (00:01)
[2023-05-30 01:43] VITALS: BP 109/59; TEMP 97.5; O2SAT 93
[2023-05-30 05:09] VITALS: BP 120/60; TEMP 97.5; O2SAT 93
[2023-05-30 05:54] LABS: HEMATOCRIT 27.2 % (36.0-47.0); HEMOGLOBIN 8.3 g/dl (12.0-15.5); MEAN CORPUSCULAR HEMOGLOBIN 30.6 pg (27.0-33.0); MEAN CORPUSCULAR HGB CONC 30.5 g/dl (32.0-36.5); MEAN CORPUSCULAR VOLUME 100.4 fl (80.0-96.0); PLATELET COUNT, AUTOMATED 125 10^3/uL (150-450); RED BLOOD COUNT 2.71 10^6/uL (4.00-5.40); WHITE BLOOD COUNT 7.4 10^3/uL (4.0-10.0)
[2023-05-30 06:16] LABS: BLOOD UREA NITROGEN 23 MG/DL (9-23); CALCIUM LEVEL 7.1 MG/DL (8.3-10.6); CARBON DIOXIDE LEVEL 26 MMOL/L (20-31); CHLORIDE LEVEL 106 MMOL/L (98-107); CREATININE FOR GFR 0.59 MG/DL (0.55-1.30); GLOMERULAR FILTRATION RATE > 60.0 (>32); GLUCOSE, FASTING 96 MG/DL (74-106); POTASSIUM SERUM 3.8 MMOL/L (3.5-5.1); SODIUM LEVEL 140 MMOL/L (136-145)
[2023-05-30 06:27] LABS: PROCALCITONIN 1.13 ng/ml
[2023-05-30] MEDS: ENOXAPARIN 30MG/0.3ML SYRINGE (J1650 PER 10MG) SC SCH (09:27)
[2023-05-30] MEDS: MECLIZINE 12.5 MG TAB PO SCH ×2 (09:28→21:21)
[2023-05-30] MEDS: AZELASTINE 137MCG NASAL SPY 30 ML (ASTELIN) SCH (09:28)
[2023-05-30] MEDS: FLUTICASONE PROP 0.05% NASAL SPRAY 16 GM (FLONASE) NARES SCH (09:29)
[2023-05-30] MEDS: OMEPRAZOLE 20MG CAP PO SCH (09:29)
[2023-05-30] MEDS: SODIUM CHLORIDE NASAL 0.65% SPRAY BTL (OCEAN) SCH ×3 (09:29→21:21)
[2023-05-30] MEDS: SIMETHICONE 80MG CHEW TAB PO SCH ×2 (09:30→21:21)
[2023-05-30] MEDS: FUROSEMIDE 20 MG TAB PO SCH (09:30)
[2023-05-30] MEDS: DONEPEZIL 5 MG TAB PO SCH (09:30)
[2023-05-30] MEDS: DOCUSATE SODIUM 100MG CAPSULE PO SCH ×2 (09:30→21:21)
[2023-05-30] MEDS: ASPIRIN 81MG ENTERIC TABLET PO SCH (09:30)
[2023-05-30] MEDS: LORATADINE 10 MG TAB PO SCH (09:30)
[2023-05-30] MEDS: MIDODRINE 5 MG TAB PO SCH ×3 (09:30→15:01)
[2023-05-30] MEDS: VANCOMYCIN HCL 500 MG in D5W MINI-BAG PLUS 100 ML IV SCH ×2 (11:06→23:02)
[2023-05-30 14:00] VITALS: BP 126/69; TEMP 99; O2SAT 95
[2023-05-30] MEDS: NS 1,000 ML IV SCH ×2 (15:00→23:02)
[2023-05-30 17:30] LABS: APPEARANCE, URINE HAZY (CLEAR); BACTERIA, URINE AUTO NEGATIVE (NEGATIVE); BILIRUBIN, URINE AUTO NEGATIVE (NEGATIVE); BLOOD, URINE BLOOD 1+ (NEGATIVE); COLOR, URINE YELLOW (YELLOW); GLUCOSE, URINE (UA) AUTO NEGATIVE (NEGATIVE); KETONE, URINE AUTO TRACE mg/dL (NEGATIVE); LEUKOCYTE ESTERASE, URINE AUTO NEGATIVE (NEGATIVE); MUCUS, URINE SMALL (NEGATIVE); NITRITE, URINE AUTO NEGATIVE (NEGATIVE); PROTEIN, URINE AUTO 1+ mg/dL (NEGATIVE); RBC, URINE AUTO 0 /HPF (0-3); SPECIFIC GRAVITY URINE AUTO 1.014 (1.002-1.035); SQUAMOUS EPITHELIAL CELL UR AU 0 /HPF (0-6); UROBILINOGEN, URINE AUTO 0.2 mg/dL (0.0-2.0); WBC, URINE AUTO 1 /HPF (0-3)
[2023-05-30 21:10] VITALS: BP 119/67; TEMP 98.1; O2SAT 95
[2023-05-30] MEDS: GABAPENTIN 100 MG CAP PO SCH (21:21)
[2023-05-30] MEDS: ACETAMINOPHEN 500 MG TAB PO PRN (21:21)
[2023-05-31] VITALS (9 sets, daily range): BP systolic 101–122; BP diastolic 57–75; TEMP 97.4–101.1; O2SAT 94–98
[2023-05-31] MEDS: LEVOTHYROXINE 75MCG TABLET (0.075MG) PO SCH (05:36)
[2023-05-31 05:56] LABS: HEMATOCRIT 26.1 % (36.0-47.0); MEAN CORPUSCULAR HEMOGLOBIN 30.4 pg (27.0-33.0); MEAN CORPUSCULAR HGB CONC 30.7 g/dl (32.0-36.5); MEAN CORPUSCULAR VOLUME 99.2 fl (80.0-96.0); PLATELET COUNT, AUTOMATED 126 10^3/uL (150-450); RED BLOOD COUNT 2.63 10^6/uL (4.00-5.40); WHITE BLOOD COUNT 7.3 10^3/uL (4.0-10.0)
[2023-05-31 06:26] LABS: BLOOD UREA NITROGEN 19 MG/DL (9-23); CALCIUM LEVEL 7.1 MG/DL (8.3-10.6); CARBON DIOXIDE LEVEL 25 MMOL/L (20-31); CHLORIDE LEVEL 107 MMOL/L (98-107); CREATININE FOR GFR 0.49 MG/DL (0.55-1.30); GLOMERULAR FILTRATION RATE > 60.0 (>32); GLUCOSE, FASTING 91 MG/DL (74-106); POTASSIUM SERUM 3.2 MMOL/L (3.5-5.1); SODIUM LEVEL 141 MMOL/L (136-145)
[2023-05-31 06:49] LABS: LYMPHOCYTES 3 % (16-44); MONOCYTES 3 % (0-5); NEUTROPHILS 84 % (28-66); PLATELET ESTIMATE DECREASED (NORMAL)
[2023-05-31 08:16] LABS: IRON (FE) 11 UG/DL (50-170); PERCENT SATURATION 5.7 % (13.2-45.0); TOTAL IRON BINDING CAPACITY 192 UG/DL (250-425)
[2023-05-31 08:18] LABS: FERRITIN 297.3 NG/ML (7.3-270.7)
[2023-05-31 08:19] LABS: FOLATE 19.9 NG/ML (>5.4); VITAMIN B12 LEVEL 1671 PG/ML (211-911)
[2023-05-31] MEDS: UNRESOLVED PATIENT OWN MED ORDER XX SCH ×2 (08:51→22:54)
[2023-05-31] MEDS: FUROSEMIDE 20 MG TAB PO SCH (09:00)
[2023-05-31] MEDS ORDERED: POTASSIUM CHLORIDE 10MEQ SR TABLET PO ONE (09:00)
[2023-05-31] MEDS: MIRALAX *UNIT DOSE* 17GM PACKET PO PRN (09:14)
[2023-05-31] MEDS: DOCUSATE SODIUM 100MG CAPSULE PO SCH ×2 (09:15→20:33)
[2023-05-31] MEDS: LORATADINE 10 MG TAB PO SCH (09:15)
[2023-05-31] MEDS: SIMETHICONE 80MG CHEW TAB PO SCH ×2 (09:15→20:31)
[2023-05-31] MEDS: ENOXAPARIN 30MG/0.3ML SYRINGE (J1650 PER 10MG) SC SCH (09:15)
[2023-05-31] MEDS: DONEPEZIL 5 MG TAB PO SCH (09:15)
[2023-05-31] MEDS: ASPIRIN 81MG ENTERIC TABLET PO SCH (09:15)
[2023-05-31] MEDS: OMEPRAZOLE 20MG CAP PO SCH (09:15)
[2023-05-31] MEDS: MECLIZINE 12.5 MG TAB PO SCH ×2 (09:16→20:31)
[2023-05-31] MEDS: AZELASTINE 137MCG NASAL SPY 30 ML (ASTELIN) SCH (09:19)
[2023-05-31] MEDS: SODIUM CHLORIDE NASAL 0.65% SPRAY BTL (OCEAN) SCH ×3 (09:19→20:31)
[2023-05-31] MEDS: FLUTICASONE PROP 0.05% NASAL SPRAY 16 GM (FLONASE) NARES SCH (09:19)
[2023-05-31] MEDS ORDERED: VANCOMYCIN HCL 750 MG, VIAL MATE ADAPTER 1 EACH in D5W 250 ML IV SCH (11:00)
[2023-05-31] MEDS: ACETAMINOPHEN 500 MG TAB PO PRN ×2 (13:29→23:37)
[2023-05-31] MEDS ORDERED: FERRIC CARBOXYMALTOSE INJ 750 MG, VIAL MATE ADAPTER 1 EACH in NS 250 ML IV ONE (18:00)
[2023-05-31] MEDS: DOXYCYCLINE HYCLATE 100MG TABLET PO SCH (20:31)
[2023-05-31] MEDS: GABAPENTIN 100 MG CAP PO SCH (20:31)
[2023-05-31 23:07] LABS: ANA (HEP2) Negative (.)
[2023-06-01 00:43] VITALS: TEMP 99.6
[2023-06-01] MEDS: LEVOTHYROXINE 75MCG TABLET (0.075MG) PO SCH (05:08)
[2023-06-01 05:09] VITALS: BP 115/65; TEMP 99.3; O2SAT 92
[2023-06-01 06:02] LABS: HEMATOCRIT 29.1 % (36.0-47.0); HEMOGLOBIN 8.9 g/dl (12.0-15.5); MEAN CORPUSCULAR HEMOGLOBIN 30.4 pg (27.0-33.0); MEAN CORPUSCULAR HGB CONC 30.6 g/dl (32.0-36.5); MEAN CORPUSCULAR VOLUME 99.3 fl (80.0-96.0); PLATELET COUNT, AUTOMATED 152 10^3/uL (150-450); RED BLOOD COUNT 2.93 10^6/uL (4.00-5.40); WHITE BLOOD COUNT 7.5 10^3/uL (4.0-10.0)
[2023-06-01 06:30] LABS: BLOOD UREA NITROGEN 19 MG/DL (9-23); CALCIUM LEVEL 7.5 MG/DL (8.3-10.6); CARBON DIOXIDE LEVEL 27 MMOL/L (20-31); CHLORIDE LEVEL 107 MMOL/L (98-107); CREATININE FOR GFR 0.57 MG/DL (0.55-1.30); GLOMERULAR FILTRATION RATE > 60.0 (>32); GLUCOSE, FASTING 91 MG/DL (74-106); POTASSIUM SERUM 4.2 MMOL/L (3.5-5.1); SODIUM LEVEL 140 MMOL/L (136-145)
[2023-06-01 07:41] LABS: LYMPHOCYTES 2 % (16-44); MONOCYTES 3 % (0-5); NEUTROPHILS 86 % (28-66); PLATELET ESTIMATE NORMAL (NORMAL)
[2023-06-01 07:42] LABS: ANISOCYTOSIS 1+; HYPOCHROMASIA 1+; TEAR DROP CELLS 1+
[2023-06-01 08:00] VITALS: TEMP 100.5
[2023-06-01] MEDS: ASPIRIN 81MG ENTERIC TABLET PO SCH (08:42)
[2023-06-01] MEDS: LORATADINE 10 MG TAB PO SCH (08:42)
[2023-06-01] MEDS: MIRALAX *UNIT DOSE* 17GM PACKET PO PRN (08:42)
[2023-06-01] MEDS: OMEPRAZOLE 20MG CAP PO SCH (08:42)
[2023-06-01] MEDS: SIMETHICONE 80MG CHEW TAB PO SCH (08:42)
[2023-06-01] MEDS: DOCUSATE SODIUM 100MG CAPSULE PO SCH (08:43)
[2023-06-01] MEDS: ACETAMINOPHEN 500 MG TAB PO PRN (08:43)
[2023-06-01] MEDS: MECLIZINE 12.5 MG TAB PO SCH (08:43)
[2023-06-01] MEDS: FUROSEMIDE 20 MG TAB PO SCH (08:43)
[2023-06-01] MEDS: FLUTICASONE PROP 0.05% NASAL SPRAY 16 GM (FLONASE) NARES SCH (08:45)
[2023-06-01] MEDS: DONEPEZIL 5 MG TAB PO SCH (08:45)
[2023-06-01] MEDS: AZELASTINE 137MCG NASAL SPY 30 ML (ASTELIN) SCH (08:45)
[2023-06-01] MEDS: DOXYCYCLINE HYCLATE 100MG TABLET PO SCH (08:45)
[2023-06-01] MEDS: SODIUM CHLORIDE NASAL 0.65% SPRAY BTL (OCEAN) SCH ×2 (08:46→16:08)
[2023-06-01] MEDS: ENOXAPARIN 30MG/0.3ML SYRINGE (J1650 PER 10MG) SC SCH (08:46)
[2023-06-01] MEDS ORDERED: predniSONE 20 MG TAB PO SCH (09:00)
[2023-06-01] MEDS: guaiFENesin/CODEINE SYRUP 5 ML UDC PO SCH ×3 (10:27→16:08)
[2023-06-01] MEDS: BENZONATATE 100MG CAPSULE PO SCH ×2 (10:28→16:08)
[2023-06-01 10:45] VITALS: TEMP 99.4
[2023-06-01] MEDS: IPRATROPIUM 0.5MG/ALBUTEROL 2.5MG INH SOL UD 3ML (DUONEB) NEB SCH ×2 (11:34→16:14)
[2023-06-01 14:00] VITALS: BP 121/76; TEMP 98.1; O2SAT 98
[2023-06-01 15:38] LABS: PROCALCITONIN 0.44 ng/ml
[2023-06-01] MEDS ORDERED: DOXY100T PO (15:55)
[2023-06-01] MEDS ORDERED: BENZ-18 PO (15:55)
[2023-06-01] MEDS ORDERED: RUXOLITINIB 15 MG PO SCH (21:00)
== END 2023-06-01 17:21 | disposition home or self-care (01) ==
LOC: M ED 12:09 → EDBD 12:09 → M ED INP 16:10 → ENRESERV 16:52 → M MSPAV 17:09
PROVIDERS: ADMIT Internal Medicine; ATTEND Student in an Organized Health Care Education/Training Program
DX: L03.115 Cellulitis of right lower limb (principal); D50.9 Iron deficiency anemia, unspecified; R50.9 Fever, unspecified; D75.81 Myelofibrosis; E03.9 Hypothyroidism, unspecified; E11.9 Type 2 diabetes mellitus without complications; G89.4 Chronic pain syndrome; K21.9 Gastro-esophageal reflux disease without esophagitis; F03.90 Unspecified dementia, unspecified severity, without behavioral disturbance, psychotic disturbance, mood disturbance, and anxiety; I50.32 Chronic diastolic (congestive) heart failure; M81.0 Age-related osteoporosis without current pathological fracture; J30.1 Allergic rhinitis due to pollen; D32.9 Benign neoplasm of meninges, unspecified; D72.829 Elevated white blood cell count, unspecified; R00.0 Tachycardia, unspecified; R06.82 Tachypnea, not elsewhere classified; D45 Polycythemia vera; R14.3 Flatulence; Z86.718 Personal history of other venous thrombosis and embolism; Z88.0 Allergy status to penicillin; Z88.1 Allergy status to other antibiotic agents; Z88.8 Allergy status to other drugs, medicaments and biological substances; Z79.899 Other long term (current) drug therapy; Z79.82 Long term (current) use of aspirin; Z79.890 Hormone replacement therapy; Z66 Do not resuscitate
CPT/HCPCS: 36415; 71046; 75635; 80048; 80076; 80202; 80503; 81001; 82607; 82728; 82746; 82803; 83550; 83605; 84145; 85025; 85027; 85576; 85610; 85652; 85730; 86038; 86140; 87040; 87486; 87581; 87631; 87633; 87641; 87798; 93041; 93971; 94640; 94760; 96365; 96366; 96367; 96372; 96376; 97110; 97116; 97161; 97530; 99285; G0378; J1439; J1650; J3370; J7512; Q9967

== ENCOUNTER 2023-06-08 13:45 | Emergency (ER) | payer MEDICARE, MEDICAID ==
[~2023-06-08] VITALS: Ht 157.5 cm; Wt 45.9 kg
[~2023-06-08 13:45] MED LIST changes: +BENZ-18 PO; +DOXY100T PO
[2023-06-08 15:34] LABS: HEMATOCRIT 32.9 % (36.0-47.0); HEMOGLOBIN 10.1 g/dl (12.0-15.5); MEAN CORPUSCULAR HEMOGLOBIN 30.7 pg (27.0-33.0); MEAN CORPUSCULAR HGB CONC 30.7 g/dl (32.0-36.5); PLATELET COUNT, AUTOMATED 162 10^3/uL (150-450); RED BLOOD COUNT 3.29 10^6/uL (4.00-5.40); WHITE BLOOD COUNT 7.4 10^3/uL (4.0-10.0)
[2023-06-08 15:42] LABS: ERYTHROCYTE SEDIMENTATION RATE 62 mm/hr (0-30)
[2023-06-08 15:59] LABS: C REACTIVE PROTEIN QUANTITATIV < 0.40 MG/DL (<1.0)
[2023-06-08 16:01] LABS: BLOOD UREA NITROGEN 17 MG/DL (9-23); CALCIUM LEVEL 8.1 MG/DL (8.3-10.6); CARBON DIOXIDE LEVEL 30 MMOL/L (20-31); CHLORIDE LEVEL 101 MMOL/L (98-107); CREATININE FOR GFR 0.61 MG/DL (0.55-1.30); GLOMERULAR FILTRATION RATE > 60.0 (>32); GLUCOSE, FASTING 105 MG/DL (74-106); POTASSIUM SERUM 3.8 MMOL/L (3.5-5.1); SODIUM LEVEL 136 MMOL/L (136-145)
[2023-06-08 16:06] LABS: LYMPHOCYTES 8 % (16-44); MONOCYTES 1 % (0-5); NEUTROPHILS 88 % (28-66)
[2023-06-08 16:07] LABS: PLATELET ESTIMATE NORMAL (NORMAL)
[2023-06-08 16:12] LABS: PROCALCITONIN 0.14 ng/ml
[2023-06-08] MEDS ORDERED: DALBAVANCIN 1,500 MG in D5W 250 ML IV ONE (17:15)
[2023-06-08] MEDS ORDERED: LASI40TA9 PO (17:22)
[2023-06-08] MEDS ORDERED: POTA10CA60 PO (17:23)
[2023-06-08 17:57] LABS: RSV AMPLIFICATION NEGATIVE (NEGATIVE)
[2023-06-08 19:15] VITALS: TEMP 97.9
[2023-06-08 19:27] VITALS: BP 159/78; O2SAT 97
== END 2023-06-08 19:26 | disposition home or self-care (01) ==
LOC: M ED 13:45
DX: L03.115 Cellulitis of right lower limb (principal); R22.43 Localized swelling, mass and lump, lower limb, bilateral; E11.9 Type 2 diabetes mellitus without complications; Z79.82 Long term (current) use of aspirin; Z79.899 Other long term (current) drug therapy; Z88.0 Allergy status to penicillin; Z88.1 Allergy status to other antibiotic agents; Z88.6 Allergy status to analgesic agent; Z88.8 Allergy status to other drugs, medicaments and biological substances
CPT/HCPCS: 80048; 84145; 85025; 85652; 86140; 87631; 93971; 96365; 99284; J0875

== ENCOUNTER 2023-06-16 12:52 | Emergency (ER) | payer MEDICARE, MEDICAID ==
[~2023-06-16] VITALS: Ht 157.5 cm; Wt 44.7 kg
[~2023-06-16 12:52] MED LIST changes: +LASI40TA9 PO; +POTA10CA60 PO
[2023-06-16 12:53] VITALS: BP 110/64; TEMP 97.1; O2SAT 97
[2023-06-16] MEDS ORDERED: [UNRECOGNIZED DRUG - CODE] PO (13:09)
[2023-06-16] MEDS ORDERED: BACT800T5 PO (15:10)
== END 2023-06-16 15:21 | disposition home or self-care (01) ==
LOC: M ED 12:52
DX: L70.8 Other acne (principal); H61.21 Impacted cerumen, right ear; E11.9 Type 2 diabetes mellitus without complications; H35.30 Unspecified macular degeneration; Z86.73 Personal history of transient ischemic attack (TIA), and cerebral infarction without residual deficits; Z87.442 Personal history of urinary calculi; Z88.0 Allergy status to penicillin; Z88.1 Allergy status to other antibiotic agents; Z88.6 Allergy status to analgesic agent; Z79.899 Other long term (current) drug therapy; Z79.82 Long term (current) use of aspirin

== ENCOUNTER → 2023-07-23 | Outpatient (REF) | payer MEDICARE, MEDICAID ==
[~2023-07-23] MED LIST changes: +BACT800T5 PO
[2023-07-23 18:42] LABS: APPEARANCE, URINE HAZY (CLEAR); BACTERIA, URINE AUTO NEGATIVE (NEGATIVE); BILIRUBIN, URINE AUTO NEGATIVE (NEGATIVE); BLOOD, URINE BLOOD 2+ (NEGATIVE); COLOR, URINE YELLOW (YELLOW); GLUCOSE, URINE (UA) AUTO NEGATIVE (NEGATIVE); KETONE, URINE AUTO NEGATIVE (NEGATIVE); LEUKOCYTE ESTERASE, URINE AUTO 2+ (NEGATIVE); MUCUS, URINE SMALL (NEGATIVE); NITRITE, URINE AUTO NEGATIVE (NEGATIVE); PROTEIN, URINE AUTO 1+ mg/dL (NEGATIVE); RBC, URINE AUTO 144 /HPF (0-3); SPECIFIC GRAVITY URINE AUTO 1.017 (1.002-1.035); SQUAMOUS EPITHELIAL CELL UR AU 1 /HPF (0-6); UROBILINOGEN, URINE AUTO 0.2 mg/dL (0.0-2.0); WBC, URINE AUTO 175 /HPF (0-3)
== END ==
LOC: M LAB REF 18:23
PROVIDERS: ATTEND Physician Assistant Medical
DX: N39.0 Urinary tract infection, site not specified (principal); B96.4 Proteus (mirabilis) (morganii) as the cause of diseases classified elsewhere

== ENCOUNTER → 2023-09-28 | Outpatient (CLI) | payer MEDICARE, MEDICAID ==
[~2023-09-28] MED LIST changes: -ASPI-161 PO; +ASPI-615 PO; -MIRA1POW3 PO; +MIRA33506 PO; -SENN1TAB41 PO; +SENN1TAB85 PO
== END ==
LOC: M RAD 08:42
PROVIDERS: ATTEND Internal Medicine Medical Oncology
DX: R16.2 Hepatomegaly with splenomegaly, not elsewhere classified (principal)

== ENCOUNTER → 2023-12-15 | Outpatient (CLI) | payer MEDICARE, MEDICAID ==
[~2023-12-15] MED LIST changes: +DOXY-323 PO; -DOXY-443 PO; -POTA10CA60 PO; +POTA10CA70 PO
== END ==
LOC: M EKG 08:58
PROVIDERS: ATTEND Internal Medicine Medical Oncology
DX: R00.9 Unspecified abnormalities of heart beat (principal)

== ENCOUNTER → 2024-01-31 | Outpatient (CLI) | payer MEDICARE, MEDICAID ==
[2024-01-31 10:34] LABS: HEMATOCRIT 34.3 % (36.0-47.0); HEMOGLOBIN 10.9 g/dl (12.0-15.5); MEAN CORPUSCULAR HEMOGLOBIN 32.8 pg (27.0-33.0); MEAN CORPUSCULAR HGB CONC 31.8 g/dl (32.0-36.5); MEAN CORPUSCULAR VOLUME 103.3 fl (80.0-96.0); PLATELET COUNT, AUTOMATED 142 10^3/uL (150-450); RED BLOOD COUNT 3.32 10^6/uL (4.00-5.40); WHITE BLOOD COUNT 6.5 10^3/uL (4.0-10.0)
[2024-01-31 11:02] LABS: ALBUMIN 3.6 G/DL (3.2-5.2); ALKALINE PHOSPHATASE 83 U/L (46-116); ALT/SGPT 22 U/L (7.0-40); AST/SGOT 25 U/L (<34); BILIRUBIN,TOTAL 0.6 MG/DL (0.3-1.2); BLOOD UREA NITROGEN 29 MG/DL (9-23); CALCIUM LEVEL 8.7 MG/DL (8.3-10.6); CARBON DIOXIDE LEVEL 34 MMOL/L (20-31); CHLORIDE LEVEL 104 MMOL/L (98-107); CHOLESTEROL LEVEL 154 MG/DL (<200); CHOLESTEROL RISK RATIO 5.23 (<5); CREATININE FOR GFR 0.71 MG/DL (0.55-1.30); GLOMERULAR FILTRATION RATE > 60.0 (>32); GLUCOSE, FASTING 92 MG/DL (74-106); HDL CHOLESTEROL 29.4 MG/DL (>40); LDL CHOLESTEROL 84.6 MG/DL (<100); NON-HDL-C 124.6 MG/DL; POTASSIUM SERUM 4.5 MMOL/L (3.5-5.1); SODIUM LEVEL 140 MMOL/L (136-145); TOTAL PROTEIN 6.5 G/DL (5.7-8.2); TRIGLYCERIDES LEVEL 200 MG/DL (<150)
[2024-01-31 11:04] LABS: THYROID STIMULATING HORMONE 7.089 uIU/ML (0.55-4.78)
[2024-01-31 11:05] LABS: HEMOGLOBIN A1c 5.3 % (4.0-6.0)
[2024-02-03 13:18] LABS: QuantiFERON-TB Gold Plus INDETERMINATE (NEGATIVE)
== END ==
LOC: M LAB 08:50
PROVIDERS: ATTEND Family Medicine
DX: D64.9 Anemia, unspecified (principal); R53.83 Other fatigue; E03.9 Hypothyroidism, unspecified; Z79.899 Other long term (current) drug therapy

== ENCOUNTER → 2024-02-28 | Outpatient (REF) | payer MEDICARE, MEDICAID ==
[2024-02-28 10:47] LABS: AMORPHOUS SEDIMENT MODERATE (NEGATIVE); APPEARANCE, URINE TURBID (CLEAR); BACTERIA, URINE AUTO NEGATIVE (NEGATIVE); BILIRUBIN, URINE AUTO NEGATIVE (NEGATIVE); BLOOD, URINE BLOOD NEGATIVE (NEGATIVE); CALCIUM OXALATE CRYSTALS SMALL; COLOR, URINE YELLOW (YELLOW); GLUCOSE, URINE (UA) AUTO NEGATIVE (NEGATIVE); KETONE, URINE AUTO NEGATIVE (NEGATIVE); LEUKOCYTE ESTERASE, URINE AUTO NEGATIVE (NEGATIVE); MUCUS, URINE MODERATE (NEGATIVE); NITRITE, URINE AUTO NEGATIVE (NEGATIVE); PROTEIN, URINE AUTO 2+ mg/dL (NEGATIVE); RBC, URINE AUTO 0 /HPF (0-3); SPECIFIC GRAVITY URINE AUTO 1.029 (1.002-1.035); SQUAMOUS EPITHELIAL CELL UR AU 2 /HPF (0-6); UROBILINOGEN, URINE AUTO 0.2 mg/dL (0.0-2.0); WBC, URINE AUTO 0 /HPF (0-3)
== END ==
LOC: MERGE 09:29
PROVIDERS: ATTEND Family Medicine
DX: R35.0 Frequency of micturition (principal); R32 Unspecified urinary incontinence

== ENCOUNTER → 2024-03-12 | Outpatient (REF) | payer MEDICAID ==
[~2024-03-12] MED LIST changes: -CALC500T31 PO; -DOXY-323 PO; +DOXY-441 PO; +OYST500T16 PO
[2024-03-12 12:53] LABS: BASO % 0.3 % (0.0-1.0); EOS % 0.2 % (0.0-3.0); HEMATOCRIT 32.1 % (36.0-47.0); HEMOGLOBIN 10.1 g/dl (12.0-15.5); LYMPH # 0.6 10^3/uL (1.5-5.0); MEAN CORPUSCULAR HEMOGLOBIN 32.7 pg (27.0-33.0); MEAN CORPUSCULAR HGB CONC 31.5 g/dl (32.0-36.5); MEAN CORPUSCULAR VOLUME 103.9 fl (80.0-96.0); MONO # 0.2 10^3/uL (0.0-0.8); NEUTROPHILS # 4.8 10^3/uL (1.5-8.5); NEUTROPHILS % 83.1 % (36.0-66.0); PLATELET COUNT, AUTOMATED 145 10^3/uL (150-450); RED BLOOD COUNT 3.09 10^6/uL (4.00-5.40); WHITE BLOOD COUNT 5.8 10^3/uL (4.0-10.0)
[2024-03-12 13:23] LABS: ALBUMIN 3.5 G/DL (3.2-5.2); ALKALINE PHOSPHATASE 77 U/L (46-116); ALT/SGPT 24 U/L (7.0-40); AST/SGOT 22 U/L (<34); BILIRUBIN,TOTAL 0.4 MG/DL (0.3-1.2); BLOOD UREA NITROGEN 30 MG/DL (9-23); CALCIUM LEVEL 8.4 MG/DL (8.3-10.6); CARBON DIOXIDE LEVEL 30 MMOL/L (20-31); CHLORIDE LEVEL 104 MMOL/L (98-107); CREATININE FOR GFR 0.65 MG/DL (0.55-1.30); FERRITIN 497.6 NG/ML (7.3-270.7); GLOMERULAR FILTRATION RATE > 60.0 (>32); GLUCOSE, FASTING 84 MG/DL (74-106); IRON (FE) 104 UG/DL (50-170); PERCENT SATURATION 35.6 % (13.2-45.0); POTASSIUM SERUM 4.5 MMOL/L (3.5-5.1); SODIUM LEVEL 138 MMOL/L (136-145); TOTAL IRON BINDING CAPACITY 292 UG/DL (250-425); TOTAL PROTEIN 6.4 G/DL (5.7-8.2)
== END ==
LOC: MERGE 07:26
PROVIDERS: ATTEND Internal Medicine Medical Oncology
DX: D45 Polycythemia vera (principal)

== ENCOUNTER → 2024-03-28 | Outpatient (CLI) | payer MEDICARE, MEDICAID | LOC: M RAD 11:09 → MERGE 12:00 | PROVIDERS: ATTEND Physician Assistant | DX: N20.0 Calculus of kidney (principal) ==

== ENCOUNTER 2024-05-10 15:12 | Emergency (ER) | payer MEDICARE, MEDICAID ==
[~2024-05-10] VITALS: Ht 157.5 cm; Wt 45.5 kg
[2024-05-10 15:33] VITALS: TEMP 97.4
[2024-05-10] MEDS ORDERED: COLA100C5 PO (18:59)
[2024-05-10 19:47] VITALS: BP 137/71; O2SAT 98
== END 2024-05-10 19:57 | disposition home or self-care (01) ==
LOC: EDBD 15:12 → M ED 15:12
DX: K59.00 Constipation, unspecified (principal); E11.9 Type 2 diabetes mellitus without complications; Z87.442 Personal history of urinary calculi; F03.90 Unspecified dementia, unspecified severity, without behavioral disturbance, psychotic disturbance, mood disturbance, and anxiety; Z79.899 Other long term (current) drug therapy; Z79.82 Long term (current) use of aspirin; Z88.0 Allergy status to penicillin; Z88.1 Allergy status to other antibiotic agents; Z88.6 Allergy status to analgesic agent; Z88.8 Allergy status to other drugs, medicaments and biological substances

== ENCOUNTER 2024-05-14 13:51 | Emergency (ER) | payer MEDICARE, MEDICAID ==
[~2024-05-14] VITALS: Ht 157.5 cm; Wt 45.1 kg
[2024-05-14] VITALS (8 sets, daily range): BP systolic 124–134; BP diastolic 54–88; TEMP 97.8–98.9; O2SAT 95–98
[~2024-05-14 13:51] MED LIST changes: +COLA100C5 PO
[2024-05-14 15:23] LABS: HEMOGLOBIN 7.8 g/dl (12.0-15.5); MEAN CORPUSCULAR HEMOGLOBIN 32.6 pg (27.0-33.0); MEAN CORPUSCULAR HGB CONC 31.2 g/dl (32.0-36.5); MEAN CORPUSCULAR VOLUME 104.6 fl (80.0-96.0); PLATELET COUNT, AUTOMATED 158 10^3/uL (150-450); RED BLOOD COUNT 2.39 10^6/uL (4.00-5.40); WHITE BLOOD COUNT 5.8 10^3/uL (4.0-10.0)
[2024-05-14 15:46] LABS: ATYPICAL LYMPH 2 % (0-5); LYMPHOCYTES 6 % (16-44); MONOCYTES 6 % (0-5); NEUTROPHILS 68 % (28-66)
[2024-05-14 15:48] LABS: ANISOCYTOSIS 1+
[2024-05-14 15:49] LABS: HYPOCHROMASIA 1+; PLATELET ESTIMATE NORMAL (NORMAL)
[2024-05-14 15:51] LABS: LIPASE 46 U/L (12-53)
[2024-05-14 15:54] LABS: ALBUMIN 2.6 G/DL (3.2-5.2); ALKALINE PHOSPHATASE 82 U/L (35-104); ALT/SGPT 12 U/L (7.0-40); AST/SGOT 16 U/L (<34); BILIRUBIN,DIRECT < 0.1 MG/DL (<0.4); BILIRUBIN,TOTAL 0.2 MG/DL (0.3-1.2); BLOOD UREA NITROGEN 28 MG/DL (9-23); CALCIUM LEVEL 8.6 MG/DL (8.3-10.6); CARBON DIOXIDE LEVEL 27 MMOL/L (20-31); CHLORIDE LEVEL 103 MMOL/L (98-107); CREATININE FOR GFR 0.61 MG/DL (0.55-1.30); GLOMERULAR FILTRATION RATE > 60.0 (>32); GLUCOSE, FASTING 86 MG/DL (74-106); POTASSIUM SERUM 5.1 MMOL/L (3.5-5.1); SODIUM LEVEL 134 MMOL/L (136-145); TOTAL PROTEIN 5.9 G/DL (5.7-8.2)
[2024-05-14 16:22] LABS: INR 1.01; PARTIAL THROMBOPLASTIN TIME 36.9 SECONDS (24.8-34.2); PROTHROMBIN TIME 13.6 SECONDS (12.5-14.5)
[2024-05-14] MEDS ORDERED: ISOVUE-370 76% 100ML VIAL As Ordered ONE (17:40)
[2024-05-14] MEDS ORDERED: FURO40TA2 PO (21:07)
[2024-05-14] MEDS ORDERED: DONE10TA90 PO (21:07)
[2024-05-14] MEDS ORDERED: VASEGEL6 TOP (21:07)
[2024-05-14] MEDS ORDERED: FLON1SPR NARES (21:12)
[2024-05-14] MEDS ORDERED: SIME1CHW5 PO (21:12)
[2024-05-14] MEDS ORDERED: HOME MED LIST COMPLETE! XX SCH (21:15)
[2024-05-14] MEDS: FLEET OIL RETENTION ENEMA PR ONE (22:00)
[2024-05-14] MEDS: POLYETHYLENE GLYCOL (MIRALAX) 238GM BOTTLE PO ONE (23:15)
[2024-05-14 23:43] LABS: HEMATOCRIT 36.1 % (36.0-47.0); MEAN CORPUSCULAR HEMOGLOBIN 31.4 pg (27.0-33.0); MEAN CORPUSCULAR HGB CONC 32.4 g/dl (32.0-36.5); MEAN CORPUSCULAR VOLUME 96.8 fl (80.0-96.0); PLATELET COUNT, AUTOMATED 148 10^3/uL (150-450); RED BLOOD COUNT 3.73 10^6/uL (4.00-5.40); WHITE BLOOD COUNT 7.6 10^3/uL (4.0-10.0)
[2024-05-14 23:46] LABS: HEMOGLOBIN 11.7 g/dl (12.0-15.5)
[2024-05-15 00:27] VITALS: BP 128/70; TEMP 98.2; O2SAT 98
== END 2024-05-15 00:57 | disposition home or self-care (01) ==
LOC: M ED 13:51 → EDBD 13:51 → M ED 05-15 00:57
DX: D72.825 Bandemia (principal); D64.9 Anemia, unspecified; K59.00 Constipation, unspecified; R10.9 Unspecified abdominal pain; K76.89 Other specified diseases of liver; N28.1 Cyst of kidney, acquired; I70.90 Unspecified atherosclerosis; M48.061 Spinal stenosis, lumbar region without neurogenic claudication; E11.9 Type 2 diabetes mellitus without complications; M19.90 Unspecified osteoarthritis, unspecified site; Z87.442 Personal history of urinary calculi; Z86.718 Personal history of other venous thrombosis and embolism; H35.30 Unspecified macular degeneration; Z79.82 Long term (current) use of aspirin; Z79.899 Other long term (current) drug therapy; Z88.0 Allergy status to penicillin; Z88.1 Allergy status to other antibiotic agents; Z88.6 Allergy status to analgesic agent; Z88.8 Allergy status to other drugs, medicaments and biological substances
CPT/HCPCS: 36415; 36430; 74177; 80048; 80076; 83605; 83690; 85025; 85027; 85046; 85610; 85730; 86850; 86900; 86901; 86920; 93041; 99285; P9016; Q9967

== ENCOUNTER 2024-05-16 12:12 | Emergency (ER) | payer MEDICARE, MEDICAID ==
[~2024-05-16] VITALS: Ht 160 cm; Wt 40.5 kg
[~2024-05-16 12:12] MED LIST changes: +DONE10TA90 PO; +FURO40TA2 PO; +SIME1CHW5 PO
[2024-05-16 14:14] LABS: BASO % 0.5 % (0.0-1.0); EOS % 0.2 % (0.0-3.0); HEMATOCRIT 36.5 % (36.0-47.0); HEMOGLOBIN 11.9 g/dl (12.0-15.5); LYMPH # 0.5 10^3/uL (1.5-5.0); LYMPH % 7.4 % (24.0-44.0); MEAN CORPUSCULAR HEMOGLOBIN 31.9 pg (27.0-33.0); MEAN CORPUSCULAR HGB CONC 32.6 g/dl (32.0-36.5); MEAN CORPUSCULAR VOLUME 97.9 fl (80.0-96.0); MONO # 0.3 10^3/uL (0.0-0.8); MONO % 4.4 % (2.0-8.0); NEUTROPHILS # 5.5 10^3/uL (1.5-8.5); NEUTROPHILS % 82.2 % (36.0-66.0); PLATELET COUNT, AUTOMATED 149 10^3/uL (150-450); RED BLOOD COUNT 3.73 10^6/uL (4.00-5.40); WHITE BLOOD COUNT 6.6 10^3/uL (4.0-10.0)
[2024-05-16 16:16] LABS: LIPASE 45 U/L (12-53)
[2024-05-16 16:20] LABS: ALBUMIN 2.8 G/DL (3.2-5.2); ALKALINE PHOSPHATASE 100 U/L (35-104); ALT/SGPT 19 U/L (7.0-40); AST/SGOT 19 U/L (<34); BILIRUBIN,DIRECT 0.1 MG/DL (<0.4); BILIRUBIN,TOTAL 0.4 MG/DL (0.3-1.2); BLOOD UREA NITROGEN 26 MG/DL (9-23); CALCIUM LEVEL 8.7 MG/DL (8.3-10.6); CARBON DIOXIDE LEVEL 31 MMOL/L (20-31); CHLORIDE LEVEL 102 MMOL/L (98-107); CREATININE FOR GFR 0.61 MG/DL (0.55-1.30); GLOMERULAR FILTRATION RATE > 60.0 (>32); GLUCOSE, FASTING 91 MG/DL (74-106); POTASSIUM SERUM 4.5 MMOL/L (3.5-5.1); SODIUM LEVEL 138 MMOL/L (136-145); TOTAL PROTEIN 6.3 G/DL (5.7-8.2)
[2024-05-16 20:45] VITALS: BP 138/79; O2SAT 92
[2024-05-16 21:02] VITALS: TEMP 98.5
== END 2024-05-16 21:02 | disposition home or self-care (01) ==
LOC: EDBD 12:12 → M ED 12:12
DX: K59.00 Constipation, unspecified (principal); E11.9 Type 2 diabetes mellitus without complications; K21.9 Gastro-esophageal reflux disease without esophagitis; Z86.73 Personal history of transient ischemic attack (TIA), and cerebral infarction without residual deficits; Z86.718 Personal history of other venous thrombosis and embolism; D47.1 Chronic myeloproliferative disease; D75.1 Secondary polycythemia; Z79.82 Long term (current) use of aspirin; Z79.899 Other long term (current) drug therapy; Z88.8 Allergy status to other drugs, medicaments and biological substances; Z88.0 Allergy status to penicillin; Z88.1 Allergy status to other antibiotic agents; Z88.6 Allergy status to analgesic agent

== ENCOUNTER 2024-05-23 15:58 | Emergency (ER) | payer MEDICARE, MEDICAID ==
[~2024-05-23] VITALS: Ht 160 cm; Wt 41.8 kg
[2024-05-23 16:03] VITALS: TEMP 97.7
[2024-05-23 16:38] LABS: MEAN CORPUSCULAR HEMOGLOBIN 31.9 pg (27.0-33.0); MEAN CORPUSCULAR HGB CONC 31.4 g/dl (32.0-36.5); MEAN CORPUSCULAR VOLUME 101.4 fl (80.0-96.0); PLATELET COUNT, AUTOMATED 186 10^3/uL (150-450); RED BLOOD COUNT 3.45 10^6/uL (4.00-5.40); WHITE BLOOD COUNT 7.6 10^3/uL (4.0-10.0)
[2024-05-23 17:04] LABS: BLOOD UREA NITROGEN 30 MG/DL (9-23); CALCIUM LEVEL 8.8 MG/DL (8.3-10.6); CARBON DIOXIDE LEVEL 32 MMOL/L (20-31); CHLORIDE LEVEL 101 MMOL/L (98-107); CREATININE FOR GFR 0.64 MG/DL (0.55-1.30); GLOMERULAR FILTRATION RATE > 60.0 (>32); GLUCOSE, FASTING 97 MG/DL (74-106); POTASSIUM SERUM 4.6 MMOL/L (3.5-5.1); SODIUM LEVEL 136 MMOL/L (136-145)
[2024-05-23 17:23] LABS: LIPASE 52 U/L (12-53)
[2024-05-23 17:25] LABS: ALBUMIN 2.7 G/DL (3.2-5.2); ALKALINE PHOSPHATASE 101 U/L (35-104); ALT/SGPT 14 U/L (7.0-40); AST/SGOT 22 U/L (<34); BILIRUBIN,DIRECT < 0.1 MG/DL (<0.4); BILIRUBIN,TOTAL 0.3 MG/DL (0.3-1.2); TOTAL PROTEIN 6.5 G/DL (5.7-8.2)
[2024-05-23 17:26] LABS: ATYPICAL LYMPH 1 % (0-5); EOSINOPHILS 1 % (0-3); LYMPHOCYTES 5 % (16-44); MONOCYTES 3 % (0-5); NEUTROPHILS 81 % (28-66)
[2024-05-23] MEDS ORDERED: ISOVUE-370 76% 100ML VIAL As Ordered ONE (17:26)
[2024-05-23 17:28] LABS: PLATELET ESTIMATE NORMAL (NORMAL); TOXIC GRANULATION 1+
[2024-05-23 19:09] VITALS: BP 141/73; O2SAT 95
== END 2024-05-23 19:44 | disposition home or self-care (01) ==
LOC: M ED 15:58
DX: R14.0 Abdominal distension (gaseous) (principal); E11.9 Type 2 diabetes mellitus without complications; H35.30 Unspecified macular degeneration; Z87.442 Personal history of urinary calculi; Z86.718 Personal history of other venous thrombosis and embolism; Z79.82 Long term (current) use of aspirin; Z79.899 Other long term (current) drug therapy; Z88.0 Allergy status to penicillin; Z88.1 Allergy status to other antibiotic agents; Z88.6 Allergy status to analgesic agent; Z88.8 Allergy status to other drugs, medicaments and biological substances

== ENCOUNTER → 2024-07-25 | Outpatient (CLI) | payer MEDICARE, MEDICAID ==
[~2024-07-25] MED LIST changes: +CLAR10CA3 PO
== END ==
LOC: M RAD 09:22
PROVIDERS: ATTEND Internal Medicine Hematology & Oncology
DX: R22.32 Localized swelling, mass and lump, left upper limb (principal); D45 Polycythemia vera

== ENCOUNTER → 2024-08-14 | Outpatient (CLI) | payer MEDICARE, MEDICAID ==
[~2024-08-14] MED LIST changes: +LIDOCAINE 1% MDV 20ML VIAL As Ordered ONE
[2024-08-14 08:15] VITALS: TEMP 98.8
[2024-08-14 08:37] LABS: HEMATOCRIT 26.1 % (36.0-47.0); HEMOGLOBIN 8.1 g/dl (12.0-15.5); MEAN CORPUSCULAR HEMOGLOBIN 34.8 pg (27.0-33.0); PLATELET COUNT, AUTOMATED 146 10^3/uL (150-450); RED BLOOD COUNT 2.33 10^6/uL (4.00-5.40); WHITE BLOOD COUNT 3.9 10^3/uL (4.0-10.0)
[2024-08-14 08:59] LABS: ATYPICAL LYMPH 2 % (0-5); BASOPHILS 1 % (0-1); EOSINOPHILS 1 % (0-3); LYMPHOCYTES 12 % (16-44); MONOCYTES 2 % (0-5); NEUTROPHILS 74 % (28-66)
[2024-08-14 09:01] LABS: ANISOCYTOSIS 1+; PLATELET ESTIMATE NORMAL (NORMAL); TOXIC VACUOLATION 1+
[2024-08-14 09:02] LABS: OVALOCYTES 1+; TEAR DROP CELLS 1+
[2024-08-14 09:24] VITALS: BP 108/67; O2SAT 97
== END ==
LOC: M IRPRO 07:51
PROVIDERS: ATTEND Nurse Practitioner Women's Health
DX: D45 Polycythemia vera (principal)

== ENCOUNTER 2024-08-21 14:30 | Emergency (ER) | payer MEDICARE, MEDICAID ==
[~2024-08-21 14:30] MED LIST changes: -LIDOCAINE 1% MDV 20ML VIAL As Ordered ONE
[2024-08-21 14:43] VITALS: TEMP 97.2
[2024-08-21 16:15] VITALS: BP 126/68; O2SAT 96
== END 2024-08-21 16:19 | disposition home or self-care (01) ==
LOC: M ED 14:30 → EDBD 14:30 → M ED 16:19
DX: D61.818 Other pancytopenia (principal); I50.9 Heart failure, unspecified; Z87.442 Personal history of urinary calculi; Z86.73 Personal history of transient ischemic attack (TIA), and cerebral infarction without residual deficits; Z88.0 Allergy status to penicillin; Z88.1 Allergy status to other antibiotic agents; Z88.8 Allergy status to other drugs, medicaments and biological substances; Z79.899 Other long term (current) drug therapy

== ENCOUNTER → 2024-09-03 | Outpatient (REF) | payer MEDICARE, MEDICAID | LOC: M LAB REF 12:53 | PROVIDERS: ATTEND Internal Medicine Medical Oncology | DX: D45 Polycythemia vera (principal) ==

== ENCOUNTER → 2024-09-05 | Outpatient (REF) | payer MEDICARE, MEDICAID ==
[~2024-09-05] MED LIST changes: +HYDR28CR33 TOP; +JAKA5TAB PO
[2024-09-05 08:43] LABS: BASO % 0.2 % (0.0-1.0); HEMATOCRIT 29.3 % (36.0-47.0); LYMPH # 0.7 10^3/uL (1.5-5.0); LYMPH % 15.3 % (24.0-44.0); MEAN CORPUSCULAR HEMOGLOBIN 34.2 pg (27.0-33.0); MEAN CORPUSCULAR HGB CONC 30.7 g/dl (32.0-36.5); MEAN CORPUSCULAR VOLUME 111.4 fl (80.0-96.0); MONO # 0.2 10^3/uL (0.0-0.8); MONO % 3.9 % (2.0-8.0); NEUTROPHILS # 3.2 10^3/uL (1.5-8.5); NEUTROPHILS % 74.8 % (36.0-66.0); PLATELET COUNT, AUTOMATED 192 10^3/uL (150-450); RED BLOOD COUNT 2.63 10^6/uL (4.00-5.40); WHITE BLOOD COUNT 4.3 10^3/uL (4.0-10.0)
[2024-09-05 09:19] LABS: ALBUMIN 3.1 G/DL (3.2-5.2); ALKALINE PHOSPHATASE 90 U/L (35-104); ALT/SGPT 22 U/L (7.0-40); AST/SGOT 25 U/L (<34); BILIRUBIN,TOTAL 0.3 MG/DL (0.3-1.2); BLOOD UREA NITROGEN 28 MG/DL (9-23); CALCIUM LEVEL 8.3 MG/DL (8.3-10.6); CARBON DIOXIDE LEVEL 28 MMOL/L (20-31); CHLORIDE LEVEL 104 MMOL/L (98-107); CREATININE FOR GFR 0.61 MG/DL (0.55-1.30); GLOMERULAR FILTRATION RATE > 60.0 (>32); GLUCOSE, FASTING 91 MG/DL (74-106); MAGNESIUM LEVEL 2.3 MG/DL (1.8-2.4); POTASSIUM SERUM 4.3 MMOL/L (3.5-5.1); SODIUM LEVEL 140 MMOL/L (136-145); TOTAL PROTEIN 6.4 G/DL (5.7-8.2)
== END ==
PROVIDERS: ATTEND Internal Medicine Medical Oncology
DX: D45 Polycythemia vera (principal)

== ENCOUNTER → 2024-09-11 | Outpatient (REF) | payer MEDICARE, MEDICAID | LOC: M LAB REF 13:25 | PROVIDERS: ATTEND Internal Medicine Medical Oncology | DX: D45 Polycythemia vera (principal) ==

== ENCOUNTER 2024-09-15 14:05 | Emergency (ER) | payer MEDICARE, MEDICAID ==
[~2024-09-15] VITALS: Ht 157.5 cm; Wt 40.9 kg
[2024-09-15 16:15] VITALS: BP 121/63
[2024-09-15 16:20] VITALS: TEMP 98.4; O2SAT 100
== END 2024-09-15 16:50 | disposition home or self-care (01) ==
LOC: M ED 14:05
DX: M25.512 Pain in left shoulder (principal); I50.22 Chronic systolic (congestive) heart failure; Z86.73 Personal history of transient ischemic attack (TIA), and cerebral infarction without residual deficits; Z88.0 Allergy status to penicillin; Z88.1 Allergy status to other antibiotic agents; Z88.5 Allergy status to narcotic agent; Z79.1 Long term (current) use of non-steroidal anti-inflammatories (NSAID); Z79.899 Other long term (current) drug therapy

== ENCOUNTER 2024-10-11 10:25 | Outpatient (RCR) | payer MEDICARE, MEDICAID ==
[2018-04-04 13:43] VITALS: BP 124/78; TEMP 97.5; O2SAT 96
[2018-04-04 13:48] LABS: HEMATOCRIT 46.6 % (37.0-51.0); HEMOGLOBIN 14.5 g/dl (12.0-18.0); LYMPH % 7.1 % (10.0-58.5); MEAN CORPUSCULAR HGB CONC 31.1 g/dl (31.0-36.0); MEAN CORPUSCULAR VOLUME 64.3 fl (80.0-97.0); NEUTROPHILS # 19.4 10^3/uL (2.0-7.8); RED BLOOD COUNT 7.24 10^6/uL (4.2-6.3); WHITE BLOOD COUNT 21.5 10^3/uL (4.1-10.9)
[2018-04-04 14:26] LABS: ALBUMIN 4.2 GM/DL (3.5-5.2); CARBON DIOXIDE LEVEL 32.9 MEQ/L (23-31); CREATININE FOR GFR 0.97 MG/DL (0.60-1.10); GLOMERULAR FILTRATION RATE 58.4 (>32); POTASSIUM SERUM 4.5 MMOL/L (3.5-5.1); SODIUM LEVEL 136.7 MMOL/L (136-145); TOTAL PROTEIN 6.3 GM/DL (6.4-8.3)
[2018-04-04 14:30] VITALS: BP 122/69; O2SAT 97
[2018-04-04 15:00] VITALS: BP 110/60; O2SAT 98
[2018-06-05 14:57] VITALS: BP 120/78; TEMP 97.1; O2SAT 96
[2018-06-05 15:11] LABS: HEMOGLOBIN 13.4 g/dl (12.0-18.0); LYMPH % 7.6 % (10.0-58.5); MEAN CORPUSCULAR HEMOGLOBIN 20.8 pg (26.0-32.0); MEAN CORPUSCULAR HGB CONC 31.2 g/dl (31.0-36.0); MEAN CORPUSCULAR VOLUME 66.7 fl (80.0-97.0); NEUTROPHILS # 14.8 10^3/uL (2.0-7.8); NEUTROPHILS % 88.9 % (37.0-92.0); RED BLOOD COUNT 6.45 10^6/uL (4.2-6.3); WHITE BLOOD COUNT 16.6 10^3/uL (4.1-10.9)
[2018-06-05 15:33] LABS: ALBUMIN 4.1 GM/DL (3.5-5.2); ALKALINE PHOSPHATASE 112 U/L (44-147); BLOOD UREA NITROGEN 28 MG/DL (6-20); CALCIUM LEVEL 8.5 MG/DL (8.5-10.2); CARBON DIOXIDE LEVEL 28 MEQ/L (23-31); CHLORIDE LEVEL 101 MMOL/L (98-107); CREATININE FOR GFR 0.94 MG/DL (0.60-1.10); GLOMERULAR FILTRATION RATE > 60.0 (>32); GLUCOSE, FASTING 97 MG/DL (70-105); POTASSIUM SERUM 4.3 MMOL/L (3.5-5.1); SODIUM LEVEL 138 MMOL/L (136-145); TOTAL PROTEIN 6.2 GM/DL (6.4-8.3)
[2018-08-07 14:01] LABS: HEMATOCRIT 48.3 % (36.0-47.0); HEMOGLOBIN 14.8 g/dl (12.0-15.5); LYMPH % 7.3 % (24.0-44.0); MEAN CORPUSCULAR HEMOGLOBIN 20.1 pg (27.0-33.0); MEAN CORPUSCULAR HGB CONC 30.6 g/dl (32.0-36.5); MEAN CORPUSCULAR VOLUME 65.4 fl (80.0-96.0); NEUTROPHILS # 18.2 10^3/uL (1.8-7.7); NEUTROPHILS % 89.6 % (36.0-66.0); RED BLOOD COUNT 7.38 10^6/uL (4.00-5.40); WHITE BLOOD COUNT 20.3 10^3/uL (4.0-10.0)
[2018-08-07 14:44] LABS: ALBUMIN 4.5 GM/DL (3.5-5.2); CALCIUM LEVEL 9.5 MG/DL (8.5-10.2); CREATININE FOR GFR 1.23 MG/DL (0.60-1.10); GLOMERULAR FILTRATION RATE 44.4 (>32); POTASSIUM SERUM 4.6 MMOL/L (3.5-5.1); TOTAL PROTEIN 6.9 GM/DL (6.4-8.3)
[2018-08-07 14:52] VITALS: BP 127/77; TEMP 98.4; O2SAT 100
[2018-08-07 16:27] VITALS: BP 101/63; TEMP 98.1; O2SAT 96
[2018-09-11 15:26] LABS: HEMATOCRIT 43.7 % (36.0-47.0); HEMOGLOBIN 13.2 g/dl (12.0-15.5); LYMPH % 7.3 % (24.0-44.0); MEAN CORPUSCULAR HEMOGLOBIN 20.1 pg (27.0-33.0); MEAN CORPUSCULAR HGB CONC 30.2 g/dl (32.0-36.5); MEAN CORPUSCULAR VOLUME 66.6 fl (80.0-96.0); NEUTROPHILS # 16.8 10^3/uL (1.8-7.7); NEUTROPHILS % 90.5 % (36.0-66.0); RED BLOOD COUNT 6.56 10^6/uL (4.00-5.40); WHITE BLOOD COUNT 18.6 10^3/uL (4.0-10.0)
[2018-10-04 14:18] VITALS: BP 122/72; TEMP 98.3; O2SAT 95
[2018-10-04 14:26] LABS: HEMOGLOBIN 13.4 g/dl (12.0-15.5); LYMPH % 9.1 % (24.0-44.0); MEAN CORPUSCULAR HEMOGLOBIN 20.6 pg (27.0-33.0); MEAN CORPUSCULAR HGB CONC 31.2 g/dl (32.0-36.5); MEAN CORPUSCULAR VOLUME 66.2 fl (80.0-96.0); NEUTROPHILS # 14.1 10^3/uL (1.8-7.7); NEUTROPHILS % 86.3 % (36.0-66.0); RED BLOOD COUNT 6.49 10^6/uL (4.00-5.40); WHITE BLOOD COUNT 16.3 10^3/uL (4.0-10.0)
[2018-10-04 14:52] LABS: ALBUMIN 3.9 GM/DL (3.5-5.2); ALKALINE PHOSPHATASE 105 U/L (44-147); BLOOD UREA NITROGEN 16 MG/DL (6-20); CALCIUM LEVEL 8.7 MG/DL (8.5-10.2); CARBON DIOXIDE LEVEL 31 MEQ/L (23-31); CHLORIDE LEVEL 102 MMOL/L (98-107); CREATININE FOR GFR 0.91 MG/DL (0.60-1.10); GLOMERULAR FILTRATION RATE > 60.0 (>32); GLUCOSE, FASTING 100 MG/DL (70-105); POTASSIUM SERUM 4.5 MMOL/L (3.5-5.1); SODIUM LEVEL 142 MMOL/L (135-145)
[2018-10-04 14:58] LABS: URIC ACID 4.6 MG/DL (2.6-6.0)
[2018-11-02 13:17] LABS: HEMATOCRIT 44.4 % (36.0-47.0); HEMOGLOBIN 13.9 g/dl (12.0-15.5); LYMPH % 9.2 % (24.0-44.0); MEAN CORPUSCULAR HEMOGLOBIN 20.7 pg (27.0-33.0); MEAN CORPUSCULAR HGB CONC 31.3 g/dl (32.0-36.5); MEAN CORPUSCULAR VOLUME 66.2 fl (80.0-96.0); NEUTROPHILS # 12.3 10^3/uL (1.8-7.7); NEUTROPHILS % 85.7 % (36.0-66.0); RED BLOOD COUNT 6.7 10^6/uL (4.00-5.40); WHITE BLOOD COUNT 14.4 10^3/uL (4.0-10.0)
[2018-12-04 15:21] LABS: HEMATOCRIT 49.8 % (36.0-47.0); HEMOGLOBIN 15.3 g/dl (12.0-15.5); LYMPH % 6.9 % (24.0-44.0); MEAN CORPUSCULAR HEMOGLOBIN 20.8 pg (27.0-33.0); MEAN CORPUSCULAR HGB CONC 30.7 g/dl (32.0-36.5); MEAN CORPUSCULAR VOLUME 67.6 fl (80.0-96.0); NEUTROPHILS # 16.3 10^3/uL (1.8-7.7); NEUTROPHILS % 89.6 % (36.0-66.0); RED BLOOD COUNT 7.36 10^6/uL (4.00-5.40); WHITE BLOOD COUNT 18.2 10^3/uL (4.0-10.0)
[2018-12-04 15:30] VITALS: BP 113/68; TEMP 98.7; O2SAT 93
[2018-12-04 16:00] VITALS: BP 104/62; TEMP 97.8; O2SAT 96
[2019-01-03 15:11] LABS: HEMATOCRIT 42.3 % (36.0-47.0); HEMOGLOBIN 13.3 g/dl (12.0-15.5); LYMPH % 8.2 % (24.0-44.0); MEAN CORPUSCULAR HEMOGLOBIN 20.6 pg (27.0-33.0); MEAN CORPUSCULAR HGB CONC 31.4 g/dl (32.0-36.5); MEAN CORPUSCULAR VOLUME 65.5 fl (80.0-96.0); NEUTROPHILS # 16.9 10^3/uL (1.8-7.7); NEUTROPHILS % 88.7 % (36.0-66.0); RED BLOOD COUNT 6.46 10^6/uL (4.00-5.40)
[2019-01-23 11:34] VITALS: BP 118/80; TEMP 98.7; O2SAT 98
[2019-01-23 12:26] VITALS: BP 125/74; TEMP 97.9; O2SAT 96
[2019-01-23 12:45] VITALS: BP 98/56; TEMP 98; O2SAT 95
[2019-01-29 11:37] LABS: HEMATOCRIT 40.2 % (36.0-47.0); HEMOGLOBIN 12.4 g/dl (12.0-15.5); LYMPH % 6.5 % (24.0-44.0); MEAN CORPUSCULAR HEMOGLOBIN 20.5 pg (27.0-33.0); MEAN CORPUSCULAR HGB CONC 30.8 g/dl (32.0-36.5); MEAN CORPUSCULAR VOLUME 66.5 fl (80.0-96.0); NEUTROPHILS # 20.3 10^3/uL (1.8-7.7); NEUTROPHILS % 91.1 % (36.0-66.0); RED BLOOD COUNT 6.05 10^6/uL (4.00-5.40); WHITE BLOOD COUNT 22.3 10^3/uL (4.0-10.0)
[2019-02-27 14:52] VITALS: BP 123/80; TEMP 98.3; O2SAT 96
[2019-02-27 15:02] LABS: HEMATOCRIT 43.7 % (36.0-47.0); HEMOGLOBIN 13.8 g/dl (12.0-15.5); MEAN CORPUSCULAR HEMOGLOBIN 21.9 pg (27.0-33.0); MEAN CORPUSCULAR HGB CONC 31.6 g/dl (32.0-36.5); MEAN CORPUSCULAR VOLUME 69.5 fl (80.0-96.0); NEUTROPHILS # 20.9 10^3/uL (1.8-7.7); NEUTROPHILS % 90.5 % (36.0-66.0); RED BLOOD COUNT 6.29 10^6/uL (4.00-5.40); WHITE BLOOD COUNT 23.1 10^3/uL (4.0-10.0)
[2019-04-05 15:31] LABS: HEMATOCRIT 43.4 % (36.0-47.0); HEMOGLOBIN 13.9 g/dl (12.0-15.5); LYMPH % 7.5 % (24.0-44.0); MEAN CORPUSCULAR HEMOGLOBIN 22.5 pg (27.0-33.0); MEAN CORPUSCULAR VOLUME 70.3 fl (80.0-96.0); NEUTROPHILS # 16.9 10^3/uL (1.8-7.7); NEUTROPHILS % 89.2 % (36.0-66.0); RED BLOOD COUNT 6.17 10^6/uL (4.00-5.40); WHITE BLOOD COUNT 18.9 10^3/uL (4.0-10.0)
[2019-04-05 15:33] VITALS: BP 122/78; TEMP 97.1; O2SAT 96
[2019-04-05 15:47] LABS: ALKALINE PHOSPHATASE 115 U/L (44-147); BLOOD UREA NITROGEN 24 MG/DL (6-20); CARBON DIOXIDE LEVEL 28 MEQ/L (23-31); CHLORIDE LEVEL 102 MMOL/L (98-107); CREATININE FOR GFR 0.87 MG/DL (0.60-1.10); GLOMERULAR FILTRATION RATE > 60.0 (>32); GLUCOSE, FASTING 112 MG/DL (70-105); SODIUM LEVEL 140 MMOL/L (135-145); TOTAL PROTEIN 6.2 GM/DL (6.4-8.3)
[2019-05-15 15:17] VITALS: BP 140/84; TEMP 98.1; O2SAT 96
[2019-05-15 15:29] LABS: BASO # 0.1 10^3/uL (0.0-0.2); BASO % 0.7 % (0.0-1.0); EOS # 0.1 10^3/uL (0.0-0.5); EOS % 0.4 % (0.0-3.0); HEMATOCRIT 48.8 % (36.0-47.0); HEMOGLOBIN 13.5 g/dl (12.0-15.5); LYMPH # 1.2 10^3/uL (1.5-5.0); LYMPH % 6.3 % (24.0-44.0); MEAN CORPUSCULAR HGB CONC 27.7 g/dl (32.0-36.5); MONO # 0.6 10^3/uL (0.0-0.8); MONO % 3.2 % (0.0-5.0); NEUTROPHILS # 16.7 10^3/uL (1.5-8.5); NEUTROPHILS % 84.8 % (36.0-66.0); PLATELET COUNT, AUTOMATED 297 10^3/uL (150-450); RED BLOOD COUNT 6.42 10^6/uL (4.00-5.40); WHITE BLOOD COUNT 19.7 10^3/uL (4.0-10.0)
[2019-05-15 15:50] VITALS: BP 118/71; O2SAT 95
[2019-05-15 15:54] LABS: ALBUMIN 3.3 GM/DL (3.2-5.2); BILIRUBIN,TOTAL 0.5 MG/DL (0.2-1.0); CALCIUM LEVEL 8.2 MG/DL (8.8-10.2); CREATININE FOR GFR 0.99 MG/DL (0.55-1.30); GLOMERULAR FILTRATION RATE 56.9 (>32); POTASSIUM SERUM 4.1 MEQ/L (3.5-5.1); TOTAL PROTEIN 6.4 GM/DL (6.4-8.2)
[2019-05-15 16:16] VITALS: BP 123/67; O2SAT 96
[2019-06-11 10:39] LABS: BASO # 0.1 10^3/uL (0.0-0.2); BASO % 0.4 % (0.0-1.0); EOS # 0.1 10^3/uL (0.0-0.5); EOS % 0.4 % (0.0-3.0); HEMATOCRIT 44.9 % (36.0-47.0); HEMOGLOBIN 12.4 g/dl (12.0-15.5); LYMPH # 1.3 10^3/uL (1.5-5.0); MEAN CORPUSCULAR HEMOGLOBIN 20.9 pg (27.0-33.0); MEAN CORPUSCULAR HGB CONC 27.6 g/dl (32.0-36.5); MEAN CORPUSCULAR VOLUME 75.6 fl (80.0-96.0); MONO # 0.5 10^3/uL (0.0-0.8); MONO % 2.4 % (0.0-5.0); NEUTROPHILS # 18.3 10^3/uL (1.5-8.5); NEUTROPHILS % 84.8 % (36.0-66.0); PLATELET COUNT, AUTOMATED 316 10^3/uL (150-450); RED BLOOD COUNT 5.94 10^6/uL (4.00-5.40); WHITE BLOOD COUNT 21.5 10^3/uL (4.0-10.0)
[2019-06-11 10:40] VITALS: BP 119/71; TEMP 97.9; O2SAT 97
[2019-07-12 15:25] VITALS: BP 134/73; TEMP 97.9; O2SAT 95
[2019-07-12 15:25] LABS: BASO # 0.1 10^3/uL (0.0-0.2); BASO % 0.6 % (0.0-1.0); EOS # 0.1 10^3/uL (0.0-0.5); EOS % 0.4 % (0.0-3.0); HEMATOCRIT 49.1 % (36.0-47.0); HEMOGLOBIN 13.4 g/dl (12.0-15.5); LYMPH # 1.4 10^3/uL (1.5-5.0); LYMPH % 6.4 % (24.0-44.0); MEAN CORPUSCULAR HEMOGLOBIN 20.2 pg (27.0-33.0); MEAN CORPUSCULAR HGB CONC 27.3 g/dl (32.0-36.5); MEAN CORPUSCULAR VOLUME 73.9 fl (80.0-96.0); MONO # 0.6 10^3/uL (0.0-0.8); MONO % 2.4 % (0.0-5.0); NEUTROPHILS # 19.3 10^3/uL (1.5-8.5); NEUTROPHILS % 86.1 % (36.0-66.0); PLATELET COUNT, AUTOMATED 304 10^3/uL (150-450); RED BLOOD COUNT 6.64 10^6/uL (4.00-5.40); WHITE BLOOD COUNT 22.5 10^3/uL (4.0-10.0)
[2019-07-12 15:52] LABS: ALBUMIN 3.6 GM/DL (3.2-5.2); BILIRUBIN,TOTAL 0.4 MG/DL (0.2-1.0); CALCIUM LEVEL 8.7 MG/DL (8.8-10.2); CREATININE FOR GFR 1.02 MG/DL (0.55-1.30); POTASSIUM SERUM 4.4 MEQ/L (3.5-5.1); TOTAL PROTEIN 6.8 GM/DL (6.4-8.2)
[2019-07-12 16:30] VITALS: BP 117/66; TEMP 98.1; O2SAT 94
[2019-08-15 15:12] VITALS: BP 125/76; O2SAT 95
[2019-08-15 15:42] LABS: BASO # 0.1 10^3/uL (0.0-0.2); BASO % 0.4 % (0.0-1.0); EOS # 0.1 10^3/uL (0.0-0.5); EOS % 0.4 % (0.0-3.0); HEMATOCRIT 44.3 % (36.0-47.0); HEMOGLOBIN 12.3 g/dl (12.0-15.5); LYMPH # 1.4 10^3/uL (1.5-5.0); LYMPH % 7.1 % (24.0-44.0); MEAN CORPUSCULAR HEMOGLOBIN 20.2 pg (27.0-33.0); MEAN CORPUSCULAR HGB CONC 27.8 g/dl (32.0-36.5); MEAN CORPUSCULAR VOLUME 72.7 fl (80.0-96.0); MONO # 0.5 10^3/uL (0.0-0.8); MONO % 2.6 % (0.0-5.0); NEUTROPHILS % 85.7 % (36.0-66.0); PLATELET COUNT, AUTOMATED 298 10^3/uL (150-450); RED BLOOD COUNT 6.09 10^6/uL (4.00-5.40); WHITE BLOOD COUNT 19.9 10^3/uL (4.0-10.0)
[2019-10-15 13:57] LABS: BASO # 0.1 10^3/uL (0.0-0.2); BASO % 0.5 % (0.0-1.0); EOS % 0.2 % (0.0-3.0); HEMATOCRIT 48.4 % (36.0-47.0); HEMOGLOBIN 13.7 g/dl (12.0-15.5); LYMPH # 1.2 10^3/uL (1.5-5.0); LYMPH % 6.6 % (24.0-44.0); MEAN CORPUSCULAR HEMOGLOBIN 20.8 pg (27.0-33.0); MEAN CORPUSCULAR HGB CONC 28.3 g/dl (32.0-36.5); MEAN CORPUSCULAR VOLUME 73.6 fl (80.0-96.0); MONO # 0.6 10^3/uL (0.0-0.8); MONO % 3.3 % (0.0-5.0); NEUTROPHILS # 14.8 10^3/uL (1.5-8.5); NEUTROPHILS % 84.9 % (36.0-66.0); PLATELET COUNT, AUTOMATED 265 10^3/uL (150-450); RED BLOOD COUNT 6.58 10^6/uL (4.00-5.40); WHITE BLOOD COUNT 17.4 10^3/uL (4.0-10.0)
[2019-10-15 14:02] LABS: ALBUMIN 3.7 GM/DL (3.2-5.2); ALKALINE PHOSPHATASE 139 U/L (45-117); ALT/SGPT 32 U/L (12-78); AST/SGOT 27 U/L (7-37); BILIRUBIN,TOTAL 0.7 MG/DL (0.2-1.0); BLOOD UREA NITROGEN 23 MG/DL (7-18); CALCIUM LEVEL 8.8 MG/DL (8.8-10.2); CARBON DIOXIDE LEVEL 31 MEQ/L (21-32); CHLORIDE LEVEL 104 MEQ/L (98-107); CREATININE FOR GFR 0.75 MG/DL (0.55-1.30); GLOMERULAR FILTRATION RATE > 60.0 (>32); GLUCOSE, FASTING 74 MG/DL (70-100); POTASSIUM SERUM 4.8 MEQ/L (3.5-5.1); SODIUM LEVEL 139 MEQ/L (136-145); TOTAL PROTEIN 6.7 GM/DL (6.4-8.2)
[2019-10-22 14:10] VITALS: BP 145/82; O2SAT 96
[2019-10-22 14:35] VITALS: BP 101/61; O2SAT 97
[2020-02-22 13:23] VITALS: BP 132/77; O2SAT 96
[2020-02-22 13:48] LABS: BASO % 0.2 % (0.0-1.0); EOS % 0.2 % (0.0-3.0); HEMATOCRIT 35.8 % (36.0-47.0); HEMOGLOBIN 10.4 g/dl (12.0-15.5); LYMPH # 1.1 10^3/uL (1.5-5.0); LYMPH % 6.3 % (24.0-44.0); MEAN CORPUSCULAR HEMOGLOBIN 22.8 pg (27.0-33.0); MEAN CORPUSCULAR HGB CONC 29.1 g/dl (32.0-36.5); MEAN CORPUSCULAR VOLUME 78.3 fl (80.0-96.0); MONO # 0.5 10^3/uL (0.0-0.8); MONO % 2.6 % (0.0-5.0); NEUTROPHILS # 14.6 10^3/uL (1.5-8.5); NEUTROPHILS % 85.7 % (36.0-66.0); PLATELET COUNT, AUTOMATED 346 10^3/uL (150-450); RED BLOOD COUNT 4.57 10^6/uL (4.00-5.40); WHITE BLOOD COUNT 17.1 10^3/uL (4.0-10.0)
[2020-02-22 14:10] LABS: ALBUMIN 3.4 GM/DL (3.2-5.2); ALKALINE PHOSPHATASE 125 U/L (45-117); ALT/SGPT 20 U/L (12-78); AST/SGOT 26 U/L (7-37); BILIRUBIN,TOTAL 0.5 MG/DL (0.2-1.0); BLOOD UREA NITROGEN 15 MG/DL (7-18); CALCIUM LEVEL 8.8 MG/DL (8.8-10.2); CARBON DIOXIDE LEVEL 35 MEQ/L (21-32); CHLORIDE LEVEL 99 MEQ/L (98-107); CREATININE FOR GFR 0.86 MG/DL (0.55-1.30); GLOMERULAR FILTRATION RATE > 60.0 (>32); GLUCOSE, FASTING 91 MG/DL (70-100); POTASSIUM SERUM 4.1 MEQ/L (3.5-5.1); SODIUM LEVEL 137 MEQ/L (136-145); TOTAL PROTEIN 6.7 GM/DL (6.4-8.2)
[2020-02-22 16:27] LABS: FERRITIN 17 NG/ML (8-252); IRON (FE) 59 UG/DL (50-170); PERCENT SATURATION 13.8 % (13.2-45.0); TOTAL IRON BINDING CAPACITY 426 UG/DL (250-450)
[2020-02-22 16:35] LABS: VITAMIN B12 LEVEL 1695 PG/ML
[2020-02-22 16:39] LABS: FOLATE > 24.0 NG/ML
[2020-02-26 12:49] LABS: BASO # 0.1 10^3/uL (0.0-0.2); BASO % 0.3 % (0.0-1.0); EOS % 0.2 % (0.0-3.0); HEMATOCRIT 47.8 % (36.0-47.0); LYMPH # 0.7 10^3/uL (1.5-5.0); LYMPH % 3.4 % (24.0-44.0); MEAN CORPUSCULAR HEMOGLOBIN 23.2 pg (27.0-33.0); MEAN CORPUSCULAR HGB CONC 29.3 g/dl (32.0-36.5); MEAN CORPUSCULAR VOLUME 79.1 fl (80.0-96.0); MONO # 0.6 10^3/uL (0.0-0.8); MONO % 2.8 % (0.0-5.0); NEUTROPHILS # 18.4 10^3/uL (1.5-8.5); NEUTROPHILS % 86.2 % (36.0-66.0); PLATELET COUNT, AUTOMATED 307 10^3/uL (150-450); RED BLOOD COUNT 6.04 10^6/uL (4.00-5.40); WHITE BLOOD COUNT 21.4 10^3/uL (4.0-10.0)
[2020-03-07 13:47] VITALS: BP 140/82; O2SAT 96
[2020-03-07 14:02] LABS: BASO # 0.1 10^3/uL (0.0-0.2); BASO % 0.3 % (0.0-1.0); EOS % 0.1 % (0.0-3.0); HEMATOCRIT 44.7 % (36.0-47.0); HEMOGLOBIN 13.1 g/dl (12.0-15.5); LYMPH # 0.5 10^3/uL (1.5-5.0); LYMPH % 3.1 % (24.0-44.0); MEAN CORPUSCULAR HEMOGLOBIN 23.2 pg (27.0-33.0); MEAN CORPUSCULAR HGB CONC 29.3 g/dl (32.0-36.5); MEAN CORPUSCULAR VOLUME 79.1 fl (80.0-96.0); MONO # 0.4 10^3/uL (0.0-0.8); MONO % 2.4 % (0.0-5.0); NEUTROPHILS # 14.6 10^3/uL (1.5-8.5); NEUTROPHILS % 89.3 % (36.0-66.0); PLATELET COUNT, AUTOMATED 340 10^3/uL (150-450); RED BLOOD COUNT 5.65 10^6/uL (4.00-5.40); WHITE BLOOD COUNT 16.4 10^3/uL (4.0-10.0)
[2020-03-07 14:25] LABS: ALBUMIN 3.6 GM/DL (3.2-5.2); ALKALINE PHOSPHATASE 140 U/L (45-117); ALT/SGPT 25 U/L (12-78); AST/SGOT 24 U/L (7-37); BILIRUBIN,TOTAL 0.5 MG/DL (0.2-1.0); BLOOD UREA NITROGEN 14 MG/DL (7-18); CALCIUM LEVEL 8.5 MG/DL (8.8-10.2); CARBON DIOXIDE LEVEL 31 MEQ/L (21-32); CHLORIDE LEVEL 104 MEQ/L (98-107); CREATININE FOR GFR 0.92 MG/DL (0.55-1.30); FERRITIN 22 NG/ML (8-252); GLOMERULAR FILTRATION RATE > 60.0 (>32); GLUCOSE, FASTING 130 MG/DL (70-100); IRON (FE) 158 UG/DL (50-170); LDH LACTATE DEHYDROGENASE 266 U/L (84-246); POTASSIUM SERUM 4.1 MEQ/L (3.5-5.1); SODIUM LEVEL 142 MEQ/L (136-145); TOTAL IRON BINDING CAPACITY 427 UG/DL (250-450); TOTAL PROTEIN 6.6 GM/DL (6.4-8.2)
[2020-03-11 10:12] LABS: ALBUMIN 4.13 GM/DL (3.29-5.55); ALBUMIN % 62.6 % (55.8-66.1); ALPHA-1-GLOBULIN % 4.8 % (2.9-4.9); ALPHA-1-GLOBULINS 0.32 GM/DL (0.17-0.41); ALPHA-2-GLOBULINS 0.61 GM/DL (0.42-0.99); ALPHA-2-GLOBULINS % 9.3 % (7.1-11.8); BETA-1-GLOBULINS 0.49 GM/DL (0.28-0.60); BETA-1-GLOBULINS % 7.4 % (4.7-7.2); BETA-2-GLOBULINS 0.29 GM/DL (0.19-0.55); BETA-2-GLOBULINS % 4.4 % (3.2-6.5); GAMMA GLOBULIN % 11.5 % (11.1-18.8); GAMMA GLOBULINS 0.76 GM/DL (0.65-1.58)
[2020-03-28 13:16] VITALS: BP 133/81; O2SAT 93
[2020-03-28 13:21] LABS: BASO # 0.1 10^3/uL (0.0-0.2); BASO % 0.3 % (0.0-1.0); EOS % 0.2 % (0.0-3.0); HEMATOCRIT 46.7 % (36.0-47.0); HEMOGLOBIN 13.3 g/dl (12.0-15.5); LYMPH % 5.5 % (24.0-44.0); MEAN CORPUSCULAR HGB CONC 28.5 g/dl (32.0-36.5); MEAN CORPUSCULAR VOLUME 80.8 fl (80.0-96.0); MONO # 0.5 10^3/uL (0.0-0.8); MONO % 2.6 % (0.0-5.0); NEUTROPHILS # 16.1 10^3/uL (1.5-8.5); PLATELET COUNT, AUTOMATED 304 10^3/uL (150-450); RED BLOOD COUNT 5.78 10^6/uL (4.00-5.40); WHITE BLOOD COUNT 18.1 10^3/uL (4.0-10.0)
[2020-03-28 13:44] LABS: ALBUMIN 3.6 GM/DL (3.2-5.2); ALKALINE PHOSPHATASE 135 U/L (45-117); ALT/SGPT 21 U/L (12-78); AST/SGOT 22 U/L (7-37); BILIRUBIN,TOTAL 0.5 MG/DL (0.2-1.0); BLOOD UREA NITROGEN 20 MG/DL (7-18); CARBON DIOXIDE LEVEL 34 MEQ/L (21-32); CHLORIDE LEVEL 104 MEQ/L (98-107); CREATININE FOR GFR 0.89 MG/DL (0.55-1.30); GLOMERULAR FILTRATION RATE > 60.0 (>32); GLUCOSE, FASTING 87 MG/DL (70-100); POTASSIUM SERUM 4.1 MEQ/L (3.5-5.1); SODIUM LEVEL 140 MEQ/L (136-145); TOTAL PROTEIN 6.9 GM/DL (6.4-8.2)
[2020-03-28 13:51] LABS: PERCENT SATURATION 6.5 % (13.2-45.0)
[2020-03-28 14:10] VITALS: BP 105/64; O2SAT 96
[2020-04-28 14:23] VITALS: BP 114/69; O2SAT 96
[2020-04-28 14:58] LABS: ALBUMIN 3.7 GM/DL (3.2-5.2); BILIRUBIN,TOTAL 0.5 MG/DL (0.2-1.0); CALCIUM LEVEL 8.9 MG/DL (8.8-10.2); CREATININE FOR GFR 1.11 MG/DL (0.55-1.30); GLOMERULAR FILTRATION RATE 49.7 (>32); POTASSIUM SERUM 4.5 MEQ/L (3.5-5.1); TOTAL PROTEIN 7.1 GM/DL (6.4-8.2)
[2020-04-28 15:20] LABS: BASO # 0.1 10^3/uL (0.0-0.2); BASO % 0.5 % (0.0-1.0); EOS % 0.2 % (0.0-3.0); HEMATOCRIT 41.7 % (36.0-47.0); HEMOGLOBIN 11.7 g/dl (12.0-15.5); LYMPH # 1.1 10^3/uL (1.5-5.0); LYMPH % 7.1 % (24.0-44.0); MEAN CORPUSCULAR HEMOGLOBIN 22.8 pg (27.0-33.0); MEAN CORPUSCULAR HGB CONC 28.1 g/dl (32.0-36.5); MEAN CORPUSCULAR VOLUME 81.1 fl (80.0-96.0); MONO # 0.6 10^3/uL (0.0-0.8); MONO % 3.6 % (0.0-5.0); NEUTROPHILS # 13.7 10^3/uL (1.5-8.5); NEUTROPHILS % 87.1 % (36.0-66.0); PLATELET COUNT, AUTOMATED 357 10^3/uL (150-450); RED BLOOD COUNT 5.14 10^6/uL (4.00-5.40); WHITE BLOOD COUNT 15.7 10^3/uL (4.0-10.0)
[2020-05-29 14:18] LABS: BASO # 0.1 10^3/uL (0.0-0.2); BASO % 0.4 % (0.0-1.0); EOS % 0.2 % (0.0-3.0); HEMATOCRIT 43.7 % (36.0-47.0); HEMOGLOBIN 12.2 g/dl (12.0-15.5); LYMPH # 1.2 10^3/uL (1.5-5.0); LYMPH % 6.6 % (24.0-44.0); MEAN CORPUSCULAR HEMOGLOBIN 22.2 pg (27.0-33.0); MEAN CORPUSCULAR HGB CONC 27.9 g/dl (32.0-36.5); MEAN CORPUSCULAR VOLUME 79.6 fl (80.0-96.0); MONO # 0.6 10^3/uL (0.0-0.8); MONO % 3.5 % (0.0-5.0); NEUTROPHILS # 15.7 10^3/uL (1.5-8.5); NEUTROPHILS % 86.6 % (36.0-66.0); PLATELET COUNT, AUTOMATED 362 10^3/uL (150-450); RED BLOOD COUNT 5.49 10^6/uL (4.00-5.40); WHITE BLOOD COUNT 18.1 10^3/uL (4.0-10.0)
[2020-05-29 14:27] VITALS: BP 123/76; O2SAT 98
[2020-05-29 14:41] LABS: ALBUMIN 3.7 GM/DL (3.2-5.2); ALKALINE PHOSPHATASE 145 U/L (45-117); ALT/SGPT 26 U/L (12-78); AST/SGOT 23 U/L (7-37); BILIRUBIN,TOTAL 0.4 MG/DL (0.2-1.0); BLOOD UREA NITROGEN 19 MG/DL (7-18); CALCIUM LEVEL 9.3 MG/DL (8.8-10.2); CARBON DIOXIDE LEVEL 34 MEQ/L (21-32); CHLORIDE LEVEL 104 MEQ/L (98-107); CREATININE FOR GFR 0.91 MG/DL (0.55-1.30); GLOMERULAR FILTRATION RATE > 60.0 (>32); GLUCOSE, FASTING 100 MG/DL (70-100); POTASSIUM SERUM 4.1 MEQ/L (3.5-5.1); SODIUM LEVEL 140 MEQ/L (136-145); TOTAL PROTEIN 7.2 GM/DL (6.4-8.2)
[2020-07-14 13:45] LABS: BASO % 0.2 % (0.0-1.0); EOS % 0.1 % (0.0-3.0); HEMOGLOBIN 12.6 g/dl (12.0-15.5); LYMPH % 5.2 % (24.0-44.0); MEAN CORPUSCULAR HEMOGLOBIN 22.7 pg (27.0-33.0); MEAN CORPUSCULAR VOLUME 80.9 fl (80.0-96.0); MONO # 0.4 10^3/uL (0.0-0.8); MONO % 2.1 % (0.0-5.0); NEUTROPHILS # 16.6 10^3/uL (1.5-8.5); NEUTROPHILS % 88.4 % (36.0-66.0); PLATELET COUNT, AUTOMATED 333 10^3/uL (150-450); RED BLOOD COUNT 5.56 10^6/uL (4.00-5.40); WHITE BLOOD COUNT 18.7 10^3/uL (4.0-10.0)
[2020-07-14 13:50] VITALS: BP 118/76; O2SAT 96
[2020-07-14 14:09] LABS: ALBUMIN 3.5 GM/DL (3.2-5.2); ALKALINE PHOSPHATASE 116 U/L (45-117); ALT/SGPT 26 U/L (12-78); AST/SGOT 21 U/L (7-37); BILIRUBIN,TOTAL 0.4 MG/DL (0.2-1.0); BLOOD UREA NITROGEN 18 MG/DL (7-18); CALCIUM LEVEL 9.1 MG/DL (8.8-10.2); CARBON DIOXIDE LEVEL 34 MEQ/L (21-32); CHLORIDE LEVEL 103 MEQ/L (98-107); CREATININE FOR GFR 0.86 MG/DL (0.55-1.30); FERRITIN 23 NG/ML (8-252); GLOMERULAR FILTRATION RATE > 60.0 (>32); GLUCOSE, FASTING 110 MG/DL (70-100); IRON (FE) 28 UG/DL (50-170); PERCENT SATURATION 6.5 % (13.2-45.0); SODIUM LEVEL 140 MEQ/L (136-145); TOTAL IRON BINDING CAPACITY 428 UG/DL (250-450); TOTAL PROTEIN 7.1 GM/DL (6.4-8.2)
[2020-07-14 14:48] VITALS: BP 109/70; O2SAT 96
[2020-07-14 22:01] LABS: HEMOGLOBIN A1c 5.4 %
[2020-08-29 12:32] LABS: HEMATOCRIT 40.6 % (36.0-47.0); HEMOGLOBIN 11.5 g/dl (12.0-15.5); RED BLOOD COUNT 5.02 10^6/uL (4.00-5.40); WHITE BLOOD COUNT 15.6 10^3/uL (4.0-10.0)
[2020-08-29 12:33] LABS: BASO % 0.3 % (0.0-1.0); EOS % 0.2 % (0.0-3.0); LYMPH # 1.4 10^3/uL (1.5-5.0); MEAN CORPUSCULAR HEMOGLOBIN 22.9 pg (27.0-33.0); MEAN CORPUSCULAR HGB CONC 28.3 g/dl (32.0-36.5); MEAN CORPUSCULAR VOLUME 80.9 fl (80.0-96.0); MONO # 0.5 10^3/uL (0.0-0.8); MONO % 2.9 % (2.0-8.0); NEUTROPHILS # 13.3 10^3/uL (1.5-8.5); NEUTROPHILS % 84.9 % (36.0-66.0); PLATELET COUNT, AUTOMATED 297 10^3/uL (150-450)
[2020-08-29 12:52] LABS: ALBUMIN 3.8 GM/DL (3.2-5.2); ALKALINE PHOSPHATASE 112 U/L (45-117); ALT/SGPT 33 U/L (12-78); AST/SGOT 24 U/L (7-37); BILIRUBIN,TOTAL 0.5 MG/DL (0.2-1.0); BLOOD UREA NITROGEN 18 MG/DL (7-18); CALCIUM LEVEL 9.2 MG/DL (8.8-10.2); CARBON DIOXIDE LEVEL 33 MEQ/L (21-32); CHLORIDE LEVEL 104 MEQ/L (98-107); CREATININE FOR GFR 0.83 MG/DL (0.55-1.30); GLOMERULAR FILTRATION RATE > 60.0 (>32); GLUCOSE, FASTING 86 MG/DL (70-100); POTASSIUM SERUM 4.4 MEQ/L (3.5-5.1); SODIUM LEVEL 139 MEQ/L (136-145)
[2020-08-29 13:02] VITALS: BP 152/84; O2SAT 97
[2020-08-29 13:53] LABS: PERCENT SATURATION 10.3 % (13.2-45.0)
[2020-09-18 14:47] LABS: BASO # 0.1 10^3/uL (0.0-0.2); BASO % 0.3 % (0.0-1.0); EOS % 0.2 % (0.0-3.0); HEMATOCRIT 40.5 % (36.0-47.0); HEMOGLOBIN 11.7 g/dl (12.0-15.5); LYMPH # 1.2 10^3/uL (1.5-5.0); LYMPH % 6.9 % (24.0-44.0); MEAN CORPUSCULAR HEMOGLOBIN 23.3 pg (27.0-33.0); MEAN CORPUSCULAR HGB CONC 28.9 g/dl (32.0-36.5); MEAN CORPUSCULAR VOLUME 80.5 fl (80.0-96.0); MONO # 0.3 10^3/uL (0.0-0.8); NEUTROPHILS # 15.3 10^3/uL (1.5-8.5); PLATELET COUNT, AUTOMATED 295 10^3/uL (150-450); RED BLOOD COUNT 5.03 10^6/uL (4.00-5.40); WHITE BLOOD COUNT 17.3 10^3/uL (4.0-10.0)
[2020-09-18 14:59] LABS: INR 0.95; PROTHROMBIN TIME 12.9 SECONDS (12.5-14.3)
[2020-09-18 15:00] LABS: PARTIAL THROMBOPLASTIN TIME 32.4 SECONDS (24.2-38.5)
[2020-09-18 15:10] LABS: ALBUMIN 3.7 GM/DL (3.2-5.2); ALKALINE PHOSPHATASE 121 U/L (45-117); ALT/SGPT 33 U/L (12-78); AST/SGOT 27 U/L (7-37); BILIRUBIN,TOTAL 0.4 MG/DL (0.2-1.0); BLOOD UREA NITROGEN 20 MG/DL (7-18); CALCIUM LEVEL 8.7 MG/DL (8.8-10.2); CARBON DIOXIDE LEVEL 34 MEQ/L (21-32); CHLORIDE LEVEL 104 MEQ/L (98-107); CREATININE FOR GFR 0.65 MG/DL (0.55-1.30); GLOMERULAR FILTRATION RATE > 60.0 (>32); GLUCOSE, FASTING 101 MG/DL (70-100); POTASSIUM SERUM 4.7 MEQ/L (3.5-5.1); SODIUM LEVEL 139 MEQ/L (136-145); TOTAL PROTEIN 6.2 GM/DL (6.4-8.2)
[2020-09-18 16:04] LABS: COLLAGEN ADP 177 SECONDS (56-103); COLLAGEN EPINEPHRINE > 286 SECONDS (74-162)
[2020-10-03 14:00] LABS: BASO # 0.1 10^3/uL (0.0-0.2); BASO % 0.3 % (0.0-1.0); EOS % 0.2 % (0.0-3.0); HEMATOCRIT 38.4 % (36.0-47.0); HEMOGLOBIN 11.2 g/dl (12.0-15.5); LYMPH # 1.3 10^3/uL (1.5-5.0); LYMPH % 8.1 % (24.0-44.0); MEAN CORPUSCULAR HEMOGLOBIN 23.7 pg (27.0-33.0); MEAN CORPUSCULAR HGB CONC 29.2 g/dl (32.0-36.5); MEAN CORPUSCULAR VOLUME 81.2 fl (80.0-96.0); MONO # 0.5 10^3/uL (0.0-0.8); MONO % 3.1 % (2.0-8.0); NEUTROPHILS # 13.1 10^3/uL (1.5-8.5); NEUTROPHILS % 85.2 % (36.0-66.0); PLATELET COUNT, AUTOMATED 319 10^3/uL (150-450); RED BLOOD COUNT 4.73 10^6/uL (4.00-5.40); WHITE BLOOD COUNT 15.4 10^3/uL (4.0-10.0)
[2020-10-03 14:25] LABS: ALBUMIN 3.5 GM/DL (3.2-5.2); BILIRUBIN,TOTAL 0.4 MG/DL (0.2-1.0); CALCIUM LEVEL 9.2 MG/DL (8.8-10.2); CREATININE FOR GFR 0.95 MG/DL (0.55-1.30); GLOMERULAR FILTRATION RATE 59.5 (>32); PERCENT SATURATION 6.3 % (13.2-45.0); POTASSIUM SERUM 4.1 MEQ/L (3.5-5.1)
[2020-10-14 14:50] VITALS: BP 121/74; O2SAT 96
[2020-10-14 14:56] LABS: BASO # 0.1 10^3/uL (0.0-0.2); BASO % 0.3 % (0.0-1.0); EOS % 0.2 % (0.0-3.0); HEMATOCRIT 37.1 % (36.0-47.0); HEMOGLOBIN 10.7 g/dl (12.0-15.5); LYMPH # 1.4 10^3/uL (1.5-5.0); LYMPH % 8.2 % (24.0-44.0); MEAN CORPUSCULAR HEMOGLOBIN 23.3 pg (27.0-33.0); MEAN CORPUSCULAR HGB CONC 28.8 g/dl (32.0-36.5); MEAN CORPUSCULAR VOLUME 80.8 fl (80.0-96.0); MONO # 0.4 10^3/uL (0.0-0.8); MONO % 2.2 % (2.0-8.0); NEUTROPHILS % 85.6 % (36.0-66.0); PLATELET COUNT, AUTOMATED 319 10^3/uL (150-450); RED BLOOD COUNT 4.59 10^6/uL (4.00-5.40); WHITE BLOOD COUNT 16.4 10^3/uL (4.0-10.0)
[2020-10-14 15:21] LABS: ALBUMIN 3.4 GM/DL (3.2-5.2); BILIRUBIN,TOTAL 0.3 MG/DL (0.2-1.0); CALCIUM LEVEL 8.6 MG/DL (8.8-10.2); CREATININE FOR GFR 1.04 MG/DL (0.55-1.30); GLOMERULAR FILTRATION RATE 53.6 (>32); POTASSIUM SERUM 4.5 MEQ/L (3.5-5.1); TOTAL PROTEIN 6.8 GM/DL (6.4-8.2)
[2020-10-14 15:25] LABS: PERCENT SATURATION 5.1 % (13.2-45.0)
[2020-10-28 13:28] LABS: BASO # 0.1 10^3/uL (0.0-0.2); BASO % 0.3 % (0.0-1.0); EOS % 0.2 % (0.0-3.0); HEMATOCRIT 41.5 % (36.0-47.0); HEMOGLOBIN 11.7 g/dl (12.0-15.5); LYMPH # 1.2 10^3/uL (1.5-5.0); MEAN CORPUSCULAR HEMOGLOBIN 23.1 pg (27.0-33.0); MEAN CORPUSCULAR HGB CONC 28.2 g/dl (32.0-36.5); MONO # 0.4 10^3/uL (0.0-0.8); MONO % 2.6 % (2.0-8.0); NEUTROPHILS # 14.5 10^3/uL (1.5-8.5); PLATELET COUNT, AUTOMATED 328 10^3/uL (150-450); RED BLOOD COUNT 5.06 10^6/uL (4.00-5.40); WHITE BLOOD COUNT 16.5 10^3/uL (4.0-10.0)
[2020-11-13 12:53] VITALS: BP 134/93; O2SAT 97
[2020-11-13 13:16] LABS: BASO % 0.2 % (0.0-1.0); EOS % 0.1 % (0.0-3.0); HEMATOCRIT 42.9 % (36.0-47.0); HEMOGLOBIN 12.7 g/dl (12.0-15.5); LYMPH # 1.3 10^3/uL (1.5-5.0); LYMPH % 7.9 % (24.0-44.0); MEAN CORPUSCULAR HEMOGLOBIN 24.6 pg (27.0-33.0); MEAN CORPUSCULAR HGB CONC 29.6 g/dl (32.0-36.5); MEAN CORPUSCULAR VOLUME 83.1 fl (80.0-96.0); MONO # 0.5 10^3/uL (0.0-0.8); MONO % 2.9 % (2.0-8.0); NEUTROPHILS # 14.3 10^3/uL (1.5-8.5); NEUTROPHILS % 85.7 % (36.0-66.0); PLATELET COUNT, AUTOMATED 299 10^3/uL (150-450); RED BLOOD COUNT 5.16 10^6/uL (4.00-5.40); WHITE BLOOD COUNT 16.8 10^3/uL (4.0-10.0)
[2020-11-13 13:40] LABS: ALBUMIN 3.5 GM/DL (3.2-5.2); ALKALINE PHOSPHATASE 104 U/L (45-117); ALT/SGPT 23 U/L (12-78); AST/SGOT 20 U/L (7-37); BILIRUBIN,TOTAL 0.4 MG/DL (0.2-1.0); BLOOD UREA NITROGEN 21 MG/DL (7-18); CALCIUM LEVEL 9.8 MG/DL (8.8-10.2); CARBON DIOXIDE LEVEL 32 MEQ/L (21-32); CHLORIDE LEVEL 103 MEQ/L (98-107); CREATININE FOR GFR 0.93 MG/DL (0.55-1.30); FERRITIN 29 NG/ML (8-252); GLOMERULAR FILTRATION RATE > 60.0 (>32); GLUCOSE, FASTING 90 MG/DL (70-100); IRON (FE) 28 UG/DL (50-170); PERCENT SATURATION 6.9 % (13.2-45.0); POTASSIUM SERUM 4.2 MEQ/L (3.5-5.1); SODIUM LEVEL 138 MEQ/L (136-145); TOTAL IRON BINDING CAPACITY 407 UG/DL (250-450)
[2020-12-26 14:47] LABS: BASO # 0.1 10^3/uL (0.0-0.2); BASO % 0.4 % (0.0-1.0); EOS % 0.1 % (0.0-3.0); HEMATOCRIT 43.8 % (36.0-47.0); LYMPH # 0.6 10^3/uL (1.5-5.0); MEAN CORPUSCULAR HEMOGLOBIN 24.3 pg (27.0-33.0); MEAN CORPUSCULAR HGB CONC 29.7 g/dl (32.0-36.5); MEAN CORPUSCULAR VOLUME 81.7 fl (80.0-96.0); MONO # 0.4 10^3/uL (0.0-0.8); MONO % 2.4 % (2.0-8.0); NEUTROPHILS # 14.3 10^3/uL (1.5-8.5); NEUTROPHILS % 89.7 % (36.0-66.0); PLATELET COUNT, AUTOMATED 261 10^3/uL (150-450); RED BLOOD COUNT 5.36 10^6/uL (4.00-5.40); WHITE BLOOD COUNT 15.9 10^3/uL (4.0-10.0)
[2020-12-26 15:15] LABS: ALBUMIN 3.7 GM/DL (3.2-5.2); BILIRUBIN,TOTAL 0.4 MG/DL (0.2-1.0); CALCIUM LEVEL 8.5 MG/DL (8.8-10.2); CREATININE FOR GFR 1.03 MG/DL (0.55-1.30); GLOMERULAR FILTRATION RATE 54.1 (>32); POTASSIUM SERUM 4.7 MEQ/L (3.5-5.1); TOTAL PROTEIN 6.3 GM/DL (6.4-8.2)
[2021-01-29 17:38] VITALS: BP 144/80; O2SAT 98
[2021-02-26 14:25] LABS: BASO % 0.2 % (0.0-1.0); EOS % 0.2 % (0.0-3.0); HEMATOCRIT 37.9 % (36.0-47.0); HEMOGLOBIN 11.5 g/dl (12.0-15.5); LYMPH # 1.2 10^3/uL (1.5-5.0); LYMPH % 7.2 % (24.0-44.0); MEAN CORPUSCULAR HEMOGLOBIN 26.7 pg (27.0-33.0); MEAN CORPUSCULAR HGB CONC 30.3 g/dl (32.0-36.5); MEAN CORPUSCULAR VOLUME 87.9 fl (80.0-96.0); MONO # 0.5 10^3/uL (0.0-0.8); MONO % 3.2 % (2.0-8.0); NEUTROPHILS % 86.9 % (36.0-66.0); PLATELET COUNT, AUTOMATED 299 10^3/uL (150-450); RED BLOOD COUNT 4.31 10^6/uL (4.00-5.40); WHITE BLOOD COUNT 16.1 10^3/uL (4.0-10.0)
[2021-02-26 15:00] LABS: ALBUMIN 3.4 GM/DL (3.2-5.2); ALKALINE PHOSPHATASE 133 U/L (45-117); ALT/SGPT 29 U/L (12-78); AST/SGOT 22 U/L (7-37); BILIRUBIN,TOTAL 0.4 MG/DL (0.2-1.0); BLOOD UREA NITROGEN 26 MG/DL (7-18); CALCIUM LEVEL 8.5 MG/DL (8.8-10.2); CARBON DIOXIDE LEVEL 33 MEQ/L (21-32); CHLORIDE LEVEL 108 MEQ/L (98-107); CREATININE FOR GFR 0.71 MG/DL (0.55-1.30); FERRITIN 90 NG/ML (8-252); GLOMERULAR FILTRATION RATE > 60.0 (>32); GLUCOSE, FASTING 103 MG/DL (70-100); IRON (FE) 115 UG/DL (50-170); PERCENT SATURATION 36.4 % (13.2-45.0); POTASSIUM SERUM 4.7 MEQ/L (3.5-5.1); SODIUM LEVEL 143 MEQ/L (136-145); TOTAL IRON BINDING CAPACITY 316 UG/DL (250-450); TOTAL PROTEIN 6.3 GM/DL (6.4-8.2)
[2021-04-02 14:24] VITALS: BP 137/76; O2SAT 96
[2021-04-02 14:29] LABS: BASO % 0.2 % (0.0-1.0); EOS % 0.3 % (0.0-3.0); HEMATOCRIT 34.6 % (36.0-47.0); HEMOGLOBIN 10.8 g/dl (12.0-15.5); LYMPH % 7.1 % (24.0-44.0); MEAN CORPUSCULAR HEMOGLOBIN 29.2 pg (27.0-33.0); MEAN CORPUSCULAR HGB CONC 31.2 g/dl (32.0-36.5); MEAN CORPUSCULAR VOLUME 93.5 fl (80.0-96.0); MONO # 0.4 10^3/uL (0.0-0.8); MONO % 2.8 % (2.0-8.0); NEUTROPHILS # 11.7 10^3/uL (1.5-8.5); NEUTROPHILS % 87.3 % (36.0-66.0); PLATELET COUNT, AUTOMATED 226 10^3/uL (150-450); WHITE BLOOD COUNT 13.4 10^3/uL (4.0-10.0)
[2021-04-02 14:58] LABS: ALBUMIN 3.4 GM/DL (3.2-5.2); ALKALINE PHOSPHATASE 111 U/L (45-117); ALT/SGPT 29 U/L (12-78); AST/SGOT 24 U/L (7-37); BILIRUBIN,TOTAL 0.4 MG/DL (0.2-1.0); BLOOD UREA NITROGEN 25 MG/DL (7-18); CALCIUM LEVEL 8.9 MG/DL (8.8-10.2); CARBON DIOXIDE LEVEL 31 MEQ/L (21-32); CHLORIDE LEVEL 105 MEQ/L (98-107); CREATININE FOR GFR 0.87 MG/DL (0.55-1.30); GLOMERULAR FILTRATION RATE > 60.0 (>32); GLUCOSE, FASTING 105 MG/DL (70-100); PERCENT SATURATION 40.5 % (13.2-45.0); POTASSIUM SERUM 4.5 MEQ/L (3.5-5.1); SODIUM LEVEL 139 MEQ/L (136-145); TOTAL PROTEIN 6.5 GM/DL (6.4-8.2)
[2021-04-29 14:23] LABS: BASO % 0.2 % (0.0-1.0); EOS % 0.2 % (0.0-3.0); HEMATOCRIT 33.8 % (36.0-47.0); HEMOGLOBIN 10.5 g/dl (12.0-15.5); LYMPH # 1.1 10^3/uL (1.5-5.0); LYMPH % 9.3 % (24.0-44.0); MEAN CORPUSCULAR HEMOGLOBIN 30.9 pg (27.0-33.0); MEAN CORPUSCULAR HGB CONC 31.1 g/dl (32.0-36.5); MEAN CORPUSCULAR VOLUME 99.4 fl (80.0-96.0); MONO # 0.3 10^3/uL (0.0-0.8); MONO % 2.3 % (2.0-8.0); NEUTROPHILS # 10.5 10^3/uL (1.5-8.5); NEUTROPHILS % 85.3 % (36.0-66.0); PLATELET COUNT, AUTOMATED 283 10^3/uL (150-450); WHITE BLOOD COUNT 12.3 10^3/uL (4.0-10.0)
[2021-04-29 14:39] VITALS: BP 123/73; O2SAT 98
[2021-04-29 14:48] LABS: ALBUMIN 3.4 GM/DL (3.2-5.2); BILIRUBIN,TOTAL 0.5 MG/DL (0.2-1.0); CALCIUM LEVEL 8.7 MG/DL (8.8-10.2); CREATININE FOR GFR 1.07 MG/DL (0.55-1.30); GLOMERULAR FILTRATION RATE 51.8 (>32); POTASSIUM SERUM 4.7 MEQ/L (3.5-5.1); TOTAL PROTEIN 6.6 GM/DL (6.4-8.2)
[2021-06-03 15:26] VITALS: BP 149/89; O2SAT 97
[2021-06-03 16:05] LABS: BASO % 0.3 % (0.0-1.0); EOS % 0.3 % (0.0-3.0); HEMATOCRIT 37.1 % (36.0-47.0); HEMOGLOBIN 11.4 g/dl (12.0-15.5); LYMPH # 0.9 10^3/uL (1.5-5.0); LYMPH % 8.2 % (24.0-44.0); MEAN CORPUSCULAR HGB CONC 30.7 g/dl (32.0-36.5); MEAN CORPUSCULAR VOLUME 100.8 fl (80.0-96.0); MONO # 0.3 10^3/uL (0.0-0.8); MONO % 2.2 % (2.0-8.0); NEUTROPHILS # 9.9 10^3/uL (1.5-8.5); PLATELET COUNT, AUTOMATED 241 10^3/uL (150-450); RED BLOOD COUNT 3.68 10^6/uL (4.00-5.40); WHITE BLOOD COUNT 11.5 10^3/uL (4.0-10.0)
[2021-06-03 16:18] LABS: ALBUMIN 3.4 GM/DL (3.2-5.2); ALKALINE PHOSPHATASE 97 U/L (45-117); ALT/SGPT 31 U/L (12-78); AST/SGOT 27 U/L (7-37); BILIRUBIN,TOTAL 0.3 MG/DL (0.2-1.0); BLOOD UREA NITROGEN 23 MG/DL (7-18); CARBON DIOXIDE LEVEL 33 MEQ/L (21-32); CHLORIDE LEVEL 104 MEQ/L (98-107); CREATININE FOR GFR 0.84 MG/DL (0.55-1.30); FERRITIN 25 NG/ML (8-252); GLOMERULAR FILTRATION RATE > 60.0 (>32); GLUCOSE, FASTING 100 MG/DL (70-100); IRON (FE) 67 UG/DL (50-170); PERCENT SATURATION 18.7 % (13.2-45.0); POTASSIUM SERUM 4.8 MEQ/L (3.5-5.1); SODIUM LEVEL 142 MEQ/L (136-145); TOTAL IRON BINDING CAPACITY 359 UG/DL (250-450); TOTAL PROTEIN 6.7 GM/DL (6.4-8.2)
[2021-07-01 14:02] LABS: BASO % 0.3 % (0.0-1.0); EOS % 0.2 % (0.0-3.0); HEMATOCRIT 40.3 % (36.0-47.0); HEMOGLOBIN 12.5 g/dl (12.0-15.5); LYMPH # 0.9 10^3/uL (1.5-5.0); LYMPH % 7.4 % (24.0-44.0); MEAN CORPUSCULAR HEMOGLOBIN 29.8 pg (27.0-33.0); MEAN CORPUSCULAR VOLUME 96.2 fl (80.0-96.0); MONO # 0.4 10^3/uL (0.0-0.8); MONO % 2.9 % (2.0-8.0); NEUTROPHILS # 11.1 10^3/uL (1.5-8.5); NEUTROPHILS % 87.3 % (36.0-66.0); PLATELET COUNT, AUTOMATED 223 10^3/uL (150-450); RED BLOOD COUNT 4.19 10^6/uL (4.00-5.40); WHITE BLOOD COUNT 12.7 10^3/uL (4.0-10.0)
[2021-07-01 14:27] LABS: ALBUMIN 3.6 GM/DL (3.2-5.2); ALKALINE PHOSPHATASE 110 U/L (45-117); ALT/SGPT 31 U/L (12-78); AST/SGOT 24 U/L (7-37); BILIRUBIN,TOTAL 0.4 MG/DL (0.2-1.0); BLOOD UREA NITROGEN 27 MG/DL (7-18); CALCIUM LEVEL 9.1 MG/DL (8.8-10.2); CARBON DIOXIDE LEVEL 32 MEQ/L (21-32); CHLORIDE LEVEL 106 MEQ/L (98-107); CREATININE FOR GFR 0.81 MG/DL (0.55-1.30); FERRITIN 19 NG/ML (8-252); GLOMERULAR FILTRATION RATE > 60.0 (>32); GLUCOSE, FASTING 117 MG/DL (70-100); IRON (FE) 54 UG/DL (50-170); PERCENT SATURATION 13.5 % (13.2-45.0); POTASSIUM SERUM 4.5 MEQ/L (3.5-5.1); SODIUM LEVEL 143 MEQ/L (136-145); TOTAL IRON BINDING CAPACITY 400 UG/DL (250-450)
[2021-08-13 14:11] LABS: BASO # 0.1 10^3/uL (0.0-0.2); BASO % 0.3 % (0.0-1.0); EOS % 0.1 % (0.0-3.0); HEMATOCRIT 43.1 % (36.0-47.0); HEMOGLOBIN 13.2 g/dl (12.0-15.5); LYMPH # 1.2 10^3/uL (1.5-5.0); MEAN CORPUSCULAR HEMOGLOBIN 27.8 pg (27.0-33.0); MEAN CORPUSCULAR HGB CONC 30.6 g/dl (32.0-36.5); MEAN CORPUSCULAR VOLUME 90.9 fl (80.0-96.0); MONO # 0.5 10^3/uL (0.0-0.8); MONO % 3.1 % (2.0-8.0); NEUTROPHILS # 12.9 10^3/uL (1.5-8.5); NEUTROPHILS % 86.6 % (36.0-66.0); PLATELET COUNT, AUTOMATED 267 10^3/uL (150-450); RED BLOOD COUNT 4.74 10^6/uL (4.00-5.40); WHITE BLOOD COUNT 14.9 10^3/uL (4.0-10.0)
[2021-08-13 14:14] VITALS: BP 130/79; O2SAT 95
[2021-08-13 14:43] LABS: ALBUMIN 3.6 GM/DL (3.2-5.2); BILIRUBIN,TOTAL 0.6 MG/DL (0.2-1.0); CALCIUM LEVEL 8.6 MG/DL (8.8-10.2); CREATININE FOR GFR 1.03 MG/DL (0.55-1.30); GLOMERULAR FILTRATION RATE 54.1 (>32); PERCENT SATURATION 10.3 % (13.2-45.0); POTASSIUM SERUM 4.4 MEQ/L (3.5-5.1); TOTAL PROTEIN 6.5 GM/DL (6.4-8.2)
[2021-10-12 13:41] VITALS: BP 110/72; O2SAT 95
[2021-10-12 13:52] LABS: BASO % 0.3 % (0.0-1.0); EOS % 0.2 % (0.0-3.0); HEMATOCRIT 43.2 % (36.0-47.0); HEMOGLOBIN 13.3 g/dl (12.0-15.5); LYMPH # 0.9 10^3/uL (1.5-5.0); LYMPH % 9.1 % (24.0-44.0); MEAN CORPUSCULAR HEMOGLOBIN 27.5 pg (27.0-33.0); MEAN CORPUSCULAR HGB CONC 30.8 g/dl (32.0-36.5); MEAN CORPUSCULAR VOLUME 89.4 fl (80.0-96.0); MONO # 0.3 10^3/uL (0.0-0.8); MONO % 2.7 % (2.0-8.0); NEUTROPHILS # 8.9 10^3/uL (1.5-8.5); NEUTROPHILS % 85.4 % (36.0-66.0); PLATELET COUNT, AUTOMATED 205 10^3/uL (150-450); RED BLOOD COUNT 4.83 10^6/uL (4.00-5.40); WHITE BLOOD COUNT 10.4 10^3/uL (4.0-10.0)
[2021-10-12 14:22] LABS: ALBUMIN 3.7 GM/DL (3.2-5.2); ALKALINE PHOSPHATASE 112 U/L (45-117); ALT/SGPT 35 U/L (12-78); AST/SGOT 33 U/L (7-37); BILIRUBIN,TOTAL 0.4 MG/DL (0.2-1.0); BLOOD UREA NITROGEN 24 MG/DL (7-18); CALCIUM LEVEL 9.7 MG/DL (8.8-10.2); CARBON DIOXIDE LEVEL 33 MEQ/L (21-32); CHLORIDE LEVEL 105 MEQ/L (98-107); CREATININE FOR GFR 0.93 MG/DL (0.55-1.30); FERRITIN 29 NG/ML (8-252); GLOMERULAR FILTRATION RATE > 60.0 (>32); GLUCOSE, FASTING 92 MG/DL (70-100); IRON (FE) 77 UG/DL (50-170); PERCENT SATURATION 19.6 % (13.2-45.0); POTASSIUM SERUM 4.4 MEQ/L (3.5-5.1); SODIUM LEVEL 142 MEQ/L (136-145); TOTAL IRON BINDING CAPACITY 393 UG/DL (250-450); TOTAL PROTEIN 6.6 GM/DL (6.4-8.2)
[2021-12-07 15:34] VITALS: BP 136/85; O2SAT 97
[2021-12-07 15:43] LABS: BASO % 0.2 % (0.0-1.0); EOS % 0.2 % (0.0-3.0); HEMATOCRIT 43.4 % (36.0-47.0); HEMOGLOBIN 13.6 g/dl (12.0-15.5); LYMPH % 7.6 % (24.0-44.0); MEAN CORPUSCULAR HEMOGLOBIN 27.8 pg (27.0-33.0); MEAN CORPUSCULAR HGB CONC 31.3 g/dl (32.0-36.5); MEAN CORPUSCULAR VOLUME 88.6 fl (80.0-96.0); MONO # 0.4 10^3/uL (0.0-0.8); MONO % 2.9 % (2.0-8.0); NEUTROPHILS # 11.3 10^3/uL (1.5-8.5); NEUTROPHILS % 86.1 % (36.0-66.0); PLATELET COUNT, AUTOMATED 222 10^3/uL (150-450); WHITE BLOOD COUNT 13.1 10^3/uL (4.0-10.0)
[2021-12-07 16:12] LABS: ALBUMIN 3.2 GM/DL (3.2-5.2); ALKALINE PHOSPHATASE 123 U/L (45-117); ALT/SGPT 23 U/L (12-78); AST/SGOT 23 U/L (7-37); BILIRUBIN,TOTAL 0.3 MG/DL (0.2-1.0); BLOOD UREA NITROGEN 24 MG/DL (7-18); CALCIUM LEVEL 8.8 MG/DL (8.8-10.2); CARBON DIOXIDE LEVEL 30 MEQ/L (21-32); CHLORIDE LEVEL 104 MEQ/L (98-107); CREATININE FOR GFR 0.88 MG/DL (0.55-1.30); FERRITIN 31 NG/ML (8-252); GLOMERULAR FILTRATION RATE > 60.0 (>32); GLUCOSE, FASTING 100 MG/DL (70-100); IRON (FE) 33 UG/DL (50-170); PERCENT SATURATION 9.4 % (13.2-45.0); POTASSIUM SERUM 4.7 MEQ/L (3.5-5.1); SODIUM LEVEL 141 MEQ/L (136-145); TOTAL IRON BINDING CAPACITY 352 UG/DL (250-450)
[2022-03-08 14:18] LABS: BASO # 0.1 10^3/uL (0.0-0.2); BASO % 0.4 % (0.0-1.0); EOS % 0.2 % (0.0-3.0); HEMATOCRIT 46.5 % (36.0-47.0); HEMOGLOBIN 13.9 g/dl (12.0-15.5); LYMPH # 0.8 10^3/uL (1.5-5.0); LYMPH % 6.1 % (24.0-44.0); MEAN CORPUSCULAR HEMOGLOBIN 28.1 pg (27.0-33.0); MEAN CORPUSCULAR HGB CONC 29.9 g/dl (32.0-36.5); MEAN CORPUSCULAR VOLUME 93.9 fl (80.0-96.0); MONO # 0.3 10^3/uL (0.0-0.8); MONO % 2.2 % (2.0-8.0); NEUTROPHILS # 11.6 10^3/uL (1.5-8.5); NEUTROPHILS % 89.3 % (36.0-66.0); PLATELET COUNT, AUTOMATED 216 10^3/uL (150-450); RED BLOOD COUNT 4.95 10^6/uL (4.00-5.40)
[2022-03-08 14:30] VITALS: BP 121/75; O2SAT 95
[2022-03-08 14:48] LABS: ALBUMIN 3.6 GM/DL (3.2-5.2); BILIRUBIN,TOTAL 0.4 MG/DL (0.2-1.0); CREATININE FOR GFR 0.97 MG/DL (0.55-1.30); GLOMERULAR FILTRATION RATE 57.8 (>32); POTASSIUM SERUM 4.4 MEQ/L (3.5-5.1); TOTAL PROTEIN 6.9 GM/DL (6.4-8.2)
[2022-03-08 15:27] VITALS: BP 101/66; O2SAT 96
[2022-05-05 14:52] LABS: BASO # 0.1 10^3/uL (0.0-0.2); BASO % 0.3 % (0.0-1.0); EOS % 0.1 % (0.0-3.0); HEMATOCRIT 41.3 % (36.0-47.0); HEMOGLOBIN 12.1 g/dl (12.0-15.5); LYMPH # 0.7 10^3/uL (1.5-5.0); LYMPH % 3.1 % (24.0-44.0); MEAN CORPUSCULAR HEMOGLOBIN 26.3 pg (27.0-33.0); MEAN CORPUSCULAR HGB CONC 29.3 g/dl (32.0-36.5); MEAN CORPUSCULAR VOLUME 89.8 fl (80.0-96.0); MONO # 0.5 10^3/uL (0.0-0.8); MONO % 2.2 % (2.0-8.0); NEUTROPHILS # 21.2 10^3/uL (1.5-8.5); NEUTROPHILS % 89.4 % (36.0-66.0); PLATELET COUNT, AUTOMATED 295 10^3/uL (150-450); WHITE BLOOD COUNT 23.7 10^3/uL (4.0-10.0)
[2022-05-05 15:07] VITALS: BP 130/73; O2SAT 94
[2022-05-05 16:06] LABS: ALBUMIN 3.2 G/DL (3.2-5.2); ALKALINE PHOSPHATASE 155 U/L (46-116); ALT/SGPT 19 U/L (7.0-40); AST/SGOT 19 U/L (<34); BILIRUBIN,TOTAL 0.4 MG/DL (0.3-1.2); BLOOD UREA NITROGEN 33 MG/DL (9-23); CALCIUM LEVEL 8.6 MG/DL (8.3-10.6); CARBON DIOXIDE LEVEL 33 MMOL/L (20-31); CHLORIDE LEVEL 97 MMOL/L (98-107); CREATININE FOR GFR 0.89 MG/DL (0.55-1.30); FERRITIN 39.5 NG/ML (7.3-270.7); GLOMERULAR FILTRATION RATE > 60.0 (>32); GLUCOSE, FASTING 117 MG/DL (74-106); IRON (FE) 45 UG/DL (50-170); POTASSIUM SERUM 4.6 MMOL/L (3.5-5.1); SODIUM LEVEL 138 MMOL/L (136-145); TOTAL IRON BINDING CAPACITY 301 UG/DL (250-425); TOTAL PROTEIN 6.4 G/DL (5.7-8.2)
[2022-08-05 14:18] VITALS: BP 103/66; O2SAT 94
[2022-08-05 14:30] LABS: BASO % 0.3 % (0.0-1.0); EOS % 0.2 % (0.0-3.0); HEMATOCRIT 40.6 % (36.0-47.0); HEMOGLOBIN 12.3 g/dl (12.0-15.5); LYMPH # 1.1 10^3/uL (1.5-5.0); LYMPH % 8.5 % (24.0-44.0); MEAN CORPUSCULAR HEMOGLOBIN 27.3 pg (27.0-33.0); MEAN CORPUSCULAR HGB CONC 30.3 g/dl (32.0-36.5); MONO # 0.3 10^3/uL (0.0-0.8); MONO % 2.4 % (2.0-8.0); NEUTROPHILS % 86.6 % (36.0-66.0); PLATELET COUNT, AUTOMATED 219 10^3/uL (150-450); RED BLOOD COUNT 4.51 10^6/uL (4.00-5.40); WHITE BLOOD COUNT 12.7 10^3/uL (4.0-10.0)
[2022-08-05 14:57] LABS: ALBUMIN 3.6 G/DL (3.2-5.2); ALKALINE PHOSPHATASE 112 U/L (46-116); ALT/SGPT 20 U/L (7.0-40); AST/SGOT 27 U/L (<34); BILIRUBIN,TOTAL 0.5 MG/DL (0.3-1.2); BLOOD UREA NITROGEN 26 MG/DL (9-23); CALCIUM LEVEL 8.4 MG/DL (8.3-10.6); CARBON DIOXIDE LEVEL 32 MMOL/L (20-31); CHLORIDE LEVEL 104 MMOL/L (98-107); CREATININE FOR GFR 0.77 MG/DL (0.55-1.30); GLOMERULAR FILTRATION RATE > 60.0 (>32); GLUCOSE, FASTING 89 MG/DL (74-106); POTASSIUM SERUM 4.3 MMOL/L (3.5-5.1); SODIUM LEVEL 141 MMOL/L (136-145); TOTAL PROTEIN 6.2 G/DL (5.7-8.2)
[2022-12-10 14:00] VITALS: BP 129/77; O2SAT 95
[2022-12-10 14:14] LABS: BASO % 0.2 % (0.0-1.0); EOS % 0.2 % (0.0-3.0); HEMOGLOBIN 12.1 g/dl (12.0-15.5); LYMPH # 0.8 10^3/uL (1.5-5.0); LYMPH % 8.7 % (24.0-44.0); MEAN CORPUSCULAR HEMOGLOBIN 29.2 pg (27.0-33.0); MONO # 0.2 10^3/uL (0.0-0.8); MONO % 2.4 % (2.0-8.0); NEUTROPHILS # 8.1 10^3/uL (1.5-8.5); NEUTROPHILS % 86.9 % (36.0-66.0); PLATELET COUNT, AUTOMATED 180 10^3/uL (150-450); RED BLOOD COUNT 4.15 10^6/uL (4.00-5.40); WHITE BLOOD COUNT 9.3 10^3/uL (4.0-10.0)
[2022-12-10 14:33] LABS: ALBUMIN 3.6 G/DL (3.2-5.2); BILIRUBIN,TOTAL 0.5 MG/DL (0.3-1.2); CALCIUM LEVEL 8.4 MG/DL (8.3-10.6); CREATININE FOR GFR 0.95 MG/DL (0.55-1.30); GLOMERULAR FILTRATION RATE 59.1 (>32); POTASSIUM SERUM 4.4 MMOL/L (3.5-5.1); TOTAL PROTEIN 5.9 G/DL (5.7-8.2)
[2023-09-07 11:27] VITALS: BP 142/87; O2SAT 97
[2023-09-07 11:39] LABS: BASO % 0.3 % (0.0-1.0); EOS % 0.1 % (0.0-3.0); HEMOGLOBIN 10.7 g/dl (12.0-15.5); LYMPH # 0.6 10^3/uL (1.5-5.0); LYMPH % 7.9 % (24.0-44.0); MEAN CORPUSCULAR HEMOGLOBIN 32.4 pg (27.0-33.0); MEAN CORPUSCULAR HGB CONC 31.5 g/dl (32.0-36.5); MONO # 0.2 10^3/uL (0.0-0.8); MONO % 2.9 % (2.0-8.0); NEUTROPHILS # 5.8 10^3/uL (1.5-8.5); NEUTROPHILS % 83.9 % (36.0-66.0); PLATELET COUNT, AUTOMATED 129 10^3/uL (150-450)
[2023-09-07 12:08] LABS: ALBUMIN 3.6 G/DL (3.2-5.2); ALKALINE PHOSPHATASE 78 U/L (46-116); ALT/SGPT 20 U/L (7.0-40); AST/SGOT 22 U/L (<34); BILIRUBIN,TOTAL 0.5 MG/DL (0.3-1.2); BLOOD UREA NITROGEN 29 MG/DL (9-23); CALCIUM LEVEL 8.6 MG/DL (8.3-10.6); CARBON DIOXIDE LEVEL 32 MMOL/L (20-31); CHLORIDE LEVEL 107 MMOL/L (98-107); CREATININE FOR GFR 0.62 MG/DL (0.55-1.30); GLOMERULAR FILTRATION RATE > 60.0 (>32); GLUCOSE, FASTING 76 MG/DL (74-106); POTASSIUM SERUM 4.7 MMOL/L (3.5-5.1); SODIUM LEVEL 142 MMOL/L (136-145); TOTAL PROTEIN 6.1 G/DL (5.7-8.2)
[2023-09-07 12:52] LABS: IRON (FE) 99 UG/DL (50-170); PERCENT SATURATION 37.8 % (13.2-45.0); TOTAL IRON BINDING CAPACITY 262 UG/DL (250-425)
[2023-09-07 12:54] LABS: FERRITIN 420.7 NG/ML (7.3-270.7)
[2023-12-07 09:46] LABS: BASO % 0.3 % (0.0-1.0); EOS % 0.1 % (0.0-3.0); HEMOGLOBIN 10.8 g/dl (12.0-15.5); LYMPH # 0.5 10^3/uL (1.5-5.0); LYMPH % 7.1 % (24.0-44.0); MEAN CORPUSCULAR HEMOGLOBIN 32.8 pg (27.0-33.0); MEAN CORPUSCULAR HGB CONC 31.8 g/dl (32.0-36.5); MEAN CORPUSCULAR VOLUME 103.3 fl (80.0-96.0); MONO # 0.1 10^3/uL (0.0-0.8); NEUTROPHILS # 5.9 10^3/uL (1.5-8.5); NEUTROPHILS % 85.6 % (36.0-66.0); PLATELET COUNT, AUTOMATED 147 10^3/uL (150-450); RED BLOOD COUNT 3.29 10^6/uL (4.00-5.40); WHITE BLOOD COUNT 6.9 10^3/uL (4.0-10.0)
[2023-12-07 10:05] LABS: ALBUMIN 3.3 G/DL (3.2-5.2); ALKALINE PHOSPHATASE 76 U/L (46-116); ALT/SGPT 21 U/L (7.0-40); AST/SGOT 20 U/L (<34); BILIRUBIN,TOTAL 0.5 MG/DL (0.3-1.2); BLOOD UREA NITROGEN 33 MG/DL (9-23); CARBON DIOXIDE LEVEL 34 MMOL/L (20-31); CHLORIDE LEVEL 106 MMOL/L (98-107); CREATININE FOR GFR 0.81 MG/DL (0.55-1.30); GLOMERULAR FILTRATION RATE > 60.0 (>32); GLUCOSE, FASTING 106 MG/DL (74-106); IRON (FE) 117 UG/DL (50-170); PERCENT SATURATION 41.3 % (13.2-45.0); POTASSIUM SERUM 4.1 MMOL/L (3.5-5.1); SODIUM LEVEL 143 MMOL/L (136-145); TOTAL IRON BINDING CAPACITY 283 UG/DL (250-425); TOTAL PROTEIN 5.8 G/DL (5.7-8.2)
[2023-12-07 10:08] LABS: FERRITIN 354.7 NG/ML (7.3-270.7)
[2023-12-14 09:19] VITALS: BP 126/78; O2SAT 95
[2024-01-25 10:09] LABS: BASO % 0.2 % (0.0-1.0); EOS % 0.1 % (0.0-3.0); HEMATOCRIT 34.9 % (36.0-47.0); HEMOGLOBIN 10.8 g/dl (12.0-15.5); LYMPH # 0.6 10^3/uL (1.5-5.0); LYMPH % 6.2 % (24.0-44.0); MEAN CORPUSCULAR HEMOGLOBIN 32.5 pg (27.0-33.0); MEAN CORPUSCULAR HGB CONC 30.9 g/dl (32.0-36.5); MEAN CORPUSCULAR VOLUME 105.1 fl (80.0-96.0); MONO # 0.2 10^3/uL (0.0-0.8); MONO % 2.2 % (2.0-8.0); NEUTROPHILS # 7.7 10^3/uL (1.5-8.5); NEUTROPHILS % 85.9 % (36.0-66.0); PLATELET COUNT, AUTOMATED 160 10^3/uL (150-450); RED BLOOD COUNT 3.32 10^6/uL (4.00-5.40)
[2024-03-14 10:03] VITALS: BP 123/72; O2SAT 96
[2024-05-23 15:21] VITALS: BP 141/92; O2SAT 93
[2024-06-11 13:32] VITALS: BP 117/78; O2SAT 98
[2024-06-11 13:39] LABS: BASO % 0.3 % (0.0-1.0); HEMATOCRIT 30.1 % (36.0-47.0); HEMOGLOBIN 9.4 g/dl (12.0-15.5); LYMPH # 0.6 10^3/uL (1.5-5.0); LYMPH % 9.6 % (24.0-44.0); MEAN CORPUSCULAR HEMOGLOBIN 32.1 pg (27.0-33.0); MEAN CORPUSCULAR HGB CONC 31.2 g/dl (32.0-36.5); MEAN CORPUSCULAR VOLUME 102.7 fl (80.0-96.0); MONO # 0.3 10^3/uL (0.0-0.8); MONO % 4.7 % (2.0-8.0); NEUTROPHILS % 78.7 % (36.0-66.0); PLATELET COUNT, AUTOMATED 154 10^3/uL (150-450); RED BLOOD COUNT 2.93 10^6/uL (4.00-5.40); WHITE BLOOD COUNT 6.4 10^3/uL (4.0-10.0)
[2024-06-11 14:13] LABS: ALBUMIN 2.9 G/DL (3.2-5.2); ALKALINE PHOSPHATASE 88 U/L (35-104); ALT/SGPT 17 U/L (7.0-40); AST/SGOT 19 U/L (<34); BILIRUBIN,TOTAL 0.5 MG/DL (0.3-1.2); BLOOD UREA NITROGEN 28 MG/DL (9-23); CARBON DIOXIDE LEVEL 32 MMOL/L (20-31); CHLORIDE LEVEL 101 MMOL/L (98-107); CREATININE FOR GFR 0.66 MG/DL (0.55-1.30); GLOMERULAR FILTRATION RATE > 60.0 (>32); GLUCOSE, FASTING 140 MG/DL (74-106); POTASSIUM SERUM 4.2 MMOL/L (3.5-5.1); SODIUM LEVEL 139 MMOL/L (136-145); TOTAL PROTEIN 6.3 G/DL (5.7-8.2)
[2024-06-11 15:06] LABS: INR 0.95; PARTIAL THROMBOPLASTIN TIME 38.1 SECONDS (24.8-34.2)
[2024-06-12 11:07] LABS: CLOSTRIDIUM DIFFICILE PCR NEGATIVE (NEGATIVE)
[2024-07-19 13:02] VITALS: BP 148/94; O2SAT 95
[2024-07-19 14:40] LABS: BASO % 0.2 % (0.0-1.0); HEMATOCRIT 26.4 % (36.0-47.0); HEMOGLOBIN 8.4 g/dl (12.0-15.5); LYMPH # 0.7 10^3/uL (1.5-5.0); LYMPH % 13.9 % (24.0-44.0); MEAN CORPUSCULAR HEMOGLOBIN 33.2 pg (27.0-33.0); MEAN CORPUSCULAR HGB CONC 31.8 g/dl (32.0-36.5); MEAN CORPUSCULAR VOLUME 104.3 fl (80.0-96.0); MONO # 0.3 10^3/uL (0.0-0.8); MONO % 5.2 % (2.0-8.0); NEUTROPHILS # 3.9 10^3/uL (1.5-8.5); NEUTROPHILS % 77.1 % (36.0-66.0); PLATELET COUNT, AUTOMATED 175 10^3/uL (150-450); RED BLOOD COUNT 2.53 10^6/uL (4.00-5.40)
[2024-07-19 15:13] LABS: ALBUMIN 3.3 G/DL (3.2-5.2); ALKALINE PHOSPHATASE 91 U/L (35-104); ALT/SGPT 22 U/L (7.0-40); AST/SGOT 24 U/L (<34); BILIRUBIN,TOTAL 0.4 MG/DL (0.3-1.2); BLOOD UREA NITROGEN 30 MG/DL (9-23); CALCIUM LEVEL 8.8 MG/DL (8.3-10.6); CARBON DIOXIDE LEVEL 31 MMOL/L (20-31); CHLORIDE LEVEL 98 MMOL/L (98-107); FOLATE 10.9 NG/ML (>5.4); GLOMERULAR FILTRATION RATE > 60.0 (>32); GLUCOSE, FASTING 101 MG/DL (74-106); IRON (FE) 83 UG/DL (50-170); POTASSIUM SERUM 4.4 MMOL/L (3.5-5.1); SODIUM LEVEL 140 MMOL/L (136-145); TOTAL IRON BINDING CAPACITY 296 UG/DL (250-425); TOTAL PROTEIN 6.7 G/DL (5.7-8.2)
[2024-07-19 15:14] LABS: VITAMIN B12 LEVEL 985 PG/ML (211-911)
[2024-07-20 11:21] LABS: FERRITIN 880.9 NG/ML (7.3-270.7)
[2024-08-15 10:35] VITALS: BP 137/87; O2SAT 96
[2024-09-12 10:48] VITALS: BP 123/73; O2SAT 99
[2024-10-09 12:11] LABS: BASO % 0.5 % (0.0-1.0); HEMATOCRIT 29.8 % (36.0-47.0); HEMOGLOBIN 9.2 g/dl (12.0-15.5); LYMPH # 0.4 10^3/uL (1.5-5.0); LYMPH % 8.5 % (24.0-44.0); MEAN CORPUSCULAR HEMOGLOBIN 32.9 pg (27.0-33.0); MEAN CORPUSCULAR HGB CONC 30.9 g/dl (32.0-36.5); MEAN CORPUSCULAR VOLUME 106.4 fl (80.0-96.0); MONO # 0.2 10^3/uL (0.0-0.8); MONO % 4.5 % (2.0-8.0); NEUTROPHILS # 3.4 10^3/uL (1.5-8.5); NEUTROPHILS % 80.1 % (36.0-66.0); PLATELET COUNT, AUTOMATED 132 10^3/uL (150-450); WHITE BLOOD COUNT 4.3 10^3/uL (4.0-10.0)
[2024-10-09 12:39] LABS: ALBUMIN 2.8 G/DL (3.2-5.2); BILIRUBIN,TOTAL 0.3 MG/DL (0.3-1.2); CALCIUM LEVEL 8.4 MG/DL (8.3-10.6); CREATININE FOR GFR 0.6 MG/DL (0.55-1.30); GLOMERULAR FILTRATION RATE 85.8 (>32); PERCENT SATURATION 14.4 % (13.2-45.0); POTASSIUM SERUM 4.5 MMOL/L (3.5-5.1)
[2024-10-09 12:41] LABS: FERRITIN 507.1 NG/ML (7.3-270.7)
[~2024-10-11] VITALS: Ht 160 cm; Wt 40.5 kg
[~2024-10-11 10:25] MED LIST changes: -HYDR28CR33 TOP; +HYDR28CR52 TOP
[2024-10-11 10:54] VITALS: BP 112/69; O2SAT 96
[2024-10-11] MEDS ORDERED: [UNRECOGNIZED DRUG - CODE] PO (11:39)
[2024-10-21] MEDS ORDERED: MUCI600T31 PO (18:26)
[2024-10-21] MEDS ORDERED: LORA-1164 PO (18:26)
[2024-10-21] MEDS ORDERED: SENN-186 PO (18:26)
[2024-10-29] MEDS ORDERED: HYOS125TA PO (12:25)
[2024-10-29] MEDS ORDERED: MORP1SOL5 PO (12:25)
[2024-10-29] MEDS ORDERED: ATIV1TAB10 PO (12:25)
== END 2024-10-29 | disposition expired ==
LOC: M ONCM 10:25
PROVIDERS: ATTEND Internal Medicine Medical Oncology
DX: D45 Polycythemia vera (principal); D75.81 Myelofibrosis; Z79.899 Other long term (current) drug therapy; R14.0 Abdominal distension (gaseous); E11.9 Type 2 diabetes mellitus without complications; H35.30 Unspecified macular degeneration; Z87.442 Personal history of urinary calculi; Z86.718 Personal history of other venous thrombosis and embolism; Z79.82 Long term (current) use of aspirin; Z88.0 Allergy status to penicillin; Z88.1 Allergy status to other antibiotic agents; Z88.6 Allergy status to analgesic agent; Z88.8 Allergy status to other drugs, medicaments and biological substances; M81.0 Age-related osteoporosis without current pathological fracture; E03.9 Hypothyroidism, unspecified; R42 Dizziness and giddiness; S30.0XXA Contusion of lower back and pelvis, initial encounter; W01.198A Fall on same level from slipping, tripping and stumbling with subsequent striking against other object, initial encounter; Y92.89 Other specified places as the place of occurrence of the external cause; Y99.8 Other external cause status
CPT/HCPCS: 36415; 36591; 70450; 71045; 72125; 72131; 74177; 80047; 80048; 80053; 80076; 81001; 82550; 82553; 82607; 82728; 82746; 83010; 83036; 83520; 83550; 83605; 83615; 83690; 84165; 84238; 84436; 84443; 84479; 84484; 84550; 85025; 85027; 85046; 85576; 85610; 85730; 86335; 86850; 86880; 86900; 86901; 88300; 93005; 93041; 94760; 99195; 99284; G0463; Q9967

== ENCOUNTER 2024-10-21 11:54 | Inpatient (IN) | payer MEDICARE, MEDICAID ==
[~2024-10-21] VITALS: Ht 154.9 cm; Wt 46.3 kg
[2024-10-21] VITALS (7 sets, daily range): BP systolic 127–139; BP diastolic 60–72; TEMP 97–100.2; O2SAT 94–98
[~2024-10-21 11:54] MED LIST changes: +[UNRECOGNIZED DRUG - CODE] PO
[2024-10-21] MEDS: ONDANSETRON 4MG 2ML VIAL IV ONE (12:45)
[2024-10-21] MEDS: NS (Normal Saline) 0.9% 1,000 ML IV SCH ×2 (12:45→21:22)
[2024-10-21 12:54] LABS: MEAN CORPUSCULAR HEMOGLOBIN 41.9 pg (27.0-33.0); MEAN CORPUSCULAR VOLUME 112.5 fl (80.0-96.0); PLATELET COUNT, AUTOMATED 258 10^3/uL (150-450); WHITE BLOOD COUNT 13.1 10^3/uL (4.0-10.0)
[2024-10-21 13:02] LABS: HEMOGLOBIN 6.7 g/dl (12.0-15.5); MEAN CORPUSCULAR HGB CONC 37.2 g/dl (32.0-36.5)
[2024-10-21 13:13] LABS: INR 1.19; PARTIAL THROMBOPLASTIN TIME 38.6 SECONDS (24.8-34.2); PROTHROMBIN TIME 15.4 SECONDS (12.5-14.5)
[2024-10-21 13:22] LABS: ALBUMIN 2.5 G/DL (3.2-5.2); BILIRUBIN,DIRECT 0.4 MG/DL (<0.4); BILIRUBIN,TOTAL 1.5 MG/DL (0.3-1.2); CALCIUM LEVEL 8.2 MG/DL (8.3-10.6); CREATININE FOR GFR 0.66 MG/DL (0.55-1.30); GLOMERULAR FILTRATION RATE 83.8 (>32); POTASSIUM SERUM 3.6 MMOL/L (3.5-5.1); TOTAL PROTEIN 5.7 G/DL (5.7-8.2)
[2024-10-21 13:29] LABS: LYMPHOCYTES 7 % (16-44); METAMYELOCYTES 2 % (0-0); MONOCYTES 3 % (0-5); MYELOCYTES 1 % (0-0); NEUTROPHILS 61 % (28-66)
[2024-10-21 13:30] LABS: ANISOCYTOSIS 4+
[2024-10-21 13:31] LABS: POLYCHROMASIA 1+
[2024-10-21 13:33] LABS: PLATELET ESTIMATE NORMAL (NORMAL); TEAR DROP CELLS 1+
[2024-10-21 13:34] LABS: OVALOCYTES 1+
[2024-10-21] MEDS: PANTOPRAZOLE 40MG VIAL IV ONE (13:38)
[2024-10-21] MEDS: GASTROGRAFIN SOLUTION 30ML PO SCH (13:40)
[2024-10-21] MEDS ORDERED: ISOVUE-370 76% 100ML VIAL As Ordered ONE (14:23)
[2024-10-21] MEDS ORDERED: MOM 30ML SUSPENSION UDC PO PRN (17:00)
[2024-10-21] MEDS ORDERED: ACETAMINOPHEN 325 MG TAB PO PRN (17:00)
[2024-10-21] MEDS ORDERED: PIPERACILLIN/TAZOBACTAM SOD 3.375 GM in DEXTROSE 5% (D5W) ADV/MINI-BAG 50 ML IV SCH (17:15)
[2024-10-21] MEDS: ZOSYN 3.375GM VIAL As Ordered ONE (18:19)
[2024-10-21] MEDS ORDERED: MUCI600T31 PO (18:26)
[2024-10-21] MEDS ORDERED: LORA-622 PO (18:26)
[2024-10-21] MEDS ORDERED: SENN-186 PO (18:26)
[2024-10-21] MEDS ORDERED: HOME MED LIST COMPLETE! XX SCH (18:30)
[2024-10-21] MEDS ORDERED: ETOMIDATE INJ 20MG/10ML VIAL As Ordered ONE (19:04)
[2024-10-21] MEDS ORDERED: LIDOCAINE 2% 100MG/5ML SDV (FOR ANES.) As Ordered ONE (19:04)
[2024-10-21] MEDS ORDERED: SUGAMMADEX SODIUM 500 MG/5 ML VIAL (BRIDION) As Ordered ONE (19:04)
[2024-10-21] MEDS ORDERED: fentaNYL 100 MCG/2 ML INJECTION As Ordered ONE (19:04)
[2024-10-21] MEDS ORDERED: ACETAMINOPHEN 1000MG/100ML IV BAG As Ordered ONE (19:04)
[2024-10-21] MEDS ORDERED: ROCURONIUM BROMIDE 50MG/5ML VIAL As Ordered ONE (19:04)
[2024-10-21] MEDS ORDERED: ONDANSETRON 4MG 2ML VIAL As Ordered ONE (19:04)
[2024-10-21] MEDS ORDERED: HYDROmorphone HCL 2MG/ML 1ML VIAL As Ordered ONE (19:04)
[2024-10-21] MEDS ORDERED: propofoL 200 MG/20 ML VIAL As Ordered ONE (19:04)
[2024-10-21] MEDS ORDERED: SUCCINYLCHOLINE 100MG/5ML SYRINGE As Ordered ONE (19:04)
[2024-10-21] MEDS ORDERED: ONDANSETRON 4MG 2ML VIAL IV PRN (19:05)
[2024-10-21] MEDS ORDERED: fentaNYL 100 MCG/2 ML INJECTION IV PRN (19:05)
[2024-10-21 19:38] LABS: HEMATOCRIT 31.1 % (36.0-47.0); MEAN CORPUSCULAR HEMOGLOBIN 29.6 pg (27.0-33.0); MEAN CORPUSCULAR HGB CONC 32.5 g/dl (32.0-36.5); MEAN CORPUSCULAR VOLUME 91.2 fl (80.0-96.0); PLATELET COUNT, AUTOMATED 190 10^3/uL (150-450); RED BLOOD COUNT 3.41 10^6/uL (4.00-5.40); WHITE BLOOD COUNT 12.2 10^3/uL (4.0-10.0)
[2024-10-21 19:43] LABS: HEMOGLOBIN 10.1 g/dl (12.0-15.5)
[2024-10-21] MEDS ORDERED: DOCUSATE SODIUM 100MG CAPSULE PO SCH (21:00)
[2024-10-21] MEDS: ERTAPENEM SODIUM 1 GM in NS MINI-BAG PLUS 50 ML IV SCH (21:22)
[2024-10-22] MEDS: MORPHINE 2 MG/ML 1ML VIAL IV PRN (00:03)
[2024-10-22 00:38] VITALS: BP 126/66; TEMP 97.3; O2SAT 98
[2024-10-22 02:04] VITALS: BP 128/66; TEMP 97.5; O2SAT 96
[2024-10-22] MEDS: MORPHINE 4 MG/ML 1ML VIAL IV PRN (03:10)
[2024-10-22 04:00] VITALS: BP 111/62; TEMP 97.5; O2SAT 96
[2024-10-22 06:08] LABS: HEMATOCRIT 28.1 % (36.0-47.0); HEMOGLOBIN 9.3 g/dl (12.0-15.5); MEAN CORPUSCULAR HEMOGLOBIN 28.8 pg (27.0-33.0); MEAN CORPUSCULAR HGB CONC 33.1 g/dl (32.0-36.5); PLATELET COUNT, AUTOMATED 214 10^3/uL (150-450); RED BLOOD COUNT 3.23 10^6/uL (4.00-5.40); WHITE BLOOD COUNT 11.8 10^3/uL (4.0-10.0)
[2024-10-22 06:36] LABS: CREATININE FOR GFR 0.64 MG/DL (0.55-1.30); GLOMERULAR FILTRATION RATE 84.4 (>32); POTASSIUM SERUM 3.7 MMOL/L (3.5-5.1)
[2024-10-22 08:06] LABS: ANISOCYTOSIS 1+; LYMPHOCYTES 2 % (16-44); METAMYELOCYTES 1 % (0-0); MONOCYTES 3 % (0-5); NEUTROPHILS 77 % (28-66)
[2024-10-22 08:07] LABS: PLATELET ESTIMATE NORMAL (NORMAL)
[2024-10-22] MEDS: PANTOPRAZOLE 40MG VIAL IV SCH (08:10)
[2024-10-22] MEDS: D5W/0.45% SODIUM CHLORIDE 1,000 ML IV SCH (08:14)
[2024-10-22] MEDS: LEVOTHYROXINE 100MCG (0.1MG) 5ML SDV PF (SOLUTION FORM) IV SCH (10:49)
[2024-10-22 10:59] LABS: C REACTIVE PROTEIN QUANTITATIV 5.24 MG/DL (<1.0)
[2024-10-22 11:03] LABS: PROCALCITONIN 2.06 ng/ml
[2024-10-22 11:41] LABS: ERYTHROCYTE SEDIMENTATION RATE 12 mm/hr (0-30)
[2024-10-22 12:00] VITALS: BP 109/58; TEMP 97.3; O2SAT 96
[2024-10-22 19:48] VITALS: BP 113/61; TEMP 97.5; O2SAT 97
[2024-10-23] MEDS: MORPHINE 2 MG/ML 1ML VIAL IV ONE (03:10)
[2024-10-23 04:06] VITALS: BP 110/55; TEMP 97.5; O2SAT 98
[2024-10-23 06:21] LABS: CALCIUM LEVEL 6.7 MG/DL (8.3-10.6); CREATININE FOR GFR 0.71 MG/DL (0.55-1.30); GLOMERULAR FILTRATION RATE 81.2 (>32); POTASSIUM SERUM 3.8 MMOL/L (3.5-5.1)
[2024-10-23 07:46] LABS: HEMATOCRIT 24.6 % (36.0-47.0); HEMOGLOBIN 7.9 g/dl (12.0-15.5); MEAN CORPUSCULAR HEMOGLOBIN 28.7 pg (27.0-33.0); MEAN CORPUSCULAR HGB CONC 32.1 g/dl (32.0-36.5); MEAN CORPUSCULAR VOLUME 89.5 fl (80.0-96.0); PLATELET COUNT, AUTOMATED 164 10^3/uL (150-450); RED BLOOD COUNT 2.75 10^6/uL (4.00-5.40); WHITE BLOOD COUNT 11.8 10^3/uL (4.0-10.0)
[2024-10-23 08:47] LABS: LYMPHOCYTES 4 % (16-44); MONOCYTES 8 % (0-5); NEUTROPHILS 81 % (28-66); NUCLEATED RED BLOOD CELL 1 % (0-0)
[2024-10-23 08:48] LABS: PLATELET ESTIMATE DECREASED (NORMAL)
[2024-10-23 12:00] VITALS: BP 110/55; TEMP 97.5; O2SAT 98
[2024-10-23] MEDS ORDERED: ACETAMINOPHEN *IV* 1,000 MG in IV 1 EA IV SCH (13:30)
[2024-10-23] MEDS ORDERED: oxyCODONE 5MG TAB PO PRN (13:40)
[2024-10-23] MEDS: ACETAMINOPHEN *IV* 500 MG in IV 1 EA IV SCH (15:31)
[2024-10-23 19:36] VITALS: BP 109/57; TEMP 97.2; O2SAT 93
[2024-10-23] MEDS: traMADol 50 MG TAB PO PRN (23:40)
[2024-10-24] VITALS (12 sets, daily range): BP systolic 110–147; BP diastolic 57–80; TEMP 96.8–97.9; O2SAT 95–100
[2024-10-24] MEDS ORDERED: NALOXONE INJ 0.4MG/1ML VIAL IV PRN (01:25)
[2024-10-24] MEDS: MORPHINE 2 MG/ML 1ML VIAL IV PRN (01:55)
[2024-10-24 05:51] LABS: BASO % 0.4 % (0.0-1.0); LYMPH # 0.4 10^3/uL (1.5-5.0); LYMPH % 5.4 % (24.0-44.0); MEAN CORPUSCULAR HEMOGLOBIN 30.2 pg (27.0-33.0); MEAN CORPUSCULAR HGB CONC 32.7 g/dl (32.0-36.5); MEAN CORPUSCULAR VOLUME 92.6 fl (80.0-96.0); MONO # 0.3 10^3/uL (0.0-0.8); MONO % 4.6 % (2.0-8.0); NEUTROPHILS % 81.8 % (36.0-66.0); PLATELET COUNT, AUTOMATED 129 10^3/uL (150-450); RED BLOOD COUNT 2.15 10^6/uL (4.00-5.40); WHITE BLOOD COUNT 7.3 10^3/uL (4.0-10.0)
[2024-10-24 06:06] LABS: HEMOGLOBIN 6.5 g/dl (12.0-15.5)
[2024-10-24 06:07] LABS: HEMATOCRIT 19.9 % (36.0-47.0)
[2024-10-24] MEDS: OLANZapine ORAL DISINTEGRATING TAB 5MG PO PRN (22:45)
[2024-10-25 00:35] VITALS: BP 133/80; TEMP 97.7
[2024-10-25 01:21] LABS: VENOUS BASE EXCESS 0.6 (-2.0-2.0); VENOUS HCO3 25.6 MMOL/L (23.0-27.0); VENOUS O2 SATURATION 89.3 % (60.0-80.0); VENOUS PARTIAL PRESSURE CO2 42.8 mmHg (38.0-50.0); VENOUS PARTIAL PRESSURE O2 50.5 mmHg (30.0-50.0); VENOUS PH 7.395 UNITS (7.330-7.430); VENOUS STANDARD HCO3 24.9 MMOL/L; VENOUS TOTAL CO2 26.9 MMOL/L (24.0-28.0)
[2024-10-25 01:28] LABS: BASO % 0.6 % (0.0-1.0); HEMATOCRIT 29.8 % (36.0-47.0); LYMPH # 0.4 10^3/uL (1.5-5.0); LYMPH % 5.6 % (24.0-44.0); MEAN CORPUSCULAR HEMOGLOBIN 29.9 pg (27.0-33.0); MEAN CORPUSCULAR HGB CONC 33.9 g/dl (32.0-36.5); MEAN CORPUSCULAR VOLUME 88.2 fl (80.0-96.0); MONO # 0.3 10^3/uL (0.0-0.8); NEUTROPHILS # 5.3 10^3/uL (1.5-8.5); PLATELET COUNT, AUTOMATED 133 10^3/uL (150-450); RED BLOOD COUNT 3.38 10^6/uL (4.00-5.40); WHITE BLOOD COUNT 6.6 10^3/uL (4.0-10.0)
[2024-10-25 01:32] LABS: HEMOGLOBIN 10.1 g/dl (12.0-15.5)
[2024-10-25 01:41] LABS: INR 1.51; PARTIAL THROMBOPLASTIN TIME 35.6 SECONDS (24.8-34.2); PROTHROMBIN TIME 18.4 SECONDS (12.5-14.5)
[2024-10-25] MEDS: CALCIUM GLUCONATE 1,000 MG in DEXTROSE 5% (D5W) MINI-BAG PLU 100 ML IV ONE (02:45)
[2024-10-25 04:34] VITALS: BP 127/77; TEMP 97.7; O2SAT 97
[2024-10-25 06:16] LABS: BASO % 0.6 % (0.0-1.0); HEMATOCRIT 28.7 % (36.0-47.0); HEMOGLOBIN 9.9 g/dl (12.0-15.5); LYMPH # 0.4 10^3/uL (1.5-5.0); LYMPH % 6.9 % (24.0-44.0); MEAN CORPUSCULAR HEMOGLOBIN 30.6 pg (27.0-33.0); MEAN CORPUSCULAR HGB CONC 34.5 g/dl (32.0-36.5); MEAN CORPUSCULAR VOLUME 88.6 fl (80.0-96.0); MONO # 0.4 10^3/uL (0.0-0.8); MONO % 5.9 % (2.0-8.0); NEUTROPHILS # 4.9 10^3/uL (1.5-8.5); NEUTROPHILS % 76.5 % (36.0-66.0); PLATELET COUNT, AUTOMATED 118 10^3/uL (150-450); RED BLOOD COUNT 3.24 10^6/uL (4.00-5.40); WHITE BLOOD COUNT 6.4 10^3/uL (4.0-10.0)
[2024-10-25 06:43] LABS: CALCIUM LEVEL 7.5 MG/DL (8.3-10.6); CREATININE FOR GFR 0.53 MG/DL (0.55-1.30); GLOMERULAR FILTRATION RATE 88.4 (>32); POTASSIUM SERUM 3.2 MMOL/L (3.5-5.1)
[2024-10-25 13:40] VITALS: BP 112/60; TEMP 97.2; O2SAT 94
[2024-10-25 19:43] VITALS: BP 149/81; TEMP 97.2; O2SAT 94
[2024-10-25] MEDS: MORPHINE 2 MG/ML 1ML VIAL IV PRN (23:11)
[2024-10-26 04:26] VITALS: BP 151/80; TEMP 97.7; O2SAT 92
[2024-10-26 06:48] LABS: BASO # 0.1 10^3/uL (0.0-0.2); BASO % 0.9 % (0.0-1.0); EOS % 0.2 % (0.0-3.0); HEMATOCRIT 32.6 % (36.0-47.0); HEMOGLOBIN 10.9 g/dl (12.0-15.5); LYMPH # 0.3 10^3/uL (1.5-5.0); LYMPH % 4.4 % (24.0-44.0); MEAN CORPUSCULAR HEMOGLOBIN 29.8 pg (27.0-33.0); MEAN CORPUSCULAR HGB CONC 33.4 g/dl (32.0-36.5); MEAN CORPUSCULAR VOLUME 89.1 fl (80.0-96.0); MONO # 0.4 10^3/uL (0.0-0.8); MONO % 5.8 % (2.0-8.0); NEUTROPHILS # 5.2 10^3/uL (1.5-8.5); NEUTROPHILS % 79.8 % (36.0-66.0); PLATELET COUNT, AUTOMATED 117 10^3/uL (150-450); RED BLOOD COUNT 3.66 10^6/uL (4.00-5.40); WHITE BLOOD COUNT 6.5 10^3/uL (4.0-10.0)
[2024-10-26 07:11] LABS: BLOOD UREA NITROGEN 24 MG/DL (9-23); CALCIUM LEVEL 7.2 MG/DL (8.3-10.6); CARBON DIOXIDE LEVEL 26 MMOL/L (20-31); CHLORIDE LEVEL 108 MMOL/L (98-107); CREATININE FOR GFR 0.47 MG/DL (0.55-1.30); GLOMERULAR FILTRATION RATE > 90.0 (>32); GLUCOSE, FASTING 123 MG/DL (74-106); POTASSIUM SERUM 3.1 MMOL/L (3.5-5.1); SODIUM LEVEL 144 MMOL/L (136-145)
[2024-10-26] MEDS: KCL 10MEQ/100ML SWI (KRUN) 10 MEQ in IV 1 EA IV SCH (08:12)
[2024-10-26 09:10] VITALS: BP 130/90; TEMP 97.4; O2SAT 93
[2024-10-26] MEDS ORDERED: ONDANSETRON 4MG ORAL DISINTEGRATING TAB PO PRN (11:10)
[2024-10-26] MEDS ORDERED: ATROPINE SULFATE 1% OPHTH SOLN 2ML BTL SL PRN (11:10)
[2024-10-26] MEDS: MORPHINE 10MG/0.5ML ORAL CONCENTRATE SOLUTION U/D SL SCH (11:32)
[2024-10-26] MEDS: LORazepam 1 MG TAB PO PRN (14:14)
[2024-10-26] MEDS: MORPHINE 10MG/0.5ML ORAL CONCENTRATE SOLUTION U/D SL PRN (14:14)
[2024-10-26] MEDS: PIPERACILLIN/TAZOBACTAM SOD 3.375 GM in DEXTROSE 5% (D5W) ADV/MINI-BAG 50 ML IV SCH (19:09)
[2024-10-27] MEDS: LEVOTHYROXINE 100MCG TABLET (0.1MG) PO SCH (06:00)
[2024-10-28] MEDS: MORPHINE 10MG/0.5ML ORAL CONCENTRATE SOLUTION U/D SL PRN (09:45)
[2024-10-28] MEDS: HYOSCYAMINE SULFATE 0.125 MG SUBL TABLET PO PRN (09:46)
[2024-10-29] MEDS ORDERED: MORP1SOL5 PO (12:25)
[2024-10-29] MEDS ORDERED: HYOS125TA PO (12:25)
[2024-10-29] MEDS ORDERED: ATIV1TAB10 PO (12:25)
[2024-10-29] MEDS: MORPHINE 10MG/0.5ML ORAL CONCENTRATE SOLUTION U/D SL SCH (12:49)
== END 2024-10-29 13:15 | DRG 329 ==
LOC: EDBD 11:54 → M ED 11:54 → M ED INP 16:59 → M MS5PR 20:57
PROVIDERS: ADMIT Student in an Organized Health Care Education/Training Program; ATTEND Student in an Organized Health Care Education/Training Program
PROC: 0D1M0Z4 Bypass Descending Colon to Cutaneous, Open Approach (ICD-10-PCS; 2024-10-21)
PROC: 30233N1 Transfusion of Nonautologous Red Blood Cells into Peripheral Vein, Percutaneous Approach (ICD-10-PCS; 2024-10-21)
PROC: 0DBG0ZZ Excision of Left Large Intestine, Open Approach (ICD-10-PCS; principal; 2024-10-21 16:15)
PROC: B246ZZZ Ultrasonography of Right and Left Heart (ICD-10-PCS; 2024-10-22)
DX: K56.1 Intussusception (principal); G93.41 Metabolic encephalopathy; D62 Acute posthemorrhagic anemia; I50.32 Chronic diastolic (congestive) heart failure; D75.81 Myelofibrosis; C18.9 Malignant neoplasm of colon, unspecified; Z66 Do not resuscitate; H35.30 Unspecified macular degeneration; E03.9 Hypothyroidism, unspecified; M19.90 Unspecified osteoarthritis, unspecified site; D45 Polycythemia vera; G62.9 Polyneuropathy, unspecified; Z98.49 Cataract extraction status, unspecified eye; F03.90 Unspecified dementia, unspecified severity, without behavioral disturbance, psychotic disturbance, mood disturbance, and anxiety; K21.9 Gastro-esophageal reflux disease without esophagitis; Z79.82 Long term (current) use of aspirin; Z79.890 Hormone replacement therapy; Z79.899 Other long term (current) drug therapy; Z88.0 Allergy status to penicillin; Z88.1 Allergy status to other antibiotic agents; I48.91 Unspecified atrial fibrillation; K56.609 Unspecified intestinal obstruction, unspecified as to partial versus complete obstruction